=== PATIENT | male | born 1965 | race Caucasian/White ===

== ENCOUNTER 2020-07-20 | Outpatient (REF) | payer MEDICARE, MEDICAID, SELFPAY ==
[2020-07-20 09:36] LABS: MANUAL DIFF FLAG NO
[2020-07-20 09:45] LABS: Basophils Percent Auto 0.2 % (0-2); Eosinophils Absolute Auto 0.4 X10*3/uL (0.0-0.4); Eosinophils Percent Auto 5.9 % (0-4); Hematocrit 39.8 % (42-52); Hemoglobin 12.9 g/dl (14.0-18.0); Imm Gran Abs Auto 0.01 X10*3/uL (0.00-0.03); Imm Gran Pct Auto 0.2 % (0.0-0.4); Lymphocytes Absolute Auto 2.6 X10*3/uL (1.2-4.9); Lymphocytes Percent Auto 40.6 % (20-40); Mean Corpuscular HGB Conc 32.4 g/dl (31.0-36.0); Mean Corpuscular Hemoglobin 30.4 pg (27.0-33.0); Mean Corpuscular Volume 93.6 fL (80-98); Mean Platelet Volume 10.5 fL (9.4-12.4); Monocytes Absolute Auto 0.4 X10*3/uL (0.1-1.2); Monocytes Percent Auto 6.8 % (2-11); Neutrophils Percent Auto 46.3 % (45-73); Platelet Count 202 X10*3/uL (160-400); Red Blood Count 4.25 X10*6/uL (4.60-5.80); Red Cell Distribution Width 12.6 % (11.0-16.0); White Blood Count 6.5 X10*3/uL (4.8-10.8)
[2020-07-20 10:29] LABS: Alanine Aminotransferase 16 U/L (0-40); Anion Gap 14 (12-20); Aspartate Amino Transferase 19 U/L (5-37); Blood Urea Nitrogen 9 mg/dL (9-16); Calcium 8.5 mg/dL (8.4-10.2); Carbon Dioxide 28 mmol/L (22-29); Chloride 102 mmol/L (96-108); Cholesterol 157 mg/dL; Creatinine Clr Calc Pharmacy 89.4; Estimated Glomerular Filt Rate > 60; Glucose Fasting 90 mg/dL (60-99); HDL Cholesterol 48 mg/dL; LDL Cholesterol Calculated 92 mg/dl; Potassium 4.3 mmol/l (3.3-5.1); Sodium 140 mmol/L (135-145); Triglycerides 85 mg/dL
[2020-07-24 00:17] LABS: Vitamin D 25-OH, D2 <4 ng/mL; Vitamin D 25-OH, D3 53 ng/mL; Vitamin D 25-OH, Total 53 ng/mL (30-100)
== END 2020-07-20 00:01 | disposition home or self-care (01) ==
LOC: HO.LNP
PROVIDERS: Visit Provider Internal Medicine
DX: E78.5 Hyperlipidemia, unspecified (principal); E55.9 Vitamin D deficiency, unspecified; I10 Essential (primary) hypertension
CPT/HCPCS: 36415; 80048; 80061; 82306; 84450; 84460; 85025

== ENCOUNTER 2020-07-24 09:12 | Outpatient (REF) | payer MEDICARE, MEDICAID, SELFPAY | END 2020-07-24 09:13 | disposition home or self-care (01) | LOC: HO.HMGCLDS 09:12 | PROVIDERS: PCP Internal Medicine; Visit Provider Internal Medicine | DX: Z20.828 Contact with and (suspected) exposure to other viral communicable diseases (principal) | CPT/HCPCS: C9803; U0003 ==

== ENCOUNTER 2020-08-18 13:55 | Outpatient (REF) | payer MEDICARE, MEDICAID, SELFPAY | END 2020-08-18 13:56 | disposition home or self-care (01) | LOC: HO.LNP 13:55 | PROVIDERS: Visit Provider Nurse Practitioner Family | DX: Z20.822 Contact with and (suspected) exposure to COVID-19 (principal) | CPT/HCPCS: U0003 ==

== ENCOUNTER 2020-08-23 17:08 | Inpatient (IN) | payer MEDICARE, MEDICAID, SELFPAY ==
[2020-08-23 17:22] VITALS: BP 138/76; PULSE 67; RESP 16; TEMP 36.6; O2SAT 97; BMI 21.5
--- NOTE | 2020-08-23 17:53 | XR_ITS ---
EXAMINATION: LUMBOSACRAL SPINE, LEFT HIP CLINICAL INFORMATION: Fall on left hip with hip and back pain COMPARISON: Bilateral hip radiograph 04/27/2018 TECHNIQUE: Single view pelvis with 2 additional views left hip, 3 views lumbar sacral spine FINDINGS: There is a subcapital, slightly impacted fracture involving the left femoral neck with minimal angulation. No other fracture is seen. Minimal degenerative changes are present in the lumbar spine with marked degenerative changes present in the lower visualized thoracic spine. No fractures or bony destructive lesions seen. Clips are noted in the gallbladder fossa. XR/XR lumbar spine 2-3V IMPRESSION: Acute subcapital left femoral neck fracture.
--- NOTE | 2020-08-23 17:53 | XR_ITS ---
EXAMINATION: LUMBOSACRAL SPINE, LEFT HIP CLINICAL INFORMATION: Fall on left hip with hip and back pain COMPARISON: Bilateral hip radiograph 04/27/2018 TECHNIQUE: Single view pelvis with 2 additional views left hip, 3 views lumbar sacral spine FINDINGS: There is a subcapital, slightly impacted fracture involving the left femoral neck with minimal angulation. No other fracture is seen. Minimal degenerative changes are present in the lumbar spine with marked degenerative changes present in the lower visualized thoracic spine. No fractures or bony destructive lesions seen. Clips are noted in the gallbladder fossa. XR/XR hip LT w PEL1V IMPRESSION: Acute subcapital left femoral neck fracture.
--- NOTE | 2020-08-23 17:59 | ED_ITS ---
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 History obtained from family member at bedside, per family patient had mechanical fall without preceding symptoms landing on left hip, no head trauma or LOC reported. Was having difficulty/pain with ambulation s/p event with decreased ROM. Denies injury to other area Related Data Home Medications Medication Instructions Recorded Confirmed cholecalciferol (vitamin D3) 25 25 mcg PO DAILY 06/15/20 06/15/20 mcg (1,000 unit) capsule diazepam 2 mg tablet 2 mg PO DAILY PRN tab 06/15/20 docusate sodium 100 mg capsule 100 mg PO DAILY PRN 06/15/20 06/15/20 epinephrine 0.3 mg/0.3 mL IM 06/15/20 injection, auto-injector propranolol 20 mg tablet 20 mg PO BID 06/15/20 risperidone 0.5 mg tablet 0.5 mg PO BID 06/15/20 Previous Rx's Medication Instructions Recorded simvastatin 20 mg tablet 20 mg PO BEDTIME #90 tab 08/03/20 Allergies Allergy/AdvReac Type Severity Reaction Status Date / Time acetaminophen [From ENDOCET] Allergy Unknown HIVES Verified 06/15/20 08:44 amoxicillin [From AUGMENTIN] Allergy Unknown HIVES Verified 06/15/20 08:44 cefuroxime [CEFUROXIME] Allergy Unknown HIVES Verified 06/15/20 08:44 ciprofloxacin [From CIPRO] Allergy Unknown HIVES, Verified 06/15/20 08:44 Rash, rash clarithromycin [From BIAXIN] Allergy Unknown HIVES Verified 06/15/20 08:44 clavulanic acid Allergy Unknown HIVES Verified 06/15/20 08:44 [From AUGMENTIN] morphine [MORPHINE] Allergy Unknown HIVES, Verified 06/15/20 08:44 Rash, rash oxycodone [From ENDOCET] Allergy Unknown HIVES Verified 06/15/20 08:44 Review of Systems Review of Systems: Constitutional: No Weight loss, No Fever, No Chills Cardiovascular: No Chest Pain, No SOB Respiratory: No Cough Gastrointestinal: No Nausea, No Vomiting Genitourinary:No Urinary Incontinence Musculoskeletal: +joint pain, No Myalgias, No Joint Swelling Skin: No Skin Lesions, No rash Neuro: No Weakness Yes all other systems are reviewed and are negative [facility] Past Medical History Attestation statement: The following information was validated with the patient. Medical History Cerebral palsy Dyslipidemia Gallstones Left inguinal hernia 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 Psychotic disorder Sensorineural hearing loss Vitamin D deficiency Surgical History History of colonoscopy Hx laparoscopic cholecystectomy S/P inguinal herniorrhaphy Family History Family History Father Medical history non-contributory Mother Medical history non-contributory Social History Social History Alcohol intake: never Smoking Status: Never smoker Smoked in Last 30 Days: No Use of substances other than those prescribed or required for medical reasons: No Any prior treatment program specific to substance use: No Advance Directives: No Advance Directives Information Provided: Yes Physical Exam Vital Signs: Vital Signs: Last Vital Signs Temp 97.9 F 08/23/20 19:06 Pulse 74 08/23/20 19:06 Resp 18 08/23/20 19:06 BP 128/66 08/23/20 19:06 Pulse Ox 99 08/23/20 19:06 Body Mass Index 21.5 Const: General: cooperative and no acute distress Limitations: no limitations HENMT: Head: Yes normal to inspection Ears: hearing grossly normal bilaterally General nose exam: Normal external nose present Face and sinus: Yes normal facial exam Eyes: General: appearance normal, both eyes and all related structures EOM: EOMs intact bilaterally Neck: Other: No midline cervical spinous tenderness Neck: Yes normal visual inspection and Yes no meningeal signs Resp: Effort & Inspection: normal respiratory effort Cardio: Rate: regular rate Peripheral pulses: dorsalis pedis present GI: Inspection: Yes normal to inspection Palpation (GI): Soft to palpation, nontender, no guarding and not rigid Back/Spine/Pelvis: Other: + right-sided lower lumbar MSK back ttp. No midline thoracic/lumbar spinous tenderness. No step-offs or back deformity noted Skin: Rashes: no rashes Wounds: no wounds Neuro: General: tone normal, moves all extremities and no meningeal signs Extrem: Other: + left hip ttp, no appreciable deformity. Pain with passive ROM. Neurovascularly intact distally. Pelvis stable General: Yes normal to inspection Course Course Course Narrative: * Hip/pelvis x-ray showing acute subcapital left femoral neck fracture > orthopedics consulted. 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 On exam VSS, in ED/well-appearing, left hip and left lower lumbar back with +ttp. No appreciable deformity. Pain with passive ROM of left hip. Concern for fracture/dislocation versus bruising or MSK pain. Plan: X-rays > if WNL will obtain CT to rule out occult fracture due to patient unable to provide own history Lab Data Result diagrams: 08/23/20 19:49 08/23/20 19:49 Labs: Lab Results 08/23/20 08/23/20 08/23/20 Range/Units 19:49 19:49 19:49 WBC 11.6 H (4.8-10.8) X10*3/uL RBC 4.37 L (4.60-5.80) X10*6/uL Hgb 13.8 L (14.0-18.0) g/dl Hct 41.1 L (42-52) % MCV 94.1 (80-98) fL MCH 31.6 (27.0-33.0) pg MCHC 33.6 (31.0-36.0) g/dl RDW 12.6 (11.0-16.0) % Plt Count 244 (160-400) X10*3/uL MPV 9.1 L (9.4-12.4) fL Immature Gran % (Auto) 0.4 (0.0-0.4) % Neut % (Auto) 83.6 H (45-73) % Lymph % (Auto) 11.1 L (20-40) % [place] % (Auto) 4.6 (2-11) % Eos % (Auto) 0.2 (0-4) % Baso % (Auto) 0.1 (0-2) % Lymph # (Auto) 1.3 (1.2-4.9) X10*3/uL [place] # (Auto) 0.5 (0.1-1.2) X10*3/uL Eos # (Auto) 0.0 (0.0-0.4) X10*3/uL Baso # (Auto) 0.0 (0.0-0.2) X10*3/uL Abs Immat Gran (auto) 0.05 H (0.00-0.03) X10*3/uL Absolute Neuts (auto) 9.7 H (2.0-8.3) X10*3/uL Absolute Nucleated RBC 0.000 (0.0-0.012) X10*3/uL Nucleated RBC % (auto) 0.0 (0.0-0.2) /100WBC Hold Blue Top Sodium 139 (135-145) mmol/L Potassium 4.5 (3.3-5.1) mmol/l Chloride 101 (96-108) mmol/L Carbon Dioxide 25 (22-29) mmol/L Anion Gap 18 (12-20) BUN 10 (9-16) mg/dL Creatinine 0.72 (0.5-1.4) mg/dL Estim Creat Clear Calc 86.7 Estimated GFR > 60 Random Glucose 125 H (60-115) mg/dL Calcium 9.1 D (8.4-10.2) mg/dL COVID-19 (IGNACIA) Negative (Negative) COVID-19 Clin Com See Note 08/23/20 Range/Units 19:49 WBC (4.8-10.8) X10*3/uL RBC (4.60-5.80) X10*6/uL Hgb (14.0-18.0) g/dl Hct (42-52) % MCV (80-98) fL MCH (27.0-33.0) pg MCHC (31.0-36.0) g/dl RDW (11.0-16.0) % Plt Count (160-400) X10*3/uL MPV (9.4-12.4) fL Immature Gran % (Auto) (0.0-0.4) % Neut % (Auto) (45-73) % Lymph % (Auto) (20-40) % [place] % (Auto) (2-11) % Eos % (Auto) (0-4) % Baso % (Auto) (0-2) % Lymph # (Auto) (1.2-4.9) X10*3/uL [place] # (Auto) (0.1-1.2) X10*3/uL Eos # (Auto) (0.0-0.4) X10*3/uL Baso # (Auto) (0.0-0.2) X10*3/uL Abs Immat Gran (auto) (0.00-0.03) X10*3/uL Absolute Neuts (auto) (2.0-8.3) X10*3/uL Absolute Nucleated RBC (0.0-0.012) X10*3/uL Nucleated RBC % (auto) (0.0-0.2) /100WBC Hold Blue Top SEE NOTE Sodium (135-145) mmol/L Potassium (3.3-5.1) mmol/l Chloride (96-108) mmol/L Carbon Dioxide (22-29) mmol/L Anion Gap (12-20) BUN (9-16) mg/dL Creatinine (0.5-1.4) mg/dL Estim Creat Clear Calc Estimated GFR Random Glucose (60-115) mg/dL Calcium (8.4-10.2) mg/dL COVID-19 (IGNACIA) (Negative) COVID-19 Clin Com Discharge Plan Discharge Clinical Impression: Femoral neck fracture Qualifiers: Encounter type: initial encounter Fracture type: closed Laterality: left Qualified Code(s): S72.002A - Fracture of unspecified part of neck of left femur, initial encounter for closed fracture Patient Disposition: Admitted As Inpatient
--- NOTE | 2020-08-23 19:01 | ECG_ITS ---
Test Reason : FALL Blood Pressure : / mmHG Vent. Rate : 074 BPM Atrial Rate : 258 BPM P-R Int : 000 ms QRS Dur : 102 ms QT Int : 416 ms P-R-T Axes : 000 -75 051 degrees QTc Int : 461 ms Poor data quality Possible Normal sinus rhythm Pulmonary disease pattern Left anterior fascicular block Abnormal ECG When compared with ECG of 12-MAR-2004 07:21, T wave inversion no longer evident in Inferior leads T wave inversion no longer evident in Anterior leads QT has lengthened Referred By: Li Montero Electronically Signed By:CHARISSA GAITAN MD
--- NOTE | 2020-08-23 19:02 | XR_ITS ---
EXAMINATION: XR CHEST CLINICAL INFORMATION: Operative screening COMPARISON: None TECHNIQUE: Frontal view of the chest was obtained. FINDINGS: Lungs are hypoexpanded with some mild elevation of the left hemidiaphragm. Allowing for this, no significant abnormality is seen aside from the presence of mild scoliosis and degenerative changes in the spine and right shoulder. No infiltrates, effusions or lung masses are seen. XR/XR chest 1V IMPRESSION: No acute intrathoracic disease.
[2020-08-23 19:06] VITALS: BP 128/66; PULSE 74; RESP 18; TEMP 36.6; O2SAT 99
[2020-08-23] MEDS: Ibuprofen 600 MG TABLET PO (19:29)
--- NOTE | 2020-08-23 19:30 | P.EN_ITS ---
Event Note Date of Service: 08/23/20 Event Note: 54 yo male with left subcapital hip fracture pmh significant for c erebal palsy, psychosis, non verbal, developmental delay. -plan is to admit to orthopedic service for surgical planning --he will require clearance from medicine and anesthesia going forward ---npo, t&s
[2020-08-23 19:53] LABS: MANUAL DIFF FLAG NO
[2020-08-23 19:58] LABS: Basophils Percent Auto 0.1 % (0-2); Eosinophils Percent Auto 0.2 % (0-4); Hematocrit 41.1 % (42-52); Hemoglobin 13.8 g/dl (14.0-18.0); Imm Gran Abs Auto 0.05 X10*3/uL (0.00-0.03); Imm Gran Pct Auto 0.4 % (0.0-0.4); Lymphocytes Absolute Auto 1.3 X10*3/uL (1.2-4.9); Lymphocytes Percent Auto 11.1 % (20-40); Mean Corpuscular HGB Conc 33.6 g/dl (31.0-36.0); Mean Corpuscular Hemoglobin 31.6 pg (27.0-33.0); Mean Corpuscular Volume 94.1 fL (80-98); Mean Platelet Volume 9.1 fL (9.4-12.4); Monocytes Absolute Auto 0.5 X10*3/uL (0.1-1.2); Monocytes Percent Auto 4.6 % (2-11); Neutrophils Absolute Auto 9.7 X10*3/uL (2.0-8.3); Neutrophils Percent Auto 83.6 % (45-73); Platelet Count 244 X10*3/uL (160-400); Red Blood Count 4.37 X10*6/uL (4.60-5.80); Red Cell Distribution Width 12.6 % (11.0-16.0); White Blood Count 11.6 X10*3/uL (4.8-10.8)
[2020-08-23 20:11] LABS: COVID-19 Test Negative (Negative)
[2020-08-23 20:19] LABS: Anion Gap 18 (12-20); Blood Urea Nitrogen 10 mg/dL (9-16); Calcium 9.1 mg/dL (8.4-10.2); Carbon Dioxide 25 mmol/L (22-29); Chloride 101 mmol/L (96-108); Creatinine Clr Calc Pharmacy 86.7; Estimated Glomerular Filt Rate > 60; Glucose Random 125 mg/dL (60-115); Potassium 4.5 mmol/l (3.3-5.1); Sodium 139 mmol/L (135-145)
--- NOTE | 2020-08-23 21:00 | PM.IMCN ---
History of Present Illness Data of Consult Service Date: 08/23/20 Primary Care Provider: Harish AYON Reason for consult: medical management Male with past medical history of cerebral palsy, sensorineural hearing loss, nonverbal at baseline, dyslipidemia, osteoarthritis, psychotic disorder, who is brought into the hospital after experiencing a mechanical fall while dancing at [employer]. History is obtained from his father at bedside as patient is nonverbal and unable to give much history. According to his father, patient usually goes to [employer] daily, was dancing, and was reported to have a fall, patient was able to ambulate and was. His father in his family noted him to be limping, and grimacing on any movement. Therefore they brought him to the hospital. Imaging of the left hip showed acute subcapital left femoral neck fracture. Orthopedic is admitting the patient in medical team is consulted for medical management. I am unable to obtain any review of system from patient as he is nonverbal No significant abnormal vitals Labs are significant for WBC count of 11.6, hemoglobin of 13.8 labs otherwise unremarkable. Chest x-ray negative, lumbar spine x-ray negative. 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 Psychotic disorder Sensorineural hearing loss Vitamin D deficiency Family History Father Medical history non-contributory Mother Medical history non-contributory Surgical History History of colonoscopy Hx laparoscopic cholecystectomy S/P inguinal herniorrhaphy Social History Alcohol intake: never Smoking Status: Never smoker Smoked in Last 30 Days: No Use of substances other than those prescribed or required for medical reasons: No Any prior treatment program specific to substance use: No Advance Directives: No Advance Directives Information Provided: Yes Meds Allergies Allergy/AdvReac Type Severity Reaction Status Date / Time acetaminophen [From ENDOCET] Allergy Unknown HIVES Verified 06/15/20 08:44 amoxicillin [From AUGMENTIN] Allergy Unknown HIVES Verified 06/15/20 08:44 cefuroxime [CEFUROXIME] Allergy Unknown HIVES Verified 06/15/20 08:44 ciprofloxacin [From CIPRO] Allergy Unknown HIVES, Verified 06/15/20 08:44 Rash, rash clarithromycin [From BIAXIN] Allergy Unknown HIVES Verified 06/15/20 08:44 clavulanic acid Allergy Unknown HIVES Verified 06/15/20 08:44 [From AUGMENTIN] morphine [MORPHINE] Allergy Unknown HIVES, Verified 06/15/20 08:44 Rash, rash oxycodone [From ENDOCET] Allergy Unknown HIVES Verified 06/15/20 08:44 Home Medications Medication Instructions Recorded Confirmed Type cholecalciferol (vitamin D3) 25 25 mcg PO DAILY 06/15/20 06/15/20 History mcg (1,000 unit) capsule diazepam 2 mg tablet 2 mg PO DAILY PRN tab 06/15/20 History docusate sodium 100 mg capsule 100 mg PO DAILY PRN 06/15/20 06/15/20 History epinephrine 0.3 mg/0.3 mL IM 06/15/20 History injection, auto-injector propranolol 20 mg tablet 20 mg PO BID 06/15/20 History risperidone 0.5 mg tablet 0.5 mg PO BID 06/15/20 History Physical Exam Vital Signs and Narrative: Vital Signs: Last Vital Signs Temp 97.9 F 08/23/20 19:06 Pulse 74 08/23/20 19:06 Resp 18 08/23/20 19:06 BP 128/66 08/23/20 19:06 Pulse Ox 99 08/23/20 19:06 Body Mass Index 21.5 Const: Other: Nonverbal General: cooperative and no acute distress Eyes: General: appearance normal, both eyes and all related structures Resp: Effort & Inspection: normal respiratory effort and able to speak in complete sentences Cardio: Rate: regular rate Rhythm: regular rhythm GI: Palpation (GI): Soft to palpation Auscultation: normal bowel sounds Skin: General skin exam: no rashes or lesions noted Neuro: Cognition (Neuro): normal cognition Extrem: Other: Grimaces in pain on palpation of left hip General: Yes normal to inspection and Yes no pedal edema Results Labs CBC and Chem 7: 08/23/20 19:49 08/23/20 19:49 Labs: Laboratory Results - last 24 hr 08/23/20 08/23/20 08/23/20 19:49 19:49 19:49 MCV 94.1 MCH 31.6 MCHC 33.6 RDW 12.6 Plt Count 244 MPV 9.1 L Immature Gran % (Auto) 0.4 Neut % (Auto) 83.6 H Lymph % (Auto) 11.1 L [place] % (Auto) 4.6 Eos % (Auto) 0.2 Baso % (Auto) 0.1 Lymph # (Auto) 1.3 [place] # (Auto) 0.5 Eos # (Auto) 0.0 Baso # (Auto) 0.0 Abs Immat Gran (auto) 0.05 H Absolute Neuts (auto) 9.7 H Absolute Nucleated RBC 0.000 Nucleated RBC % (auto) 0.0 Hold Blue Top Anion Gap 18 Estim Creat Clear Calc 86.7 Estimated GFR > 60 Random Glucose 125 H Calcium 9.1 D COVID-19 (IGNACIA) Negative COVID-19 Clin Com See Note 08/23/20 19:49 MCV MCH MCHC RDW Plt Count MPV Immature Gran % (Auto) Neut % (Auto) Lymph % (Auto) [place] % (Auto) Eos % (Auto) Baso % (Auto) Lymph # (Auto) [place] # (Auto) Eos # (Auto) Baso # (Auto) Abs Immat Gran (auto) Absolute Neuts (auto) Absolute Nucleated RBC Nucleated RBC % (auto) Hold Blue Top SEE NOTE Anion Gap Estim Creat Clear Calc Estimated GFR Random Glucose Calcium COVID-19 (IGNACIA) COVID-19 Clin Com Imaging Radiologist's Impressions: Impressions Hip/Pelvis X-Ray 08/23/20 17:53 IMPRESSION: Acute subcapital left femoral neck fracture. Lumbar Spine X-Ray 08/23/20 17:53 IMPRESSION: Acute subcapital left femoral neck fracture. Chest X-Ray 08/23/20 19:02 IMPRESSION: No acute intrathoracic disease. Assessment and Plan (1) Femoral neck fracture: Qualifiers: Encounter type: initial encounter Fracture type: closed Laterality: left Qualified Code(s): S72.002A - Fracture of unspecified part of neck of left femur, initial encounter for closed fracture Status: Acute This is a 54-year-old male with past medical history of cerebral palsy as well as nonverbal at baseline who presents to the hospital after mechanical fall and sustaining a femoral neck fracture. Medical team is consulted for medical management # femoral neck fracture - patient scheduled for surgery in a.m. orthopedic surgeon - pain management per Orthopedics # psychotic disorder - patient on risperidone at baseline - father states that risperidone has been stopped due to tardive dyskinesia - will not resume med # hyperlipidemia - continue statin # anxiety - a diazepam p.r.n. # vitamin-D deficiency - continue vitamin-D supplement DVT prophylaxis: SCDs
[2020-08-23 21:03] LABS: Glucose Urine UA NEG (NEG); Leukocyte Esterase Urine NEG (NEG); Nitrite Urine NEG (NEG); Urine Blood NEG (NEG); Urine Ketones 40 MG/DL (NEG); Urine Protein NEG (NEG-TRACE)
[2020-08-23 21:04] LABS: Appearance Urine CLEAR; Color Urine YELLOW
[2020-08-23 23:08] VITALS: BP 129/69; PULSE 90; RESP 20; TEMP 37.4; O2SAT 94
[2020-08-24] VITALS (18 sets, daily range): BP systolic 103–148; BP diastolic 53–81; PULSE 83–102; RESP 16–18; TEMP 36.1–37.8; O2SAT 90–100
--- NOTE | 2020-08-24 01:06 | PC.NURSE ---
FATHER AT BEDSIDE WITH PT. PER FATHER PT NORMAL SLEEP WITH CPAP AT NIGHT BUT HE DID NOT BRING ONE AND HE IS UNABLE TO GET ONE FROM HOME. PER FATHER PT SHOULD BE FINE WITHOUT CPAP H\BECAUSE PT ONLY USES 4 HOUR A NIGHT TOLERATED.
--- NOTE | 2020-08-24 01:12 | PC.NURSE ---
PER RESP THERAPY AND FATHER IT IS BETTER TO HAVE PT BRING CPAP IN TOMORROW WITH OWN SETTING AND MASK.
--- NOTE | 2020-08-24 01:36 | PC.NURSE ---
REPORT GIVEN TO TITI VELASCO.
[2020-08-24] MEDS: Ibuprofen 600 MG TABLET PO (05:14)
--- NOTE | 2020-08-24 07:58 | P.HPOP_ITS ---
History of Present Illness History of Present Illness Date of Service: 08/24/20 Chief complaint: Left hip subcapital fracture Narrative: Sander Shook JR is a 54 year old male who presents to the ED with lt hip pain. Pt. is nonverbal who is with his father. His father states that he was at [place] [employer] for his day program and was dancing when he fell onto the lt hip. After his fall he began limping so they gave him tylenol for pain. When the pt was bused back home his father attempted to help him off of the bus and states that he was having a difficult time weightbearing so shortly after presented to the ED. X-Rays were obtained and he was found to have a lt hip subcapital fracture and orthopedics was consulted. Plan was to admit to orthopedic service for further evaluation and planning. 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 Psychotic disorder Sensorineural hearing loss Vitamin D deficiency Family History Family History Father Medical history non-contributory Mother Medical history non-contributory Surgical History Surgical History History of colonoscopy Hx laparoscopic cholecystectomy S/P inguinal herniorrhaphy Social History Social History Alcohol intake: never Smoking Status: Never smoker Smoked in Last 30 Days: No Use of substances other than those prescribed or required for medical reasons: No Any prior treatment program specific to substance use: No Advance Directives: No Advance Directives Information Provided: Yes Meds Allergies Allergy/AdvReac Type Severity Reaction Status Date / Time acetaminophen [From ENDOCET] Allergy Unknown HIVES Verified 06/15/20 08:44 amoxicillin [From AUGMENTIN] Allergy Unknown HIVES Verified 06/15/20 08:44 cefuroxime [CEFUROXIME] Allergy Unknown HIVES Verified 06/15/20 08:44 ciprofloxacin [From CIPRO] Allergy Unknown HIVES, Verified 06/15/20 08:44 Rash, rash clarithromycin [From BIAXIN] Allergy Unknown HIVES Verified 06/15/20 08:44 clavulanic acid Allergy Unknown HIVES Verified 06/15/20 08:44 [From AUGMENTIN] morphine [MORPHINE] Allergy Unknown HIVES, Verified 06/15/20 08:44 Rash, rash oxycodone [From ENDOCET] Allergy Unknown HIVES Verified 06/15/20 08:44 Home Medications Medication Instructions Recorded Confirmed Type cholecalciferol (vitamin D3) 25 25 mcg PO DAILY 06/15/20 08/23/20 History mcg (1,000 unit) capsule diazepam 2 mg tablet 2 mg PO DAILY PRN tab MDD 12mg 06/15/20 08/23/20 History docusate sodium 100 mg capsule 100 mg PO DAILY PRN 06/15/20 08/23/20 History epinephrine 0.3 mg/0.3 mL IM 06/15/20 History injection, auto-injector propranolol 20 mg tablet 20 mg PO BID 06/15/20 08/23/20 History Physical Exam Vital Signs: Vital Signs: Last Vital Signs Temp 98.3 F 08/24/20 06:00 Pulse 83 08/24/20 06:00 Resp 18 08/24/20 06:00 BP 120/69 08/24/20 06:00 Pulse Ox 93 08/24/20 06:00 Body Mass Index 21.5 Const: General: cooperative, healthy appearing, comfortable, no acute distress, well developed, alert and awake Orientation/consciousness: patient oriented x3 HENMT: Head: Yes normal to inspection, Yes normocephalic and Yes atraumatic Eyes: General: appearance normal, both eyes and all related structures Neck: Neck: Yes normal visual inspection and Yes no lymphadenopathy Resp: Effort & Inspection: normal respiratory effort and able to speak in complete sentences Cardio: Rate: regular rate Peripheral pulses: Peripheral pulses 2+ throughout GI: Inspection: Yes normal to inspection Palpation (GI): Soft to palpation Skin: General skin exam: no rashes or lesions noted Neuro: General: patient oriented x3 Extrem: Other: LT Hip skin intact, no ecchymosis or lesions. Pt. unable to verbalize pain. He has the ability to do a straight leg raise. X-rays of the left hip demonstrate a subcapital femoral neck fracture. Psych: Mental Status: mental status grossly normal Results Labs Result Diagrams: 08/23/20 19:49 08/23/20 19:49 Labs: Abnormal lab results 08/23/20 08/23/20 Range/Units 19:49 19:49 WBC 11.6 H (4.8-10.8) X10*3/uL RBC 4.37 L (4.60-5.80) X10*6/uL Hgb 13.8 L (14.0-18.0) g/dl Hct 41.1 L (42-52) % MPV 9.1 L (9.4-12.4) fL Neut % (Auto) 83.6 H (45-73) % Lymph % (Auto) 11.1 L (20-40) % Abs Immat Gran (auto) 0.05 H (0.00-0.03) X10*3/uL Absolute Neuts (auto) 9.7 H (2.0-8.3) X10*3/uL Random Glucose 125 H (60-115) mg/dL H & H 08/23/20 Range/Units 19:49 Hgb 13.8 L (14.0-18.0) g/dl Hct 41.1 L (42-52) % All other labs normal. Assessment and Plan (1) Femoral neck fracture: Qualifiers: Encounter type: initial encounter Fracture type: closed Laterality: left Qualified Code(s): S72.002A - Fracture of unspecified part of neck of left femur, initial encounter for closed fracture Status: Acute I discussed the case with Dr. Moore and explained the extent of the injury to the patient and his father and options available which include surgical intervention. I explained the procedure in detail along with the length of recovery and rehab course. I explained the risk, benefits and alternatives. Risk including, but not limited to infection, blood clots, bleeding, non union or malunion and nerve/tissue damage to surrounding areas. I answered all of their questions and with their understanding they have consented to move forward with Operative Fixation of the left hip. The patient will be T&S, med clearance obtained and remain NPO.
[2020-08-24] MEDS: Dextrose 5 % and 0.45 % NaCl 1,000 ML 100 ML IVCONT ×2 (10:21→20:49)
[2020-08-24] MEDS: 0.9 % Sodium Chloride Flush 3 ML SYRINGE IVFLUSH ×2 (10:22→16:54)
--- NOTE | 2020-08-24 10:35 | PM.IMCN ---
History of Present Illness Data of Consult Service Date: 08/24/20 Requesting physician: Blanco Moore Primary Care Provider: Unknown Physician HPI Reason for consult: Medical Mangement 54 year old mentally challenged man with history hyperlipidemia and cerebral palsy was admitted by orthopedic surgery and is status post Left hip arthroplasty secondary to a fall. His vital signs are stable, labs from yesterday within normal limits. Review of Systems Review of Systems: Denies any recent fever chills or decrease in appetite respiratory denies any shortness of breath coverage production cardiovascular is adjustment of any PND or edema gastrointestinal denies any dysphagia abdominal pain nausea vomiting or diarrhea genitourinary denies any dysuria frequency or hematuria musculoskeletal denies any joint pain or swelling neuropsych denies any weakness or seizures all other systems reviewed are negative [facility] Medical History Cerebral palsy Dyslipidemia Gallstones Left inguinal hernia 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 Psychotic disorder Sensorineural hearing loss Vitamin D deficiency Family History Father Medical history non-contributory Mother Medical history non-contributory Surgical History History of colonoscopy Hx laparoscopic cholecystectomy S/P inguinal herniorrhaphy Social History Household Members: Family Housing: House Do you presently have visiting nurse or other home services: No Alcohol intake: never Smoking Status: Never smoker Smoked in Last 30 Days: No Use of substances other than those prescribed or required for medical reasons: No Currently Displaying Signs/Symptoms of Drug Intoxication Withdrawal: No Any prior treatment program specific to substance use: No Have you been hit, kicked, punched, or otherwise hurt by someone within the past year? If so, by whom?: No Do you feel safe in your current relationship?: No Current Relationship Is there a partner from a previous relationship who is making you feel unsafe now?: No Are you made to feel afraid or neglected: No Advance Directives: No Advance Directives Information Provided: Yes Do you have thoughts of harming others: None Do you have a plan to hurt others: No Plan Recently lost weight without trying: Unsure Meds Allergies Allergy/AdvReac Type Severity Reaction Status Date / Time acetaminophen [From ENDOCET] Allergy Unknown HIVES Verified 06/15/20 08:44 amoxicillin [From AUGMENTIN] Allergy Unknown HIVES Verified 06/15/20 08:44 cefuroxime [CEFUROXIME] Allergy Unknown HIVES Verified 06/15/20 08:44 ciprofloxacin [From CIPRO] Allergy Unknown HIVES, Verified 06/15/20 08:44 Rash, rash clarithromycin [From BIAXIN] Allergy Unknown HIVES Verified 06/15/20 08:44 clavulanic acid Allergy Unknown HIVES Verified 06/15/20 08:44 [From AUGMENTIN] morphine [MORPHINE] Allergy Unknown HIVES, Verified 06/15/20 08:44 Rash, rash oxycodone [From ENDOCET] Allergy Unknown HIVES Verified 06/15/20 08:44 Home Medications Medication Instructions Recorded Confirmed Type cholecalciferol (vitamin D3) 25 25 mcg PO DAILY 06/15/20 08/23/20 History mcg (1,000 unit) capsule diazepam 2 mg tablet 2 mg PO DAILY PRN tab MDD 12mg 06/15/20 08/23/20 History docusate sodium 100 mg capsule 100 mg PO DAILY PRN 06/15/20 08/23/20 History epinephrine 0.3 mg/0.3 mL IM 06/15/20 History injection, auto-injector propranolol 20 mg tablet 20 mg PO BID 06/15/20 08/23/20 History Physical Exam Vital Signs and Narrative: Vital Signs: Last Vital Signs Temp 99.5 F 08/24/20 09:56 Pulse 84 08/24/20 09:56 Resp 17 08/24/20 09:56 BP 115/67 08/24/20 09:56 Pulse Ox 91 L 08/24/20 09:56 Body Mass Index 21.5 Appearing in no acute distress head is normocephalic atraumatic eyes pupils are PERRLA sclera is anicteric mouth throat mucous membranes are intact and moist neck is supple no lymphadenopathy, no JVD noted lung sounds are clear to auscultation heart regular rate rhythm, clear S1, S2 positive bowel sounds, abdomen is soft, nontender neuro patient is alert x3, no focal deficits Results Labs CBC and Chem 7: 08/23/20 19:49 08/23/20 19:49 Labs: Laboratory Results - last 24 hr 08/23/20 08/23/20 08/23/20 19:49 19:49 19:49 MCV 94.1 MCH 31.6 MCHC 33.6 RDW 12.6 Plt Count 244 MPV 9.1 L Immature Gran % (Auto) 0.4 Neut % (Auto) 83.6 H Lymph % (Auto) 11.1 L [place] % (Auto) 4.6 Eos % (Auto) 0.2 Baso % (Auto) 0.1 Lymph # (Auto) 1.3 [place] # (Auto) 0.5 Eos # (Auto) 0.0 Baso # (Auto) 0.0 Abs Immat Gran (auto) 0.05 H Absolute Neuts (auto) 9.7 H Absolute Nucleated RBC 0.000 Nucleated RBC % (auto) 0.0 Hold Blue Top Anion Gap 18 Estim Creat Clear Calc 86.7 Estimated GFR > 60 Random Glucose 125 H Calcium 9.1 D Urine Color Urine Appearance Urine pH Ur Specific [place] Urine Protein Urine Glucose (UA) Urine Ketones Urine Blood Urine Nitrite Ur Leukocyte Esterase COVID-19 (IGNACIA) Negative COVID-19 Clin Com See Note 08/23/20 08/23/20 19:49 20:52 MCV MCH MCHC RDW Plt Count MPV Immature Gran % (Auto) Neut % (Auto) Lymph % (Auto) [place] % (Auto) Eos % (Auto) Baso % (Auto) Lymph # (Auto) [place] # (Auto) Eos # (Auto) Baso # (Auto) Abs Immat Gran (auto) Absolute Neuts (auto) Absolute Nucleated RBC Nucleated RBC % (auto) Hold Blue Top SEE NOTE Anion Gap Estim Creat Clear Calc Estimated GFR Random Glucose Calcium Urine Color YELLOW Urine Appearance CLEAR Urine pH 6.0 Ur Specific [place] 1.020 Urine Protein NEG Urine Glucose (UA) NEG Urine Ketones 40 Urine Blood NEG Urine Nitrite NEG Ur Leukocyte Esterase NEG COVID-19 (IGNACIA) COVID-19 Clin Com Imaging Radiologist's Impressions: Impressions Hip/Pelvis X-Ray 08/23/20 17:53 IMPRESSION: Acute subcapital left femoral neck fracture. Lumbar Spine X-Ray 08/23/20 17:53 IMPRESSION: Acute subcapital left femoral neck fracture. Chest X-Ray 08/23/20 19:02 IMPRESSION: No acute intrathoracic disease. Assessment and Plan (1) Femoral neck fracture: Qualifiers: Encounter type: initial encounter Fracture type: closed Laterality: left Qualified Code(s): S72.002A - Fracture of unspecified part of neck of left femur, initial encounter for closed fracture Status: Acute (2) Dyslipidemia: Status: Acute 54 year old man admitted by orthopedic surgery and is status post Left hip arthroplasty. Management as per surgical team. Pain management. HTN. DVT prophylaxis with Discussed with Dr. Daniele thompson
[2020-08-24] MEDS: oxyCODONE HCl Immed Release 5 MG TABLET PO ×2 (11:20→20:46)
--- NOTE | 2020-08-24 12:09 | HO.ANESPROP2 ---
HPI - Anesthesia Eval Consult details Narrative: 54 M w/ CP p/f femoral subcapital fracture for operative fixation PMFSH Past Medical History Medical History Cerebral palsy Dyslipidemia Gallstones Left inguinal hernia 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 Psychotic disorder Sensorineural hearing loss Vitamin D deficiency Family History Family History Father Medical history non-contributory Mother Medical history non-contributory Surgical History Surgical History History of colonoscopy Hx laparoscopic cholecystectomy S/P inguinal herniorrhaphy Social History Social History Household Members: Family Housing: House Do you presently have visiting nurse or other home services: No Alcohol intake: never Smoking Status: Never smoker Smoked in Last 30 Days: No Use of substances other than those prescribed or required for medical reasons: No Currently Displaying Signs/Symptoms of Drug Intoxication Withdrawal: No Any prior treatment program specific to substance use: No Have you been hit, kicked, punched, or otherwise hurt by someone within the past year? If so, by whom?: No Do you feel safe in your current relationship?: No Current Relationship Is there a partner from a previous relationship who is making you feel unsafe now?: No Are you made to feel afraid or neglected: No Advance Directives: No Advance Directives Information Provided: Yes Do you have thoughts of harming others: None Do you have a plan to hurt others: No Plan Recently lost weight without trying: Yes service: No Current occupational status: disabled Meds Allergies Allergy/AdvReac Type Severity Reaction Status Date / Time acetaminophen [From ENDOCET] Allergy Unknown HIVES Verified 06/15/20 08:44 amoxicillin [From AUGMENTIN] Allergy Unknown HIVES Verified 06/15/20 08:44 cefuroxime [CEFUROXIME] Allergy Unknown HIVES Verified 06/15/20 08:44 ciprofloxacin [From CIPRO] Allergy Unknown HIVES, Verified 06/15/20 08:44 Rash, rash clarithromycin [From BIAXIN] Allergy Unknown HIVES Verified 06/15/20 08:44 clavulanic acid Allergy Unknown HIVES Verified 06/15/20 08:44 [From AUGMENTIN] morphine [MORPHINE] Allergy Unknown HIVES, Verified 06/15/20 08:44 Rash, rash oxycodone [From ENDOCET] Allergy Unknown HIVES Verified 06/15/20 08:44 Home Medications Medication Instructions Recorded Confirmed Type cholecalciferol (vitamin D3) 25 25 mcg PO DAILY 06/15/20 08/23/20 History mcg (1,000 unit) capsule diazepam 2 mg tablet 2 mg PO DAILY PRN tab MDD 12mg 06/15/20 08/23/20 History docusate sodium 100 mg capsule 100 mg PO DAILY PRN 06/15/20 08/23/20 History epinephrine 0.3 mg/0.3 mL IM 06/15/20 History injection, auto-injector propranolol 20 mg tablet 20 mg PO BID 06/15/20 08/23/20 History Exam Exam Date and Time: August 24, 2020 1209 Height,Weight and Vital Signs: Height 5 ft 2 in Weight 53.524 kg Last Vital Signs Temp 98.9 F 08/24/20 11:47 Pulse 89 08/24/20 11:47 Resp 18 08/24/20 11:47 BP 132/72 08/24/20 11:47 Pulse Ox 90 L 08/24/20 11:47 Pertinent Lab Results Pertinent Lab Results: Laboratory Tests 08/23/20 08/23/20 08/23/20 19:49 19:49 19:49 WBC 11.6 H RBC 4.37 L Hgb 13.8 L Hct 41.1 L MCV 94.1 MCH 31.6 MCHC 33.6 RDW 12.6 Plt Count 244 MPV 9.1 L Immature Gran % (Auto) 0.4 Neut % (Auto) 83.6 H Lymph % (Auto) 11.1 L [place] % (Auto) 4.6 Eos % (Auto) 0.2 Baso % (Auto) 0.1 Lymph # (Auto) 1.3 [place] # (Auto) 0.5 Eos # (Auto) 0.0 Baso # (Auto) 0.0 Abs Immat Gran (auto) 0.05 H Absolute Neuts (auto) 9.7 H Absolute Nucleated RBC 0.000 Nucleated RBC % (auto) 0.0 Hold Blue Top Sodium 139 Potassium 4.5 Chloride 101 Carbon Dioxide 25 Anion Gap 18 BUN 10 Creatinine 0.72 Estim Creat Clear Calc 86.7 Estimated GFR > 60 Random Glucose 125 H Calcium 9.1 D Urine Color Urine Appearance Urine pH Ur Specific [place] Urine Protein Urine Glucose (UA) Urine Ketones Urine Blood Urine Nitrite Ur Leukocyte Esterase COVID-19 (IGNACIA) Negative COVID-19 Clin Com See Note 08/23/20 08/23/20 19:49 20:52 WBC RBC Hgb Hct MCV MCH MCHC RDW Plt Count MPV Immature Gran % (Auto) Neut % (Auto) Lymph % (Auto) [place] % (Auto) Eos % (Auto) Baso % (Auto) Lymph # (Auto) [place] # (Auto) Eos # (Auto) Baso # (Auto) Abs Immat Gran (auto) Absolute Neuts (auto) Absolute Nucleated RBC Nucleated RBC % (auto) Hold Blue Top SEE NOTE Sodium Potassium Chloride Carbon Dioxide Anion Gap BUN Creatinine Estim Creat Clear Calc Estimated GFR Random Glucose Calcium Urine Color YELLOW Urine Appearance CLEAR Urine pH 6.0 Ur Specific [place] 1.020 Urine Protein NEG Urine Glucose (UA) NEG Urine Ketones 40 Urine Blood NEG Urine Nitrite NEG Ur Leukocyte Esterase NEG COVID-19 (IGNACIA) COVID-19 Clin Com Airway Mallampati Class: II TM Dist: >3cm Neck ROM: Full Heart: RRR Lungs: NL Assessment and Plan Assessment Anesthesia Assessment: Anesthesia Plan Discussed and Chart Reviewed Final Anesthetic Review NPO: Yes ASA Class: III Final Preanesthetic Review: No Changes in Pt Med Stat, Meds/Allgs Chart Reviewed, Consent Obtained/Reviewed and Anes Risks/Benef Reviewed Patient Risk: Low Procedure Risk: Low Anesthetic Plan Anesthetic Plan: GA Disposition: Standard PACU
--- NOTE | 2020-08-24 12:54 | MHC.CM.PN ---
PATIENT LIVES WITH HIS PARENTS. HE USES NO DME FOR AMBULATION. PATIENT DOES HAVE A CPAP WITH WATER TANK SUPPLIED BY [employer]. FAMILY LIVES IN A ONE LEVEL RANCH WITH STEPS TO GET UP INTO THE FIRST FLOOR. PATIENT SPENDS FRIDAY - FRIDAY AT [facility]. FAMILY TRANSPORTS TO LOCATION, AND [facility] BRINGS HIM HOME. FATHER HAS A COPY OF [facility] [facility] IN HIS WALLET. COPY MADE AND NOW IN PAPER CHART [facility] DOES NOT ALLOW FOR ADMITTANCE TO SNF IF NEEDED. FATHER IS NOT SURE HOW HE FEELS ABOUT SNF PLACEMENT, AND NOT READY TO MAKE CHOICES. HE IS AWARE THAT THIS IS A HIGH PROBABILITY, AND WILL DISCUSS ONCE PHYSICAL THERAPY EVALUATION IS COMPLETED. HE HAS BEEN MADE AWARE OF ACUTE REHAB OPTIONS, WELL. CASE MANAGEMENT FOLLOWING. IMM 08/24 IN CHART.
--- NOTE | 2020-08-24 13:00 | FL_ITS ---
EXAMINATION: Intraoperative fluoroscopy CLINICAL INFORMATION: Left hip fracture COMPARISON: Left hip x-rays 08/23/2020 TECHNIQUE: Intraoperative fluoroscopy was provided for use by Dr. Moore. A total of 2 images were saved to PACS. A radiologist was not present during imaging. Today's dictation is only for administrative purposes to document intraoperative fluoroscopic usage. TOTAL FLUOROSCOPIC TIME: 0.9 minutes FL/FL guidance in OR FINDINGS~\^^ Intraoperative fluoroscopy provided for use by Dr. Moore. Please see operative note for detailed findings.
[2020-08-24] MEDS: vancomycin HCL 1,000 MG in 0.9 % Sodium Chloride 250 ML 270 MG IV (13:23)
--- NOTE | 2020-08-24 13:30 | HO.PM.IMPN ---
Subjective Subjective Date of Service: 08/25/20 Interval History: hlp , femoral neck fx. Review of Systems Patient still has hip discomfort Physical Exam Vital Signs: Vital Signs: Last Vital Signs Temp 98.8 F 08/24/20 13:11 Pulse 88 08/24/20 13:11 Resp 16 08/24/20 13:11 BP 103/60 08/24/20 13:11 Pulse Ox 97 08/24/20 13:11 Body Mass Index 21.5 Physical exam: Constitutional: Not in acute distress Cvs: rrr, [id number] , no murmur res: clear to auscultation ,no rhonchii or wheezing abd: no rebound or guarding ,nt, bs present. ext pulses present , no cyanosis , left hip area pain . neuro: nonfocal. Objective Data Current Medications Generic Name Dose Route Start Last Admin Trade Name Freq PRN Reason Stop Dose Admin Hydromorphone HCl 0.25 mg 08/24/20 09:08 Hydromorphone Hcl 0.5 Mg/0.5 Ml Syringe IVPUSH Q4H PRN Pain, Severe (Pain Scale 7-10) Dextrose/Sodium Chloride 1,000 mls @ 100 mls/hr 08/24/20 09:08 08/24/20 10:21 D51/2ns IVCONT 100 mls/hr .Q10H JULIO Administration Oxycodone HCl 5 mg 08/24/20 09:08 08/24/20 11:20 Oxycodone Hcl Immed Release 5 Mg Tablet PO 5 mg Q4H PRN Administration Pain, Moderate (Pain Scale 4-6 Pharmacy Consult 1 each 08/24/20 08:13 Consult Rx Vancomycin Dosing MISCELLANE DAILY PRN Consult order Pharmacy Consult 1 each 08/24/20 09:08 Consult Rx Perform Med Rec MISCELLANE ONCE PRN Consult order Senna 17.2 mg 08/24/20 09:08 08/24/20 10:22 Sennosides 8.6 Mg Tablet PO Not Given BEDTIME JULIO Sodium Chloride 3 ml 08/24/20 09:08 08/24/20 10:22 0.9 % Sodium Chloride Flush 3 Ml Syringe IVFLUSH 3 ml QSHIFT JULIO Administration Labs CBC & Chem 7: 08/25/20 06:56 08/25/20 06:56 Assessment and Plan (1) Vitamin D deficiency: Status: Acute (2) Cerebral palsy: Status: Acute (3) Dyslipidemia: Status: Acute Assessment and Plan: 54-year-old male with past medical history of cerebral palsy as well as nonverbal at baseline who presents to the hospital after mechanical fall and sustaining a femoral neck fracture. Medical team is consulted for medical management 1. femoral neck fracture: patient scheduled for surgery - pain management per Orthopedics leucocytosis seems reactive -ua neg , cxr fine , no fevers bowel regimen 2. psychotic disorder patient on risperidone at baseline as per chart bola- father states that risperidone has been stopped due to tardive dyskinesia so not on risperidone. 3. hyperlipidemia- continue statin. 4.anxiety-continue diazepam p.r.n. 5. vitamin-D deficiency- on vitamin-D supplement
--- NOTE | 2020-08-24 15:30 | P.BOP_ITS ---
Brief Operative Note Date of Service: 08/24/20 Pre-op diagnosis: left femoral neck fracture Post-op diagnosis: same Procedure: CRPP left hip Implants: [place] 6.5 mm cannulated screws x3 Surgeon: Blanco Moore MD Anesthesia: GETA and local Estimated blood loss (mL): 5 Tourniquet time (min): 0 IV fluids (mL): 700 Urine output (mL): 0 Pathology: none sent Condition: stable Disposition: PACU
--- NOTE | 2020-08-24 15:32 | MHC.SHP ---
Pre-Procedural Eval Section A The patient is an INPATIENT: Yes Changes since office visit: No Cold of Flu in the past 2 weeks, No New Medical Problems, No Changes in Medication and No Patient answered all questions The History & Physical has been completed within 30 days and I have reviewed it.: Yes Section B Chief Complaint: Left hip subcapital fracture Allergies: Allergies Allergy/AdvReac Type Severity Reaction Status Date / Time acetaminophen [From ENDOCET] Allergy Unknown HIVES Verified 06/15/20 08:44 amoxicillin [From AUGMENTIN] Allergy Unknown HIVES Verified 06/15/20 08:44 cefuroxime [CEFUROXIME] Allergy Unknown HIVES Verified 06/15/20 08:44 ciprofloxacin [From CIPRO] Allergy Unknown HIVES, Verified 06/15/20 08:44 Rash, rash clarithromycin [From BIAXIN] Allergy Unknown HIVES Verified 06/15/20 08:44 clavulanic acid Allergy Unknown HIVES Verified 06/15/20 08:44 [From AUGMENTIN] morphine [MORPHINE] Allergy Unknown HIVES, Verified 06/15/20 08:44 Rash, rash oxycodone [From ENDOCET] Allergy Unknown HIVES Verified 06/15/20 08:44 Plan I have reviewed the history and physical and performed a pertinent physical examination on my patient. No changes have occurred unless specified.
[2020-08-24] MEDS: Propranolol HCL 20 MG TABLET PO (20:45)
[2020-08-24] MEDS: Sennosides 8.6 MG TABLET 17.2 MG PO (20:45)
[2020-08-24] MEDS: Docusate Sodium 100 MG CAPSULE PO (20:45)
--- NOTE | 2020-08-24 23:30 | OP_ITS ---
SURGEON: Blanco Moore MD INDICATIONS: This is a 54-year-old gentleman with cerebral palsy with a valgus impacted left femoral neck fracture, consented to undergo operative fixation. PREOPERATIVE DIAGNOSIS: Left femoral neck fracture. POSTOPERATIVE DIAGNOSIS: Left femoral neck fracture. PROCEDURE PERFORMED: Closed reduction percutaneous pinning of left hip. ESTIMATED BLOOD LOSS: 5 mL. COMPLICATIONS: None known. ANESTHESIA: General and local. ASSISTANTS: SPECIMENS: FLUIDS: 700. IMPLANTS: [place] 6.5 cannulated partially threaded screws x3. PROCEDURE IN DETAIL: The patient was brought to the operating room, placed supine on the operative table and prepped and draped in standard sterile fashion. Time-out was called to identify proper site, proper procedure, proper surgeon. IV antibiotics per weight were administered. I began by making a stab incision over the lateral thigh. Started site just proximal to the lesser trochanter and placed 3 guidewires through the anterior and posterior aspect of the calcar respectively and 1 through the femoral neck more proximal. Biplanar fluoroscopy was used to confirm the location of the screws that they were in parallel on both the AP and the lateral and that they were intraosseous at all times. I measured the screws then placed 3 screws with the threads crossing the fracture again to the calcar and 1 more proximal. I was happy with the alignment and the position of the screws. I then removed all necessary instrumentation, irrigated copiously, closed the incision with absorbable suture and antonio. I injected a total of 30 mL of 0.25% Marcaine with epinephrine in and around the incision site. The patient was then placed in sterile dressing, awakened from anesthesia and brought to recovery room in stable condition. There were no known complications. MD WANDA Amaral/VALERI / [phone]
[2020-08-25] VITALS (9 sets, daily range): BP systolic 108–141; BP diastolic 55–77; PULSE 60–75; RESP 12–18; TEMP 36.3–37.2; O2SAT 92–98
[2020-08-25] MEDS: vancomycin HCL 1,000 MG in 0.9 % Sodium Chloride 250 ML 270 MG IV (00:59)
[2020-08-25] MEDS: Dextrose 5 % and 0.45 % NaCl 1,000 ML 100 ML IVCONT ×2 (04:36→16:27)
[2020-08-25 07:06] LABS: MANUAL DIFF FLAG NO
[2020-08-25 07:25] LABS: Basophils Percent Auto 0.2 % (0-2); Eosinophils Percent Auto 0.1 % (0-4); Hematocrit 34.6 % (42-52); Hemoglobin 11.3 g/dl (14.0-18.0); Imm Gran Abs Auto 0.03 X10*3/uL (0.00-0.03); Imm Gran Pct Auto 0.3 % (0.0-0.4); Lymphocytes Absolute Auto 1.3 X10*3/uL (1.2-4.9); Lymphocytes Percent Auto 12.2 % (20-40); Mean Corpuscular HGB Conc 32.7 g/dl (31.0-36.0); Mean Corpuscular Hemoglobin 31.2 pg (27.0-33.0); Mean Corpuscular Volume 95.6 fL (80-98); Mean Platelet Volume 9.4 fL (9.4-12.4); Monocytes Absolute Auto 0.8 X10*3/uL (0.1-1.2); Monocytes Percent Auto 7.7 % (2-11); Neutrophils Absolute Auto 8.5 X10*3/uL (2.0-8.3); Neutrophils Percent Auto 79.5 % (45-73); Platelet Count 197 X10*3/uL (160-400); Red Blood Count 3.62 X10*6/uL (4.60-5.80); Red Cell Distribution Width 13.2 % (11.0-16.0); White Blood Count 10.7 X10*3/uL (4.8-10.8)
[2020-08-25 07:48] LABS: Anion Gap 12 (12-20); Blood Urea Nitrogen 9 mg/dL (9-16); Calcium 8.3 mg/dL (8.4-10.2); Carbon Dioxide 25 mmol/L (22-29); Chloride 107 mmol/L (96-108); Creatinine Clr Calc Pharmacy 87.9; Estimated Glomerular Filt Rate > 60; Glucose Random 131 mg/dL (60-115); Sodium 140 mmol/L (135-145)
--- NOTE | 2020-08-25 08:05 | PM.PNORT ---
Subjective Subjective Date of Service: 08/25/20 Interval history: POD1 s/p lt hip canulated screws. Pt. resting comfortably in bed. Pain well managed. No over night events. Physical Exam Vital Signs: Vital Signs: Last Vital Signs Temp 99.0 F 08/25/20 04:00 Pulse 67 08/25/20 04:00 Resp 18 08/25/20 04:00 BP 132/64 08/25/20 04:00 Pulse Ox 92 08/25/20 04:00 Body Mass Index 21.5 Const: General: cooperative, healthy appearing and no acute distress Resp: Effort & Inspection: normal respiratory effort and able to speak in complete sentences Cardio: Rate: regular rate Peripheral pulses: Peripheral pulses 2+ throughout GI: Palpation (GI): Soft to palpation Skin: Lesions: no lesions Rashes: no rashes Extrem: Other: Lt hip no ecchymosis, redness, or drainage. Dressing is clean, dry and intact. NVI. Progress Note: A&P Assessment and plan (1) Femoral neck fracture: Status: Acute Assessment and Plan: Continue pain mgmnt Begin Lovenox for dvt ppx begin PT and OT for Lt hip canulated screws Dispo planning-Pending PT eval, pain mgmnt Fall Risk Details Current Medications: Current Medications Generic Name Dose Route Start Last Admin Trade Name Freq PRN Reason Stop Dose Admin Docusate Sodium 100 mg 08/24/20 21:00 08/24/20 20:45 Docusate Sodium 100 Mg Capsule PO 100 mg BEDTIME JULIO Administration Docusate Sodium 100 mg 08/24/20 15:45 Docusate Sodium 100 Mg Capsule PO DAILY PRN constipation Enoxaparin Sodium 40 mg 08/25/20 10:00 Enoxaparin Sodium 40 Mg/0.4 Ml Syringe SUBCUT Q24H JULIO Hydromorphone HCl 0.25 mg 08/24/20 09:08 Hydromorphone Hcl 0.5 Mg/0.5 Ml Syringe IVPUSH Q4H PRN Pain, Severe (Pain Scale 7-10) Dextrose/Sodium Chloride 1,000 mls @ 100 mls/hr 08/24/20 09:08 08/25/20 04:36 D51/2ns IVCONT 100 mls/hr .Q10H JULIO Administration Oxycodone HCl 5 mg 08/24/20 09:08 08/24/20 20:46 Oxycodone Hcl Immed Release 5 Mg Tablet PO 5 mg Q4H PRN Administration Pain, Moderate (Pain Scale 4-6 Pharmacy Consult 1 each 08/24/20 09:08 Consult Rx Perform Med Rec MISCELLANE ONCE PRN Consult order Propranolol HCl 20 mg 08/24/20 21:00 08/24/20 20:45 Propranolol Hcl 20 Mg Tablet PO 20 mg BID JULIO Administration Protocol Senna 17.2 mg 08/24/20 09:08 08/24/20 20:45 Sennosides 8.6 Mg Tablet PO 17.2 mg BEDTIME JULIO Administration Sodium Chloride 3 ml 08/24/20 09:08 08/25/20 00:22 0.9 % Sodium Chloride Flush 3 Ml Syringe IVFLUSH Not Given QSHIFT JULIO Time Spent With Patient Time: Total time spent is greater than 50% in coordination of care (as documented) at patient's floor/unit and/or counseling patient: Time with patient: less than 15 minutes
[2020-08-25] MEDS: Propranolol HCL 20 MG TABLET PO ×2 (08:19→22:03)
--- NOTE | 2020-08-25 11:01 | MHC.CM.PN ---
CASE MANAGEMENT TO SPEAK WITH PARENTS ABOUT ACUTE REHAB FACILITY AND CHOICES. WILL FOLLOW UP WITH REFERRAL ONCE PT EVALUATION IS COMPLETED IN [facility].
--- NOTE | 2020-08-25 11:23 | MHC.CM.PN ---
PER CONVERSATION WITH PATIENT'S FATHER (IN ROOM), REFERRALS PLACED OT THE THREE ACUTES. FATHER WANTS TO KNOW IF HE WILL BE ABLE TO VIST IF PATIENT DOES DC TO ACUTE. CASE MANAGEMENT TO INQUIRE. ALTERNATIVE PLAN IS CURRENTLY HOME WITH 24 HR CARE, VNA, AND A SCRIPTS FOR A WALKER PER P.T.EVALUATION. CASE MANAGEMENT CONTINUING TO FOLLOW.
[2020-08-25] MEDS: oxyCODONE HCl Immed Release 5 MG TABLET PO ×2 (11:53→22:03)
--- NOTE | 2020-08-25 13:22 | HO.POSTANES ---
Post Anesthesia Evaluation Post Anesthesia Evaluation Vital Signs: Vital Signs Temp Pulse Resp BP Pulse Ox 08/25/20 12:00 97.9 F 74 16 141/77 H 92 08/25/20 11:01 108/64 08/25/20 08:19 108/64 08/25/20 08:00 97.4 F 64 16 108/64 95 08/25/20 04:00 99.0 F 67 18 132/64 92 Anesthesia: General Mental Status: Awake Pain Control: Satisfactory Nausea/Vomiting: None Hydration: Adequate Anesthesia-Related Issues: No Anes. Related Issues
[2020-08-25] MEDS: Enoxaparin Sodium 40 MG/0.4 ML SYRINGE SUBCUT (13:59)
--- NOTE | 2020-08-25 15:38 | P.PNIM_ITS ---
Subjective Subjective Date of Service: 08/25/20 Interval History: hlp,femoral neck fx. Review of Systems Patient got the hip fracture surgery-seems improving denies any chest pain or shortness of breath or abdominal pain or fever or chills Physical Exam Vital Signs: Vital Signs: Last Vital Signs Temp 97.9 F 08/25/20 12:00 Pulse 74 08/25/20 12:00 Resp 16 08/25/20 12:00 BP 141/77 H 08/25/20 12:00 Pulse Ox 92 08/25/20 12:00 Body Mass Index 21.5 Physical exam: Cvs: [id number], [id number] , no murmur res: clear to auscultation ,no rhonchii or wheezing abd: no rebound or guarding ,nt, bs present. ext pulses present , no cyanosis neuro: axo3 , nonfocal. Objective Data Current Medications Generic Name Dose Route Start Last Admin Trade Name Freq PRN Reason Stop Dose Admin Docusate Sodium 100 mg 08/24/20 21:00 08/24/20 20:45 Docusate Sodium 100 Mg Capsule PO 100 mg BEDTIME JULIO Administration Docusate Sodium 100 mg 08/24/20 15:45 Docusate Sodium 100 Mg Capsule PO DAILY PRN constipation Enoxaparin Sodium 40 mg 08/25/20 14:00 08/25/20 13:59 Enoxaparin Sodium 40 Mg/0.4 Ml Syringe SUBCUT 40 mg Q24H JULIO Administration Hydromorphone HCl 0.25 mg 08/24/20 09:08 Hydromorphone Hcl 0.5 Mg/0.5 Ml Syringe IVPUSH Q4H PRN Pain, Severe (Pain Scale 7-10) Dextrose/Sodium Chloride 1,000 mls @ 100 mls/hr 08/24/20 09:08 08/25/20 15:15 D51/2ns IVCONT Infused .Q10H JULIO Infusion Oxycodone HCl 5 mg 08/24/20 09:08 08/25/20 11:53 Oxycodone Hcl Immed Release 5 Mg Tablet PO 5 mg Q4H PRN Administration Pain, Moderate (Pain Scale 4-6 Pharmacy Consult 1 each 08/24/20 09:08 Consult Rx Perform Med Rec MISCELLANE ONCE PRN Consult order Propranolol HCl 20 mg 08/24/20 21:00 08/25/20 08:19 Propranolol Hcl 20 Mg Tablet PO 20 mg BID JULIO Administration Protocol Senna 17.2 mg 08/24/20 09:08 08/24/20 20:45 Sennosides 8.6 Mg Tablet PO 17.2 mg BEDTIME JULIO Administration Sodium Chloride 3 ml 08/24/20 09:08 08/25/20 08:24 0.9 % Sodium Chloride Flush 3 Ml Syringe IVFLUSH Not Given QSHIFT [facility] Labs CBC & Chem 7: 08/25/20 06:56 08/25/20 06:56 Assessment and Plan (1) Vitamin D deficiency: Status: Acute (2) Cerebral palsy: Status: Acute (3) Dyslipidemia: Status: Acute Assessment and Plan: 54-year-old male with past medical history of cerebral palsy as well as nonverbal at baseline who presents to the hospital after mechanical fall and sustaining a femoral neck fracture. Medical team is consulted for medical emery bernard 1. femoral neck fracture: patient scheduled for surgery s/p surgery day2 pain management per Orthopedics leucocytosis seems reactive and resolved -ua neg , cxr fine , no fevers bowel regimen 2. psychotic disorder patient on risperidone at baseline as per chart reivew- father states that risperidone has been stopped due to tardive dyskinesia so not on risperidone. 3. hyperlipidemia- continue statin. 4.anxiety-continue diazepam p.r.n. 5. vitamin-D deficiency- on vitamin-D supplement
[2020-08-25] MEDS: Docusate Sodium 100 MG CAPSULE PO (22:03)
[2020-08-25] MEDS: Sennosides 8.6 MG TABLET 17.2 MG PO (22:03)
[2020-08-26] VITALS (8 sets, daily range): BP systolic 121–141; BP diastolic 63–76; PULSE 55–68; RESP 16–19; TEMP 36.3–37.2; O2SAT 93–98
[2020-08-26] MEDS: 0.9 % Sodium Chloride Flush 3 ML SYRINGE IVFLUSH ×2 (03:01→20:47)
[2020-08-26] MEDS: Dextrose 5 % and 0.45 % NaCl 1,000 ML 100 ML IVCONT ×3 (03:01→20:44)
[2020-08-26 07:40] LABS: MANUAL DIFF FLAG NO
[2020-08-26 07:42] LABS: Basophils Percent Auto 0.2 % (0-2); Eosinophils Absolute Auto 0.5 X10*3/uL (0.0-0.4); Hematocrit 32.1 % (42-52); Hemoglobin 10.5 g/dl (14.0-18.0); Imm Gran Abs Auto 0.03 X10*3/uL (0.00-0.03); Imm Gran Pct Auto 0.3 % (0.0-0.4); Lymphocytes Absolute Auto 2.3 X10*3/uL (1.2-4.9); Lymphocytes Percent Auto 25.2 % (20-40); Mean Corpuscular HGB Conc 32.7 g/dl (31.0-36.0); Mean Corpuscular Hemoglobin 31.2 pg (27.0-33.0); Mean Corpuscular Volume 95.3 fL (80-98); Mean Platelet Volume 9.3 fL (9.4-12.4); Monocytes Absolute Auto 0.8 X10*3/uL (0.1-1.2); Monocytes Percent Auto 8.5 % (2-11); Neutrophils Absolute Auto 5.5 X10*3/uL (2.0-8.3); Neutrophils Percent Auto 60.8 % (45-73); Platelet Count 186 X10*3/uL (160-400); Red Blood Count 3.37 X10*6/uL (4.60-5.80); Red Cell Distribution Width 13.2 % (11.0-16.0)
[2020-08-26] MEDS: oxyCODONE HCl Immed Release 5 MG TABLET PO ×2 (08:01→11:53)
[2020-08-26 08:07] LABS: Anion Gap 11 (12-20); Blood Urea Nitrogen 7 mg/dL (9-16); Calcium 7.7 mg/dL (8.4-10.2); Carbon Dioxide 27 mmol/L (22-29); Chloride 107 mmol/L (96-108); Creatinine Clr Calc Pharmacy 97.5; Estimated Glomerular Filt Rate > 60; Glucose Random 103 mg/dL (60-115); Potassium 3.7 mmol/l (3.3-5.1); Sodium 141 mmol/L (135-145)
--- NOTE | 2020-08-26 09:55 | PM.DS ---
DS: Providers Provider Date of Service: 08/29/20 Date of admission: 08/24/20 05:13 Primary care physician: Unknown Physician Consults: 08/24/20 05:13 Consult to Hospitalist Stat Consulting Provider: Hospitalist Reason for consultation: Hip fracture, cerebal palsy, developmental delay, non verbal--pre op cleara DS: Diagnosis Discharge Diagnosis (1) Femoral neck fracture: Status: Acute Problem details: Mr Shook is a 54 yo male who sustained an injury to his left hip resulting in a femoral neck fracture. He was seen in the ED, admitted to the orthopedic service and booked for operative fixation. DS: Medications Discharge Medications Home Medications: Home Medications Medication Instructions Recorded Confirmed cholecalciferol (vitamin D3) 25 25 mcg PO DAILY 06/15/20 08/23/20 mcg (1,000 unit) capsule diazepam 2 mg tablet 2 mg PO DAILY PRN tab MDD 12mg 06/15/20 08/23/20 docusate sodium 100 mg capsule 100 mg PO DAILY PRN 06/15/20 08/23/20 epinephrine 0.3 mg/0.3 mL IM 06/15/20 injection, auto-injector propranolol 20 mg tablet 20 mg PO BID 06/15/20 08/23/20 Previous Rx's Medication Instructions Recorded simvastatin 20 mg tablet 20 mg PO BEDTIME #90 tab 08/03/20 oxycodone 5 mg PO Q4H PRN 7 Days #42 tab 08/26/20 DS: Summary Hospital Course Hospital Course: The patient underwent a successful Operative fixation of the left hip, was transferred to PACU and then to the floor to recover. During their stay, their vitals were stable, afebrile at 97.6. Labs were unremarkable, H/H 10.8/32.7. POD 1 he was started on Lovenox for DVT ppx, they also received PT/OT services twice a day. Prior to discharge, their dressing was change, incision clean dry and intact, new dry dressing applied and the plan was to be discharged home with VNA services,. Time Spent with Patient Time attestation: Total time spent providing and/or coordinating discharge services: Discharge coordination time: Less than 30 minutes Physical Exam Vital Signs: Vital Signs: Last Vital Signs Temp 98.4 F 08/26/20 08:00 Pulse 64 08/26/20 08:00 Resp 19 08/26/20 08:00 BP 121/76 08/26/20 08:00 Pulse Ox 97 08/26/20 08:00 Body Mass Index 21.5 Extrem: Other: Left hip c/d/i. No erythema or redness. Sensation and pulses intact. DS: Data Data Completed and Pending Labs on day of discharge: Laboratory Tests 08/23/20 08/23/20 08/23/20 19:49 19:49 19:49 WBC 11.6 H RBC 4.37 L Hgb 13.8 L Hct 41.1 L MCV 94.1 MCH 31.6 MCHC 33.6 RDW 12.6 Plt Count 244 MPV 9.1 L Immature Gran % (Auto) 0.4 Neut % (Auto) 83.6 H Lymph % (Auto) 11.1 L [place] % (Auto) 4.6 Eos % (Auto) 0.2 Baso % (Auto) 0.1 Lymph # (Auto) 1.3 [place] # (Auto) 0.5 Eos # (Auto) 0.0 Baso # (Auto) 0.0 Abs Immat Gran (auto) 0.05 H Absolute Neuts (auto) 9.7 H Absolute Nucleated RBC 0.000 Nucleated RBC % (auto) 0.0 Hold Blue Top Sodium 139 Potassium 4.5 Chloride 101 Carbon Dioxide 25 Anion Gap 18 BUN 10 Creatinine 0.72 Estim Creat Clear Calc 86.7 Estimated GFR > 60 Random Glucose 125 H Calcium 9.1 D Urine Color Urine Appearance Urine pH Ur Specific [place] Urine Protein Urine Glucose (UA) Urine Ketones Urine Blood Urine Nitrite Ur Leukocyte Esterase COVID-19 (IGNACIA) Negative COVID-19 Clin Com See Note Blood Type Antibody Screen 08/23/20 08/23/20 08/24/20 19:49 20:52 11:55 WBC RBC Hgb Hct MCV MCH MCHC RDW Plt Count MPV Immature Gran % (Auto) Neut % (Auto) Lymph % (Auto) [place] % (Auto) Eos % (Auto) Baso % (Auto) Lymph # (Auto) [place] # (Auto) Eos # (Auto) Baso # (Auto) Abs Immat Gran (auto) Absolute Neuts (auto) Absolute Nucleated RBC Nucleated RBC % (auto) Hold Blue Top SEE NOTE Sodium Potassium Chloride Carbon Dioxide Anion Gap BUN Creatinine Estim Creat Clear Calc Estimated GFR Random Glucose Calcium Urine Color YELLOW Urine Appearance CLEAR Urine pH 6.0 Ur Specific [place] 1.020 Urine Protein NEG Urine Glucose (UA) NEG Urine Ketones 40 Urine Blood NEG Urine Nitrite NEG Ur Leukocyte Esterase NEG COVID-19 (IGNACIA) COVID-19 Clin Com Blood Type A Positive Antibody Screen NEGATIVE 08/25/20 08/25/20 08/26/20 06:56 06:56 07:28 WBC 10.7 9.0 RBC 3.62 L 3.37 L Hgb 11.3 L 10.5 L Hct 34.6 L 32.1 L MCV 95.6 95.3 MCH 31.2 31.2 MCHC 32.7 32.7 RDW 13.2 13.2 Plt Count 197 186 MPV 9.4 9.3 L Immature Gran % (Auto) 0.3 0.3 Neut % (Auto) 79.5 H 60.8 Lymph % (Auto) 12.2 L 25.2 [place] % (Auto) 7.7 8.5 Eos % (Auto) 0.1 5.0 H Baso % (Auto) 0.2 0.2 Lymph # (Auto) 1.3 2.3 [place] # (Auto) 0.8 0.8 Eos # (Auto) 0.0 0.5 H Baso # (Auto) 0.0 0.0 Abs Immat Gran (auto) 0.03 0.03 Absolute Neuts (auto) 8.5 H 5.5 Absolute Nucleated RBC 0.000 0.000 Nucleated RBC % (auto) 0.0 0.0 Hold Blue Top Sodium 140 Potassium 4.0 Chloride 107 Carbon Dioxide 25 Anion Gap 12 BUN 9 Creatinine 0.71 Estim Creat Clear Calc 87.9 Estimated GFR > 60 Random Glucose 131 H Calcium 8.3 L D Urine Color Urine Appearance Urine pH Ur Specific [place] Urine Protein Urine Glucose (UA) Urine Ketones Urine Blood Urine Nitrite Ur Leukocyte Esterase COVID-19 (IGNACIA) COVID-19 Clin Com Blood Type Antibody Screen 08/26/20 07:28 WBC RBC Hgb Hct MCV MCH MCHC RDW Plt Count MPV Immature Gran % (Auto) Neut % (Auto) Lymph % (Auto) [place] % (Auto) Eos % (Auto) Baso % (Auto) Lymph # (Auto) [place] # (Auto) Eos # (Auto) Baso # (Auto) Abs Immat Gran (auto) Absolute Neuts (auto) Absolute Nucleated RBC Nucleated RBC % (auto) Hold Blue Top Sodium 141 Potassium 3.7 Chloride 107 Carbon Dioxide 27 Anion Gap 11 L BUN 7 L Creatinine 0.64 Estim Creat Clear Calc 97.5 Estimated GFR > 60 Random Glucose 103 Calcium 7.7 L D Urine Color Urine Appearance Urine pH Ur Specific [place] Urine Protein Urine Glucose (UA) Urine Ketones Urine Blood Urine Nitrite Ur Leukocyte Esterase COVID-19 (IGNACIA) COVID-19 Clin Com Blood Type Antibody Screen Discharge Plan Discharge Patient Disposition: er [facility] Referrals: Harish Duke PA-C [Physician Senior Officer] - (2 weeks post op with orthopedics) Discharge Medications: New oxycodone 5 mg Tablet 5 mg PO Q4H PRN (Reason: Pain, Moderate (Pain Scale 4-6) 7 Days Qty: 42 RF: 0 enoxaparin 40 mg/0.4 mL Syringe 40 mg subcut Q24H 30 Days Qty: 12 RF: 0 Continued simvastatin 20 mg tablet 20 mg PO BEDTIME Qty: 90 RF: 4 propranolol 20 mg tablet 20 mg PO BID RF: 0 epinephrine 0.3 mg/0.3 mL auto-injector IM RF: 0 diazepam 2 mg tablet 2 mg PO DAILY MDD 12mg PRN (Reason: Anxiety) RF: 0 cholecalciferol (vitamin D3) 25 mcg (1,000 unit) capsule 25 mcg PO DAILY RF: 0 docusate sodium 100 mg capsule 100 mg PO DAILY PRN (Reason: constipation) RF: 0 Discharge Orders: Discharge Order (Routine); Ordered 08/29/20 Ordered By: Susie Ritter Diet: regular diet Activity on Discharge: Use cane or walker Activity Restrictions/Additional Instructions: Gait training, strengthening, ADLs Continue lovenox for dvt ppx x4 weeks Keep dressing clean,dry and intact-no showering or tub baths Follow up with Orthopedics in 2 weeks Visit Report Forms: Patient Portal Discharge page Care Plan Goals: Restore function of left hip Health Concerns: None Plan of Treatment: Physical Therapy Pain management DVT prophylaxis
[2020-08-26] MEDS: Propranolol HCL 20 MG TABLET PO ×2 (10:25→20:44)
[2020-08-26] MEDS: Enoxaparin Sodium 40 MG/0.4 ML SYRINGE SUBCUT (13:28)
--- NOTE | 2020-08-26 14:23 | P.PNIM_ITS ---
Subjective Subjective Date of Service: 08/26/20 Interval History: hlp,femoral neck fx. Review of Systems Patient denies any chest pain shortness of breath or abdominal pain or fever or chills. still has leg pain Physical Exam Vital Signs: Vital Signs: Last Vital Signs Temp 98.3 F 08/26/20 12:00 Pulse 55 08/26/20 12:00 Resp 17 08/26/20 12:00 BP 133/63 08/26/20 12:00 Pulse Ox 97 08/26/20 12:00 Body Mass Index 21.5 Physical exam: Constitutional: not in acute distress. Cvs: [id number], [id number] , no murmur res: clear to auscultation ,no rhonchii or wheezing abd: no rebound or guarding ,nt, bs present. ext pulses present , no cyanosis neuro: axo3 , nonfocal. Objective Data Current Medications Generic Name Dose Route Start Last Admin Trade Name Freq PRN Reason Stop Dose Admin Docusate Sodium 100 mg 08/24/20 21:00 08/25/20 22:03 Docusate Sodium 100 Mg Capsule PO 100 mg BEDTIME JULIO Administration Docusate Sodium 100 mg 08/24/20 15:45 Docusate Sodium 100 Mg Capsule PO DAILY PRN constipation Enoxaparin Sodium 40 mg 08/25/20 14:00 08/26/20 13:28 Enoxaparin Sodium 40 Mg/0.4 Ml Syringe SUBCUT 40 mg Q24H JULIO Administration Hydromorphone HCl 0.25 mg 08/24/20 09:08 Hydromorphone Hcl 0.5 Mg/0.5 Ml Syringe IVPUSH Q4H PRN Pain, Severe (Pain Scale 7-10) Dextrose/Sodium Chloride 1,000 mls @ 100 mls/hr 08/24/20 09:08 08/26/20 13:28 D51/2ns IVCONT 100 mls/hr .Q10H JULIO Administration Oxycodone HCl 5 mg 08/24/20 09:08 08/26/20 11:53 Oxycodone Hcl Immed Release 5 Mg Tablet PO 5 mg Q4H PRN Administration Pain, Moderate (Pain Scale 4-6 Pharmacy Consult 1 each 08/24/20 09:08 Consult Rx Perform Med Rec MISCELLANE ONCE PRN Consult order Propranolol HCl 20 mg 08/24/20 21:00 08/26/20 10:25 Propranolol Hcl 20 Mg Tablet PO 20 mg BID JULIO Administration Protocol Senna 17.2 mg 08/24/20 09:08 08/25/20 22:03 Sennosides 8.6 Mg Tablet PO 17.2 mg BEDTIME JULIO Administration Sodium Chloride 3 ml 08/24/20 09:08 08/26/20 10:26 0.9 % Sodium Chloride Flush 3 Ml Syringe IVFLUSH Not Given QSHIFT [facility] Labs CBC & Chem 7: 08/26/20 07:28 08/26/20 07:28 Assessment and Plan (1) Dyslipidemia: Status: Acute Assessment and Plan: 54-year-old male with past medical history of cerebral palsy as well as nonverbal at baseline who presents to the hospital after mechanical fall and sustaining a femoral neck fracture. Medical team is consulted for medical management 1. femoral neck fracture: patient scheduled for surgery s/p surgery day3 pain management per Orthopedics leucocytosis seems reactive and resolved -ua neg , cxr fine , no fevers bowel regimen 2. psychotic disorder patient on risperidone at baseline as per chart reivew- father states that risperidone has been stopped due to tardive dyskinesia so not on risperidone. 3. hyperlipidemia- continue statin. 4.anxiety-continue diazepam p.r.n. 5. vitamin-D deficiency- on vitamin-D supplement. 6. ? sleep apnea : cpap at night. (2) Vitamin D deficiency: Status: Acute (3) Cerebral palsy: Status: Acute
[2020-08-26] MEDS: Docusate Sodium 100 MG CAPSULE PO (20:44)
[2020-08-26] MEDS: Sennosides 8.6 MG TABLET 17.2 MG PO (20:44)
[2020-08-27] VITALS (8 sets, daily range): BP systolic 132–153; BP diastolic 67–80; PULSE 58–79; RESP 15–19; TEMP 36.7–37.3; O2SAT 91–96
[2020-08-27 06:18] LABS: MANUAL DIFF FLAG NO
[2020-08-27 06:27] LABS: Basophils Percent Auto 0.1 % (0-2); Eosinophils Absolute Auto 0.4 X10*3/uL (0.0-0.4); Eosinophils Percent Auto 5.4 % (0-4); Hemoglobin 10.3 g/dl (14.0-18.0); Imm Gran Abs Auto 0.01 X10*3/uL (0.00-0.03); Imm Gran Pct Auto 0.1 % (0.0-0.4); Lymphocytes Absolute Auto 1.9 X10*3/uL (1.2-4.9); Mean Corpuscular HGB Conc 32.2 g/dl (31.0-36.0); Mean Corpuscular Hemoglobin 30.7 pg (27.0-33.0); Mean Corpuscular Volume 95.2 fL (80-98); Mean Platelet Volume 9.8 fL (9.4-12.4); Monocytes Absolute Auto 0.6 X10*3/uL (0.1-1.2); Neutrophils Absolute Auto 4.1 X10*3/uL (2.0-8.3); Neutrophils Percent Auto 59.4 % (45-73); Platelet Count 181 X10*3/uL (160-400); Red Blood Count 3.36 X10*6/uL (4.60-5.80); Red Cell Distribution Width 12.7 % (11.0-16.0); White Blood Count 6.8 X10*3/uL (4.8-10.8)
[2020-08-27 06:53] LABS: Anion Gap 8 (12-20); Blood Urea Nitrogen 5 mg/dL (9-16); Calcium 7.8 mg/dL (8.4-10.2); Carbon Dioxide 32 mmol/L (22-29); Chloride 105 mmol/L (96-108); Creatinine Clr Calc Pharmacy 102.3; Estimated Glomerular Filt Rate > 60; Glucose Random 117 mg/dL (60-115); Potassium 3.6 mmol/l (3.3-5.1); Sodium 141 mmol/L (135-145)
--- NOTE | 2020-08-27 08:08 | PM.PNORT ---
Subjective Subjective Date of Service: 08/26/20 Physical Exam Vital Signs: Vital Signs: Last Vital Signs Temp 99 F 08/27/20 03:19 Pulse 60 08/27/20 03:19 Resp 18 08/27/20 03:19 BP 132/69 08/27/20 03:19 Pulse Ox 96 08/27/20 03:19 Body Mass Index 21.5 Extrem: Other: left hip bandage intact, no staining. no erythema mild swelling. Sensation and pulses present. Progress Note: A&P Assessment and plan (1) Femoral neck fracture: Status: Acute Assessment and Plan: Continue pain mgmnt lovenox dvt ppx PT/OT for Lt hip curtis. screws Dispo planning-Pending STR approval Fall Risk Details Current Medications: Current Medications Generic Name Dose Route Start Last Admin Trade Name Freq PRN Reason Stop Dose Admin Docusate Sodium 100 mg 08/24/20 21:00 08/26/20 20:44 Docusate Sodium 100 Mg Capsule PO 100 mg BEDTIME JULIO Administration Docusate Sodium 100 mg 08/24/20 15:45 Docusate Sodium 100 Mg Capsule PO DAILY PRN constipation Enoxaparin Sodium 40 mg 08/25/20 14:00 08/26/20 13:28 Enoxaparin Sodium 40 Mg/0.4 Ml Syringe SUBCUT 40 mg Q24H JULIO Administration Hydromorphone HCl 0.25 mg 08/24/20 09:08 Hydromorphone Hcl 0.5 Mg/0.5 Ml Syringe IVPUSH Q4H PRN Pain, Severe (Pain Scale 7-10) Dextrose/Sodium Chloride 1,000 mls @ 100 mls/hr 08/24/20 09:08 08/26/20 20:44 D51/2ns IVCONT 100 mls/hr .Q10H JULIO Administration Oxycodone HCl 5 mg 08/24/20 09:08 08/26/20 11:53 Oxycodone Hcl Immed Release 5 Mg Tablet PO 5 mg Q4H PRN Administration Pain, Moderate (Pain Scale 4-6 Pharmacy Consult 1 each 08/24/20 09:08 Consult Rx Perform Med Rec MISCELLANE ONCE PRN Consult order Propranolol HCl 20 mg 08/24/20 21:00 08/26/20 20:44 Propranolol Hcl 20 Mg Tablet PO 20 mg BID JULIO Administration Protocol Senna 17.2 mg 08/24/20 09:08 08/26/20 20:44 Sennosides 8.6 Mg Tablet PO 17.2 mg BEDTIME JULIO Administration Sodium Chloride 3 ml 08/24/20 09:08 08/26/20 20:47 0.9 % Sodium Chloride Flush 3 Ml Syringe IVFLUSH 3 ml QSHIFT JULIO Administration Time Spent With Patient Time: Total time spent is greater than 50% in coordination of care (as documented) at patient's floor/unit and/or counseling patient: Time with patient: 15 - 24 minutes
[2020-08-27] MEDS: Propranolol HCL 20 MG TABLET PO ×2 (09:04→21:00)
[2020-08-27] MEDS: Dextrose 5 % and 0.45 % NaCl 1,000 ML 100 ML IVCONT (09:05)
[2020-08-27] MEDS: Docusate Sodium 100 MG CAPSULE PO ×2 (09:05→21:01)
[2020-08-27] MEDS: oxyCODONE HCl Immed Release 5 MG TABLET PO ×2 (09:05→13:10)
[2020-08-27] MEDS: Enoxaparin Sodium 40 MG/0.4 ML SYRINGE SUBCUT (13:10)
--- NOTE | 2020-08-27 13:45 | HO.PM.IMPN ---
Subjective Subjective Date of Service: 08/27/20 Interval History: hlp , hipfx Review of Systems No new event, sitting on the bed his further, comfortable Physical Exam Vital Signs: Vital Signs: Last Vital Signs Temp 98.5 F 08/27/20 12:00 Pulse 58 08/27/20 12:00 Resp 17 08/27/20 12:00 BP 138/67 08/27/20 12:00 Pulse Ox 93 08/27/20 12:00 Body Mass Index 21.5 physical exam: Cvs: rrr, [id number] , no murmur res: clear to auscultation ,no rhonchii or wheezing abd: no rebound or guarding ,nt, bs present. ext pulses present , no cyanosis neuro: nonfocal. Objective Data Current Medications Generic Name Dose Route Start Last Admin Trade Name Freq PRN Reason Stop Dose Admin Docusate Sodium 100 mg 08/24/20 21:00 08/26/20 20:44 Docusate Sodium 100 Mg Capsule PO 100 mg BEDTIME JULIO Administration Docusate Sodium 100 mg 08/24/20 15:45 08/27/20 09:05 Docusate Sodium 100 Mg Capsule PO 100 mg DAILY PRN Administration constipation Enoxaparin Sodium 40 mg 08/25/20 14:00 08/27/20 13:10 Enoxaparin Sodium 40 Mg/0.4 Ml Syringe SUBCUT 40 mg Q24H JULIO Administration Hydromorphone HCl 0.25 mg 08/24/20 09:08 Hydromorphone Hcl 0.5 Mg/0.5 Ml Syringe IVPUSH Q4H PRN Pain, Severe (Pain Scale 7-10) Oxycodone HCl 5 mg 08/24/20 09:08 08/27/20 13:10 Oxycodone Hcl Immed Release 5 Mg Tablet PO 5 mg Q4H PRN Administration Pain, Moderate (Pain Scale 4-6 Pharmacy Consult 1 each 08/24/20 09:08 Consult Rx Perform Med Rec MISCELLANE ONCE PRN Consult order Propranolol HCl 20 mg 08/24/20 21:00 08/27/20 09:04 Propranolol Hcl 20 Mg Tablet PO 20 mg BID JULIO Administration Protocol Senna 17.2 mg 08/24/20 09:08 08/26/20 20:44 Sennosides 8.6 Mg Tablet PO 17.2 mg BEDTIME JULIO Administration Sodium Chloride 3 ml 08/24/20 09:08 08/27/20 09:10 0.9 % Sodium Chloride Flush 3 Ml Syringe IVFLUSH Not Given QSHIFT JULIO Labs CBC & Chem 7: 08/27/20 05:51 08/27/20 05:51 Assessment and Plan (1) Cerebral palsy: Status: Acute (2) Vitamin D deficiency: Status: Acute (3) Dyslipidemia: Status: Acute Assessment and Plan: 54-year-old male with past medical history of cerebral palsy as well as nonverbal at baseline who presents to the hospital after mechanical fall and sustaining a femoral neck fracture. Medical team is consulted for medical management 1. femoral neck fracture: patient scheduled for surgery s/p surgery pain management per Orthopedics leucocytosis seems reactive and resolved -ua neg , cxr fine , no fevers bowel regimen 2. psychotic disorder patient on risperidone at baseline as per chart reivew- father states that risperidone has been stopped due to tardive dyskinesia so not on risperidone. 3. hyperlipidemia- continue statin. 4.anxiety-continue diazepam p.r.n. 5. vitamin-D deficiency- on vitamin-D supplement. 6. ? sleep apnea : cpap at night. Will sign off now -please call for back for any questions.
[2020-08-27] MEDS: 0.9 % Sodium Chloride Flush 3 ML SYRINGE IVFLUSH ×2 (15:44→21:01)
[2020-08-27] MEDS: Sennosides 8.6 MG TABLET 17.2 MG PO (21:00)
[2020-08-28] VITALS (7 sets, daily range): BP systolic 114–134; BP diastolic 62–68; PULSE 52–74; RESP 18–20; TEMP 36.5–37.2; O2SAT 91–96
[2020-08-28 06:26] LABS: MANUAL DIFF FLAG NO
[2020-08-28 06:42] LABS: Basophils Percent Auto 0.2 % (0-2); Eosinophils Absolute Auto 0.3 X10*3/uL (0.0-0.4); Eosinophils Percent Auto 4.6 % (0-4); Hematocrit 31.8 % (42-52); Hemoglobin 10.4 g/dl (14.0-18.0); Imm Gran Abs Auto 0.02 X10*3/uL (0.00-0.03); Imm Gran Pct Auto 0.3 % (0.0-0.4); Lymphocytes Percent Auto 33.9 % (20-40); Mean Corpuscular HGB Conc 32.7 g/dl (31.0-36.0); Mean Corpuscular Hemoglobin 30.8 pg (27.0-33.0); Mean Corpuscular Volume 94.1 fL (80-98); Mean Platelet Volume 9.5 fL (9.4-12.4); Monocytes Absolute Auto 0.5 X10*3/uL (0.1-1.2); Monocytes Percent Auto 7.7 % (2-11); Neutrophils Absolute Auto 3.1 X10*3/uL (2.0-8.3); Neutrophils Percent Auto 53.3 % (45-73); Platelet Count 201 X10*3/uL (160-400); Red Blood Count 3.38 X10*6/uL (4.60-5.80); Red Cell Distribution Width 12.3 % (11.0-16.0); White Blood Count 5.8 X10*3/uL (4.8-10.8)
[2020-08-28 06:58] LABS: Anion Gap 10 (12-20); Blood Urea Nitrogen 7 mg/dL (9-16); Calcium 8.1 mg/dL (8.4-10.2); Carbon Dioxide 32 mmol/L (22-29); Chloride 104 mmol/L (96-108); Creatinine Clr Calc Pharmacy 100.7; Estimated Glomerular Filt Rate > 60; Glucose Random 97 mg/dL (60-115); Potassium 3.8 mmol/l (3.3-5.1); Sodium 142 mmol/L (135-145)
--- NOTE | 2020-08-28 09:13 | PM.PNORT ---
Subjective Subjective Date of Service: 08/28/20 Interval history: POD4 s/p lt hip cannulated screws. Pt's father present this morning with the pt. who is sitting comfortably in the recliner. No overnight events. Physical Exam Vital Signs: Vital Signs: Last Vital Signs Temp 98.5 F 08/28/20 06:45 Pulse 59 08/28/20 06:45 Resp 18 08/28/20 06:45 BP 126/66 08/28/20 06:45 Pulse Ox 91 L 08/28/20 06:45 Body Mass Index 21.5 Const: General: cooperative, healthy appearing and no acute distress Resp: Effort & Inspection: normal respiratory effort and able to speak in complete sentences Cardio: Rate: regular rate Peripheral pulses: Peripheral pulses 2+ throughout GI: Palpation (GI): Soft to palpation Skin: Lesions: no lesions Rashes: no rashes Extrem: Other: No ecchymosis, redness, or drainage. Bandage is clean, dry and intact. NVI. Progress Note: A&P Assessment and plan (1) Femoral neck fracture: Status: Acute Assessment and Plan: Continue pain mgmnt Continue Lovenox for dvt ppx Continue PT for lt hip cannulated screws Dispo planning-Pending PT eval, pain mgmnt Fall Risk Details Current Medications: Current Medications Generic Name Dose Route Start Last Admin Trade Name Freq PRN Reason Stop Dose Admin Docusate Sodium 100 mg 08/24/20 21:00 08/27/20 21:01 Docusate Sodium 100 Mg Capsule PO 100 mg BEDTIME JULIO Administration Docusate Sodium 100 mg 08/24/20 15:45 08/27/20 09:05 Docusate Sodium 100 Mg Capsule PO 100 mg DAILY PRN Administration constipation Enoxaparin Sodium 40 mg 08/25/20 14:00 08/27/20 13:10 Enoxaparin Sodium 40 Mg/0.4 Ml Syringe SUBCUT 40 mg Q24H JULIO Administration Hydromorphone HCl 0.25 mg 08/24/20 09:08 Hydromorphone Hcl 0.5 Mg/0.5 Ml Syringe IVPUSH Q4H PRN Pain, Severe (Pain Scale 7-10) Oxycodone HCl 5 mg 08/24/20 09:08 08/27/20 13:10 Oxycodone Hcl Immed Release 5 Mg Tablet PO 5 mg Q4H PRN Administration Pain, Moderate (Pain Scale 4-6 Pharmacy Consult 1 each 08/24/20 09:08 Consult Rx Perform Med Rec MISCELLANE ONCE PRN Consult order Propranolol HCl 20 mg 08/24/20 21:00 08/27/20 21:00 Propranolol Hcl 20 Mg Tablet PO 20 mg BID JULIO Administration Protocol Senna 17.2 mg 08/24/20 09:08 08/27/20 21:00 Sennosides 8.6 Mg Tablet PO 17.2 mg BEDTIME JULIO Administration Sodium Chloride 3 ml 08/24/20 09:08 08/27/20 21:01 0.9 % Sodium Chloride Flush 3 Ml Syringe IVFLUSH 3 ml QSHIFT JULIO Administration Time Spent With Patient Time: Total time spent is greater than 50% in coordination of care (as documented) at patient's floor/unit and/or counseling patient: Time with patient: less than 15 minutes
[2020-08-28] MEDS: Propranolol HCL 20 MG TABLET PO ×2 (09:15→22:48)
[2020-08-28] MEDS: 0.9 % Sodium Chloride Flush 3 ML SYRINGE IVFLUSH ×2 (09:17→18:39)
[2020-08-28] MEDS: oxyCODONE HCl Immed Release 5 MG TABLET PO ×2 (09:21→22:47)
--- NOTE | 2020-08-28 13:25 | MHC.CM.PN ---
OF THIS NOTE, NO ACUTE BED OFFERS. [facility] MAY HAVE A BED ON 08/29/20. INTENT TO ADMIT PRINTED OUT AND READY FOR SIGNATURES. ONCE ANSWER FOR DATE OF BED OFFER RECEIVED, FORM CAN BE COMPLETED. FATHER/GUARDIAN TO BRING FORM TO COURT HOUSE AND OBTAIN A DOCKET NUMBER. THIS CAN THEN BE UPLOADED TO FACILITY.
[2020-08-28] MEDS: Enoxaparin Sodium 40 MG/0.4 ML SYRINGE SUBCUT (13:55)
--- NOTE | 2020-08-28 13:57 | MHC.CM.PN ---
REFERRALS UPDATED TO INCLUDE [facility] AND [facility]. FATHER/GUARDIAN IS HOPING FOR A LOCAL BED OFFER
--- NOTE | 2020-08-28 14:59 | MHC.CM.PN ---
ORTHO PHYSICIAN AND GUARDIAN HAVE COMPLETED THEIR PORTIONS OF INTENT TO ADMIT. COMPLETED PASSR DOCUMENT AND GUARDIANSHIP UPLOADED TO REFERRALS. ONCE A BED IS OFFERED, INTENT TO ADMIT CAN BE COMPLETED GUARDIAN IS EXPECTING TO FILE INTENT TO ADMIT TOMORROW AT COURT.
--- NOTE | 2020-08-28 16:34 | MHC.CM.PN ---
MESSAGE LEFT FOR BRE SLOAN @ [phone]. INTENT TO ADMIT NEEDS TO BE ADDRESSED TOMORROW. FISHERIES TECHNICIAN IS AWARE IF THIS. PLAN IS FOR PATIENT TO DC TO [facility] ONCE DOCKET NUMBER IS SECURED.
[2020-08-28] MEDS: Sennosides 8.6 MG TABLET 17.2 MG PO (22:46)
[2020-08-28] MEDS: Docusate Sodium 100 MG CAPSULE PO (22:47)
[2020-08-29] VITALS: BP 139/69; PULSE 82; RESP 19; TEMP 36.4; O2SAT 96
[2020-08-29] MEDS: 0.9 % Sodium Chloride Flush 3 ML SYRINGE IVFLUSH ×2 (01:04→09:03)
[2020-08-29 04:00] VITALS: BP 139/68; PULSE 78; RESP 19; TEMP 36.4; O2SAT 96
[2020-08-29 06:14] LABS: MANUAL DIFF FLAG NO
[2020-08-29 06:23] LABS: Basophils Percent Auto 0.3 % (0-2); Eosinophils Absolute Auto 0.3 X10*3/uL (0.0-0.4); Eosinophils Percent Auto 4.4 % (0-4); Hematocrit 32.7 % (42-52); Hemoglobin 10.8 g/dl (14.0-18.0); Imm Gran Abs Auto 0.02 X10*3/uL (0.00-0.03); Imm Gran Pct Auto 0.3 % (0.0-0.4); Lymphocytes Absolute Auto 2.5 X10*3/uL (1.2-4.9); Lymphocytes Percent Auto 40.6 % (20-40); Mean Corpuscular Hemoglobin 30.9 pg (27.0-33.0); Mean Corpuscular Volume 93.7 fL (80-98); Mean Platelet Volume 9.5 fL (9.4-12.4); Monocytes Absolute Auto 0.5 X10*3/uL (0.1-1.2); Monocytes Percent Auto 7.9 % (2-11); Neutrophils Absolute Auto 2.8 X10*3/uL (2.0-8.3); Neutrophils Percent Auto 46.5 % (45-73); Platelet Count 214 X10*3/uL (160-400); Red Blood Count 3.49 X10*6/uL (4.60-5.80); Red Cell Distribution Width 12.4 % (11.0-16.0); White Blood Count 6.1 X10*3/uL (4.8-10.8)
[2020-08-29 06:46] LABS: Anion Gap 12 (12-20); Blood Urea Nitrogen 11 mg/dL (9-16); Calcium 8.1 mg/dL (8.4-10.2); Carbon Dioxide 30 mmol/L (22-29); Chloride 105 mmol/L (96-108); Creatinine Clr Calc Pharmacy 93.2; Estimated Glomerular Filt Rate > 60; Glucose Random 93 mg/dL (60-115); Potassium 3.7 mmol/l (3.3-5.1); Sodium 143 mmol/L (135-145)
[2020-08-29 08:00] VITALS: BP 156/68; PULSE 59; RESP 19; TEMP 36.9; O2SAT 90
[2020-08-29 09:03] VITALS: BP 156/68; PULSE 64
[2020-08-29] MEDS: Propranolol HCL 20 MG TABLET PO (09:03)
[2020-08-29] MEDS: oxyCODONE HCl Immed Release 5 MG TABLET PO (09:03)
[2020-08-29 09:41] LABS: COVID-19 Test Negative (Negative); IDNOW Serial# 9DD0AD1C
[2020-08-29 11:57] VITALS: BP 132/69; PULSE 60; RESP 20; TEMP 37.1; O2SAT 90
[2020-08-29 13:16] VITALS: BP 132/69; PULSE 60; O2SAT 90
[2020-08-29] MEDS: Enoxaparin Sodium 40 MG/0.4 ML SYRINGE SUBCUT (13:37)
--- NOTE | 2020-08-29 13:50 | MHC.CM.PN ---
Patient has been medically cleared for dc to SNF today. Patient will be dc to [facility] today at 4 PM, via [facility]. Last IMM addressed yesterday CM met with Father/Guardian/Sr. Sander in Patient's room and he is aware of and in agreement with the dc plan.
== END 2020-08-29 17:30 | disposition skilled nursing facility (03) | DRG 482 ==
LOC: HO.ED 21:56 → HO.EDOVER 08-24 05:23 → HO.S3 08-24 08:04
PROVIDERS: Physician Assistant; Admitting Provider Orthopaedic Surgery; Emergency Provider Internal Medicine; PCP Internal Medicine; Visit Provider Orthopaedic Surgery
PROC: 0QS734Z Reposition Left Upper Femur with Internal Fixation Device, Percutaneous Approach (ICD-10-PCS; principal; 2020-08-24 15:00)
DX: S72.012A Unspecified intracapsular fracture of left femur, initial encounter for closed fracture (principal); X58.XXXA Exposure to other specified factors, initial encounter; Y93.9 Activity, unspecified; F29 Unspecified psychosis not due to a substance or known physiological condition; F41.9 Anxiety disorder, unspecified; Y92.9 Unspecified place or not applicable; Y99.9 Unspecified external cause status; G80.9 Cerebral palsy, unspecified; E55.9 Vitamin D deficiency, unspecified; E78.5 Hyperlipidemia, unspecified; Z20.822 Contact with and (suspected) exposure to COVID-19; Z88.0 Allergy status to penicillin; Z88.5 Allergy status to narcotic agent; Z79.899 Other long term (current) drug therapy
CPT/HCPCS: 36415; 71045; 72100; 73502; 80048; 81003; 85025; 86850; 86900; 86901; 87635; 93005; 97110; 97116; 97162; 97166; 97530; 97535; 99285; C1713; C1769; J1100; J1650; J2250; J2370; J2405; J3010; J3370

== ENCOUNTER → 2020-09-07 12:21 | Outpatient (BNVA) | payer MEDICARE, MEDICAID, SELFPAY | PROVIDERS: Visit Provider Physician Assistant | DX: Z13.89 Encounter for screening for other disorder (principal) | CPT/HCPCS: 99212 ==

== ENCOUNTER 2020-10-13 12:45 | Outpatient (REF) | payer MEDICARE, MEDICAID, SELFPAY ==
--- NOTE | ~2020-10-13 | XR_ITS ---
EXAMINATION: XR HIP, LEFT CLINICAL INFORMATION: Fracture COMPARISON: Previous x-rays August 2020 TECHNIQUE: Two views of the left hip. FINDINGS: There are 3 screws transfixing the left femoral neck fracture. Orthopedic hardware appears unchanged. Fracture line is still seen and appears unchanged. There is arthritis at the left hip joint. Soft tissues are unremarkable. XR/XR hip LT min 2V IMPRESSION: ORIF of left femoral neck fracture.
== END 2020-10-13 12:46 | disposition home or self-care (01) ==
LOC: HO.HOSX 12:45
PROVIDERS: Visit Provider Physician Assistant
DX: S72.01 Unspecified intracapsular fracture of femur (principal)
CPT/HCPCS: 73502; 99212

== ENCOUNTER 2020-11-22 17:34 | Outpatient (REF) | payer MEDICARE, MEDICAID, SELFPAY | END 2020-11-22 17:35 | disposition home or self-care (01) | LOC: HO.HOSX 17:34 | PROVIDERS: Visit Provider Physician Assistant | DX: Z13.89 Encounter for screening for other disorder (principal) ==

== ENCOUNTER → 2020-11-23 08:53 | Outpatient (BNVA) | payer MEDICARE, MEDICAID, SELFPAY | PROVIDERS: Visit Provider Physician Assistant | DX: S72.01 Unspecified intracapsular fracture of femur (principal) | CPT/HCPCS: 99212 ==

== ENCOUNTER 2021-01-19 06:49 | Outpatient (REF) | payer MEDICARE, MEDICAID, SELFPAY ==
[2021-01-19 09:32] LABS: MANUAL DIFF FLAG NO
[2021-01-19 10:06] LABS: Basophils Percent Auto 0.2 % (0-2); Eosinophils Absolute Auto 0.3 X10*3/uL (0.0-0.4); Eosinophils Percent Auto 4.2 % (0-4); Hematocrit 39.8 % (42-52); Hemoglobin 12.9 g/dl (14.0-18.0); Imm Gran Abs Auto 0.01 X10*3/uL (0.00-0.03); Imm Gran Pct Auto 0.2 % (0.0-0.4); Lymphocytes Absolute Auto 2.3 X10*3/uL (1.2-4.9); Lymphocytes Percent Auto 38.2 % (20-40); Mean Corpuscular HGB Conc 32.4 g/dl (31.0-36.0); Mean Corpuscular Hemoglobin 30.5 pg (27.0-33.0); Mean Corpuscular Volume 94.1 fL (80-98); Monocytes Absolute Auto 0.4 X10*3/uL (0.1-1.2); Monocytes Percent Auto 6.3 % (2-11); Neutrophils Percent Auto 50.9 % (45-73); Platelet Count 237 X10*3/uL (160-400); Red Blood Count 4.23 X10*6/uL (4.60-5.80); Red Cell Distribution Width 12.5 % (11.0-16.0); White Blood Count 5.9 X10*3/uL (4.8-10.8)
[2021-01-19 10:11] LABS: Anion Gap 10 (12-20); Blood Urea Nitrogen 11 mg/dL (9-16); Calcium 8.9 mg/dL (8.4-10.2); Carbon Dioxide 30 mmol/L (22-29); Chloride 105 mmol/L (96-108); Estimated Glomerular Filt Rate > 60; Glucose Random 79 mg/dL (60-115); Potassium 4.1 mmol/L (3.3-5.1); Sodium 141 mmol/L (135-145)
== END 2021-01-19 06:50 | disposition home or self-care (01) ==
LOC: HO.LHD 06:49
PROVIDERS: Visit Provider Internal Medicine
DX: R19.7 Diarrhea, unspecified (principal); D64.9 Anemia, unspecified; E78.5 Hyperlipidemia, unspecified; I10 Essential (primary) hypertension
CPT/HCPCS: 36415; 80048; 85025; 87045; 87046; 87329

== ENCOUNTER 2021-03-28 07:00 | Outpatient (REF) | payer MEDICARE, MEDICAID, SELFPAY ==
[2021-03-28 11:02] LABS: MANUAL DIFF FLAG NO
[2021-03-28 11:23] LABS: Basophils Percent Auto 0.3 % (0-2); Eosinophils Absolute Auto 0.3 X10*3/uL (0.0-0.4); Hematocrit 38.6 % (42-52); Hemoglobin 12.3 g/dl (14.0-18.0); Imm Gran Abs Auto 0.01 X10*3/uL (0.00-0.03); Imm Gran Pct Auto 0.2 % (0.0-0.4); Lymphocytes Absolute Auto 2.6 X10*3/uL (1.2-4.9); Lymphocytes Percent Auto 42.1 % (20-40); Mean Corpuscular HGB Conc 31.9 g/dl (31.0-36.0); Mean Corpuscular Hemoglobin 30.4 pg (27.0-33.0); Mean Corpuscular Volume 95.5 fL (80-98); Mean Platelet Volume 10.4 fL (9.4-12.4); Monocytes Absolute Auto 0.4 X10*3/uL (0.1-1.2); Monocytes Percent Auto 7.1 % (2-11); Neutrophils Absolute Auto 2.9 X10*3/uL (2.0-8.3); Neutrophils Percent Auto 46.3 % (45-73); Platelet Count 243 X10*3/uL (160-400); Red Blood Count 4.04 X10*6/uL (4.60-5.80); Red Cell Distribution Width 12.5 % (11.0-16.0); White Blood Count 6.2 X10*3/uL (4.8-10.8)
[2021-03-28 12:06] LABS: Alanine Aminotransferase 16 U/L (0-40); Anion Gap 11 (12-20); Aspartate Amino Transferase 18 U/L (5-37); Blood Urea Nitrogen 8 mg/dL (9-16); Calcium 8.9 mg/dL (8.4-10.2); Carbon Dioxide 29 mmol/L (22-29); Chloride 104 mmol/L (96-108); Cholesterol 145 mg/dL; Estimated Glomerular Filt Rate > 60; Glucose Fasting 106 mg/dL (60-99); HDL Cholesterol 50 mg/dL; Iron 76 mcg/dL (45-160); LDL Cholesterol Calculated 86 mg/dl; Percent Iron Saturation 29 % (15-50); Potassium 4.2 mmol/L (3.3-5.1); Sodium 140 mmol/L (135-145); Total Iron Binding Capacity 262 mcg/dL (228-428); Triglycerides 48 mg/dL; Unsaturated Iron Binding 186 ug/dL
[2021-03-28 12:28] LABS: TSH reflex Free T4 1.45 uIU/mL (0.32-4.0); Vitamin D 25-OH Total 45.9 ng/mL (>30)
== END 2021-03-28 07:01 | disposition home or self-care (01) ==
LOC: HO.HMGCLDS 07:00
PROVIDERS: PCP Internal Medicine; Visit Provider Internal Medicine
DX: D64.9 Anemia, unspecified (principal); E78.5 Hyperlipidemia, unspecified; R19.7 Diarrhea, unspecified; I10 Essential (primary) hypertension
CPT/HCPCS: 36415; 80048; 80061; 82306; 83540; 84443; 84450; 84460; 85025

== ENCOUNTER 2021-03-29 | Outpatient (REF) | payer MEDICARE, MEDICAID, SELFPAY ==
[2021-03-29 13:56] LABS: Leukocytes Stool Qualitative NEGATIVE (NEGATIVE)
== END 2021-03-29 00:01 | disposition home or self-care (01) ==
LOC: HO.HMGCLNP
PROVIDERS: Visit Provider Internal Medicine
DX: R19.7 Diarrhea, unspecified (principal)
CPT/HCPCS: 89055

== ENCOUNTER → 2021-05-10 11:12 | Outpatient (BNVA) | payer MEDICARE, MEDICAID, SELFPAY | PROVIDERS: PCP Internal Medicine; Referring Provider Internal Medicine; Visit Provider Nurse Practitioner | DX: R19.7 Diarrhea, unspecified (principal); R13.10 Dysphagia, unspecified; Z80.0 Family history of malignant neoplasm of digestive organs | CPT/HCPCS: Q3014 ==

== ENCOUNTER → 2021-06-11 10:02 | Outpatient (BNVA) | payer MEDICARE, MEDICAID, SELFPAY | PROVIDERS: PCP Internal Medicine; Visit Provider Nurse Practitioner | DX: R19.7 Diarrhea, unspecified (principal); Z80.0 Family history of malignant neoplasm of digestive organs | CPT/HCPCS: 99212 ==

== ENCOUNTER → 2021-07-17 14:17 | Outpatient (BNVA) | payer MEDICARE, MEDICAID, SELFPAY | PROVIDERS: PCP Internal Medicine; Referring Provider Internal Medicine; Visit Provider Nurse Practitioner | DX: R19.7 Diarrhea, unspecified (principal) | CPT/HCPCS: 99212 ==

== ENCOUNTER → 2021-07-30 13:15 | Outpatient (BNVA) | payer MEDICARE, MEDICAID, SELFPAY | PROVIDERS: PCP Internal Medicine; Visit Provider Internal Medicine | DX: G47.33 Obstructive sleep apnea (adult) (pediatric) (principal); Z99.89 Dependence on other enabling machines and devices | CPT/HCPCS: 99212 ==

== ENCOUNTER 2021-08-01 05:54 | Outpatient (REF) | payer MEDICARE, MEDICAID, SELFPAY ==
[2021-08-01 11:51] LABS: Hepatitis B Core Antibody Nonreactive (Nonreactive); ~HepC Num1 0.08 S/CO (0.00-0.79); ~Hepatitis B Surface Antibody NONREACTIVE (Nonreactive); ~Hepatitis C Antibody Nonreactive (Nonreactive)
[2021-08-01 11:54] LABS: HBsAGNum1 0.23 S/CO (0.00-0.99); Hepatitis B Surface Antigen Negative (Negative)
[2021-08-03 20:42] LABS: TS Negative Control Passed; TS Panel A 0; TS Panel B 0; TS Positive Control Passed; TSpotTB Negative (Negative)
== END 2021-08-01 05:55 | disposition home or self-care (01) ==
LOC: HO.LHD 05:54
PROVIDERS: Visit Provider Internal Medicine
DX: Z01.84 Encounter for antibody response examination (principal); Z11.1 Encounter for screening for respiratory tuberculosis; Z11.59 Encounter for screening for other viral diseases
CPT/HCPCS: 36415; 86481; 86704; 86706; 86803; 87340

== ENCOUNTER 2021-09-07 06:55 | Outpatient (REF) | payer MEDICARE, MEDICAID, SELFPAY ==
[2021-09-07 09:59] LABS: MANUAL DIFF FLAG NO
[2021-09-07 10:01] LABS: Basophils Percent Auto 0.3 % (0-2); Eosinophils Absolute Auto 0.4 X10*3/uL (0.0-0.4); Hematocrit 40.7 % (42.0-52.0); Hemoglobin 13.1 g/dl (14.0-18.0); Imm Gran Abs Auto 0.01 X10*3/uL (0.00-0.03); Imm Gran Pct Auto 0.2 % (0.0-0.4); Lymphocytes Absolute Auto 2.3 X10*3/uL (1.2-4.9); Lymphocytes Percent Auto 38.8 % (20-40); Mean Corpuscular HGB Conc 32.2 g/dl (31.0-36.0); Mean Corpuscular Hemoglobin 30.8 pg (27.0-33.0); Mean Corpuscular Volume 95.8 fL (80.0-98.0); Mean Platelet Volume 10.4 fL (9.4-12.4); Monocytes Absolute Auto 0.3 X10*3/uL (0.1-1.2); Monocytes Percent Auto 5.5 % (2-11); Neutrophils Percent Auto 49.2 % (45-73); Platelet Count 174 X10*3/uL (160-400); Red Blood Count 4.25 X10*6/uL (4.60-5.80); Red Cell Distribution Width 12.3 % (11.0-16.0)
[2021-09-07 10:51] LABS: Alanine Aminotransferase 19 U/L (0-40); Anion Gap 10 (12-20); Aspartate Amino Transferase 18 U/L (5-37); Blood Urea Nitrogen 9 mg/dL (9-16); Calcium 9.1 mg/dL (8.4-10.2); Carbon Dioxide 29 mmol/L (22-29); Chloride 104 mmol/L (96-108); Cholesterol 155 mg/dL; Estimated Glomerular Filt Rate > 60; Glucose Fasting 84 mg/dL (60-99); HDL Cholesterol 51 mg/dL; Iron 86 mcg/dL (45-160); LDL Cholesterol Calculated 92 mg/dl; Percent Iron Saturation 29 % (15-50); Potassium 4.2 mmol/L (3.3-5.1); Sodium 139 mmol/L (135-145); Total Iron Binding Capacity 300 mcg/dL (228-428); Triglycerides 64 mg/dL; Unsaturated Iron Binding 214 ug/dL
[2021-09-07 11:00] LABS: TSH reflex Free T4 2.02 uIU/mL (0.32-4.0)
== END 2021-09-07 06:56 | disposition home or self-care (01) ==
LOC: HO.LHD 06:55
PROVIDERS: Visit Provider Internal Medicine
DX: R13.10 Dysphagia, unspecified (principal); I10 Essential (primary) hypertension; E78.5 Hyperlipidemia, unspecified; D64.9 Anemia, unspecified
CPT/HCPCS: 36415; 80048; 80061; 83540; 84443; 84450; 84460; 85025

== ENCOUNTER → 2021-10-15 14:19 | Outpatient (BNVA) | payer MEDICARE, MEDICAID, SELFPAY | PROVIDERS: PCP Internal Medicine; Referring Provider Internal Medicine; Visit Provider Nurse Practitioner | DX: K91.5 Postcholecystectomy syndrome (principal); R19.7 Diarrhea, unspecified | CPT/HCPCS: 99212 ==

== ENCOUNTER → 2022-05-16 14:19 | Outpatient (BNVA) | payer MEDICARE, MEDICAID, SELFPAY | PROVIDERS: PCP Internal Medicine; Visit Provider Nurse Practitioner | DX: K91.5 Postcholecystectomy syndrome (principal) | CPT/HCPCS: 99212 ==

== ENCOUNTER 2022-08-20 05:35 | Outpatient (REF) | payer MEDICARE, MEDICAID, SELFPAY | END 2022-08-20 05:36 | disposition home or self-care (01) | LOC: HO.LHD 05:35 | PROVIDERS: Visit Provider Internal Medicine | DX: Z13.89 Encounter for screening for other disorder (principal) ==

== ENCOUNTER 2022-08-21 06:02 | Outpatient (REF) | payer MEDICARE, MEDICAID, SELFPAY ==
[2022-08-21 13:34] LABS: Alanine Aminotransferase 12 U/L (0-40); Anion Gap 12 (12-20); Aspartate Amino Transferase 17 U/L (5-37); Blood Urea Nitrogen 12 mg/dL (9-16); Calcium 9.3 mg/dL (8.4-10.2); Carbon Dioxide 27 mmol/L (22-29); Chloride 106 mmol/L (96-108); Cholesterol 149 mg/dL; Estimated Glomerular Filt Rate > 60; Glucose Fasting 93 mg/dL (60-99); HDL Cholesterol 48 mg/dL; LDL Cholesterol Calculated 87 mg/dl; Potassium 4.3 mmol/L (3.3-5.1); Sodium 141 mmol/L (135-145); Triglycerides 71 mg/dL
[2022-08-21 13:35] LABS: Vitamin D 25-OH Total 25.6 ng/mL (>30)
== END 2022-08-21 06:03 | disposition home or self-care (01) ==
LOC: HO.HMGCLDS 06:02
PROVIDERS: PCP Internal Medicine; Visit Provider Internal Medicine
DX: E78.5 Hyperlipidemia, unspecified (principal); F29 Unspecified psychosis not due to a substance or known physiological condition; M16.32 Unilateral osteoarthritis resulting from hip dysplasia, left hip; S72.002A Fracture of unspecified part of neck of left femur, initial encounter for closed fracture; S72.012A Unspecified intracapsular fracture of left femur, initial encounter for closed fracture
CPT/HCPCS: 36415; 80048; 80061; 82306; 84450; 84460

== ENCOUNTER → 2022-08-29 13:23 | Outpatient (BNVA) | payer MEDICARE, MEDICAID, SELFPAY | PROVIDERS: PCP Internal Medicine; Visit Provider Internal Medicine | DX: G47.33 Obstructive sleep apnea (adult) (pediatric) (principal); Z99.89 Dependence on other enabling machines and devices | CPT/HCPCS: 99212 ==

== ENCOUNTER → 2022-11-14 14:21 | Outpatient (BNVA) | payer MEDICARE, MEDICAID, SELFPAY | PROVIDERS: PCP Internal Medicine; Visit Provider Nurse Practitioner | DX: K91.5 Postcholecystectomy syndrome (principal) | CPT/HCPCS: 99212 ==

== ENCOUNTER 2023-01-11 06:32 | Outpatient (REF) | payer MEDICARE, MEDICAID, SELFPAY ==
[2023-01-11 11:13] LABS: MANUAL DIFF FLAG NO
[2023-01-11 11:50] LABS: Basophils Percent Auto 0.3 % (0-2); Eosinophils Absolute Auto 0.7 X10*3/uL (0.0-0.4); Eosinophils Percent Auto 9.6 % (0-4); Hematocrit 41.6 % (42.0-52.0); Hemoglobin 13.2 g/dl (14.0-18.0); Imm Gran Abs Auto 0.02 X10*3/uL (0.00-0.03); Imm Gran Pct Auto 0.3 % (0.0-0.4); Lymphocytes Absolute Auto 3.4 X10*3/uL (1.2-4.9); Lymphocytes Percent Auto 44.2 % (20-40); Mean Corpuscular HGB Conc 31.7 g/dl (31.0-36.0); Mean Corpuscular Hemoglobin 30.8 pg (27.0-33.0); Mean Corpuscular Volume 97.2 fL (80.0-98.0); Mean Platelet Volume 10.7 fL (9.4-12.4); Monocytes Absolute Auto 0.5 X10*3/uL (0.1-1.2); Monocytes Percent Auto 6.3 % (2-11); Neutrophils Percent Auto 39.3 % (45-73); Platelet Count 266 X10*3/uL (160-400); Red Blood Count 4.28 X10*6/uL (4.60-5.80); Red Cell Distribution Width 12.8 % (11.0-16.0); White Blood Count 7.7 X10*3/uL (4.8-10.8)
[2023-01-11 11:52] LABS: Alanine Aminotransferase 12 U/L (0-40); Anion Gap 16 (12-20); Aspartate Amino Transferase 15 U/L (5-37); Blood Urea Nitrogen 9 mg/dL (9-16); Calcium 9.4 mg/dL (8.4-10.2); Carbon Dioxide 26 mmol/L (22-29); Chloride 107 mmol/L (96-108); Cholesterol 162 mg/dL; Estimated Glomerular Filt Rate > 60; Glucose Fasting 104 mg/dL (60-99); HDL Cholesterol 46 mg/dL; LDL Cholesterol Calculated 102 mg/dl; Potassium 4.8 mmol/L (3.3-5.1); Sodium 144 mmol/L (135-145); Triglycerides 73 mg/dL
[2023-01-11 12:11] LABS: PSA,Total (Free>4and<10) 1.38 ng/mL (0.00-4.00); Vitamin D 25-OH Total 43.9 ng/mL (>30)
== END 2023-01-11 06:33 | disposition home or self-care (01) ==
LOC: HO.HMGCLDS 06:32
PROVIDERS: PCP Internal Medicine; Visit Provider Internal Medicine
DX: Z12.5 Encounter for screening for malignant neoplasm of prostate (principal); D64.9 Anemia, unspecified; E55.9 Vitamin D deficiency, unspecified; E78.5 Hyperlipidemia, unspecified; F29 Unspecified psychosis not due to a substance or known physiological condition
CPT/HCPCS: 36415; 80048; 80061; 82306; 84153; 84450; 84460; 85025

== ENCOUNTER 2023-02-26 05:05 | Outpatient (REF) | payer MEDICARE, MEDICAID, SELFPAY ==
[2023-02-26 11:27] LABS: Appearance Urine Clear; Color Urine Yellow; Glucose Urine UA Negative (Negative); Leukocyte Esterase Urine Negative (Negative); Nitrite Urine Negative (Negative); Urine Blood Negative (Negative); Urine Ketones Negative (Negative); Urine Protein Negative (Neg-Trace)
== END 2023-02-26 05:06 | disposition home or self-care (01) ==
LOC: HO.HMGCLNP 05:05
PROVIDERS: PCP Internal Medicine; Visit Provider Internal Medicine
DX: R32 Unspecified urinary incontinence (principal)
CPT/HCPCS: 81003

== ENCOUNTER 2023-03-20 10:55 | Outpatient (AMB) | payer MEDICARE, MEDICAID, SELFPAY ==
--- NOTE | 2023-03-20 11:04 | A.OFFPC_ITS ---
Vital Signs 03/20/23 11:09 Height 5 ft 1 in Weight 97 lb 4 oz BMI 18.4 BP 110/70 Blood Pressure Location Rt brachial Position Sitting Pulse 64 Pulse Source Pulse Oximeter Pulse Oximetry (%) 97 Oxygen Delivery Method Room Air Intake Visit Reasons: f/u chronic conditions Intake Note: Pt is here today father is concern on pt's wgt loss Allergies clotrimazole Allergy (Intermediate, Verified 03/20/23 11:17) Rash acetaminophen [From ENDOCET] Allergy (Unknown, Verified 03/20/23 11:17) HIVES amoxicillin [From AUGMENTIN] Allergy (Unknown, Verified 03/20/23 11:17) HIVES cefuroxime [CEFUROXIME] Allergy (Unknown, Verified 03/20/23 11:17) HIVES ciprofloxacin [From CIPRO] Allergy (Unknown, Verified 03/20/23 11:17) HIVES, Rash, rash clarithromycin [From BIAXIN] Allergy (Unknown, Verified 03/20/23 11:17) HIVES clavulanic acid [From AUGMENTIN] Allergy (Unknown, Verified 03/20/23 11:17) HIVES morphine [MORPHINE] Allergy (Unknown, Verified 03/20/23 11:17) HIVES, Rash, rash oxycodone [From ENDOCET] Allergy (Unknown, Verified 03/20/23 11:17) HIVES Medication List - Last Reconciled 03/20/23 by Jeri John MD cholecalciferol (vitamin D3) 25 mcg PO DAILY diazepam 2 mg PO ONCE PRN docusate sodium 100 mg PO DAILY PRN epinephrine 0.3 mg (0.3 mL) IM ONCE PRN olopatadine 0.2% (Pataday Once Daily Relief) 1 drp ophthalmic (eye) DAILY propranolol 10 mg PO BID risperidone 0.5 mg PO BID simvastatin 10 mg PO BEDTIME sucralfate (Carafate) 3 grams (3 x 1 gram) PO .qhs 30 days Tobacco use date assessed: 03/20/23 Dental Screening Dental Screen Date: 03/20/23 Did you have a dental visit in the last 12 months?: Yes Did you have a dental problem in the last 6 months where you did not have access to dental care?: No Was dental information given to patient?: Patient has dentist HPI f/u chronic conditions HPI Details 57-year-old male, here today accompanied by father, who states that his son has been steadily losing weight over the last several months. Appetite remains good however he has noticed that he would sometimes keep food in his mouth for long time before swallowing. He also has been having intermittent episodes of loose stools over the last several weeks, but denies any abdominal pain, no increased weakness, no nausea, no abdominal pain reported [facility] Medical History Anemia Cerebral palsy Closed subcapital fracture of left femur Dyslipidemia Dysphagia Gallstones Left inguinal hernia Mental and behavioral problems with learning Normocytic normochromic anemia TRENT on CPAP 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 Psychotic disorder Sensorineural hearing loss Vitamin D deficiency Weight loss, non-intentional Surgical History History of cataract surgery History of colonoscopy Hx laparoscopic cholecystectomy S/P inguinal herniorrhaphy Family History Father Medical history non-contributory Mother Medical history non-contributory Social History Household Members: Family Housing: House Do you presently have visiting nurse or other home services: No Alcohol intake: never Patient Tobacco Use Status: Never used Tobacco e-Cigarette/Vaping Use: Never Used Second Hand Smoke Exposure: No service: No Current occupational status: disabled Cognitive needs: Yes Hearing needs: Yes Vision needs: Yes Questionnaire Thrive Questionnaire Date Thrive assessed: 08/27/22 Review of Systems Const All systems reviewed & are unremarkable except as noted in HPI and below Physical exam (Primary Care) Vital Signs: Last Vital Signs Pulse 64 03/20/23 11:09 BP 110/70 03/20/23 11:09 Pulse Ox 97 03/20/23 11:09 Oxygen Delivery Method Room Air 03/20/23 11:09 BMI result Body Mass Index 18.4 Tobacco/Smoking Status: Tobacco use Status Tobacco use date assessed 03/20/23 03/20/23 11:08 Patient Tobacco Use Status Never used Tobacco 03/20/23 11:08 e-Cigarette/Vaping Use Never Used 03/20/23 11:08 Thrive Assessment: Date of Thrive Assessment Date Thrive assessed 08/27/22 03/20/23 11:08 Assessment and Plan Assessment & Plan (1) Weight loss, non-intentional: Code(s): R63.4 - Abnormal weight loss Plan: Will check vitamin B12 folic acid, comprehensive metabolic panel, fasting lipid , TSH reflex free T4, vitamin-D and CBC. Advised to give patient small frequent meals at least 6 a day and (2) Dyslipidemia: Code(s): E78.5 - Hyperlipidemia, unspecified Plan: Fasting lipid panel ordered today (3) Normocytic normochromic anemia: Code(s): D64.9 - Anemia, unspecified Plan: CBC with iron profile ordered today Orders: Orders Vitamin B12 and Folate 05/11/23 D64.9 - Anemia, unspecified, E78.5 - Hyperlipidemia, unspecified, R63.4 - Abnormal weight loss Comprehensive Bernice. Panel Fast 05/11/23 D64.9 - Anemia, unspecified, E78.5 - Hyperlipidemia, unspecified, R63.4 - Abnormal weight loss Lipid Panel 05/11/23 D64.9 - Anemia, unspecified, E78.5 - Hyperlipidemia, unspecified, R63.4 - Abnormal weight loss TSH reflex Free T4 05/11/23 D64.9 - Anemia, unspecified, E78.5 - Hyperlipidemia, unspecified, R63.4 - Abnormal weight loss Vitamin D 25-OH Total 05/11/23 D64.9 - Anemia, unspecified, E78.5 - Hyperlipidemia, unspecified, R63.4 - Abnormal weight loss Complete Blood Count Auto Diff 05/11/23 D64.9 - Anemia, unspecified, E78.5 - Hyperlipidemia, unspecified, R63.4 - Abnormal weight loss Coding Level of Care Code Est Pt Level 3 (73841) Diagnoses Weight loss, non-intentional R63.4 Dyslipidemia E78.5 Normocytic normochromic anemia D64.9
[2023-03-20 11:09] VITALS: BP 110/70; PULSE 64; O2SAT 97; BMI 18.4
== END 2023-03-20 13:38 | disposition home or self-care (01) ==
PROVIDERS: PCP Internal Medicine; Visit Provider Internal Medicine
DX: R63.4 Abnormal weight loss (principal); E78.5 Hyperlipidemia, unspecified; D64.9 Anemia, unspecified
CPT/HCPCS: 99213

== ENCOUNTER 2023-05-21 13:54 | Outpatient (AMB) | payer MEDICARE, MEDICAID, SELFPAY ==
--- NOTE | 2023-05-21 13:57 | MHC.OFFVIS ---
Intake Vital Signs 05/21/23 14:01 Height 5 ft 1 in Weight 97 lb 7.109 oz BMI 18.4 BP 127/66 Blood Pressure Location Rt brachial Position Sitting Pulse 55 Intake Visit Reasons: 6 month follow Intake Note: Patient presents to in office in 6 months follow up of post eliane syndrome. CC: Patient's father reports they cut back on the Sucralfate because he was getting constipated. Pt is now taking x2 pills, he is now having 1-2 BMs daily, first one in the morning is hard and second BM soft. Retail Attendant Required: No Accompanied by: Parent Allergies clotrimazole Allergy (Intermediate, Verified 05/21/23 14:03) Rash acetaminophen [From ENDOCET] Allergy (Unknown, Verified 05/21/23 14:03) HIVES amoxicillin [From AUGMENTIN] Allergy (Unknown, Verified 05/21/23 14:03) HIVES cefuroxime [CEFUROXIME] Allergy (Unknown, Verified 05/21/23 14:03) HIVES ciprofloxacin [From CIPRO] Allergy (Unknown, Verified 05/21/23 14:03) HIVES, Rash, rash clarithromycin [From BIAXIN] Allergy (Unknown, Verified 05/21/23 14:03) HIVES clavulanic acid [From AUGMENTIN] Allergy (Unknown, Verified 05/21/23 14:03) HIVES morphine [MORPHINE] Allergy (Unknown, Verified 05/21/23 14:03) HIVES, Rash, rash oxycodone [From ENDOCET] Allergy (Unknown, Verified 05/21/23 14:03) HIVES HPI 6 month follow HPI Details Assessment & Plan (1) Post-cholecystectomy syndrome: Code(s): K91.5 - Postcholecystectomy syndrome Plan: Sander is here today with his father as he is developmentally delayed and this is 1 of his primary caretakers along with his mother. He continues to do fairly well on his Carafate. He had an episode of CIC that was so hard his father had to digitally disimpact him. His first BM in the am is the hardest and then is followed by soft stools. His father will vary the dose of the Carafate depending on his stooling and that is absolutely fine. I give them 3 a day so that they have plenty to work with. He vomits about twice a month and it is heavy green phlem. His father thinks this may be r/t the fat content of his desserts - they did not realize that cookies etc had a high fat content. We also know he is a migraine sufferer and this may be a triggering factor. If the vomiting becomes worse, we could consider an antiemetic but it would be better to manage this non medically - and if itis the migraines it may be landry to speak to the PCP about migraine preventative medications. Overall they remain satisfied with his regimen. ROV 6 mos. Medications: Refilled sucralfate (Carafa te) 3 grams (3 x 1 gra m) PO .qhs 30 days 90 tabs 6RF R19.7 - Diarrhea, unspecified TODAY'S VISIT He is here with his mother and father They cut back the desserts and sweets and this has reduced the vomiting - they did not realize the fat content of baked goods. They also found 3 carafate too constipating, so cut back to 2. We discussed the role of glycerin supps as he seems to develop hard stool in the rectal vault followed by soft stool. ROV 6 mos. PFSH Medical History Anemia Cerebral palsy Closed subcapital fracture of left femur Dyslipidemia Dysphagia Gallstones Left inguinal hernia Mental and behavioral problems with learning Normocytic normochromic anemia TRENT on CPAP 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 Psychotic disorder Sensorineural hearing loss Vitamin D deficiency Weight loss, non-intentional Surgical History History of cataract surgery History of colonoscopy Hx laparoscopic cholecystectomy S/P inguinal herniorrhaphy Family History Father Medical history non-contributory Mother Medical history non-contributory Social History Household Members: Family Housing: House Do you presently have visiting nurse or other home services: No Alcohol intake: never Patient Tobacco Use Status: Never used Tobacco e-Cigarette/Vaping Use: Never Used Second Hand Smoke Exposure: No service: No Current occupational status: disabled Cognitive needs: Yes Hearing needs: Yes Vision needs: Yes Review of Systems Const Denies fatigue, Denies fever(s), Denies night sweats, Denies poor appetite and Denies weight loss Eyes Details: glasses Reports requires corrective lenses ENT Reports Normal hearing present, Denies dental pain, Denies dysphagia, Denies hearing loss, Denies mouth pain, Denies odynophagia, Denies throat swelling, Denies tongue swelling and Reports other (Dentition adequate) Card Reports no additional complaints Resp Reports no additional complaints GI Denies abdominal pain, Denies melena, Denies bloating, Denies hematochezia, Denies constipation, Denies GI cramping, Denies dysphagia, Denies excessive flatus, Denies early satiety, Denies heartburn, Denies diarrhea, Reports loose stools, Denies nausea, Denies odynophagia, Denies vomiting and Denies hematemesis Skin/Breast Denies pruritus, Denies lesions, Denies rash and Denies jaundice Neuro Reports Normal hearing present and Denies Abnormal speech present Endo Denies fatigue Aller/Immun Denies throat swelling and Denies tongue swelling Physical Exam Vital Signs: Last Vital Signs Pulse 55 05/21/23 14:01 BP 127/66 05/21/23 14:01 BMI result Body Mass Index 18.4 Const General: cooperative, no acute distress, well developed and well groomed Nutritional Appearance: average body habitus and well nourished Orientation/consciousness: oriented to person, oriented to place and oriented to time Limitations: No language barrier and other limitations HEENT Head: Yes normocephalic and Yes atraumatic Eyes General: appearance normal, both eyes and all related structures Pupils: Equal, round and reactive pupils present Neck Neck: Yes normal visual inspection and Yes no lymphadenopathy Thyroid: Thyroid normal Resp Effort & Inspection: normal respiratory effort and able to speak in complete sentences Auscultation: clear to auscultation bilaterally Cardio Rate: regular rate Rhythm: regular rhythm Heart sounds: Normal, physiologic split S2 sound present Peripheral pulses: radial pulses present and posterior tibial pulses present GI Inspection: No distended and No Abdominal panniculus present Palpation (GI): Soft to palpation, nontender, no guarding, not rigid and No hepatosplenomegaly present Percussion: Yes normal to percussion Auscultation: normal bowel sounds Rectal Exam - Male: Yes deferred Skin General skin exam: no rashes or lesions noted, turgor normal, skin not dry, no jaundice, No spider nevi and no striae Rashes: no rashes Nails: normal Neuro General: oriented to person, oriented to place and oriented to time Cranial nerves: Yes Equal, round and reactive pupils present and Yes Normal hearing present Speech: No Abnormal speech present Extrem General: Yes normal to inspection, No clubbing, No cyanosis and No edema Psych Appearance: grossly normal and well kempt Mental Status: other Speech and movement: Mute speech present Affect: normal affect Attitude: cooperative Thought process: not confabulating and Impoverished thought process present Thought content: Normal thought content present Insight: Poor insight present (Psych) Judgement: Poor judgement present (Psych) Assessment & Plan Assessment & Plan (1) Post-cholecystectomy syndrome: Code(s): K91.5 - Postcholecystectomy syndrome Plan: He is here with his mother and father They cut back the desserts and sweets and this has reduced the vomiting - they did not realize the fat content of baked goods. They also found 3 carafate too constipating, so cut back to 2. We discussed the role of glycerin supps as he seems to develop hard stool in the rectal vault followed by soft stool. ROV 6 mos. Next appt ask about colonoscopy (2) Family history of colon cancer: Comment: Paternal grandfather of cancer, father had colon polyps patient had a prior polyps 6 years ago Code(s): Z80.0 - Family history of malignant neoplasm of digestive organs Medications: New glycerin (adult) 1 supp [place] DAILY PRN 12 ea 0RF constipation docusate sodium 100 mg PO DAILY PRN 30 caps 6RF constipation Changed From sucralfate (Carafate) 3 grams (3 x 1 gram) PO .qhs 30 days 90 tabs 6RF R19.7 - Diarrhea, unspecified To sucralfate (Carafate) 2 grams (2 x 1 gram) PO .qhs 30 days 60 tabs 6RF R19.7 - Diarrhea, unspecified Coding Level of Care Code Est Pt Level 3 (43489) Diagnoses Post-cholecystectomy syndrome K91.5 Family history of colon cancer Z80.0
[2023-05-21 14:01] VITALS: BP 127/66; PULSE 55; BMI 18.4
== END 2023-05-21 14:20 | disposition home or self-care (01) ==
PROVIDERS: PCP Internal Medicine; Visit Provider Nurse Practitioner
DX: K91.5 Postcholecystectomy syndrome (principal); Z80.0 Family history of malignant neoplasm of digestive organs
CPT/HCPCS: 99213

== ENCOUNTER → 2023-05-21 13:54 | Outpatient (BNVA) | payer MEDICARE, MEDICAID, SELFPAY | PROVIDERS: PCP Internal Medicine; Visit Provider Nurse Practitioner | DX: K91.5 Postcholecystectomy syndrome (principal); Z80.0 Family history of malignant neoplasm of digestive organs | CPT/HCPCS: 99212 ==

== ENCOUNTER 2023-05-28 08:21 | Outpatient (AMB) | payer MEDICARE, MEDICAID, SELFPAY ==
[2023-05-28 08:30] VITALS: BP 98/60; PULSE 63; O2SAT 96; BMI 18.4
--- NOTE | 2023-05-28 08:30 | A.OFFVIS_ITS ---
Intake Vital Signs 05/28/23 08:30 Height 5 ft 1 in Weight 97 lb 6 oz BMI 18.4 Intake Visit Reasons: AWV Allergies clotrimazole Allergy (Intermediate, Verified 05/21/23 14:03) Rash acetaminophen [From ENDOCET] Allergy (Unknown, Verified 05/21/23 14:03) HIVES amoxicillin [From AUGMENTIN] Allergy (Unknown, Verified 05/21/23 14:03) HIVES cefuroxime [CEFUROXIME] Allergy (Unknown, Verified 05/21/23 14:03) HIVES ciprofloxacin [From CIPRO] Allergy (Unknown, Verified 05/21/23 14:03) HIVES, Rash, rash clarithromycin [From BIAXIN] Allergy (Unknown, Verified 05/21/23 14:03) HIVES clavulanic acid [From AUGMENTIN] Allergy (Unknown, Verified 05/21/23 14:03) HIVES morphine [MORPHINE] Allergy (Unknown, Verified 05/21/23 14:03) HIVES, Rash, rash oxycodone [From ENDOCET] Allergy (Unknown, Verified 05/21/23 14:03) HIVES [facility] Medical History Anemia Cerebral palsy Closed subcapital fracture of left femur Dyslipidemia Dysphagia Gallstones Left inguinal hernia Mental and behavioral problems with learning Normocytic normochromic anemia TRENT on CPAP 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 Psychotic disorder Sensorineural hearing loss Vitamin D deficiency Weight loss, non-intentional Surgical History History of cataract surgery History of colonoscopy Hx laparoscopic cholecystectomy S/P inguinal herniorrhaphy Family History Father Medical history non-contributory Mother Medical history non-contributory Social History Household Members: Family Housing: House Do you presently have visiting nurse or other home services: No Alcohol intake: never Patient Tobacco Use Status: Never used Tobacco e-Cigarette/Vaping Use: Never Used Second Hand Smoke Exposure: No service: No Current occupational status: disabled Cognitive needs: Yes Hearing needs: Yes Vision needs: Yes Coding
--- NOTE | 2023-05-28 08:37 | MHC.PC.OV ---
Vital Signs 05/28/23 08:30 Height 5 ft 1 in Weight 97 lb 6 oz BMI 18.4 BP 98/60 Blood Pressure Location Rt brachial Position Sitting Pulse 63 Pulse Source Pulse Oximeter Pulse Oximetry (%) 96 Oxygen Delivery Method Room Air Intake Visit Reasons: Annual PE Intake Note: pt is here for a PE and has paper work from [facility] that he needs filled out Dad would like pt to have flu vaccine Allergies clotrimazole Allergy (Intermediate, Verified 05/28/23 08:54) Rash acetaminophen [From ENDOCET] Allergy (Unknown, Verified 05/28/23 08:54) HIVES amoxicillin [From AUGMENTIN] Allergy (Unknown, Verified 05/28/23 08:54) HIVES cefuroxime [CEFUROXIME] Allergy (Unknown, Verified 05/28/23 08:54) HIVES ciprofloxacin [From CIPRO] Allergy (Unknown, Verified 05/28/23 08:54) HIVES, Rash, rash clarithromycin [From BIAXIN] Allergy (Unknown, Verified 05/28/23 08:54) HIVES clavulanic acid [From AUGMENTIN] Allergy (Unknown, Verified 05/28/23 08:54) HIVES morphine [MORPHINE] Allergy (Unknown, Verified 05/28/23 08:54) HIVES, Rash, rash oxycodone [From ENDOCET] Allergy (Unknown, Verified 05/28/23 08:54) HIVES Medication List - Last Reconciled 05/28/23 by Jeri John MD cholecalciferol (vitamin D3) 25 mcg PO DAILY diazepam 2 mg PO ONCE PRN docusate sodium 100 mg PO DAILY PRN epinephrine 0.3 mg (0.3 mL) IM ONCE PRN glycerin (adult) 1 supp MA DAILY PRN olopatadine 0.2% (Pataday Once Daily Relief) 1 drp ophthalmic (eye) DAILY propranolol 10 mg PO BID risperidone 0.5 mg PO BID simvastatin 10 mg PO BEDTIME sucralfate (Carafate) 2 grams (2 x 1 gram) PO .qhs 30 days Tobacco use date assessed: 05/28/23 Dental Screening Dental Screen Date: 05/28/23 Did you have a dental visit in the last 12 months?: Yes Did you have a dental problem in the last 6 months where you did not have access to dental care?: No Was dental information given to patient?: Patient has dentist HPI Annual PE HPI Details 57-year-old male with history significant for cerebral palsy, dyslipidemia, TRENT on CPAP, normocytic normochromic, anemia, osteoarthritis with left hip dysplasia status post surgery, and sensory neural healing loss, here today for his physical exam. He is accompanied today by his father who states that son has been feeling well, with no new complaints at present time. He is requesting that his son received his flu vaccine today [facility] Medical History (Updated 05/28/23 @ 09:26 by Jeri John MD) Weight loss, non-intentional TRENT on CPAP Dyslipidemia Dysphagia Mental and behavioral problems with learning Closed subcapital fracture of left femur Anemia Normocytic normochromic anemia Psychotic disorder Gallstones 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 Left inguinal hernia Sensorineural hearing loss Cerebral palsy Vitamin D deficiency Surgical History History of cataract surgery S/P inguinal herniorrhaphy History of colonoscopy Hx laparoscopic cholecystectomy Family History Father Medical history non-contributory Mother Medical history non-contributory Social History Household Members: Family Housing: House Do you presently have visiting nurse or other home services: No Alcohol intake: never Patient Tobacco Use Status: Never used Tobacco e-Cigarette/Vaping Use: Never Used Second Hand Smoke Exposure: No service: No Current occupational status: disabled Cognitive needs: Yes Hearing needs: Yes Vision needs: Yes Questionnaire Thrive Questionnaire Date Thrive assessed: 08/27/22 Review of Systems Const Denies excessive sweating, Denies fever(s), Denies poor appetite and Denies weight loss Eyes Details: glasses Reports requires corrective lenses ENT Reports Normal hearing present, Denies dental pain, Denies dysphagia, Denies mouth pain and Denies odynophagia Card Reports no additional complaints Resp Reports no additional complaints GI Denies abdominal pain, Denies melena, Denies bloating, Denies constipation, Denies GI cramping, Denies dysphagia, Denies early satiety, Denies heartburn, Denies diarrhea, Denies nausea, Denies odynophagia and Denies vomiting Denies hematuria, Denies oliguria, Denies difficulty urinating, Denies genital lesions, Denies dysuria, Denies urinary frequency and Denies urinary incontinence Musc Reports no additional complaints Skin/Breast Denies pruritus, Denies lesions, Denies rash and Denies jaundice Neuro Reports Normal hearing present Endo Reports no additional complaints, Denies excessive sweating, Denies polydipsia and Denies polyuria Physical exam (Primary Care) Vital Signs: Last Vital Signs Pulse 63 05/28/23 08:30 BP 98/60 05/28/23 08:30 Pulse Ox 96 05/28/23 08:30 Oxygen Delivery Method Room Air 05/28/23 08:30 BMI result Body Mass Index 18.4 Tobacco/Smoking Status: Tobacco use Status Tobacco use date assessed 05/28/23 05/28/23 08:43 Patient Tobacco Use Status Never used Tobacco 05/28/23 08:43 e-Cigarette/Vaping Use Never Used 05/28/23 08:43 Thrive Assessment: Date of Thrive Assessment Date Thrive assessed 08/27/22 05/28/23 08:43 Const General: comfortable, alert and awake Nutritional Appearance: average body habitus Limitations: language barrier (non verbal) HENTN Head: Yes normocephalic and Yes atraumatic Ears: external ears normal General nose exam: Normal external nose present and No nasal discharge present Face and sinus: Yes face symmetric Mouth: Normal oral and palatal mucosa present and moist mucous membranes Eyes General: appearance normal, both eyes and all related structures Neck Neck: Yes no lymphadenopathy and Yes supple Chest Chest palpation & inspection: normal inspection of the chest Resp Effort & Inspection: normal respiratory effort Auscultation: clear to auscultation bilaterally Cardio Other: S1-S2 present, regular rate and rhythm GI Palpation (GI): Soft to palpation, nontender and no guarding Auscultation: normal bowel sounds General: Yes no CVA tenderness Back/Spine/Pelvis Back: no CVA tenderness and No back tenderness Skin General skin exam: no rashes or lesions noted and turgor normal Neuro General: moves all extremities and no focal motor deficits Cranial nerves: Yes Normal hearing present Gait exam (Neuro): Staggering gait present Extrem General: Yes full ROM, Yes no joint enlargement and Yes no clubbing, cyanosis or edema Office Procedures Flu Questionnaire Does the patient have a severe egg allergy?: No Does the patient have severe life threatening allergies?: No Does the patient have a fever or illness today?: No Has the patient ever had Guillain-Robson Syndrome?: No Has the patient ever had any past reaction to a flu shot?: No Immunizations flu vacc [id number] 6mos up(PF) 60 mcg(15 mcgx4)/0.5 mL IM syringe Performing Provider: Jeri John MD [facility] Administered by: Lucia Brownlee CMA on 05/28/23 09:01 Dose Route Admin Location Dispensed Lot Number Expiration Date NDC [employer] Engagement [employer] 0.5 mL IM Right Deltoid 0.5 mL [id number] 02/08/24 35763-522-61 [employer] VIS Given Date VIS Provided VIS Publication Date 05/28/23 Single Vaccine 21 Eligibility Eligibility Date Funding Source Not VFC Eligible 05/28/23 Private Assessment and Plan Assessment & Plan (1) Annual visit for general adult medical examination with abnormal findings: Code(s): Z00.01 - Encounter for general adult medical examination with abnormal findings Plan: Will check appropriate labs. Recommended dental visit every 6 months and regular eye exams, at least every 2 years. Take adequate calcium in diet and vitamin-D 3 at 2000 IU per cap once a day , stay active, goes to the day program . Flu vaccine given today, up-to-date with his pneumococcal vaccination and Tdap. reminded to get his COVID booster, and shingles vaccine (2) Dyslipidemia: Code(s): E78.5 - Hyperlipidemia, unspecified (3) Normocytic normochromic anemia: Code(s): D64.9 - Anemia, unspecified (4) Psychotic disorder: Comment: followed by does Dr. Suazo Code(s): F29 - Unspecified psychosis not due to a substance or known physiological condition Qualifiers: Psychosis type: unspecified psychosis type Qualified Code(s): F29 - Unspecified psychosis not due to a substance or known physiological condition Plan: Currently followed by psychiatry, mood stable controlled present treatment (5) Sensorineural hearing loss: Code(s): H90.5 - Unspecified sensorineural hearing loss Qualifiers: Laterality: bilateral Qualified Code(s): H90.3 - Sensorineural hearing loss, bilateral (6) TRENT on CPAP: Code(s): G47.33 - Obstructive sleep apnea (adult) (pediatric); Z99.89 - Dependence on other enabling machines and devices Plan: Currently followed by Pulmonary (7) Post-cholecystectomy syndrome: Code(s): K91.5 - Postcholecystectomy syndrome Plan: Advised to avoid eating any fried, greasy foods or any high cholesterol diet Orders: Orders Influenza [id number] Immunization 05/28/23 Z23 - Encounter for immunization Coding Level of Care Code Est Pt Prev Care 40-64y(71738) Diagnoses Annual visit for general adult medical examination with abnormal findings Z00.01 Dyslipidemia E78.5 Normocytic normochromic anemia D64.9 Psychosis, unspecified psychosis type F29 Psychosis type: unspecified psychosis type Sensorineural hearing loss (SNHL) of both ears H90.3 Laterality: bilateral TRENT on CPAP G47.33; Z99.89 Post-cholecystectomy syndrome K91.5
== END 2023-05-28 09:26 | disposition home or self-care (01) ==
PROVIDERS: Visit Provider Internal Medicine
DX: Z23 Encounter for immunization (principal)
CPT/HCPCS: 90471; 90686; 99396

== ENCOUNTER 2023-07-17 06:13 | Outpatient (REF) | payer MEDICARE, MEDICAID, SELFPAY ==
[2023-07-17 11:14] LABS: MANUAL DIFF FLAG NO
[2023-07-17 11:45] LABS: Basophils Percent Auto 0.5 % (0-2); Eosinophils Absolute Auto 0.5 X10*3/uL (0.0-0.4); Eosinophils Percent Auto 7.2 % (0-4); Hematocrit 38.4 % (42.0-52.0); Hemoglobin 12.3 g/dl (14.0-18.0); Imm Gran Abs Auto 0.02 X10*3/uL (0.00-0.03); Imm Gran Pct Auto 0.3 % (0.0-0.4); Lymphocytes Absolute Auto 2.4 X10*3/uL (1.2-4.9); Lymphocytes Percent Auto 36.2 % (20-40); Mean Corpuscular Hemoglobin 30.9 pg (27.0-33.0); Mean Corpuscular Volume 96.5 fL (80.0-98.0); Monocytes Absolute Auto 0.4 X10*3/uL (0.1-1.2); Monocytes Percent Auto 5.7 % (2-11); Neutrophils Absolute Auto 3.3 x10*3/uL (2.0-8.3); Neutrophils Percent Auto 50.1 % (45-73); Platelet Count 231 X10*3/uL (160-400); Red Blood Count 3.98 X10*6/uL (4.60-5.80); Red Cell Distribution Width 12.5 % (11.0-16.0); White Blood Count 6.5 X10*3/uL (4.8-10.8)
[2023-07-17 12:07] LABS: Alanine Aminotransferase 10 U/L (0-40); Albumin Level 3.6 g/dL (3.5-5.0); Alkaline Phosphatase 71 U/L (39-117); Anion Gap 10 (12-20); Aspartate Amino Transferase 16 U/L (5-37); Bilirubin Total 0.5 mg/dL (0.0-1.0); Blood Urea Nitrogen 11 mg/dL (9-16); Carbon Dioxide 28 mmol/L (22-29); Chloride 105 mmol/L (96-108); Cholesterol 146 mg/dL (<200); Estimated Glomerular Filt Rate > 60; Glucose Fasting 101 mg/dL (60-99); HDL Cholesterol 46 mg/dL (>40); LDL Cholesterol Calculated 89 mg/dL (<100); Potassium 4.3 mmol/L (3.3-5.1); Sodium 139 mmol/L (135-145); Total Protein 6.3 g/dL (6.5-8.0); Triglycerides 58 mg/dL (<150)
[2023-07-17 12:13] LABS: TSH reflex Free T4 0.02 uIU/mL (0.32-4.0); Vitamin D 25-OH Total 64.5 ng/mL (>30)
[2023-07-17 12:41] LABS: Folate 13.1 ng/mL (> or = 4.0); Vitamin B12 440 pg/mL (200-900)
[2023-07-17 12:50] LABS: Free T4 (Free Thyroxine) 1.04 ng/dL (0.71-1.85)
== END 2023-07-17 06:14 | disposition home or self-care (01) ==
LOC: HO.HMGCLDS 06:13
PROVIDERS: PCP Internal Medicine; Visit Provider Internal Medicine
DX: R63.4 Abnormal weight loss (principal); E78.5 Hyperlipidemia, unspecified; D64.9 Anemia, unspecified
CPT/HCPCS: 36415; 80053; 80061; 82306; 82607; 82746; 84439; 84443; 85025

== ENCOUNTER 2023-07-18 05:00 | Outpatient (REF) | payer MEDICARE, MEDICAID, SELFPAY ==
[2023-07-18 12:13] LABS: Appearance Urine Clear; Color Urine Yellow; Glucose Urine UA Negative (Negative); Leukocyte Esterase Urine Negative (Negative); Nitrite Urine Negative (Negative); PH 7.5 (5.0-9.0); Urine Blood Negative (Negative); Urine Ketones Negative (Negative); Urine Protein Negative (Neg-Trace)
== END 2023-07-18 05:01 | disposition home or self-care (01) ==
LOC: HO.HMGCLNP 05:00
PROVIDERS: PCP Internal Medicine; Visit Provider Nurse Practitioner
DX: R63.4 Abnormal weight loss (principal)
CPT/HCPCS: 81003

== ENCOUNTER 2023-07-24 07:48 | Outpatient (AMB) | payer MEDICARE, MEDICAID, SELFPAY ==
--- NOTE | 2023-07-24 08:04 | MHC.OFFVIS ---
Intake Vital Signs 07/24/23 08:11 Height 5 ft 1 in Weight 93 lb BMI 17.6 BP 121/64 Blood Pressure Location Lt brachial Position Sitting Pulse 61 Intake Visit Reasons: Follow up labs Intake Note: Patient follow up for lab results. Patient cc: constipation and weight loss but patient is eating well. Denies any other GI issues. 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: No Accompanied by: Family/Other Allergies clotrimazole Allergy (Intermediate, Verified 07/24/23 08:07) Rash acetaminophen [From ENDOCET] Allergy (Unknown, Verified 07/24/23 08:07) HIVES amoxicillin [From AUGMENTIN] Allergy (Unknown, Verified 07/24/23 08:07) HIVES cefuroxime [CEFUROXIME] Allergy (Unknown, Verified 07/24/23 08:07) HIVES ciprofloxacin [From CIPRO] Allergy (Unknown, Verified 07/24/23 08:07) HIVES, Rash, rash clarithromycin [From BIAXIN] Allergy (Unknown, Verified 07/24/23 08:07) HIVES clavulanic acid [From AUGMENTIN] Allergy (Unknown, Verified 07/24/23 08:07) HIVES morphine [MORPHINE] Allergy (Unknown, Verified 07/24/23 08:07) HIVES, Rash, rash oxycodone [From ENDOCET] Allergy (Unknown, Verified 07/24/23 08:07) HIVES HPI Follow up labs HPI Details Assessment & Plan (1) Post-cholecystectomy syndrome: Code(s): K91.5 - Postcholecystectomy syndrome Plan: He is here with his mother and father They cut back the desserts and sweets and this has reduced the vomiting - they did not realize the fat content of baked goods. They also found 3 carafate too constipating, so cut back to 2. We discussed the role of glycerin supps as he seems to develop hard stool in the rectal vault followed by soft stool. ROV 6 mos. Next appt ask about colonoscopy (2) Family history of colon cancer: Comment: Paternal grandfather of cancer, father had colon polyps patient had a prior polyps 6 years ago Code(s): Z80.0 - Family history of malignant neoplasm of digestive organs Medications: New glycerin (adult) 1 supp ND DAILY P RN 12 ea 0RF const ipation docusate sodium 100 mg PO DAILY P RN 30 caps 6RF con stipation Changed From sucralfate (Carafa te) 3 grams (3 x 1 gra m) PO .qhs 30 days 90 tabs 6RF R19.7 - Diarrhea, unspecified To sucralfate (Carafa te) 2 grams (2 x 1 gra m) PO .qhs 30 days 60 tabs 6RF R19.7 - Diarrhea, unspecified TODAY'S VISIT He is here today with his parents because they were concerned he continues to lose weight. Recently, they cut out fats with desserts and this may be a contributing factor. There has been no change in his activity levels.. There is some possible polydipsia/polyuria.. Saw PCP all labs look good except a mildly elevated fasting glucose urine strep at home may have been mildly positive for sugar. There is family history of diabetes on the father's side the only cancer is colon cancer in father side and breast cancer in his mother. Overdue for colonoscopy will get this scheduled, order hemoglobin A1c for better long-term evaluation of his sugar levels. There are no prior problems with anesthesia or sedation. He has TRENT and no cardiac problems. There are no infectious disease problems known. There is a strong family history of colon cancer in his paternal grandfather and his father had colon polyps. The his last known colonoscopy was in 2016 and was not at this facility the results of this study are not known. I will see him after the colonoscopy. [facility] Medical History (Updated 07/24/23 @ 13:54 by MADHU Barger) Weight loss, non-intentional TRENT on CPAP Dyslipidemia Dysphagia Mental and behavioral problems with learning Closed subcapital fracture of left femur Anemia Normocytic normochromic anemia Psychotic disorder Gallstones 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 Left inguinal hernia Sensorineural hearing loss Cerebral palsy Vitamin D deficiency Surgical History History of cataract surgery S/P inguinal herniorrhaphy History of colonoscopy Hx laparoscopic cholecystectomy Family History Father Medical history non-contributory Mother Medical history non-contributory Social History Household Members: Family Housing: House Do you presently have visiting nurse or other home services: No Alcohol intake: never Comment: pt os calmer not moving around a lot Patient Tobacco Use Status: Never used Tobacco e-Cigarette/Vaping Use: Never Used Second Hand Smoke Exposure: No service: No Current occupational status: disabled Cognitive needs: Yes Hearing needs: Yes Vision needs: Yes Review of Systems Const Denies fatigue, Denies fever(s), Denies night sweats, Denies poor appetite and Reports weight loss Eyes Details: glasses Reports requires corrective lenses ENT Reports Normal hearing present, Denies dental pain, Denies dysphagia, Denies hearing loss, Denies mouth pain, Denies odynophagia, Denies throat swelling, Denies tongue swelling and Reports other (Dentition adequate) Card Reports no additional complaints Resp Reports no additional complaints GI Denies abdominal pain, Denies melena, Denies bloating, Denies hematochezia, Denies constipation, Denies GI cramping, Denies dysphagia, Denies excessive flatus, Denies early satiety, Denies heartburn, Reports diarrhea, Denies nausea, Denies odynophagia, Denies vomiting and Denies hematemesis Skin/Breast Denies pruritus, Denies lesions, Denies rash and Denies jaundice Neuro Reports Normal hearing present and Denies Abnormal speech present Endo Denies fatigue Aller/Immun Denies throat swelling and Denies tongue swelling Physical Exam Vital Signs: Last Vital Signs Pulse 61 07/24/23 08:11 BP 121/64 07/24/23 08:11 BMI result Body Mass Index 17.6 Const General: cooperative, no acute distress, well developed and well groomed Nutritional Appearance: well nourished and thin Orientation/consciousness: oriented to person, oriented to place and oriented to time Limitations: behavioral limitations and No language barrier HEENT Head: Yes normocephalic and Yes atraumatic Eyes General: appearance normal, both eyes and all related structures Pupils: Equal, round and reactive pupils present Neck Neck: Yes normal visual inspection and Yes no lymphadenopathy Thyroid: Thyroid normal Resp Effort & Inspection: normal respiratory effort and able to speak in complete sentences Auscultation: clear to auscultation bilaterally Cardio Rate: regular rate Rhythm: regular rhythm Heart sounds: Normal, physiologic split S2 sound present Peripheral pulses: radial pulses present and posterior tibial pulses present GI Inspection: No distended and No Abdominal panniculus present Palpation (GI): Soft to palpation, nontender, no guarding, not rigid and No hepatosplenomegaly present Percussion: Yes normal to percussion Auscultation: normal bowel sounds Rectal Exam - Male: Yes deferred Skin General skin exam: no rashes or lesions noted, turgor normal, skin not dry, no jaundice, No spider nevi and no striae Rashes: no rashes Nails: normal Neuro General: oriented to person, oriented to place and oriented to time Cranial nerves: Yes Equal, round and reactive pupils present and Yes Normal hearing present Speech: No Abnormal speech present Extrem General: Yes normal to inspection, No clubbing, No cyanosis and No edema Psych Appearance: grossly normal and well kempt Mental Status: mental status grossly normal Speech and movement: Normal speech and movement present Affect: normal affect Attitude: cooperative Thought process: Normal thought process present and not confabulating Thought content: Normal thought content present Insight: Poor insight present (Psych) Judgement: Poor judgement present (Psych) Assessment & Plan Assessment & Plan (1) Weight loss, abnormal: Code(s): R63.4 - Abnormal weight loss (2) Family history of colon cancer: Comment: Paternal grandfather of cancer, father had colon polyps patient had a prior polyps 6 years ago Code(s): Z80.0 - Family history of malignant neoplasm of digestive organs (3) Post-cholecystectomy syndrome: Code(s): K91.5 - Postcholecystectomy syndrome (4) Elevated fasting glucose: Code(s): R73.01 - Impaired fasting glucose (5) Polydipsia: Code(s): R63.1 - Polydipsia (6) Pre-op examination: Code(s): Z01.818 - Encounter for other preprocedural examination Plan He is here today with his parents because they were concerned he continues to lose weight. Recently, they cut out fats with desserts and this may be a contributing factor. There has been no change in his activity levels.. There is some possible polydipsia/polyuria.. Saw PCP all labs look good except a mildly elevated fasting glucose urine strep at home may have been mildly positive for sugar. There is family history of diabetes on the father's side the only cancer is colon cancer in father side and breast cancer in his mother. Overdue for colonoscopy will get this scheduled, order hemoglobin A1c for better long-term evaluation of his sugar levels. There are no prior problems with anesthesia or sedation. He has TRENT and no cardiac problems. There are no infectious disease problems known. There is a strong family history of colon cancer in his paternal grandfather and his father had colon polyps. The his last known colonoscopy was in 2016 and was not at this facility the results of this study are not known. I will see him after the colonoscopy. Orders: Orders H Pylori Breath Test Today R63.1 - Polydipsia, R63.4 - Abnormal weight loss, R73.01 - Impaired fasting glucose Colonoscopy - GI Use Only Today R63.1 - Polydipsia, R63.4 - Abnormal weight loss, R73.01 - Impaired fasting glucose Hemoglobin A1c Today R63.1 - Polydipsia, R63.4 - Abnormal weight loss, R73.01 - Impaired fasting glucose Medications: New sod picosulf-mag ox-citric ac 10 mg-3.5 gram- 12 gram/160 mL (Clenpiq) take first dose at 5-9PM evening before colonoscopy; 2nd dose the next day approximately 5 hrs before colonoscopy 160 mL PO DAILY 320 mL 0RF Coding Level of Care Code Est Pt Level 4 (28002) Diagnoses Weight loss, abnormal R63.4 Family history of colon cancer Z80.0 Post-cholecystectomy syndrome K91.5 Elevated fasting glucose R73.01 Polydipsia R63.1 Pre-op examination Z01.818
[2023-07-24 08:11] VITALS: BP 121/64; PULSE 61; BMI 17.6
== END 2023-07-24 09:36 | disposition home or self-care (01) ==
PROVIDERS: PCP Internal Medicine; Visit Provider Nurse Practitioner
DX: R63.4 Abnormal weight loss (principal); Z80.0 Family history of malignant neoplasm of digestive organs; K91.5 Postcholecystectomy syndrome; R73.01 Impaired fasting glucose; R63.1 Polydipsia; Z01.818 Encounter for other preprocedural examination
CPT/HCPCS: 99214

== ENCOUNTER → 2023-07-24 07:48 | Outpatient (BNVA) | payer MEDICARE, MEDICAID, SELFPAY | PROVIDERS: PCP Internal Medicine; Visit Provider Nurse Practitioner | DX: Z01.818 Encounter for other preprocedural examination (principal); K91.5 Postcholecystectomy syndrome; R63.4 Abnormal weight loss; R73.01 Impaired fasting glucose; R63.1 Polydipsia; Z80.0 Family history of malignant neoplasm of digestive organs | CPT/HCPCS: 83013; 99212 ==

== ENCOUNTER 2023-07-24 19:31 | Outpatient (REF) | payer MEDICARE, MEDICAID, SELFPAY ==
[2023-07-27 15:06] LABS: H Pylori Breath Test Negative (Negative)
== END 2023-07-24 19:32 | disposition home or self-care (01) ==
LOC: HO.LNP 19:31
PROVIDERS: Visit Provider Nurse Practitioner
DX: Z13.89 Encounter for screening for other disorder (principal)
CPT/HCPCS: 83013

== ENCOUNTER 2023-07-28 06:03 | Outpatient (REF) | payer MEDICARE, MEDICAID, SELFPAY ==
[2023-07-28 11:54] LABS: Estimated Average Glucose 108 mg/dL; Hemoglobin A1c % 5.4 % (<6.0)
[2023-07-28 12:24] LABS: Alanine Aminotransferase 18 U/L (0-40); Albumin Level 3.6 g/dL (3.5-5.0); Alkaline Phosphatase 69 U/L (39-117); Anion Gap 13 (12-20); Aspartate Amino Transferase 24 U/L (5-37); Bilirubin Total 0.3 mg/dL (0.0-1.0); Blood Urea Nitrogen 13 mg/dL (9-16); Calcium 9.2 mg/dL (8.4-10.2); Carbon Dioxide 28 mmol/L (22-29); Chloride 103 mmol/L (96-108); Estimated Glomerular Filt Rate > 60; Glucose Random 100 mg/dL (60-115); Potassium 3.7 mmol/L (3.3-5.1); Sodium 140 mmol/L (135-145); Total Protein 6.5 g/dL (6.5-8.0)
== END 2023-07-28 06:04 | disposition home or self-care (01) ==
LOC: HO.HMGCLDS 06:03
PROVIDERS: PCP Internal Medicine; Visit Provider Nurse Practitioner
DX: R63.4 Abnormal weight loss (principal); R73.01 Impaired fasting glucose; R63.1 Polydipsia
CPT/HCPCS: 36415; 80053; 83036

== ENCOUNTER 2023-08-28 13:22 | Outpatient (AMB) | payer MEDICARE, MEDICAID, SELFPAY ==
[2023-08-28 13:25] VITALS: BP 90/62; PULSE 66; O2SAT 95; BMI 18.1
--- NOTE | 2023-08-28 13:25 | MHC.OFFVIS ---
Intake Vital Signs 08/28/23 13:25 Height 5 ft 1 in Weight 95 lb 14.417 oz BMI 18.1 BP 90/62 Blood Pressure Location Lt brachial Position Sitting Pulse 66 Pulse Source Pulse Oximeter Pulse Oximetry (%) 95 Oxygen Delivery Method Room Air Intake Visit Reasons: trent Intake Note: pt is here for follow up and states all is going okay but having weight loss, dad is trying to figuere out the diet issue. Lay Up Operator Required: No Allergies clotrimazole Allergy (Intermediate, Verified 08/28/23 13:41) Rash acetaminophen [From ENDOCET] Allergy (Unknown, Verified 08/28/23 13:41) HIVES amoxicillin [From AUGMENTIN] Allergy (Unknown, Verified 08/28/23 13:41) HIVES cefuroxime [CEFUROXIME] Allergy (Unknown, Verified 08/28/23 13:41) HIVES ciprofloxacin [From CIPRO] Allergy (Unknown, Verified 08/28/23 13:41) HIVES, Rash, rash clarithromycin [From BIAXIN] Allergy (Unknown, Verified 08/28/23 13:41) HIVES clavulanic acid [From AUGMENTIN] Allergy (Unknown, Verified 08/28/23 13:41) HIVES morphine [MORPHINE] Allergy (Unknown, Verified 08/28/23 13:41) HIVES, Rash, rash oxycodone [From ENDOCET] Allergy (Unknown, Verified 08/28/23 13:41) HIVES Medication List - Last Reconciled 08/28/23 by Bassem Márquez MD cholecalciferol (vitamin D3) 25 mcg PO DAILY diazepam 2 mg PO ONCE PRN docusate sodium 100 mg PO DAILY PRN epinephrine 0.3 mg (0.3 mL) IM ONCE PRN glycerin (adult) 1 supp NE DAILY PRN olopatadine 0.2% (Pataday Once Daily Relief) 1 drp ophthalmic (eye) DAILY propranolol 10 mg PO BID risperidone 0.5 mg PO BID simvastatin 10 mg PO BEDTIME sod picosulf-mag ox-citric ac 10 mg-3.5 gram- 12 gram/160 mL (Clenpiq) 160 mL PO DAILY 2 doses sucralfate (Carafate) 2 grams (2 x 1 gram) PO .qhs 30 days Do you need a note to return to daycare/school/sports/work: No HPI trent HPI Details AMILCAR IS 57 YEARS OLD GENTLEMAN WITH CHRONIC PSYCHOTIC DISORDER, HE IS CARED BY HIS FATHER 24 HOURS A DAY. 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 LUCKILY HE IS VERY COMPLIANT IN USING THE CPAP AT NIGHT AND SLEEPS GOOD AT LEAST FOR 6-7 HOURS PER NIGHT. HIS DAD REPORTS NO ISSUE WITH THE MASK ( FF ) OR WITH THE CPAP MACHINE. THE CPAP MACHINE DOES NOT REGISTER THE COMPLIANCE. HE IS HAVING SOME ISSUES WITH HIS DIGESTIVE SYSTEM, CAN NOT DIGEST TO SATURATED FATS, AND HAS BEEN LOSING WEIGHT. HE HAS BEEN THOROUGHLY CHECKED BY GASTROENTEROLOGY SERVICE. 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 Left inguinal hernia Sensorineural hearing loss Cerebral palsy Vitamin D deficiency Surgical History History of cataract surgery S/P inguinal herniorrhaphy History of colonoscopy Hx laparoscopic cholecystectomy Family History Father Medical history non-contributory Mother Medical history non-contributory Social History Household Members: Family Housing: House Do you presently have visiting nurse or other home services: No Alcohol intake: never Comment: pt os calmer not moving around a lot Patient Tobacco Use Status: Never used Tobacco e-Cigarette/Vaping Use: Never Used Second Hand Smoke Exposure: No service: No Current occupational status: disabled Cognitive needs: Yes Hearing needs: Yes Vision needs: Yes Review of Systems Const Unobtainable due to mental status and Other (However according to his father who takes care of him, he does not have any) Physical Exam Vital Signs: Last Vital Signs Pulse 66 08/28/23 13:25 BP 90/62 08/28/23 13:25 Pulse Ox 95 08/28/23 13:25 Oxygen Delivery Method Room Air 08/28/23 13:25 BMI result Body Mass Index 18.1 Const General: combative Orientation/consciousness: patient oriented x3 HEENT Head: Yes normal to inspection General nose exam: No nasal polyps present and No nasal discharge present Face and sinus: Yes sinuses nontender Mouth: oropharynx normal Throat: Yes posterior oropharynx normal Eyes General: appearance normal, both eyes and all related structures Neck Neck: Yes no lymphadenopathy, Yes supple and Yes no JVD Thyroid: Thyroid normal Chest Chest palpation & inspection: normal inspection of the chest, normal palpation of entire chest wall and no tenderness Resp Other: Good breath sounds on both sides and clear to auscultation Cardio Jugular venous distension: JVD Palpation: normal PMI Rate: regular rate Rhythm: regular rhythm Heart sounds: no gallops and no murmurs Peripheral pulses: Peripheral pulses 2+ throughout GI Palpation (GI): Soft to palpation, nontender and no masses Auscultation: normal bowel sounds Back/Spine/Pelvis Thoracic/Lumbar Spine: thoracic and lumbar spine normal to inspection Skin General skin exam: no rashes or lesions noted Neuro General: patient oriented x3 and No gait normal (Abnormal, spastic, he needs 1 persons assistance to walk) Cranial nerves: Yes CN's II-XII intact bilaterally Extrem General: Yes no clubbing, cyanosis or edema Psych Speech and movement: Normal speech and movement present Affect: Hostile affect present (He is somewhat combative today because he had to wait a little longer . ) Results Reviewed Results Reviewed: COMPLIANCE DATA IS NOT AVAILABLE BUT ACCORDING TO THE FATHER HE IS A REGULAR USER OF CPAP, AND SLEEPS WELL . Assessment & Plan Assessment & Plan (1) TRENT on CPAP: Comment: AMILCAR HAS OBSTRUCTIVE SLEEP APNEA SECONDARY TO HIS HARVEY DENTAL MALFORMATION. HE IS DEPENDENT ON CPAP, AND REMAINS VERY COMPLIANT Code(s): G47.33 - Obstructive sleep apnea (adult) (pediatric); Z99.89 - Dependence on other enabling machines and devices Plan: TALKED TO THE FATHER IN DETAIL AND ADVISED TO CONTINUE CPAP THERAPY. (2) Psychotic disorder: Comment: followed by Dr. Suazo AND REMAINS STABLE Code(s): F29 - Unspecified psychosis not due to a substance or known physiological condition Qualifiers: Psychosis type: unspecified psychosis type Qualified Code(s): F29 - Unspecified psychosis not due to a substance or known physiological condition Plan: ABOVE Coding Level of Care Code Est Pt Level 3 (79171) Diagnoses TRENT on CPAP G47.33; Z99.89 Psychosis, unspecified psychosis type F29 Psychosis type: unspecified psychosis type
== END 2023-08-28 13:43 | disposition home or self-care (01) ==
PROVIDERS: PCP Internal Medicine; Visit Provider Internal Medicine
DX: G47.33 Obstructive sleep apnea (adult) (pediatric) (principal); Z99.89 Dependence on other enabling machines and devices; F29 Unspecified psychosis not due to a substance or known physiological condition
CPT/HCPCS: 99213

== ENCOUNTER → 2023-08-28 13:22 | Outpatient (BNVA) | payer MEDICARE, MEDICAID, SELFPAY | PROVIDERS: PCP Internal Medicine; Visit Provider Internal Medicine | DX: G47.33 Obstructive sleep apnea (adult) (pediatric) (principal); F29 Unspecified psychosis not due to a substance or known physiological condition; Z99.89 Dependence on other enabling machines and devices | CPT/HCPCS: 99212 ==

== ENCOUNTER 2023-11-26 06:02 | Outpatient (REF) | payer MEDICARE, MEDICAID, SELFPAY ==
[2023-11-26 10:22] LABS: MANUAL DIFF FLAG NO
[2023-11-26 10:37] LABS: Basophils Percent Auto 0.4 % (0-2); Eosinophils Absolute Auto 0.2 X10*3/uL (0.0-0.4); Eosinophils Percent Auto 3.2 % (0-4); Hematocrit 39.9 % (42.0-52.0); Hemoglobin 12.8 g/dl (14.0-18.0); Imm Gran Abs Auto 0.01 X10*3/uL (0.00-0.03); Imm Gran Pct Auto 0.1 % (0.0-0.4); Lymphocytes Absolute Auto 2.7 X10*3/uL (1.2-4.9); Lymphocytes Percent Auto 38.4 % (20-40); Mean Corpuscular HGB Conc 32.1 g/dl (31.0-36.0); Mean Corpuscular Hemoglobin 31.2 pg (27.0-33.0); Mean Corpuscular Volume 97.3 fL (80.0-98.0); Mean Platelet Volume 10.9 fL (9.4-12.4); Monocytes Absolute Auto 0.4 X10*3/uL (0.1-1.2); Monocytes Percent Auto 5.5 % (2-11); Neutrophils Absolute Auto 3.7 x10*3/uL (2.0-8.3); Neutrophils Percent Auto 52.4 % (45-73); Platelet Count 247 X10*3/uL (160-400); Red Cell Distribution Width 13.3 % (11.0-16.0); White Blood Count 7.1 X10*3/uL (4.8-10.8)
[2023-11-26 10:58] LABS: Alanine Aminotransferase 15 U/L (0-40); Anion Gap 11 (12-20); Aspartate Amino Transferase 18 U/L (5-37); Blood Urea Nitrogen 10 mg/dL (9-16); Calcium 9.3 mg/dL (8.4-10.2); Carbon Dioxide 29 mmol/L (22-29); Chloride 104 mmol/L (96-108); Cholesterol 173 mg/dL (<200); Estimated Glomerular Filt Rate > 60; Glucose Fasting 100 mg/dL (60-99); HDL Cholesterol 52 mg/dL (>40); Iron 76 mcg/dL (45-160); LDL Cholesterol Calculated 109 mg/dL (<100); Percent Iron Saturation 31 % (15-50); Potassium 4.2 mmol/L (3.3-5.1); Sodium 140 mmol/L (135-145); Total Iron Binding Capacity 249 mcg/dL (228-428); Triglycerides 63 mg/dL (<150); Unsaturated Iron Binding 173 ug/dL
[2023-11-26 11:27] LABS: TSH reflex Free T4 1.29 uIU/mL (0.32-4.0); Vitamin D 25-OH Total 75.3 ng/mL (>30)
== END 2023-11-26 06:03 | disposition home or self-care (01) ==
LOC: HO.HMGCLDS 06:02
PROVIDERS: PCP Internal Medicine; Visit Provider Internal Medicine
DX: R73.01 Impaired fasting glucose (principal); E78.5 Hyperlipidemia, unspecified; D64.9 Anemia, unspecified; Z86.39 Personal history of other endocrine, nutritional and metabolic disease
CPT/HCPCS: 36415; 80048; 80061; 82306; 83540; 84443; 84450; 84460; 85025

== ENCOUNTER 2023-12-01 08:53 | Outpatient (AMB) | payer MEDICARE, MEDICAID, SELFPAY ==
[2023-12-01 09:07] VITALS: BP 108/70; PULSE 51; O2SAT 95; BMI 17.0
--- NOTE | 2023-12-01 09:07 | MHC.PC.OV ---
Vital Signs 12/01/23 09:07 Height 5 ft 1 in Weight 90 lb 2 oz BMI 17.0 BP 108/70 Blood Pressure Location Rt brachial Position Sitting Pulse 51 Pulse Source Pulse Oximeter Pulse Oximetry (%) 95 Oxygen Delivery Method Room Air Intake Visit Reasons: 6 month fu Intake Note: Pt is here today for his 6 months f/u Allergies clotrimazole Allergy (Intermediate, Verified 12/01/23 09:40) Rash acetaminophen [From ENDOCET] Allergy (Unknown, Verified 12/01/23 09:40) HIVES amoxicillin [From AUGMENTIN] Allergy (Unknown, Verified 12/01/23 09:40) HIVES cefuroxime [CEFUROXIME] Allergy (Unknown, Verified 12/01/23 09:40) HIVES ciprofloxacin [From CIPRO] Allergy (Unknown, Verified 12/01/23 09:40) HIVES, Rash, rash clarithromycin [From BIAXIN] Allergy (Unknown, Verified 12/01/23 09:40) HIVES clavulanic acid [From AUGMENTIN] Allergy (Unknown, Verified 12/01/23 09:40) HIVES morphine [MORPHINE] Allergy (Unknown, Verified 12/01/23 09:40) HIVES, Rash, rash oxycodone [From ENDOCET] Allergy (Unknown, Verified 12/01/23 09:40) HIVES Medication List - Last Reconciled 12/01/23 by Jeri John MD cholecalciferol (vitamin D3) 25 mcg PO DAILY diazepam 2 mg PO ONCE PRN docusate sodium 100 mg PO DAILY PRN epinephrine 0.3 mg (0.3 mL) IM ONCE PRN olopatadine 0.2% (Pataday Once Daily Relief) 1 drp ophthalmic (eye) DAILY propranolol 10 mg PO BID risperidone 0.5 mg PO BID simvastatin 10 mg PO BEDTIME sod picosulf-mag ox-citric ac 10 mg-3.5 gram- 12 gram/160 mL (Clenpiq) 160 mL PO DAILY 2 doses sucralfate (Carafate) 2 grams (2 x 1 gram) PO .qhs 30 days Tobacco use date assessed: 12/01/23 Dental Screening Dental Screen Date: 12/01/23 Did you have a dental visit in the last 12 months?: Yes Did you have a dental problem in the last 6 months where you did not have access to dental care?: No Was dental information given to patient?: Patient has dentist HPI 6 month fu HPI Details 58-year-old male with history of cerebral palsy, dyslipidemia, TRENT on CPAP, normocytic normochromic, anemia, osteoarthritis with left hip dysplasia status post surgery, and sensory neural healing loss, history of gallstones status post laparoscopic cholecystectomy, here today for a follow-up. He has been steadily losing weight, despite a robust appetite as per his father. He however is careful in what kind of food he gives him as he has not been having a recurrent episodes of nausea and diarrhea alternating with constipation with certain foods. His father has started supplementing him with a protein shake in the morning, and has been adding fiber and fish and chicken to his diet. Latest fasting labs showed mild anemia which is improving, electrolytes are within normal limits , has borderline elevated fasting glucose, but iron levels, liver enzymes, TSH, fasting lipid panel are all within normal limits. 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 Left inguinal hernia Sensorineural hearing loss Cerebral palsy Vitamin D deficiency Surgical History History of cataract surgery S/P inguinal herniorrhaphy History of colonoscopy Hx laparoscopic cholecystectomy Family History Father Medical history non-contributory Mother Medical history non-contributory Social History Household Members: Family Housing: House Do you presently have visiting nurse or other home services: No Alcohol intake: never Comment: pt os calmer not moving around a lot Patient Tobacco Use Status: Never used Tobacco e-Cigarette/Vaping Use: Never Used Second Hand Smoke Exposure: No service: No Current occupational status: disabled Cognitive needs: Yes Hearing needs: Yes Vision needs: Yes Questionnaire PHQ-9 Over the last 2 weeks, how often have you been bothered by any of the following problems? 1. Little interest or pleasure in doing things: not at all 2. Feeling down, depressed, or hopeless: not at all 3. Trouble falling or staying asleep, or sleeping too much: not at all 4. Feeling tired or having little energy: not at all 5. Poor appetite or overeating: not at all 6. Feeling bad about yourself - or that you are a failure or have let yourself or your family down: not at all 7. Trouble concentrating on things, such as reading the newspaper or watching television: not at all 8. Moving or speaking so slowly that other people could have noticed. Or the opposite - being so fidgety or restless that you have been moving around a lot more than usual: not at all 9. Thoughts that you would be better off or of hurting yourself in some way: not at all Total score: 0 Depression Screening Interpretation: Negative Depression Screening Done: Yes 33337 - PHQ-9 Billing: Yes Source: Developed by Drs. Simeon Garcia, Mehnaz Morgan, Pb Muro and colleagues, with an educational reid from [employer]. Thrive Questionnaire Date Thrive assessed: 12/01/23 I am a: Patient What is your living situation today?: I have a steady place to live Within the past 12 months, did the food you bought not last and you didn't have the money to get more?: Never true Within the past 12 months, did you worry whether your food would run out before you got money to buy more?: Never true Do you have trouble paying for medicines?: No Do you have trouble getting transportation to medical appointments?: No Do you have trouble paying your heating and electricity bill?: No Do you have trouble taking care of your child, family member or friend?: No Do you have trouble with day-to-day activities such as bathing, preparing meals, shopping, managing finances, etc.?: No Are you currently unemployed and looking for a job?: No Are you interested in more education?: No THRIVE Score: 0 AUDIT C Alcohol Use Questionnaire (AUDIT-C) 1. How often do you have a drink containing alcohol?: Never Total Score: 0 RADHA-7 AMB Questionnaire RADHA-7 Date RADHA - 7 assessed: 12/01/23 Feeling nervous, anxious, or on edge: 0 = Not at all Not being able to stop or control worryin = Not at all Worrying too much about different things: 0 = Not at all Trouble relaxin = Not at all Being so restless that it is hard to sit still: 0 = Not at all Becoming easily annoyed or irritable: 0 = Not at all Feeling afraid as if something awful might happen: 0 = Not at all Total RADHA-7 score (0-4 normal; 5-9 mild; 10-14 moderate; 15-21 severe): 0 Source: Developed by Drs. Simeon Garcia, Mehnaz Morgan, Pb Muro and colleagues, with an educational reid from [employer]. RADHA-7 Assessment Billing RADHA-7 Assessment Tool: RADHA-7 Assessment 76165 Review of Systems Const Denies fever(s) and Denies poor appetite Eyes Details: glasses Reports requires corrective lenses ENT Reports Normal hearing present, Denies mouth pain and Denies odynophagia Card Reports no additional complaints Resp Reports no additional complaints GI Denies abdominal pain, Denies melena, Denies bloating, Denies GI cramping, Denies early satiety, Denies heartburn and Denies odynophagia Denies hematuria, Denies difficulty urinating, Denies genital lesions, Denies dysuria, Denies urinary frequency and Denies urinary incontinence Musc Reports no additional complaints Skin/Breast Denies pruritus, Denies lesions and Denies rash Neuro Reports Normal hearing present Endo Reports no additional complaints, Denies polydipsia and Denies polyuria Physical exam (Primary Care) Vital Signs: Last Vital Signs Pulse 51 12/01/23 09:07 BP 108/70 12/01/23 09:07 Pulse Ox 95 12/01/23 09:07 Oxygen Delivery Method Room Air 12/01/23 09:07 BMI result Body Mass Index 17.0 Tobacco/Smoking Status: Tobacco use Status Tobacco use date assessed 12/01/23 12/01/23 09:10 Patient Tobacco Use Status Never used Tobacco 12/01/23 09:10 e-Cigarette/Vaping Use Never Used 12/01/23 09:10 PHQ-9: PHQ-9 Score PHQ-9: Total score 0 12/02/23 01:17 Depression Screening Interpretation: Negative Thrive Assessment: Date of Thrive Assessment Date Thrive assessed 12/01/23 12/01/23 09:19 Const General: comfortable, alert and awake Nutritional Appearance: average body habitus Limitations: language barrier (non verbal) HENMT Other: Presence of harvey- dental deformity Head: Yes normocephalic and Yes atraumatic Ears: external ears normal General nose exam: Normal external nose present and No nasal discharge present Mouth: moist mucous membranes Eyes General: appearance normal, both eyes and all related structures Neck Neck: Yes no lymphadenopathy and Yes supple Resp Effort & Inspection: normal respiratory effort Auscultation: clear to auscultation bilaterally Cardio Other: S1-S2 present, regular rate and rhythm GI Palpation (GI): Soft to palpation, nontender and no guarding Auscultation: normal bowel sounds General: Yes no CVA tenderness Back/Spine/Pelvis Back: no CVA tenderness and No back tenderness Skin General skin exam: no rashes or lesions noted and turgor normal Neuro General: moves all extremities and no focal motor deficits Cranial nerves: Yes Normal hearing present Gait exam (Neuro): Staggering gait present Extrem General: Yes full ROM, Yes no joint enlargement and Yes no clubbing, cyanosis or edema Psych Other: Calm and cooperative on this visit Results Reviewed Results Reviewed: Name: Sander Shook Jr Age/Sex: 58/M : 1965 Unit#: [id number] Attend Dr: Jeri John MD Re11/26/23 Status: DEP REF Location: [facility] Disch: SPEC : [id number] NAYA: 11/26/23 STATUS: COMP REQ : [id number] RECD: 11/26/23-[address]: Jeri John MD COMP: 11/26/23 ENTERED: 11/26/[address]: ORDERED: CBC Auto Diff Test Result Flag Reference WBC 7.1 4.8-10.8 X10*3/uL RBC 4.10 L 4.60-5.80 X10*6/uL HGB 12.8 L 14.0-18.0 g/dl HCT 39.9 L 42.0-52.0 % MCV 97.3 80.0-98.0 fL MCH 31.2 27.0-33.0 pg MCHC 32.1 31.0-36.0 g/dl RDW 13.3 11.0-16.0 % PLT 247 160-400 X10*3/uL MPV 10.9 9.4-12.4 fL Neut Pct Auto 52.4 45-73 % ImGran Pct Auto 0.1 0.0-0.4 % Lymp Pct Auto 38.4 20-40 % [place] Pct Auto 5.5 2-11 % Eos Pct Auto 3.2 0-4 % Baso Pct Auto 0.4 0-2 % NRBC Pct Auto 0.0 0.0-0.2 /100WBC ANC Neut Abs # 3.7 2.0-8.3 x10*3/uL ImGran Abs Auto 0.01 0.00-0.03 X10*3/uL Lymph Abs Auto 2.7 1.2-4.9 X10*3/uL [place]atch Abs Auto 0.4 0.1-1.2 X10*3/uL Eos Abs Auto 0.2 0.0-0.4 X10*3/uL Baso Abs Auto 0.0 0.0-0.2 X10*3/uL NRBC Abs Auto 0.000 0.0-0.012 X10*3/uL Name: Sander Shook Jr Age/Sex: 58/M : 1965 Unit#: [id number] Attend Dr: Jeri John MD Re11/26/23 Status: DEP REF Location: [facility] Disch: SPEC : [id number] NAYA: 11/26/23 STATUS: COMP REQ : [id number] RECD: 11/26/23-[address]: Jeri John MD COMP: 11/26/23 ENTERED: 11/26/[address]: ORDERED: Met Prof Fast, IRON PROF, AST, ALT, Lipid Panel, Vitamin D 25-OH, TSH Rf Test Result Flag Reference Sodium 140 135-145 mmol/L Potassium 4.2 3.3-5.1 mmol/L CL 104 96-108 mmol/L CO2 29 22-29 mmol/L Gap 11 L 12-20 BUN 10 9-16 mg/dL Creat 0.67 0.5-1.4 mg/dL EGFR > 60 NOTE: For -Portuguese individuals, multiply the result by 1.210. Chronic Kidney Disease: Estimated GFR < 60 mL/min/1.73m2 Severe Kidney Disease: Estimated GFR < 15 mL/min/1.73m2 FBS 100 H 60-99 mg/dL A fasting glucose from 100-125 mg/dl is considered impaired (pre-diabetes). CA 9.3 8.4-10.2 mg/dL Iron 76 45-160 mcg/dL TIBC 249 228-428 mcg/dL Saturation 31 15-50 % UIBC 173 ug/dL AST (GOT) 18 5-37 U/L ALT (GPT) 15 0-40 U/L Triglyceride 63 <150 mg/dL Desirable Triglyceride: less than 150 mg/dL Borderline High Triglyceride 150-199 mg/dL High Triglyceride: 200-499 mg/dL Very High Triglyceride: greater than or equal to 5OO mg/dL Cholesterol 173 <200 mg/dL Desirable Cholesterol: less than 200 mg/dL Borderline High Cholesterol: 200-239 mg/dL High Cholesterol: greater than 239 mg/dL LDL Calculated 109 H <100 mg/dL Desirable LDL: less than 100 mg/dL Near Optimal/Above Optimal LDL: 110-129 mg/dL Borderline High LDL: 130-159 mg/dL High LDL: 160-189 mg/dL Very High LDL: greater than or equal to 190 mg/dL HDL 52 >40 mg/dL Desirable HDL: greater than 40 mg/dL Note: This HDL assay may give artificially low results in patients with liver disease. Vit D 25-OH Tot 75.3 >30 ng/mL Health Based Reference Values* < 20 ng/mL Deficient 20-30 ng/mL Insufficient > 30 ng/mL Sufficient *Reji GASCA. N Engl J Med. 2007;357:266-280 Care must be taken in interpreting Vitamin D results from different laboratories and methodologies. Published data demonstrated that results from patients undergoing hemodialysis may show a negative bias when tested with various automated 25-OH vitamin D assays when compared to LC-MS/MS. When testing samples from patients whose predominant form of Vitamin D is Vitamin D2, such as patients receiving Vitamin D2 supplementation, results that are subtherapeutic should be confirmed with another method such as LC-MS/MS. TSH 1.29 0.32-4.0 uIU/mL Assessment and Plan Assessment & Plan (1) Weight loss, abnormal: Code(s): R63.4 - Abnormal weight loss Plan: Has a good appetite, but continues to lose weight. Referred to an nurse navigator for dietary guidance. (2) Normocytic normochromic anemia: Code(s): D64.9 - Anemia, unspecified Plan: Patient scheduled for screening colonoscopy next month (3) Psychotic disorder: Comment: followed by Dr. Suazo AND REMAINS STABLE Code(s): F29 - Unspecified psychosis not due to a substance or known physiological condition Qualifiers: Psychosis type: unspecified psychosis type Qualified Code(s): F29 - Unspecified psychosis not due to a substance or known physiological condition Plan: Currently followed by psychiatry (4) TRENT on CPAP: Comment: SANDER HAS OBSTRUCTIVE SLEEP APNEA SECONDARY TO HIS HARVEY DENTAL MALFORMATION. HE IS DEPENDENT ON CPAP, AND REMAINS VERY COMPLIANT Code(s): G47.33 - Obstructive sleep apnea (adult) (pediatric); Z99.89 - Dependence on other enabling machines and devices Plan: As per father patient has been compliant with his CPAP, followed by Dr. Márquez (5) Underweight: Code(s): R63.6 - Underweight Plan: Referred for dietary guidance is scheduled for a screening colonoscopy in April 2024 Coding Level of Care Code Est Pt Level 4 (53415) Diagnoses Weight loss, abnormal R63.4 Normocytic normochromic anemia D64.9 Psychosis, unspecified psychosis type F29 Psychosis type: unspecified psychosis type TRENT on CPAP G47.33; Z99.89 Underweight R63.6 Additional Codes RADHA-7 Assessment Billing - RADHA-7 Assessment Tool: RADHA-7 Assessment [id number] ([id number])
== END 2023-12-01 10:08 | disposition home or self-care (01) ==
PROVIDERS: PCP Internal Medicine; Visit Provider Internal Medicine
DX: R63.4 Abnormal weight loss (principal); D64.9 Anemia, unspecified; F29 Unspecified psychosis not due to a substance or known physiological condition; G47.33 Obstructive sleep apnea (adult) (pediatric); Z99.89 Dependence on other enabling machines and devices; R63.6 Underweight
CPT/HCPCS: 99214

== ENCOUNTER 2024-02-26 13:15 | Outpatient (AMB) | payer MEDICARE, MEDICAID, SELFPAY ==
--- NOTE | 2024-02-26 13:21 | MHC.OFFVIS ---
Vital Signs 02/26/24 13:23 Height 5 ft 1 in Weight 90 lb 6.232 oz BMI 17.1 BP 102/60 Blood Pressure Location Lt brachial Position Sitting Pulse 55 Pulse Source Pulse Oximeter Pulse Oximetry (%) 98 Oxygen Delivery Method Room Air Intake Visit Reasons: trent Intake Note: pt is here for yearly follow up and states he is doing well, using cpap at night and getting supplies every 3 months. 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 Allergies clotrimazole Allergy (Intermediate, Verified 02/26/24 13:38) Rash acetaminophen [From ENDOCET] Allergy (Unknown, Verified 02/26/24 13:38) HIVES amoxicillin [From AUGMENTIN] Allergy (Unknown, Verified 02/26/24 13:38) HIVES cefuroxime [CEFUROXIME] Allergy (Unknown, Verified 02/26/24 13:38) HIVES ciprofloxacin [From CIPRO] Allergy (Unknown, Verified 02/26/24 13:38) HIVES, Rash, rash clarithromycin [From BIAXIN] Allergy (Unknown, Verified 02/26/24 13:38) HIVES clavulanic acid [From AUGMENTIN] Allergy (Unknown, Verified 02/26/24 13:38) HIVES morphine [MORPHINE] Allergy (Unknown, Verified 02/26/24 13:38) HIVES, Rash, rash oxycodone [From ENDOCET] Allergy (Unknown, Verified 02/26/24 13:38) HIVES Medication List - Last Reconciled 02/26/24 by Bassem Máruqez MD cholecalciferol (vitamin D3) 25 mcg PO DAILY diazepam 2 mg PO ONCE PRN docusate sodium 100 mg PO DAILY PRN epinephrine 0.3 mg (0.3 mL) IM ONCE PRN olopatadine 0.2% (Pataday Once Daily Relief) 1 drp ophthalmic (eye) DAILY propranolol 10 mg PO BID risperidone 0.5 mg PO BID simvastatin 10 mg PO BEDTIME sod picosulf-mag ox-citric ac 10 mg-3.5 gram- 12 gram/160 mL (Clenpiq) 160 mL PO DAILY 2 doses sucralfate (Carafate) 2 grams (2 x 1 gram) PO .qhs 30 days Do you need a note to return to daycare/school/sports/work: No HPI HPI trent: Details: AMILCAR IS NOW 58 YEARS OLD GENTLEMAN WITH CEREBRAL PALSY/ COGNITIVE IMPAIRMENT, HARVEY DENTAL DEFECT, CAUSING OBSTRUCTIVE SLEEP APNEA. HE HAS BEEN USING CPAP SINCE 2008, WITH A NASAL MASK. HE HAS BEEN VERY COMPLIANT ALL ALONG. HIS FATHER TAKES GOOD CARE OF HIM. HE SLEEPS AT LEAST FOR 6-7 HOURS EVERY NIGHT. HE CPAP DEVICE IS OLD BUT IS STILL FUNCTIONING VERY WELL. HE GETS SUPPLIES EVERY 3-4 MONTHS REGULARLY. [facility] Medical History Underweight Weight loss, non-intentional TRENT on CPAP Dyslipidemia Dysphagia Mental and behavioral problems with learning Closed subcapital fracture of left femur Anemia Normocytic normochromic anemia Psychotic disorder Gallstones 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 Left inguinal hernia Sensorineural hearing loss Cerebral palsy Vitamin D deficiency Surgical History History of cataract surgery S/P inguinal herniorrhaphy History of colonoscopy Hx laparoscopic cholecystectomy Family History Father Medical history non-contributory Mother Medical history non-contributory Social History Household Members: Family Housing: House Do you presently have visiting nurse or other home services: No Alcohol intake: never Comment: pt os calmer not moving around a lot Patient Tobacco Use Status: Never used Tobacco e-Cigarette/Vaping Use: Never Used Second Hand Smoke Exposure: No service: No Current occupational status: disabled Cognitive needs: Yes Hearing needs: Yes Vision needs: Yes Review of Systems Const Unobtainable due to mental status and Other (However according to his father who takes care of him, he does not have any) Physical Exam Const General: combative Orientation/consciousness: patient oriented x3 HEENT Head: Yes normal to inspection General nose exam: No nasal polyps present and No nasal discharge present Face and sinus: Yes sinuses nontender Mouth: oropharynx normal Throat: Yes posterior oropharynx normal Eyes General: appearance normal, both eyes and all related structures Neck Neck: Yes no lymphadenopathy, Yes supple and Yes no JVD Thyroid: Thyroid normal Chest Chest palpation & inspection: normal inspection of the chest, normal palpation of entire chest wall and no tenderness Resp Other: Good breath sounds on both sides and clear to auscultation Cardio Jugular venous distension: JVD Palpation: normal PMI Rate: regular rate Rhythm: regular rhythm Heart sounds: no gallops and no murmurs Peripheral pulses: Peripheral pulses 2+ throughout GI Palpation (GI): Soft to palpation, nontender and no masses Auscultation: normal bowel sounds Back/Spine/Pelvis Thoracic/Lumbar Spine: thoracic and lumbar spine normal to inspection Skin General skin exam: no rashes or lesions noted Neuro General: patient oriented x3 and No gait normal (Abnormal, spastic, he needs 1 persons assistance to walk) Cranial nerves: Yes CN's II-XII intact bilaterally Extrem General: Yes no clubbing, cyanosis or edema Psych Speech and movement: Normal speech and movement present Affect: Hostile affect present (He is somewhat combative today because he had to wait a little longer . ) Assessment & Plan Assessment & Plan (1) TRENT on CPAP: Comment: AMILCAR HAS OBSTRUCTIVE SLEEP APNEA SECONDARY TO HIS HARVEY DENTAL MALFORMATION. HE IS DEPENDENT ON CPAP, AND REMAINS VERY COMPLIANT Code(s): G47.33 - Obstructive sleep apnea (adult) (pediatric); Z99.89 - Dependence on other enabling machines and devices Category: Medical Plan: DISCUSSED ABOUT HIS USE OF CPAP. AND ENCOURAGED TO KEEP ON USING IT EVERY NIGHT. WE ALSO DISCUSSED ABOUT DIET, NEED TO MAINTAIN IS STABLE WEIGHT. Coding Level of Care Code Est Pt Level 3 (65643) Diagnoses TRENT on CPAP G47.33; Z99.89
[2024-02-26 13:23] VITALS: BP 102/60; PULSE 55; O2SAT 98; BMI 17.1
== END 2024-02-26 13:39 | disposition home or self-care (01) ==
PROVIDERS: PCP Internal Medicine; Visit Provider Internal Medicine
DX: G47.33 Obstructive sleep apnea (adult) (pediatric) (principal); Z99.89 Dependence on other enabling machines and devices
CPT/HCPCS: 99213

== ENCOUNTER → 2024-02-26 13:15 | Outpatient (BNVA) | payer MEDICARE, MEDICAID, SELFPAY | PROVIDERS: PCP Internal Medicine; Visit Provider Internal Medicine | DX: G47.33 Obstructive sleep apnea (adult) (pediatric) (principal); Z99.89 Dependence on other enabling machines and devices | CPT/HCPCS: 99212 ==

== ENCOUNTER 2024-04-23 10:09 | Day surgery (SDC) | payer MEDICARE, MEDICAID, SELFPAY ==
--- NOTE | 2024-04-21 15:25 | HO.ANESPROP2 ---
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 (Acute) Sensorineural hearing loss (Acute) Past Medical History Medical History Underweight Weight loss, non-intentional TRENT on CPAP Dyslipidemia Dysphagia Mental and behavioral problems with learning Closed subcapital fracture of left femur Anemia Normocytic normochromic anemia Psychotic disorder Gallstones 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 Left inguinal hernia Sensorineural hearing loss Cerebral palsy Vitamin D deficiency Family History Family History Father Medical history non-contributory Mother Medical history non-contributory Surgical History Surgical History History of cataract surgery S/P inguinal herniorrhaphy History of colonoscopy Hx laparoscopic cholecystectomy Social History Social History Household Members: Family Housing: House Do you presently have visiting nurse or other home services: No Alcohol intake: never Comment: pt os calmer not moving around a lot Patient Tobacco Use Status: Never used Tobacco e-Cigarette/Vaping Use: Never Used Second Hand Smoke Exposure: No service: No Current occupational status: disabled Cognitive needs: Yes Hearing needs: Yes Vision needs: Yes Meds Allergies Allergy/AdvReac Type Severity Reaction Status Date / Time clotrimazole Allergy Intermediate Rash Verified 02/26/24 13:38 acetaminophen [From ENDOCET] Allergy Unknown HIVES Verified 02/26/24 13:38 amoxicillin [From AUGMENTIN] Allergy Unknown HIVES Verified 02/26/24 13:38 cefuroxime [CEFUROXIME] Allergy Unknown HIVES Verified 02/26/24 13:38 ciprofloxacin [From CIPRO] Allergy Unknown HIVES, Verified 02/26/24 13:38 Rash, rash clarithromycin [From BIAXIN] Allergy Unknown HIVES Verified 02/26/24 13:38 clavulanic acid Allergy Unknown HIVES Verified 02/26/24 13:38 [From AUGMENTIN] morphine [MORPHINE] Allergy Unknown HIVES, Verified 02/26/24 13:38 Rash, rash oxycodone [From ENDOCET] Allergy Unknown HIVES Verified 02/26/24 13:38 Home Medications ?Medication ?Instructions ?Recorded ?Confirmed ?Last Taken ?Type risperidone 0.5 mg tablet 0.5 mg PO BID 12/14/20 02/26/24 Unknown History cholecalciferol (vitamin D3) 25 25 mcg PO DAILY 05/11/21 02/26/24 Unknown History mcg (1,000 unit) capsule propranolol 10 mg tablet 10 mg PO BID 05/16/22 02/26/24 Unknown History olopatadine 0.2 % eye drops 1 drp ophthalmic (eye) DAILY 11/14/22 02/26/24 Unknown History (Pataday Once Daily Relief) diazepam 2 mg tablet 2 mg PO ONCE PRN 01/28/23 02/26/24 Unknown History Exam Pertinent Lab Results Pertinent Lab Results: Laboratory Tests 11/26/23 06:07 WBC 7.1 Hgb 12.8 L Hct 39.9 L Plt Count 247 Sodium 140 Potassium 4.2 Chloride 104 Carbon Dioxide 29 BUN 10 Creatinine 0.67 Assessment and Plan Assessment Anesthesia Assessment: Chart Reviewed
[2024-04-23 11:01] VITALS: BMI 16.6
[2024-04-23 11:20] VITALS: BP 132/77; PULSE 75; RESP 18; TEMP 36.6; O2SAT 99
[2024-04-23] MEDS: Lactated Ringers 1,000 ML 100 ML IVCONT (11:29)
[2024-04-23] MEDS: Midazolam HCl/PF 2 MG/2 ML VIAL IVPUSH (11:36)
--- NOTE | 2024-04-23 11:50 | MHC.SHP ---
Pre-Procedural Eval Section A - 24 Hr Update-Section A only Date of Service: 04/23/24 The patient is an INPATIENT: No The patient has been examined within 24 hours of the surgical procedure. The History & Physical has been completed within 30 days and I have reviewed it.: No Section B - Complete if H&P > 30 days Chief Complaint: screening, FH of colon polyps and cancer Relevant Family History (Specify if Yes): Yes Relevant Social History: None Present Medications: see Short Stay Collaborative assessment Medical History: Significant History (Weight loss, non-intentional TRENT on CPAP Dyslipidemia Dysphagia Mental and behavioral problems with learning Closed subcapital fracture of left femur Anemia Normocytic normochromic anemia Psychotic disorder Gallstones 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 Left inguinal hernia Sensorineura) History of Previous Operations: Relevant previous surgery/procedure and date(s) (History of cataract surgery S/P inguinal herniorrhaphy History of colonoscopy Hx laparoscopic cholecystectomy) Allergies: Allergies Allergy/AdvReac Type Severity Reaction Status Date / Time clotrimazole Allergy Intermediate Rash Verified 04/23/24 10:58 acetaminophen [From ENDOCET] Allergy Unknown HIVES Verified 04/23/24 10:58 amoxicillin [From AUGMENTIN] Allergy Unknown HIVES Verified 04/23/24 10:58 cefuroxime [CEFUROXIME] Allergy Unknown HIVES Verified 04/23/24 10:58 ciprofloxacin [From CIPRO] Allergy Unknown HIVES, Verified 04/23/24 10:58 Rash, rash clarithromycin [From BIAXIN] Allergy Unknown HIVES Verified 04/23/24 10:58 clavulanic acid Allergy Unknown HIVES Verified 04/23/24 10:58 [From AUGMENTIN] morphine [MORPHINE] Allergy Unknown HIVES, Verified 04/23/24 10:58 Rash, rash oxycodone [From ENDOCET] Allergy Unknown HIVES Verified 04/23/24 10:58 Review of Systems Sugical H&P ROS: Negative: Cardiovascular, Respiratory and Gastrointestinal and Yes, Specify: Constitution (developmental delay) Exam Surgical H&P Exam: Normal: Heart, Normal: Lungs, Normal: Extremities and Normal: Abdomen Plan Diagnosis/Plan: Unchanged I have reviewed the history and physical and performed a pertinent physical examination on my patient. No changes have occurred unless specified. Time Spent With Patient Time: Total time managing care of this patient today ____ minutes.
--- NOTE | 2024-04-23 13:19 | HO.ANESPROP2 ---
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 (Acute) Sensorineural hearing loss (Acute) Past Medical History Medical History Mentally challenged Underweight Weight loss, non-intentional TRENT on CPAP Dyslipidemia Dysphagia Mental and behavioral problems with learning Closed subcapital fracture of left femur Anemia Normocytic normochromic anemia Psychotic disorder Gallstones 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 Left inguinal hernia Sensorineural hearing loss Cerebral palsy Vitamin D deficiency Family History Family History Father Medical history non-contributory Mother Medical history non-contributory Family history of problems with anesthesia: No Surgical History Surgical History History of hip surgery History of cataract surgery S/P inguinal herniorrhaphy History of colonoscopy Hx laparoscopic cholecystectomy History of Problems with Anesthesia: No Social History Social History Household Members: Family Housing: House Do you presently have visiting nurse or other home services: No Alcohol intake: never Comment: pt os calmer not moving around a lot Patient Tobacco Use Status: Never used Tobacco e-Cigarette/Vaping Use: Never Used Second Hand Smoke Exposure: No Use of substances other than those prescribed or required for medical reasons: No Are you DNR?: No Advance Directives: No Advance Directives Information Provided: Yes service: No Current occupational status: disabled Cognitive needs: Yes Hearing needs: Yes Vision needs: Yes Meds Allergies Allergy/AdvReac Type Severity Reaction Status Date / Time clotrimazole Allergy Intermediate Rash Verified 04/23/24 10:58 acetaminophen [From ENDOCET] Allergy Unknown HIVES Verified 04/23/24 10:58 amoxicillin [From AUGMENTIN] Allergy Unknown HIVES Verified 04/23/24 10:58 cefuroxime [CEFUROXIME] Allergy Unknown HIVES Verified 04/23/24 10:58 ciprofloxacin [From CIPRO] Allergy Unknown HIVES, Verified 04/23/24 10:58 Rash, rash clarithromycin [From BIAXIN] Allergy Unknown HIVES Verified 04/23/24 10:58 clavulanic acid Allergy Unknown HIVES Verified 04/23/24 10:58 [From AUGMENTIN] morphine [MORPHINE] Allergy Unknown HIVES, Verified 04/23/24 10:58 Rash, rash oxycodone [From ENDOCET] Allergy Unknown HIVES Verified 04/23/24 10:58 Active Medications: Current Medications Lactated Ringer's (Lr) 1,000 mls @ 100 mls/hr IVCONT .Q10H JULIO Last Admin: 04/23/24 11:29 Dose: 100 mls/hr Naloxone HCl (Naloxone Hcl 0.4 Mg/Ml Vial) 0.04 mg IVPUSH Q5M PRN PRN Reason: Excessive sedation or RR < 8 Home Medications ?Medication ?Instructions ?Recorded ?Confirmed ?Last Taken ?Type risperidone 0.5 mg tablet 0.5 mg PO BID 12/14/20 04/23/24 Unknown History cholecalciferol (vitamin D3) 25 25 mcg PO DAILY 05/11/21 04/23/24 Unknown History mcg (1,000 unit) capsule propranolol 10 mg tablet 10 mg PO BID 05/16/22 04/23/24 Unknown History olopatadine 0.2 % eye drops 1 drp ophthalmic (eye) DAILY 11/14/22 04/23/24 Unknown History (Pataday Once Daily Relief) diazepam 2 mg tablet 2 mg PO ONCE PRN Anxiety 01/28/23 04/23/24 Unknown History Exam Height,Weight and Vital Signs: Height 5 ft Weight 38.555 kg Last Vital Signs Temp 97.9 F 04/23/24 11:20 Pulse 75 04/23/24 11:20 Resp 18 04/23/24 11:20 BP 132/77 04/23/24 11:20 Pulse Ox 99 04/23/24 11:20 O2 Del Method Room Air 04/23/24 11:20 Airway Mallampati Class: III TM Dist: >3cm Neck ROM: Full Heart: RRR Lungs: CTA Assessment and Plan Assessment Anesthesia Assessment: Anesthesia Plan Discussed and Chart Reviewed Final Anesthetic Review Family History of Problems with Anesthesia: No History of Problems with Anesthesia: No NPO: Yes ASA Class: III Final Preanesthetic Review: Meds/Allgs Chart Reviewed, Consent Obtained/Reviewed and Anes Risks/Benef Reviewed Patient Risk: Intermediate Procedure Risk: Low Anesthetic Plan Anesthetic Plan: MAC: Disposition: Standard PACU
--- NOTE | 2024-04-23 13:36 | P.OPN-COLO_ITS ---
Colonoscopy Operative Note Operative Note Date of Service: 04/23/24 Narrative: COLONOSCOPY TILL CECUM WITH BIOPSIES Pre-op diagnosis: Colon cancer screening, (2nd colonoscopy). Post-op diagnosis:? Colon polyp, Diverticulosis, hemorrhoids Endoscopist:? Dominik Andino MD Anesthesia:?MAC Consent: Indications for the procedure and potential complications of bleeding, perforation, reaction to medications and missed diagnosis were discussed with the patient and informed consent was obtained. Instrument: Olympus PCF H 190 L variable stiffness pediatric colonoscope Monitoring: Vital signs and clinical assessment, intermittent blood pressure monitoring, continuous EKG monitoring, Pulse oximetry and Carbon Dioxide monitoring were done throughout the procedure. Please see anesthesia flowsheet. Colon withdrawl time was 16 minutes. Procedure: The patient was placed in the left lateral decubitis position and pre-procedure medications were administered. After a digital rectal examination of the ano-rectum, the video colonoscope was inserted into the rectum and advanced through the colon to the cecum. The colonoscope was slowly withdrawn in a retrograde panoramic fashion and the colon mucosa was carefully examined including a retroflexed view of the rectum. Findings and interventions are described below. Procedure Difficulty: without difficulty Findings: Terminal Ileum: Not evaluated Cecum: Normal Ascending Colon: A 2-3 mm diminutive appearing polyp in mid AC - removed with a cold biopsy. Moderate diverticulosis throughout the entire colon Transverse Colon: Moderate diverticulosis throughout the entire colon Descending Colon: Moderate diverticulosis throughout the entire colon Sigmoid Colon: Severe diverticulosis with luminal narrowing Rectum: Normal Ano-rectum: Small internal hemorrhoids Colon preparation: Good after copious irrigation. [place] Bowel Preparation Scale Right colon; 2 Transverse colon: 2 Left colon; 2 (0 = Unprepared colon segment with mucosa not seen due to solid stool that cannot be cleared. 1 = Portion of mucosa of the colon segment seen, but other areas of the colon segment not well seen due to staining, residual stool and/or opaque liquid. 2 = Minor amount of residual staining, small fragments of stool and/or opaque liquid, but mucosa of colon segment seen well. 3 = Entire mucosa of colon segment seen well with no residual staining, small fragments of stool or opaque liquid) Impression and Post Procedure Diagnosis: Colonoscopy Findings: One small polyp was removed Moderate diverticulosis seen in the entire colon Small hemorrhoids on retroflexed exam. Plan: Pt has a FU appointment on 05/07/24 with Susanne Botello, COMMUNITY SERVICE COORDINATOR Repeat Colonoscopy in 5 years if polyp is adenomatous and 10 year if polyp is hyperplastic. Above findings were reviewed with the patient and relevant handouts were given and the discharge area.
[2024-04-23 13:40] VITALS: BP 106/60; PULSE 80; RESP 16; TEMP 36.7; O2SAT 98
[2024-04-23 13:55] VITALS: BP 118/62; PULSE 73; RESP 20; TEMP 36.8; O2SAT 98
== END 2024-04-23 14:15 | disposition home or self-care (01) ==
PROVIDERS: PCP Internal Medicine; Visit Provider Internal Medicine Gastroenterology
PROC: 0DJD8ZZ Inspection of Lower Intestinal Tract, Via Natural or Artificial Opening Endoscopic (ICD-10-PCS; CPT 45378; principal; 2024-04-23 12:10)
DX: Z12.11 Encounter for screening for malignant neoplasm of colon (principal); K63.5 Polyp of colon; K57.30 Diverticulosis of large intestine without perforation or abscess without bleeding; K64.8 Other hemorrhoids; Z80.0 Family history of malignant neoplasm of digestive organs; R63.4 Abnormal weight loss; D64.9 Anemia, unspecified; K91.5 Postcholecystectomy syndrome; G47.33 Obstructive sleep apnea (adult) (pediatric); Z99.89 Dependence on other enabling machines and devices
CPT/HCPCS: 45380; 88305; J2250; J2704

== ENCOUNTER → 2024-04-23 10:09 | Outpatient (BNV) | payer MEDICARE, MEDICAID, SELFPAY | PROVIDERS: PCP Internal Medicine; Visit Provider Internal Medicine Gastroenterology | DX: Z12.11 Encounter for screening for malignant neoplasm of colon (principal); D12.2 Benign neoplasm of ascending colon; K57.90 Diverticulosis of intestine, part unspecified, without perforation or abscess without bleeding; K64.8 Other hemorrhoids | CPT/HCPCS: 45380 ==

== ENCOUNTER 2024-05-07 09:50 | Outpatient (AMB) | payer MEDICARE, MEDICAID, SELFPAY ==
--- NOTE | 2024-05-07 09:52 | MHC.OFFVIS ---
Vital Signs 05/07/24 09:57 Height 5 ft Weight 87 lb 11.904 oz BMI 17.1 BP 113/74 Blood Pressure Location Rt brachial Position Sitting Pulse 60 Intake Visit Reasons: S/P [place]; Dr. Andino Intake Note: Sander presents to in office follow up s/p colonoscopy. 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 Required: No Allergies clotrimazole Allergy (Intermediate, Verified 04/23/24 10:58) Rash acetaminophen [From ENDOCET] Allergy (Unknown, Verified 04/23/24 10:58) HIVES amoxicillin [From AUGMENTIN] Allergy (Unknown, Verified 04/23/24 10:58) HIVES cefuroxime [CEFUROXIME] Allergy (Unknown, Verified 04/23/24 10:58) HIVES ciprofloxacin [From CIPRO] Allergy (Unknown, Verified 04/23/24 10:58) HIVES, Rash, rash clarithromycin [From BIAXIN] Allergy (Unknown, Verified 04/23/24 10:58) HIVES clavulanic acid [From AUGMENTIN] Allergy (Unknown, Verified 04/23/24 10:58) HIVES morphine [MORPHINE] Allergy (Unknown, Verified 04/23/24 10:58) HIVES, Rash, rash oxycodone [From ENDOCET] Allergy (Unknown, Verified 04/23/24 10:58) HIVES HPI HPI S/P [place]; Dr. Andino: Details: Assessment & Plan (1) Weight loss, abnormal: Code(s): R63.4 - Abnormal weight loss (2) Family history of colon cancer: Comment: Paternal grandfather of cancer, father had colon polyps patient had a prior polyps 6 years ago Code(s): Z80.0 - Family history of malignant neoplasm of digestive organs (3) Post-cholecystectomy syndrome: Code(s): K91.5 - Postcholecystectomy syndrome (4) Elevated fasting glucose: Code(s): R73.01 - Impaired fasting glucose (5) Polydipsia: Code(s): R63.1 - Polydipsia (6) Pre-op examination: Code(s): Z01.818 - Encounter for other preprocedural examination Plan He is here today with his parents because they were concerned he continues to lose weight. Recently, they cut out fats with desserts and this may be a contributing factor. There has been no change in his activity levels.. There is some possible polydipsia/polyuria.. Saw PCP all labs look good except a mildly elevated fasting glucose urine strep at home may have been mildly positive for sugar. There is family history of diabetes on the father's side the only cancer is colon cancer in father side and breast cancer in his mother. Overdue for colonoscopy will get this scheduled, order hemoglobin A1c for better long-term evaluation of his sugar levels. There are no prior problems with anesthesia or sedation. He has TRENT and no cardiac problems. There are no infectious disease problems known. There is a strong family history of colon cancer in his paternal grandfather and his father had colon polyps. The his last known colonoscopy was in 2016 and was not at this facility the results of this study are not known. I will see him after the colonoscopy. Orders: Orders H Pylori Breath Test Today R63.1 - Polydipsia, R63.4 - Abnormal weight loss, R73.01 - Impaired fasting glucose Colonoscopy - GI Use Only Today R63.1 - Polydipsia, R63.4 - Abnormal weight loss, R73.01 - Impaired fasting glucose Hemoglobin A1c Today R63.1 - Polydipsia, R63.4 - Abnormal weight loss, R73.01 - Impaired fasting glucose Medications: New sod picosulf-mag ox-citric ac 10 mg-3.5 gram- 12 gram/160 mL (Clenpiq) take first dose at 5-9PM evening before colonoscopy; 2nd dose the next day approximately 5 hrs before colonoscopy 160 mL PO DAILY 320 mL 0RF Labs: Laboratory Tests 07/24/23 07/28/23 09:08 06:18 Hemoglobin A1c % 5.4 H. pylori Breath Test Negative Colonoscopy 04/26/24 Findings: Terminal Ileum: Not evaluated Cecum: Normal Ascending Colon: A 2-3 mm diminutive appearing polyp in mid AC - removed with a cold biopsy. Moderate diverticulosis throughout the entire colon Transverse Colon: Moderate diverticulosis throughout the entire colon Descending Colon: Moderate diverticulosis throughout the entire colon Sigmoid Colon: Severe diverticulosis with luminal narrowing Rectum: Normal Ano-rectum: Small internal hemorrhoids Impression and Post Procedure Diagnosis: Colonoscopy Findings: One small polyp was removed Moderate diverticulosis seen in the entire colon Small hemorrhoids on retroflexed exam. Plan: Pt has a FU appointment on 05/07/24 with Susanne Botello NP Repeat Colonoscopy in 5 years if polyp is adenomatous and 10 year if polyp is hyperplastic. Biopsy Received: 04/26/24 Diagnosis Colon, ascending, polyp: Polypoid colonic mucosa with no specific change; no adenomatous dysplasia seen TODAY'S VISIT He is here to day with his mother and father who are his game author. He is doing well they are only using 1 carafate a day - as his stools are a bit hard initially, but then more formed. We discuss fiber - specifically fiber gummies and/or cookies. They are agreeable to 10 year follow up. The procedure was well tolerated. The results were explained and the patient is agreeable to the follow-up interval as stated. The bowel pattern has returned to normal. Education was provided to tell any 1st degree relatives about their findings to be sure that they are screened by age 45. Educated that they will be put on a recall list when it is time for their repeat scope but should they move out of state or away from the hospital they will need to remember along with their primary to repeat the procedure in a timely fashion to avoid any adverse complications. ROV 6 mos. PFSH Medical History Mentally challenged Underweight Weight loss, non-intentional TRENT on CPAP Dyslipidemia Dysphagia Mental and behavioral problems with learning Closed subcapital fracture of left femur Anemia Normocytic normochromic anemia Psychotic disorder Gallstones 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 Left inguinal hernia Sensorineural hearing loss Cerebral palsy Vitamin D deficiency Surgical History History of hip surgery History of cataract surgery S/P inguinal herniorrhaphy History of colonoscopy Hx laparoscopic cholecystectomy Family History Father Medical history non-contributory Mother Medical history non-contributory Social History Household Members: Family Housing: House Do you presently have visiting nurse or other home services: No Alcohol intake: never Comment: pt os calmer not moving around a lot Patient Tobacco Use Status: Never used Tobacco e-Cigarette/Vaping Use: Never Used Second Hand Smoke Exposure: No service: No Current occupational status: disabled Cognitive needs: Yes Hearing needs: Yes Vision needs: Yes Review of Systems Const Denies fatigue, Denies fever(s), Denies night sweats, Denies poor appetite and Denies weight loss Eyes Details: glasses Reports requires corrective lenses ENT Reports Normal hearing present, Denies dental pain, Denies dysphagia, Denies hearing loss, Denies mouth pain, Denies odynophagia, Denies throat swelling, Denies tongue swelling and Reports other (Dentition adequate) Card Reports no additional complaints Resp Reports no additional complaints GI Details: Denies abdominal pain, Denies melena, Denies bloating, Denies hematochezia, Denies constipation, Denies GI cramping, Denies dysphagia, Denies excessive flatus, Denies early satiety, Denies heartburn, Reports diarrhea, Denies nausea, Denies odynophagia, Denies vomiting and Denies hematemesis Skin/Breast Denies pruritus, Denies lesions, Denies rash and Denies jaundice Neuro Reports Normal hearing present and Denies Abnormal speech present Endo Denies fatigue Aller/Immun Denies throat swelling and Denies tongue swelling Physical Exam Vital Signs: Last Vital Signs Pulse 60 05/07/24 09:57 BP 113/74 05/07/24 09:57 BMI result Body Mass Index 17.1 Const General: cooperative, no acute distress, well developed and well groomed Nutritional Appearance: well nourished and thin Orientation/consciousness: oriented to person, oriented to place and oriented to time Limitations: No language barrier and other limitations HEENT Head: Yes normocephalic and Yes atraumatic Eyes General: appearance normal, both eyes and all related structures Pupils: Equal, round and reactive pupils present Neck Neck: Yes normal visual inspection and Yes no lymphadenopathy Thyroid: Thyroid normal Resp Effort & Inspection: normal respiratory effort and able to speak in complete sentences Auscultation: clear to auscultation bilaterally Cardio Rate: regular rate Rhythm: regular rhythm Heart sounds: Normal, physiologic split S2 sound present Peripheral pulses: radial pulses present and posterior tibial pulses present GI Inspection: No distended and No Abdominal panniculus present Palpation (GI): Soft to palpation, nontender, no guarding, not rigid and No hepatosplenomegaly present Percussion: Yes normal to percussion Auscultation: normal bowel sounds Rectal Exam - Male: Yes deferred Skin General skin exam: no rashes or lesions noted, turgor normal, skin not dry, no jaundice, No spider nevi and no striae Rashes: no rashes Nails: normal Neuro General: oriented to person, oriented to place and oriented to time Cranial nerves: Yes Equal, round and reactive pupils present and Yes Normal hearing present Speech: No Abnormal speech present Extrem General: Yes normal to inspection, No clubbing, No cyanosis and No edema Psych Appearance: grossly normal and well kempt Mental Status: mental status grossly normal Speech and movement: Normal speech and movement present Affect: normal affect Attitude: cooperative Thought process: Normal thought process present and not confabulating Thought content: Normal thought content present Insight: Poor insight present (Psych) Judgement: Poor judgement present (Psych) Assessment & Plan Assessment & Plan (1) Post-cholecystectomy syndrome: Code(s): K91.5 - Postcholecystectomy syndrome Category: Medical (2) Family history of colon cancer: Comment: Paternal grandfather of cancer, father had colon polyps patient had a prior polyps 6 years ago Code(s): Z80.0 - Family history of malignant neoplasm of digestive organs Category: Medical Plan He is here to day with his mother and father who are his game author. He is doing well they are only using 1 carafate a day - as his stools are a bit hard initially, but then more formed. We discuss fiber - specifically fiber gummies and/or cookies. They are agreeable to 5 year follow up. The procedure was well tolerated. The results were explained and the patient is agreeable to the follow-up interval as stated. The bowel pattern has returned to normal. Education was provided to tell any 1st degree relatives about their findings to be sure that they are screened by age 45. Educated that they will be put on a recall list when it is time for their repeat scope but should they move out of state or away from the hospital they will need to remember along with their primary to repeat the procedure in a timely fashion to avoid any adverse complications. ROV 6 mos. Medications: Changed From sucralfate 2 grams (2 x 1 gram) PO BEDTIME 180 tabs 2RF R19.7 - Diarrhea, unspecified To sucralfate 1 g PO BEDTIME 90 tabs 2RF R19.7 - Diarrhea, unspecified Coding Level of Care Code Est Pt Level 3 (36304) Diagnoses Post-cholecystectomy syndrome K91.5 Family history of colon cancer Z80.0
[2024-05-07 09:57] VITALS: BP 113/74; PULSE 60; BMI 17.1
== END 2024-05-07 12:11 | disposition home or self-care (01) ==
PROVIDERS: PCP Internal Medicine; Visit Provider Nurse Practitioner
DX: K91.5 Postcholecystectomy syndrome (principal); Z80.0 Family history of malignant neoplasm of digestive organs
CPT/HCPCS: 99213

== ENCOUNTER → 2024-05-07 09:50 | Outpatient (BNVA) | payer MEDICARE, MEDICAID, SELFPAY | PROVIDERS: PCP Internal Medicine; Visit Provider Nurse Practitioner | DX: K91.5 Postcholecystectomy syndrome (principal); R63.4 Abnormal weight loss; R73.01 Impaired fasting glucose; R63.1 Polydipsia; R19.7 Diarrhea, unspecified; Z80.0 Family history of malignant neoplasm of digestive organs | CPT/HCPCS: 99212 ==

== ENCOUNTER 2024-06-09 14:28 | Emergency (ER) | payer MEDICARE, MEDICAID, SELFPAY ==
--- NOTE | ~2024-06-09 | XR_ITS ---
EXAMINATION: XR BILATERAL HIPS WITH AP PELVIS CLINICAL INFORMATION: Fall, known history of hip screw. Query fracture COMPARISON: Left hip radiograph 10/13/2020 and left hip with pelvis 08/23/2020 TECHNIQUE: AP view of the pelvis and AP and lateral views of each hip were obtained. FINDINGS: The bones of the pelvis are unremarkable. Three cannulated and partially threaded screws are present across the left femoral neck terminating in the femoral head without change in orientation in comparison to prior. The alignment is stable. No acute hip fracture is seen on the left side. The views of the right hip show no acute fracture or dislocation. XR/XR hip BI w PEL1V IMPRESSION: 1. Normal alignment. No acute fracture or dislocation is seen. 2. Stable postoperative changes left hip. Electronically signed by: Carter Goldstein MD 06/09/2024 07:37 PM EDT
--- NOTE | ~2024-06-09 | XR_ITS ---
EXAMINATION: XR LUMBOSACRAL SPINE CLINICAL INFORMATION: Fall COMPARISON: Lumbar spine radiographs August 23, 2020 TECHNIQUE: Three views of the lumbosacral spine. FINDINGS: Mild left convex curvature of the lumbar spine. The bones are osteopenic. The vertebral body and disc height is stable in comparison to prior with mild irregularity of the inferior endplate of L2 and mild disc space narrowing at this level. Persistent endplate osteophytes are seen in the lower thoracic and lumbar spine. No fracture or subluxation is seen. Three hip screws are partially visualized on the left side. XR/XR lumbar spine 2-3V IMPRESSION: Osteopenia. No acute fracture or subluxation is seen. Electronically signed by: Carter Goldstein MD 06/09/2024 07:40 PM EDT
[2024-06-09 16:17] VITALS: BP 135/62; PULSE 60; RESP 16; TEMP 36.6; O2SAT 98; BMI 16.5
--- NOTE | 2024-06-09 17:13 | ED.GENADULT ---
HPI - General Adult General Chief complaint: Fall Stated complaint: fall Time Seen by Provider: 06/09/24 18:54 Source: family (Father) Mode of arrival: wheelchair Limitations: other (See narrative below) History of Present Illness HPI narrative: Patient is a 58-year-old male with past medical history of cerebral palsy, nonverbal due to developmental delay, hyperlipidemia, inguinal hernia, vitamin-D deficiency, psychotic disorder, TRENT on CPAP presenting to emergency department with father for evaluation. Father reports that patient was at a day program at [facility] when he reportedly fell out of a recliner type of chair that was witnessed by staff, he landed onto the bilateral knees and subsequently placed a hold of his arms out in front of him. There was no head strike. Initially there was some concern about potentially pain to his back, father states that at this time he appears to be acting his normal self and he does not appear to be in any pain. He has been ambulating in the waiting room as well as in the treatment room without difficulty. Father expresses concern about his prior surgery to the left hip in 2020 after fracture, and wanted to be certain that the hardware was all in place Related Data Home Medications ?Medication ?Instructions ?Recorded ?Confirmed risperidone 0.5 mg tablet 0.5 mg PO BID 12/14/20 04/23/24 cholecalciferol (vitamin D3) 25 25 mcg PO DAILY 05/11/21 04/23/24 mcg (1,000 unit) capsule propranolol 10 mg tablet 10 mg PO BID 05/16/22 04/23/24 olopatadine 0.2 % eye drops 1 drp ophthalmic (eye) DAILY 11/14/22 04/23/24 (Pataday Once Daily Relief) diazepam 2 mg tablet 2 mg PO ONCE PRN Anxiety 01/28/23 04/23/24 Previous Rx's ?Medication ?Instructions ?Recorded docusate sodium 100 mg capsule 100 mg PO DAILY PRN constipation 05/21/23 #30 caps epinephrine 0.3 mg/0.3 mL 0.3 mg (0.3 mL) IM ONCE PRN 07/11/23 injection, auto-injector anaphylaxis #2 ea simvastatin 10 mg tablet 10 mg PO BEDTIME #90 tabs 03/01/24 sucralfate 1 gram tablet 1 g PO BEDTIME #90 tabs 05/07/24 Allergies Allergy/AdvReac Type Severity Reaction Status Date / Time clotrimazole Allergy Intermediate Rash Verified 06/09/24 16:21 acetaminophen [From ENDOCET] Allergy Unknown HIVES Verified 06/09/24 16:21 amoxicillin [From AUGMENTIN] Allergy Unknown HIVES Verified 06/09/24 16:21 cefuroxime [CEFUROXIME] Allergy Unknown HIVES Verified 06/09/24 16:21 ciprofloxacin [From CIPRO] Allergy Unknown HIVES, Verified 06/09/24 16:21 Rash, rash clarithromycin [From BIAXIN] Allergy Unknown HIVES Verified 06/09/24 16:21 clavulanic acid Allergy Unknown HIVES Verified 06/09/24 16:21 [From AUGMENTIN] morphine [MORPHINE] Allergy Unknown HIVES, Verified 06/09/24 16:21 Rash, rash oxycodone [From ENDOCET] Allergy Unknown HIVES Verified 06/09/24 16:21 Review of Systems Review of Systems: Yes Unobtainable due to mental status PMFSH Past Medical History Attestation statement: The following information was validated with the patient. 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 Left inguinal hernia Sensorineural hearing loss Cerebral palsy Vitamin D deficiency Surgical History History of hip surgery History of cataract surgery S/P inguinal herniorrhaphy History of colonoscopy Hx laparoscopic cholecystectomy Family History Family History Father Medical history non-contributory Mother Medical history non-contributory Social History Social History Household Members: Family Housing: House Do you presently have visiting nurse or other home services: No Alcohol intake: never Comment: pt os calmer not moving around a lot Patient Tobacco Use Status: Never used Tobacco e-Cigarette/Vaping Use: Never Used Second Hand Smoke Exposure: No Advance Directives: No Advance Directives Information Provided: No service: No Current occupational status: disabled Cognitive needs: Yes Hearing needs: Yes Vision needs: Yes Physical Exam ED Vital Signs: Vital Signs - 24 hr 06/09/24 16:17 06/09/24 19:58 Temperature 97.8 F 97.8 F Pulse Rate 60 60 Respiratory Rate 16 16 Blood Pressure 135/62 135/62 Pulse Oximetry 98 98 Oxygen Delivery Method Room Air Room Air BMI result Body Mass Index 16.5 Appearance: Alert.? No acute distress.?Normal affect. Eyes: Pupils equal, round and reactive to light.? CVS: Heart sounds normal. Normal heart rate and rhythm.? Pulses normal.?? Respiratory: No respiratory distress.? Lung sounds clear to auscultation bilaterally?? Abdomen: Soft and non-tender. Normoactive bowel sounds. Skin: Skin warm and dry.? Normal skin color.? Extremities: No lower extremity edema. Full range of motion to bilateral wrists, elbows, hips, and knees. No obvious deformities. No ecchymosis or erythema. 2+ radial/DP/PT pulse bilaterally. Neuro: Moves all extremities spontaneously. Ambulates with normal steady gait. Course Course Course Narrative: RME: 58 yold male with past medical history of cerebral palsy presents to ED for sleeping other wheelchair falling onto his knees. There was no head strike. Fall witnessed. Father states patient complaining of back pain and concern for hip due to patient having hip surgery. X-rays ordered Medical Decision Making Medical Decision Making MDM Narrative: Patient is a 58-year-old male with past medical history of cerebral palsy, nonverbal due to developmental delay, hyperlipidemia, inguinal hernia, vitamin-D deficiency, psychotic disorder, TRENT on CPAP presenting to emergency department for evaluation after witnessed fall out of the wheelchair onto the knees without subsequent head strike and no loss of consciousness. He has full range of motion to the bilateral upper and lower extremities. XR obtained prior to my assumption of care including XR of the left hip and lumbar spine. He appears well at this time, ambulating throughout the room without difficulty. All extremities are neurovascularly intact distally. All the point of impact and fall was the bilateral knees and subsequently the outstretched hands, I have a low suspicion for any acute fracture dislocation to either he has full range of motion and no apparent pain upon manipulation in his ambulatory with a steady gait. Discussed with father, do not see indication for x-ray imaging of the knees or wrist at this time and he is in agreement with this plan of care. He will monitor him closely and seek re-evaluation should anything change. Differential Diagnosis Differential Diagnoses: The differential diagnosis associated with the presentation includes (See narrative above) Independent Interpretation I performed an independent interpretation of an: Plain X-Ray (No acute fracture of the left hip) Radiology Impression Discussion of test interpretation with radiology: I have reviewed the radiologist's reading. Radiologist Impression: XR/XR hip BI w PEL1V IMPRESSION: 1. Normal alignment. No acute fracture or dislocation is seen. 2. Stable postoperative changes left hip. XR/XR lumbar spine 2-3V IMPRESSION: Osteopenia. No acute fracture or subluxation is seen. Independent Historian Clinical information obtained from an independent historian. History obtained from or confirmed by: Parent External Record Review External record reviewed: Outpatient record Prescription Management I considered prescription management with: Pain Medication (Acetaminophen/ibuprofen) Chronic Conditions Patient?s care impacted by: Other (Cerebral palsy) Discharge Plan Discharge Clinical Impression: Fall Patient Disposition: Home, Self-Care Instructions: Fall Prevention (ED) Additional Instructions: His examination today is very reassuring. X-ray today does not show any evidence of disruption to the hardware from his prior hip surgery. Additionally there is no evidence of any fracture dislocation. Follow-up with primary care doctor accordingly. You may return with any new or worsening symptoms or concerns. Prescriptions: No Action epinephrine 0.3 mg/0.3 mL auto-injector 0.3 mg IM ONCE PRN (Reason: anaphylaxis) Qty: 2 2RF simvastatin 10 mg tablet 10 mg PO BEDTIME Qty: 90 1RF cholecalciferol (vitamin D3) 25 mcg (1,000 unit) capsule 25 mcg PO DAILY risperidone 0.5 mg tablet 0.5 mg PO BID diazepam 2 mg tablet 2 mg PO ONCE PRN (Reason: Anxiety) propranolol 10 mg tablet 10 mg PO BID olopatadine [Pataday Once Daily Relief] 0.2 % drops 1 drp ophthalmic (eye) DAILY docusate sodium 100 mg capsule 100 mg PO DAILY PRN (Reason: constipation) Qty: 30 6RF sucralfate 1 gram tablet 1 g PO BEDTIME Qty: 90 2RF Referrals: Espinas,Jeri C, MD [Primary Care Provider] - Stand Alone Forms: Work/School Release Interventions: ED Discharge Assessment Last Done: 06/09/24 19:58 Discharge Date/Time: 06/09/24 19:59 Print Language: Greek
--- NOTE | 2024-06-09 19:56 | MHC.EDTECH ---
Unable to obtain discharge vitals on Pt. Per father, Pt gets violent after a period of time and upon walking into room, Pt grabbed at t/w's pen and pad of paper stating no repeatedly. Tiffanie MARCUS made aware vitals were not done.
[2024-06-09 19:58] VITALS: BP 135/62; PULSE 60; RESP 16; TEMP 36.6; O2SAT 98
== END 2024-06-09 19:59 | disposition home or self-care (01) ==
PROVIDERS: Emergency Provider Emergency Medicine Emergency Medical Services; PCP Internal Medicine
DX: S89.92XA Unspecified injury of left lower leg, initial encounter (principal); S89.91XA Unspecified injury of right lower leg, initial encounter; W05.0XXA Fall from non-moving wheelchair, initial encounter; Y93.9 Activity, unspecified; Y92.9 Unspecified place or not applicable; Y99.9 Unspecified external cause status; M54.9 Dorsalgia, unspecified; G80.9 Cerebral palsy, unspecified; E78.5 Hyperlipidemia, unspecified; Z98.890 Other specified postprocedural states
CPT/HCPCS: 72100; 73521; 99282; 99283

== ENCOUNTER 2024-06-19 06:31 | Outpatient (REF) | payer MEDICARE, MEDICAID, SELFPAY ==
[2024-06-19 11:15] LABS: MANUAL DIFF FLAG NO
[2024-06-19 11:26] LABS: Basophils Percent Auto 0.4 % (0-2); Eosinophils Absolute Auto 0.4 X10*3/uL (0.0-0.4); Eosinophils Percent Auto 5.1 % (0-4); Hematocrit 40.3 % (42.0-52.0); Imm Gran Abs Auto 0.02 X10*3/uL (0.00-0.03); Imm Gran Pct Auto 0.3 % (0.0-0.4); Lymphocytes Absolute Auto 2.6 X10*3/uL (1.2-4.9); Mean Corpuscular HGB Conc 32.3 g/dl (31.0-36.0); Mean Corpuscular Hemoglobin 31.3 pg (27.0-33.0); Mean Corpuscular Volume 97.1 fL (80.0-98.0); Mean Platelet Volume 10.7 fL (9.4-12.4); Monocytes Absolute Auto 0.6 X10*3/uL (0.1-1.2); Monocytes Percent Auto 7.2 % (2-11); Neutrophils Absolute Auto 4.1 x10*3/uL (2.0-8.3); Platelet Count 231 X10*3/uL (160-400); Red Blood Count 4.15 X10*6/uL (4.60-5.80); Red Cell Distribution Width 12.4 % (11.0-16.0); White Blood Count 7.7 X10*3/uL (4.8-10.8)
[2024-06-19 11:37] LABS: Estimated Average Glucose 111 mg/dL; Hemoglobin A1C 125.5041 umol/L; Hemoglobin A1c % 5.5 % (<6.0); Total Hemoglobin (HGBA1C) 3459.6177 umol/L
[2024-06-19 11:39] LABS: Alanine Aminotransferase 19 U/L (0-40); Anion Gap 15 (12-20); Aspartate Amino Transferase 24 U/L (5-37); Blood Urea Nitrogen 13 mg/dL (9-16); Calcium 9.2 mg/dL (8.4-10.2); Carbon Dioxide 28 mmol/L (22-29); Chloride 103 mmol/L (96-108); Cholesterol 160 mg/dL (<200); Estimated Glomerular Filt Rate > 60; Glucose Fasting 108 mg/dL (60-99); HDL Cholesterol 55 mg/dL (>40); LDL Cholesterol Calculated 94 mg/dL (<100); Potassium 4.8 mmol/L (3.3-5.1); Sodium 141 mmol/L (135-145); Triglycerides 56 mg/dL (<150)
[2024-06-19 11:59] LABS: TSH reflex Free T4 1.79 uIU/mL (0.32-4.0); Vitamin D 25-OH Total 74.2 ng/mL (>30)
[2024-06-19 12:02] LABS: Folate 14.5 ng/mL (> or = 4.0); Vitamin B12 538 pg/mL (200-900)
== END 2024-06-19 06:32 | disposition home or self-care (01) ==
LOC: HO.HMGCLDS 06:31
PROVIDERS: PCP Internal Medicine; Visit Provider Internal Medicine
DX: R73.01 Impaired fasting glucose (principal); R63.6 Underweight; G47.33 Obstructive sleep apnea (adult) (pediatric); Z99.89 Dependence on other enabling machines and devices; E78.5 Hyperlipidemia, unspecified; D64.9 Anemia, unspecified; F29 Unspecified psychosis not due to a substance or known physiological condition; Z86.39 Personal history of other endocrine, nutritional and metabolic disease
CPT/HCPCS: 36415; 80048; 80061; 82306; 82607; 82746; 83036; 84443; 84450; 84460; 85025

== ENCOUNTER 2024-06-24 13:36 | Outpatient (AMB) | payer MEDICARE, MEDICAID, SELFPAY ==
[2024-06-24 13:43] VITALS: BP 100/70; PULSE 52; O2SAT 96; BMI 16.6
--- NOTE | 2024-06-24 13:43 | MHC.PC.OV ---
Vital Signs 06/24/24 13:43 Height 5 ft 2 in Weight 91 lb BMI 16.6 BP 100/70 Blood Pressure Location Lt brachial Position Sitting Pulse 52 Pulse Source Pulse Oximeter Pulse Oximetry (%) 96 Oxygen Delivery Method Room Air Intake Visit Reasons: AnnualPE Intake Note: Pt is here today for his PE Allergies clotrimazole Allergy (Intermediate, Verified 06/24/24 23:42) Rash acetaminophen [From ENDOCET] Allergy (Unknown, Verified 06/24/24 23:42) HIVES amoxicillin [From AUGMENTIN] Allergy (Unknown, Verified 06/24/24 23:42) HIVES cefuroxime [CEFUROXIME] Allergy (Unknown, Verified 06/24/24 23:42) HIVES ciprofloxacin [From CIPRO] Allergy (Unknown, Verified 06/24/24 23:42) HIVES, Rash, rash clarithromycin [From BIAXIN] Allergy (Unknown, Verified 06/24/24 23:42) HIVES clavulanic acid [From AUGMENTIN] Allergy (Unknown, Verified 06/24/24 23:42) HIVES morphine [MORPHINE] Allergy (Unknown, Verified 06/24/24 23:42) HIVES, Rash, rash oxycodone [From ENDOCET] Allergy (Unknown, Verified 06/24/24 23:42) HIVES Medication List - Last Reconciled 06/24/24 by Jeri John MD cholecalciferol (vitamin D3) 25 mcg PO DAILY diazepam 2 mg PO ONCE PRN docusate sodium 100 mg PO DAILY PRN epinephrine 0.3 mg (0.3 mL) IM ONCE PRN olopatadine 0.2% (Pataday Once Daily Relief) 1 drp ophthalmic (eye) DAILY propranolol 10 mg PO BID risperidone 0.5 mg PO BID simvastatin 10 mg PO BEDTIME sucralfate 1 g PO BEDTIME Tobacco use date assessed: 12/01/23 Dental Screening Dental Screen Date: 12/01/23 HPI AnnualPE HPI Details 58 year-old male with history of cerebral palsy, dyslipidemia, TRENT on CPAP, normocytic normochromic, anemia, osteopenia of lumbar spine, osteoarthritis with left hip dysplasia status post surgery, and sensory neural healing loss, history of gallstones status post laparoscopic cholecystectomy, here today for his physical exam. He is accompanied today by his father who states that they gave patient at least 10 mg Ativan prior to come to the clinic to keep him calm. As per father who is also patient's caregiver , he has no new complaints, appetite good. [facility] Medical History History of fracture of left hip Osteopenia of lumbar spine Mentally challenged Underweight Weight loss, non-intentional TRENT on CPAP Dyslipidemia Dysphagia Mental and behavioral problems with learning Closed subcapital fracture of left femur Anemia Normocytic normochromic anemia Psychotic disorder Gallstones 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 Left inguinal hernia Sensorineural hearing loss Cerebral palsy Vitamin D deficiency Surgical History History of hip surgery History of cataract surgery S/P inguinal herniorrhaphy History of colonoscopy Hx laparoscopic cholecystectomy Family History Father Medical history non-contributory Mother Medical history non-contributory Social History Household Members: Family Housing: House Do you presently have visiting nurse or other home services: No Alcohol intake: never Comment: pt os calmer not moving around a lot Patient Tobacco Use Status: Never used Tobacco e-Cigarette/Vaping Use: Never Used Second Hand Smoke Exposure: No service: No Current occupational status: disabled Cognitive needs: Yes Hearing needs: Yes Vision needs: Yes Questionnaire Thrive Questionnaire Date Thrive assessed: 06/24/24 I am a: Patient What is your living situation today?: I have a steady place to live Within the past 12 months, did the food you bought not last and you didn't have the money to get more?: I choose not to answer this question Within the past 12 months, did you worry whether your food would run out before you got money to buy more?: I choose not to answer this question Do you have trouble paying for medicines?: No Do you have trouble getting transportation to medical appointments?: I choose not to answer this question Do you have trouble paying your heating and electricity bill?: I choose not to answer this question Do you have trouble taking care of your child, family member or friend?: I choose not to answer this question Do you have trouble with day-to-day activities such as bathing, preparing meals, shopping, managing finances, etc.?: I choose not to answer this question Are you currently unemployed and looking for a job?: I choose not to answer this question Are you interested in more education?: I choose not to answer this question Please select the resources that you would like help with: None Currently or been in a relationship where the following occur: I choose not to answer THRIVE Score: 0 AUDIT C Alcohol Use Questionnaire (AUDIT-C) 1. How often do you have a drink containing alcohol?: Never Total Score: 0 Review of Systems Const Denies fever(s), Denies poor appetite and Denies weight loss Eyes Reports requires corrective lenses ENT Reports Normal hearing present, Denies dysphagia, Denies hearing loss, Denies mouth pain, Denies throat swelling and Denies tongue swelling Card Reports no additional complaints Resp Reports no additional complaints GI Details: Denies abdominal pain, Denies melena, Denies bloating, Denies hematochezia, Denies constipation, Denies GI cramping, Denies dysphagia, Denies excessive flatus, Denies early satiety, Denies heartburn, Reports diarrhea, Denies nausea, Denies vomiting and Denies hematemesis Reports no additional complaints Musc Reports stiffness Skin/Breast Denies pruritus, Denies lesions, Denies rash and Denies jaundice Neuro Reports no additional complaints and Reports Normal hearing present Psych Reports no additional complaints Endo Reports no additional complaints Xavier/Lymph Reports no additional complaints Aller/Immun Denies throat swelling and Denies tongue swelling Physical exam (Primary Care) Vital Signs: Last Vital Signs Pulse 52 06/24/24 13:43 BP 100/70 06/24/24 13:43 Pulse Ox 96 06/24/24 13:43 Oxygen Delivery Method Room Air 06/24/24 13:43 BMI result Body Mass Index 16.6 Tobacco/Smoking Status: Tobacco use Status Tobacco use date assessed 12/01/23 06/24/24 13:50 Patient Tobacco Use Status Never used Tobacco 06/24/24 13:50 e-Cigarette/Vaping Use Never Used 06/24/24 13:50 Thrive Assessment: Date of Thrive Assessment Date Thrive assessed 06/24/24 06/24/24 13:50 Currently or been in a relationship where the following occur: I choose not to answer Const General: comfortable, alert and awake Nutritional Appearance: average body habitus Limitations: language barrier (non verbal) HENMT Other: Presence of sylvia- dental deformity Head: Yes normocephalic Ears: external ears normal General nose exam: Normal external nose present and No nasal discharge present Mouth: moist mucous membranes Eyes General: appearance normal, both eyes and all related structures Neck Neck: Yes no lymphadenopathy and Yes supple Resp Effort & Inspection: normal respiratory effort Auscultation: clear to auscultation bilaterally Cardio Other: S1-S2 present, regular rate and rhythm GI Palpation (GI): Soft to palpation, nontender and no guarding Auscultation: normal bowel sounds General: Yes no CVA tenderness Back/Spine/Pelvis Back: no CVA tenderness and No back tenderness Skin General skin exam: no rashes or lesions noted and turgor normal Neuro General: moves all extremities and no focal motor deficits Cranial nerves: Yes Normal hearing present Gait exam (Neuro): Staggering gait present Extrem General: Yes full ROM, Yes no joint enlargement and Yes no clubbing, cyanosis or edema Psych Other: Calm and cooperative on this visit Office Procedures Flu Questionnaire Does the patient have a severe egg allergy?: No Does the patient have severe life threatening allergies?: No Does the patient have a fever or illness today?: No Has the patient ever had Guillain-Zalma Syndrome?: No Has the patient ever had any past reaction to a flu shot?: No Immunizations Fluarix Triv [id number] (PF) 45 mcg (15 mcg x 3)/0.5 mL IM syringe Performing Provider: Jeri John MD [place]forming Location[place] [facility] Administered by: Alondra Chandler CMA on 06/24/24 14:27 Dose Route Admin Location Dispensed Lot Number Expiration Date [facility] Technology Officer 0.5 mL IM Left Deltoid 0.5 mL [id number] 02/07/25 [id number] [employer] VIS Given Date VIS Provided VIS Publication Date 06/24/24 Single Vaccine 21 Eligibility Eligibility Date Funding Source Not [facility] Eligible 06/24/24 Private Results Reviewed Results Reviewed: miguelangel: Sander Shook Jr Age/Sex: 58/M : 1965 Unit#: [id number] Attend Dr: Jeri John MD Re06/19/24 Status: DEP [facility] Dis[facility]: SPEC : [id number] NAYA: 06/19/24 STATUS: COMP REQ : [id number] RECD: 06/19/24-[address]: Jeri John MD COMP: 06/19/24 ENTERED: 06/19/[address]: ORDERED: CBC Auto Diff Test Result Flag Reference WBC 7.7 4.8-10.8 X10*3/uL RBC 4.15 L 4.60-5.80 X10*6/uL HGB 13.0 L 14.0-18.0 g/dl HCT 40.3 L 42.0-52.0 % MCV 97.1 80.0-98.0 fL MCH 31.3 27.0-33.0 pg MCHC 32.3 31.0-36.0 g/dl RDW 12.4 11.0-16.0 % PLT 231 160-400 X10*3/uL MPV 10.7 9.4-12.4 fL Neut Pct Auto 53.0 45-73 % ImGran Pct Auto 0.3 0.0-0.4 % Lymp Pct Auto 34.0 20-40 % Whitman Pct Auto 7.2 2-11 % Eos Pct Auto 5.1 H 0-4 % Baso Pct Auto 0.4 0-2 % NRBC Pct Auto 0.0 0.0-0.2 /100WBC ANC Neut Abs # 4.1 2.0-8.3 x10*3/uL ImGran Abs Auto 0.02 0.00-0.03 X10*3/uL Lymph Abs Auto 2.6 1.2-4.9 X10*3/uL Whitman Abs Auto 0.6 0.1-1.2 X10*3/uL Eos Abs Auto 0.4 0.0-0.4 X10*3/uL Baso Abs Auto 0.0 0.0-0.2 X10*3/uL NRBC Abs Auto 0.000 0.0-0.012 X10*3/uL Name: Sander Shoko Jr Age/Sex: 58/M : 1965 Unit#: [id number] Attend Dr: Jeri John MD Re06/19/24 Status: DEP REF Location: [facility] Disch: SPEC : [id number] NAYA: 06/19/24 STATUS: COMP REQ : [id number] RECD: 06/19/24-[address]: Jeri John MD COMP: 06/19/24 ENTERED: 06/19/24 [facility] DR: ORDERED: Met Prof Fast, AST, ALT, Lipid Panel, Vitamin D 25-OH, TSH Rflx Test Result Flag Reference Sodium 141 135-145 mmol/L Potassium 4.8 3.3-5.1 mmol/L CL 103 96-108 mmol/L CO2 28 22-29 mmol/L Gap 15 12-20 BUN 13 9-16 mg/dL Creat 0.72 0.5-1.4 mg/dL EGFR > 60 NOTE: For -[place] individuals, multiply the result by 1.210. Chronic Kidney Disease: Estimated GFR < 60 mL/min/1.73m2 Severe Kidney Disease: Estimated GFR < 15 mL/min/1.73m2 FBS 108 H 60-99 mg/dL A fasting glucose from 100-125 mg/dl is considered impaired (pre-diabetes). CA 9.2 8.4-10.2 mg/dL AST (GOT) 24 5-37 U/L ALT (GPT) 19 0-40 U/L Triglyceride 56 <150 mg/dL Desirable Triglyceride: less than 150 mg/dL Borderline High Triglyceride 150-199 mg/dL High Triglyceride: 200-499 mg/dL Very High Triglyceride: greater than or equal to 5OO mg/dL Cholesterol 160 <200 mg/dL Desirable Cholesterol: less than 200 mg/dL Borderline High Cholesterol: 200-239 mg/dL High Cholesterol: greater than 239 mg/dL LDL Calculated 94 <100 mg/dL Desirable LDL: less than 100 mg/dL Near Optimal/Above Optimal LDL: 110-129 mg/dL Borderline High LDL: 130-159 mg/dL High LDL: 160-189 mg/dL Very High LDL: greater than or equal to 190 mg/dL HDL 55 >40 mg/dL Desirable HDL: greater than 40 mg/dL Note: This HDL assay may give artificially low results in patients with liver disease. Vit D 25-OH Tot 74.2 >30 ng/mL Health Based Reference Values* < 20 ng/mL Deficient 20-30 ng/mL Insufficient > 30 ng/mL Sufficient *Reji GASCA. N Engl J Med. 2007;357:266-280 Care must be taken in interpreting Vitamin D results from different laboratories and methodologies. Published data demonstrated that results from patients undergoing hemodialysis may show a negative bias when tested with various automated 25-OH vitamin D assays when compared to LC-MS/MS. When testing samples from patients whose predominant form of Vitamin D is Vitamin D2, such as patients receiving Vitamin D2 supplementation, results that are subtherapeutic should be confirmed with another method such as LC-MS/MS. 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 Take adequate calcium in diet and vitamin-D 3 at 2000 IU per cap once a day, in addition to weight-bearing exercises to help maintain good muscle tone and weight control. Flu vaccine given today. Up-to-date with his screening colonoscopy done diandra this year with benign polyp removed, due again in 10 years. 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 HE IS DEPENDENT ON CPAP, AND REMAINS VERY COMPLIANT Code(s): G47.33 - Obstructive sleep apnea (adult) (pediatric); Z99.89 - Dependence on other enabling machines and devices Category: Medical Plan: Compliant with use of CPAP (5) Underweight: Code(s): R63.6 - Underweight Category: Medical Plan: Encouraged to take 3 meals a day and snacks in between. (6) Dyslipidemia: Code(s): E78.5 - Hyperlipidemia, unspecified Category: Medical Plan: Reviewed recent fasting lipid profile with patient with levels within normal limits . Continue simvastatin 10 mg at bedtime , in addition to adherence to low-cholesterol diet and regular exercise, at least 30 minutes 3 to 4 times a week. Advised patient to make healthy food choices, eat more fruits, vegetables, whole grains, wild caught fish and low-fat dairy. Limit amount of meat and fried or fatty food products, as well as processed foods and fast foods. (7) Normocytic normochromic anemia: Code(s): D64.9 - Anemia, unspecified Category: Medical Plan: Advised to eat a healthy diet with lots of vegetables, and lean meat. (8) Psychotic disorder: Comment: followed by Dr. Suazo AND REMAINS STABLE Code(s): F29 - Unspecified psychosis not due to a substance or known physiological condition Category: Medical Qualifiers: Psychosis type: unspecified psychosis type Qualified Code(s): F29 - Unspecified psychosis not due to a substance or known physiological condition Plan: Followed by Dr. Suazo, doing well on current medications (9) 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: Code(s): M16.32 - Unilateral osteoarthritis resulting from hip dysplasia, left hip Category: Medical Plan: Patient's father advised that he can give patient Tylenol whenever he starts complaining of pain at least every 8 hours apart Orders: Orders XR DEXA axial skeleton 06/24/24 M85.88 - Other specified disorders of bone density and structure, other site, Z87.81 - Personal history of (healed) traumatic fracture Influenza [id number] Immunization 06/24/24 Z23 - Encounter for immunization
== END 2024-06-24 15:18 | disposition home or self-care (01) ==
PROVIDERS: PCP Internal Medicine; Visit Provider Internal Medicine
DX: Z00.00 Encounter for general adult medical examination without abnormal findings (principal); F29 Unspecified psychosis not due to a substance or known physiological condition; M85.88 Other specified disorders of bone density and structure, other site; Z87.81 Personal history of (healed) traumatic fracture; G47.33 Obstructive sleep apnea (adult) (pediatric); Z99.89 Dependence on other enabling machines and devices; R63.6 Underweight; E78.5 Hyperlipidemia, unspecified; D64.9 Anemia, unspecified; M16.32 Unilateral osteoarthritis resulting from hip dysplasia, left hip

== ENCOUNTER → 2024-06-24 13:36 | Outpatient (BNVA) | payer MEDICARE, MEDICAID, SELFPAY | PROVIDERS: PCP Internal Medicine; Visit Provider Internal Medicine | DX: Z00.01 Encounter for general adult medical examination with abnormal findings (principal); Z23 Encounter for immunization; M85.88 Other specified disorders of bone density and structure, other site; R63.6 Underweight; E78.5 Hyperlipidemia, unspecified; D64.9 Anemia, unspecified; F29 Unspecified psychosis not due to a substance or known physiological condition; M16.32 Unilateral osteoarthritis resulting from hip dysplasia, left hip; G47.33 Obstructive sleep apnea (adult) (pediatric); Z99.89 Dependence on other enabling machines and devices; Z87.81 Personal history of (healed) traumatic fracture | CPT/HCPCS: 90471; 90656; 99396 ==

== ENCOUNTER 2024-09-02 13:18 | Outpatient (AMB) | payer MEDICARE, MEDICAID, SELFPAY ==
--- NOTE | 2024-09-02 13:26 | A.OFFVIS_ITS ---
Intake Visit Reasons: Obstructive sleep apnea Intake Note: pt is here for follow up , Allergies clotrimazole Allergy (Intermediate, Verified 09/02/24 13:35) Rash acetaminophen [From ENDOCET] Allergy (Unknown, Verified 09/02/24 13:35) HIVES amoxicillin [From AUGMENTIN] Allergy (Unknown, Verified 09/02/24 13:35) HIVES cefuroxime [CEFUROXIME] Allergy (Unknown, Verified 09/02/24 13:35) HIVES ciprofloxacin [From CIPRO] Allergy (Unknown, Verified 09/02/24 13:35) HIVES, Rash, rash clarithromycin [From BIAXIN] Allergy (Unknown, Verified 09/02/24 13:35) HIVES clavulanic acid [From AUGMENTIN] Allergy (Unknown, Verified 09/02/24 13:35) HIVES morphine [MORPHINE] Allergy (Unknown, Verified 09/02/24 13:35) HIVES, Rash, rash oxycodone [From ENDOCET] Allergy (Unknown, Verified 09/02/24 13:35) HIVES Medication List - Last Reconciled 09/02/24 by Bassem Márquez MD cholecalciferol (vitamin D3) 25 mcg PO DAILY diazepam 2 mg PO ONCE PRN docusate sodium 100 mg PO DAILY PRN epinephrine 0.3 mg (0.3 mL) IM ONCE PRN olopatadine 0.2% (Pataday Once Daily Relief) 1 drp ophthalmic (eye) DAILY propranolol 10 mg PO BID risperidone 0.5 mg PO BID simvastatin 10 mg PO BEDTIME sucralfate 1 g PO BEDTIME Do you need a note to return to daycare/school/sports/work: No HPI HPI Obstructive sleep apnea: Details: AMILCAR IS BROUGHT IN BY HIS FATHER TODAY FOR HIS 6 MONTHS FOLLOW-UP. HE IS A CASE OF OBSTRUCTIVE SLEEP APNEA DUE TO HARVEY DENTAL DEFORMITY. HE USES CPAP EVERY NIGHT REGULARLY. AND SLEEPS WELL. .HE GETS SUPPLIES ON TIME HIS FATHER TAKES CARE OF PUTTING ON THE MASK AND PROVIDES TOTAL HEALTHCARE. [facility] Medical History History of fracture of left hip Osteopenia of lumbar spine Mentally challenged Underweight Weight loss, non-intentional TRENT on CPAP Dyslipidemia Dysphagia Mental and behavioral problems with learning Closed subcapital fracture of left femur Anemia Normocytic normochromic anemia Psychotic disorder Gallstones 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 Left inguinal hernia Sensorineural hearing loss Cerebral palsy Vitamin D deficiency Surgical History History of hip surgery History of cataract surgery S/P inguinal herniorrhaphy History of colonoscopy Hx laparoscopic cholecystectomy Family History Father Medical history non-contributory Mother Medical history non-contributory Social History Household Members: Family Housing: House Do you presently have visiting nurse or other home services: No Alcohol intake: never Comment: pt os calmer not moving around a lot Patient Tobacco Use Status: Never used Tobacco e-Cigarette/Vaping Use: Never Used Second Hand Smoke Exposure: No service: No Current occupational status: disabled Cognitive needs: Yes Hearing needs: Yes Vision needs: Yes Review of Systems Const Unobtainable due to mental status and Other (However according to his father who takes care of him, he does not have any) Physical Exam AMILCAR IS IN A BAD MOOD TODAY HE IS VERY AGGRESSIVE AND WOULD NOT LET ME, NEAR HIM. SO I COULD NOT CONDUCT ANY PHYSICAL EXAMINATION. LOOKING AT HIM HE LOOKS JUST SAME USUAL. Const General: combative Orientation/consciousness: patient oriented x3 HEENT Head: Yes normal to inspection General nose exam: No nasal polyps present and No nasal discharge present Face and sinus: Yes sinuses nontender Mouth: oropharynx normal Throat: Yes posterior oropharynx normal Eyes General: appearance normal, both eyes and all related structures Neck Neck: Yes no lymphadenopathy, Yes supple and Yes no JVD Thyroid: Thyroid normal Chest Chest palpation & inspection: normal inspection of the chest, normal palpation of entire chest wall and no tenderness Resp Other: Good breath sounds on both sides and clear to auscultation Cardio Jugular venous distension: JVD Palpation: normal PMI Rate: regular rate Rhythm: regular rhythm Heart sounds: no gallops and no murmurs Peripheral pulses: Peripheral pulses 2+ throughout GI Palpation (GI): Soft to palpation, nontender and no masses Auscultation: normal bowel sounds Back/Spine/Pelvis Thoracic/Lumbar Spine: thoracic and lumbar spine normal to inspection Skin General skin exam: no rashes or lesions noted Neuro General: patient oriented x3 and No gait normal (Abnormal, spastic, he needs 1 persons assistance to walk) Cranial nerves: Yes CN's II-XII intact bilaterally Extrem General: Yes no clubbing, cyanosis or edema Psych Speech and movement: Normal speech and movement present Affect: Hostile affect present (He is somewhat combative today because he had to wait a little longer . ) Results Reviewed Results Reviewed: WE DO NOT. 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 HE IS DEPENDENT ON CPAP, AND REMAINS VERY COMPLIANT Code(s): G47.33 - Obstructive sleep apnea (adult) (pediatric); Z99.89 - Dependence on other enabling machines and devices Category: Medical Plan: TALKED TO THE FATHER AND ADVISE THAT HE SHOULD CONTINUE TO USE THE CPAP EVERY NIGHT (2) Psychotic disorder: Comment: followed by Dr. Suazo AND REMAINS STABLE. TODAY AMILCAR IS IN AN AGGRESSIVE MODE. DID NOT ALLOW ANY EXAMINATION Code(s): F29 - Unspecified psychosis not due to a substance or known physiological condition Category: Medical Qualifiers: Psychosis type: unspecified psychosis type Qualified Code(s): F29 - Unspecified psychosis not due to a substance or known physiological condition Plan: FATHER JUST GAVE HIM 2 MG OF DIAZEPAM, AND WILL KEEP HIM ON RISPERDAL 0.5 MG B.I.D.. HE IS BEING FOLLOWED BY DR. SUAZO Coding Level of Care Code Est Pt Level 3 (06051) Diagnoses TRENT on CPAP G47.33; Z99.89 Psychosis, unspecified psychosis type F29 Psychosis type: unspecified psychosis type
--- OUTSIDE RECORDS SUMMARY | 2024-09-02 15:38 | XMS_ITS | Data Portability ---
Author Organization [place] - [facility], Allergy Address [address] [place] [address] Care Team Providers Care Salesperson Driver Name Role Phone RAULBalbir JUAN Primary Care Provider [phone] Assessment Encounter Date Assessment Date Assessment LastModified by Organization Details LastModified Time 04/09/2024 04/09/2024 Cerumen successfully removed bilaterally, which patient tolerated well. Recommend continued Q-tip avoidance and intermittent use of Debrox. Follow-up in 2 months, sooner with issues. Not available 04/09/2024 09:14:19 06/11/2024 06/11/2024 Cerumen successfully removed today bilaterally, which patient tolerated well. Family declined audiometric testing. Follow-up in 2 months or as needed. Not available 06/11/2024 09:24:31 07/23/2024 07/23/2024 Cerumen removed bilaterally, which patient tolerated well. Follow up as scheduled in 6-8 weeks. Call sooner with issues. Not available 07/23/2024 09:28:11 Plan of Treatment Reminders Order Date Submit Date Provider Last Modified By Organization Details Last Modified Time Details Appointments Establish ed 15 2024 09:00A Rubi BURNS PA-C Not available Not available Not available Lab None recorded. Referral None recorded. Procedures None recorded. Surgeries None recorded. Imaging None recorded. Medication Orders None recorded. Patient TargetsNo targets recorded. Patient InstructionsNo instructions recorded. Reason for Referral None Reported. Problems Name Problem SNOMED Code Status Onset Date Resolution Date Notes Provider Name and Address Organization Details Recorded Time Candidal otitis externa 17016572 Completed 202003/12/2024 Candidal otitis externa; Note: Date Diagnose d: 1 9:22 AM (B37.84) Not Available [facility] 4 03:02:24 Chronic infectiv e otitis externa 085794370 Active 2014 Chronic otitis externa; Note: Date Diagnose d: 5 10:23 AM (380.16) Not Available [facility] 4 03:02:21 Otorrhea of left ear 49760143347 93191 Completed 202003/12/2024 Otorrhea , left ear; Note: Date Diagnose d: 1 9:22 AM (H92.12) Not Available [facility] 4 03:02:21 Otorrhea 75660634 Active 2013 Otorrhea ; Location : left CMS Risk: low risk CMS Treatmen t: new problem (to examiner ): addition al workup planned Conditio n: unstable Note: Date Diagnose d: 05/23/20 14 12:21 PM (388.60) Not Available [facility] 4 03:02:22 Infectiv e otitis externa of right ear 37899393199 35895 Active 2023 Other infectiv e otitis externa, right ear; Note: Date Diagnose d: 4 9:18 AM (H60.391 ) Not Available [facility] 4 03:02:23 Autism spectrum disorder 25338554 Active 2017 Pervasiv e developm ental disorder , unspecif ied; Note: Date Diagnose d: 07/06/20 18 9:15 AM (F84.9) Not Available [facility] 4 03:02:22 Otorrhea of right ear 58492814820 83046 Active 2023 Otorrhea , right ear; Note: Date Diagnose d: 4 9:17 AM (H92.11) Otorrh ea, right ear; Note: Date Diagnose d: 05/28/20 19 9:25 AM (H92.11) ; Start Date : 05/28/20 Not Available [facility] 4 03:02:22 Impacted cerumen of bilatera l ears 33918382883 66515 Active 2015 Impacted cerumen, bilatera l; Note: Date Diagnose d: 11/17/2015 10:16 AM (H61.23) Impact ed cerumen, bilatera l; Note: Date Diagnose d: 5 10:13 AM (H61.23) [mapped from ICD9 code: 380.4] ; Start Date : 02/21/20 15 Not Available [facility] 4 03:02:20 Impacted cerumen in left ear 46469405300 40141 Active 2020 Impacted cerumen, left ear; Note: Date Diagnose d: 05/25/20 21 11:14 AM (H61.22) Not Available [facility] 4 03:02:24 Impacted cerumen in right ear 32216378477 03738 Active 2021 Impacted cerumen, right ear; Note: Date Diagnose d: 2 9:25 AM (H61.21) Not Available [facility] 4 03:02:24 Impacted cerumen 93222409 Active 2014 Impacted cerumen; CMS Risk: low risk CMS Treatmen t: new problem (to examiner ): no addition al workup planned Impacte d cerumen; Location : right CM S Risk: low risk CMS Treatmen t: new problem (to examiner ): no addition al workup planned Note: Date Diagnose d: 05/23/20 14 12:22 PM (380.4) Not Available [facility] 4 03:02:21 Abnormal granulat ion tissue 03450420 Active 2013 Other abnormal granulat ion tissue; Location : left CMS Risk: low risk CMS Treatmen t: new problem (to examiner ): addition al workup planned Conditio n: unstable Note: Date Diagnose d: 05/23/20 14 12:21 PM (701.5) Not Available [facility] 4 03:02:23 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 Other specifie d disorder s of Eustachi an tube, bilatera l; Note: Date Diagnose d: 8 9:15 AM (H69.83) Not Available [facility] 4 03:02:21 Pervasiv e developm ental disorder of [facility] 04250919006 105 Active 2023 JACK BURNS PA-C [facility],[address], [address] , [facility] - [facility] 4 09:51:19 Abnormal auditory percepti on 58677754 Active 2023 Other abnormal auditory percepti ons, unspecif ied ear; Note: Date Diagnose d: 09/17/2023 11:07 AM (H93.299 ) Not Available [facility] 4 03:02:23 Problem Notes None recorded. Procedures Surgical History Date Name Laterality Status Provider Name and Address Organization Details Recorded Time 4 Cerumen removal without microscope bilat completed JACK BURNS PA-C [address] [place] [address],[address], [address], [facility] - [facility] 07/23/2024 09:27:30 4 Cerumen removal without microscope bilat completed JACK BURNS PA-C [address] [place] [address],[address], [address], [facility] - [facility] 06/11/2024 09:23:59 4 Cerumen removal without microscope bilat completed JACK BURNS PA-C [address] [place] [address], [address], [facility] - [facility] 04/09/2024 09:13:59 4 Cerumen removal without microscope bilat completed JACK BURNS PA-C [address] [place] [address],[address], [address], [facility] - [facility] 01/26/2024 09:50:56 Imaging Results None recorded. Procedure Notes None recorded. Medical Equipment None Reported. Allergies Allergen ID Allergen Name Allergen Category Reaction Reaction Severity Criticality Documentation Date Start Date Code Code System Note Provider Name and Address Organization Details Recorded Time [id number] amoxicill in / clavulana te medicatio n other Not available Not available 12/23/2023 92054 RxNorm React ion: unkno wn, unspe cifie d;; Not Available [facility] 4 01:14:08 477437 ciproflox acin hydrochlo ride medicatio n hives Not available Not available 12/23/2023 51116 RxNorm React ion: skin rashe s, hives ;; Not Available [facility] 4 01:14:08 313671 clarithro mycin medicatio n hives Not available Not available 12/23/2023 10552 RxNorm React ion: skin rashe s, hives ;; Not Available [facility] 4 01:14:09 845941 morphine medicatio n other Not available Not available 12/23/2023 7052 RxNorm React ion: unkno wn, unspe cifie d;; Not Available [facility] 4 01:14:11 963559 Cipro medicatio n Not available Not available Not available 04/09/2024 24313 3 RxNorm Nadia Potvin null, [place] - [facility] 4 09:07:59 286416 Biaxin medicatio n Not available Not available Not available 04/09/2024 43843 9 RxNorm Nadia Potvin null, [place] - [facility] 4 09:08:10 772568 Augmentin medicatio n Not available Not available Not available 04/09/2024 01584 2 RxNorm Nadia Potvin null, [place] - [facility] 4 09:08:25 093897 acetamino phen / oxycodone medicatio n Not available Not available Not available 04/09/2024 19433 3 RxNorm Nadia Potvin null, [place] - [facility] 4 09:08:34 365751 cefuroxim e Not available Not available Not available Not available 04/09/2024 2194 RxNorm Nadia Potvin null, [place] - [facility] 4 09:08:52 688098 ciproflox acin medicatio n Not available Not available Not available 04/09/2024 2551 RxNorm Nadia Wise [place] [facility] - [facility] 4 09:09:04 338860 clotrimaz ole medicatio n Not available Not available Not available 04/09/2024 2623 RxNorm Nadia Wise [place] [facility] 4 09:09:15 Medications Name Sig Start Date Stop Date Status Note LastModified by Organization Details LastModified Time Lotrisone 1 %-0.05 % topical cream 03/01 completed Medicati on ID: [id number] Pr escribed By Name: DAPHNE Canela nd Name: Lotrison e Send Method: E-Prescr ibed Sub s Allowed: subs OK Speci al Instruct ion: apply every 12 hours x 14 days. Me dication GenericN miguelangel: Lotrison e Not Available Not Available Not Available clotrimaz ole-betam ethasone 1 %-0.05 % lotion 03/01 completed Medicati on ID: [id number] Re ason: () Brand Name: Lotrison e Send Method: E-Prescr ibed Sub s Allowed: subs OK Speci al Instruct ion: apply every 12 hours x 14 days. Me dication GenericN miguelangel: Lotrison e Not Available Not Available Not Available sucralfat e 1 gram tablet TAKE 1 TABLET BY MOUTH EVERYDAY AT BEDTIME active Not Available Not Available No t Available simvastat in 10 mg tablet TAKE 1 TABLET BY MOUTH EVERYDAY AT BEDTIME active Not Available Not Available No t Available propranol ol 10 mg tablet TAKE 1 TABLET BY MOUTH TWICE A DAY active Not Available Not Available No t Available ofloxacin 0.3 % ear drops Instill 5 drop into right ear twice a day 04/09 completed Medicati on ID: [id number] D uration Value: 7 Brand Name: ofloxaci n Send Method: E-Prescr ibed Sub s Allowed: subs OK Medic ationGen ericName : ofloxaci n Not Available Not Available Not Available diazepam 2 mg tablet TAKE 1 TABLET BY MOUTH ONCE A DAY NEEDED. TOTAL DAILY DOSE=12 MG. PRIOR TO APPOINTM ENT[facility] active Not Available Not Available No t Available simvastat in 20 mg tablet 04/09 completed Medicati on ID: [id number] B rand Name: artis kern Send Method: E-Prescr ibed Sub s Allowed: subs OK Medic ationGen ericName : stefanta tin Not Available Not Available Not Available clotrimaz ole 1 % topical solution 04/09 completed Medicati on ID: [id number] D uration Value: 21 Prescri bed By Name: DAPHNE So nd Name: clotrima zole Sen d Method: E-Prescr ibed Sub s Allowed: subs OK Speci al Instruct ion: 4 drops to affected ear three times a day X 21 days Med icationG enericNa me: clotrima zole Not Available Not Available Not Available docusate sodium 100 mg capsule TAKE 1 CAPSULE BY MOUTH DAILY NEEDED FOR CONSTIPA TION 04/09 completed Not Available Not Available Not Available lorazepam 1 mg tablet 03/01 completed Medicati on ID: [id number] D uration Value: 15 Reason: () Brand Name: lorazepa m Send Method: E-Prescr ibed Sub s Allowed: subs OK Speci al Instruct ion: TK 1 TO 2 TS PO ONCE A DAY PRN Medi cationGe nericNam e: lorazepa m Not Available Not Available Not Available diazepam 10 mg tablet 07/30 completed Medicati on ID: [id number] Dur ation Value: 1 Brand Name: diazepam Send Method: E-Prescr ibed Sub s Allowed: subs OK Speci al Instruct ion: TK 1 T PO ONE HOUR PRIOR TO DENTAL APPOINTM ENT Medi cationGe nericNam e: diazepam Not Available Not Available Not Available epinephri ne 0.3 mg/0.3 mL injection , auto-inje ctor INJECT 1 DOSE (0.3 MG) INTRAMUS CULARLY ONCE NEEDED FOR ANAPHYLA XIS active Not Available Not Available No t Available propranol ol 20 mg tablet 07/30 completed Medicati on ID: [id number] D uration Value: 90 Brand Name: proprano lol Send Method: E-Prescr ibed Sub s Allowed: subs OK Speci al Instruct ion: TAKE 1 TABLET BY MOUTH TWICE A DAY Medi cationGe nersharonNam e: proprano lol Not Available Not Available Not Available risperido ne 0.5 mg tablet TAKE 1 TABLET BY MOUTH TWICE A DAY active Not Available Not Available No t Available TobraDex 0.3 %-0.1 % eye drops,ag pension 04/09 completed Medicati on ID: [id number] P rescribe d By Name: DAPHNE So nd Name: TobraDex Send Method: E-Prescr ibed Sub s Allowed: subs OK Speci al Instruct ion: Instill 3 drops in the affect ear BID for 14 days Med icationG enericNa me: TobraDex Not Available Not Available Not Available Ciprodex 0.3 %-0.1 % ear drops,ag pension 4 drop into left ear 04/09 completed Medicati on ID: [id number] D uration Value: 14 Prescri bed By Name: DAPHNE So nd Name: Ciprodex Send Method: E-Prescr ibed Sub s Allowed: subs OK Speci al Instruct ion: x 14 days Med icationG enericNa me: Ciprodex Not Available Not Available Not Available Clenpiq 10 mg-3.5 gram-12 gram/175 mL oral solution PLEASE SEE ATTACHED FOR DETAILED DIRECTIO NS active Not Available Not Available No t Available Vitals Date Recorded Body height Body mass index (BMI) Body weight Provider Name and Address Organization Details Last Updated DateTime 04/09/2024 160.02 cm 17.4 kg/m2 17333.05 g Nadia iWse [place] - [facility] 04/09/2024 09:07:46 Date Recorded Body height Body mass index (BMI) Body weight Provider Name and Address Organization Details Last Updated DateTime 06/11/2024 160.02 cm 17.4 kg/m2 62014.05 g Lucia Packer [place] - [facility] 06/11/2024 09:14:05 Date Recorded Body height Body mass index (BMI) Body weight Provider Name and Address Organization Details Last Updated DateTime 07/23/2024 160.02 cm 17.4 kg/m2 66234.[address] [facility] 07/23/2024 09:13:59 Date Recorded Body height Body mass index (BMI) Body weight Provider Name and Address Organization Details Last Updated DateTime 01/26/2024 160.02 cm 15.9 kg/m2 50154.[address] [facility] 01/26/2024 09:45:18 Social History None recorded. Functional Status None recorded. Mental Status None recorded. Family History Nothing Reported. Medical History No medical history recorded. Past Encounters Encounter ID Performer Location Encounter Start Date Encounter Closed Date Diagnosis/Indication Diagnosis SNOMED-CT Code Diagnosis ICD10 Code Diagnosis Note [id number] MONTSERRAT HATCH MD [facility] [address] [address] 01/26/2024 09:32:37 01/26/2024 09:50:16 Impacted cerumen of bilateral ears 4525867086 269798 H61.23 Pervasive developmental disorder of residual state 9927610976 9105 F84.9 [id number] MONTSERRAT HATCH MD [facility] [address] [address] 04/09/2024 08:55:18 04/09/2024 09:14:39 Impacted cerumen of bilateral ears 3610741799 804855 H61.23 [id number] GERRY RUSH MD [facility] [address] [address] 06/11/2024 08:54:13 06/11/2024 09:23:17 Impacted cerumen of bilateral ears 2415414960 805584 H61.23 [id number] GERRY RUSH MD [facility] [address] [address] 07/23/2024 09:08:55 07/23/2024 09:26:10 Impacted cerumen of bilateral ears 6828027022 135032 H61.23 Pervasive developmental disorder of residual state 7762790757 9105 F84.9 Health Concerns Section Related Observation LastModified by Organization Detai ls LastModified Time None Recorded Concern Status LastModified by Organization Details LastModified Time None Recorded Advance Directives Directive None Recorded Payers Encounter Date Sequence Insurance Name Policy Number Policy Pemberton Covered Member ID Pemberton Member ID Guarantor Name 01/26/2024 1 [place] [employer] Sander Shook [id number] Sander Shook Jr 01/26/2024 2 [place] Sander Shook [id number] Sander Shook Jr 04/09/2024 1 [place] [employer] Sander Shook [id number] Sander Shook Jr 04/09/2024 2 [place] [facility] Sander Shook [id number] Sander Shook Jr 06/11/2024 1 [place] [employer] Sander Shook [id number] Sander Shook Jr 06/11/2024 2 [place] [facility] Sander Shook [id number] Sander Shook Jr 07/23/2024 1 [place] [employer] Sander Shook [id number] Sander Shook Jr 07/23/2024 2 [place] [facility] Sander Shook [id number] Sander Shook Jr Notes Date Note Type Note Provider Name and Address Organization Details Recorded Time 01/26/2024 text/html 58 year old male with persistent developmental delay presents with father for check of ears. Dad feels patient likely has cerumen impaction. There have been no complaints of otalgia and father has noted no otorrhea. MONTSERRAT FARNSWORTH MD [address] [place] [address],[address], [address], [facility] - [facility] 01/26/2024 12:43:30 04/09/2024 text/html 58 year old male with persistent developmental delay presents with father for check of ears. Dad feels patient likely has cerumen impaction; he has been scratching the ears with his finger. There have been no complaints of otalgia and father has noted no otorrhea. MONTSERRAT FARNSWORTH MD [address] [place] [address],[address], [address], [place] - [facility] [place] 04/09/2024 12:29:36 06/11/2024 text/html 58-year-old male with pervasive developmental delay presents with father for cerumen removal. Dad reports he has been sticking his fingers in his ears at times recently. There has been no noted otorrhea. GERRY RUSH MD [facility],[address], [address], [place] - [facility] 06/13/2024 07:07:07 07/23/2024 text/html 58-year-old male with pervasive developmental delay presents with father for cerumen removal. There has been no noted otorrhea. Does not seem to be experiencing otalgia. Dad has been instilling wax softening drops for the past several days. GERRY RUSH MD [address] [facility],[place] [address], [place], [address], [place] - [facility] 07/23/2024 12:49:12
== END 2024-09-02 13:36 | disposition home or self-care (01) ==
PROVIDERS: PCP Internal Medicine; Visit Provider Internal Medicine
DX: G47.33 Obstructive sleep apnea (adult) (pediatric) (principal); Z99.89 Dependence on other enabling machines and devices; F29 Unspecified psychosis not due to a substance or known physiological condition
CPT/HCPCS: 99213

== ENCOUNTER → 2024-09-02 13:18 | Outpatient (BNVA) | payer MEDICARE, MEDICAID, SELFPAY | PROVIDERS: PCP Internal Medicine; Visit Provider Internal Medicine | DX: G47.33 Obstructive sleep apnea (adult) (pediatric) (principal); F29 Unspecified psychosis not due to a substance or known physiological condition; Z99.89 Dependence on other enabling machines and devices | CPT/HCPCS: 99212 ==

== ENCOUNTER 2024-09-17 07:58 | Outpatient (REF) | payer MEDICARE, MEDICAID, SELFPAY ==
--- OUTSIDE RECORDS SUMMARY | 2024-09-17 08:01 | XMS_ITS | Data Portability ---
Author Organization [place] - [facility], Allergy Address [address] [place] [address] Care Team Providers Care Roll Table Operator Name Role Phone RAULBalbir JUAN Primary Care Provider [phone] Assessment Encounter Date Assessment Date Assessment LastModified [...] Organization Details Recorded Time Candidal otitis externa 81608589 Completed 202003/12/2024 Candidal otitis externa; Note: Date Diagnose d: 1 9:22 AM (B37.84) Not Available [facility] 4 03:02:24 Chronic infectiv e otitis externa 999433960 Active 2014 Chronic otitis externa; Note: Date Diagnose d: 5 10:23 AM (380.16) Not Available [facility] 4 03:02:21 Otorrhea of left ear [id number] 70520 Completed 202003/12/2024 Otorrhea , left ear; Note: Date Diagnose d: 1 9:22 AM (H92.12) Not Available [facility] 4 03:02:21 Otorrhea 67525610 Active 2013 Otorrhea ; Location : left CMS Risk: low risk CMS Treatmen t: new problem (to examiner ): addition al workup planned Conditio n: unstable Note: Date Diagnose d: 05/23/20 14 12:21 PM (388.60) Not Available [facility] 4 03:02:22 Infectiv e otitis externa of right ear 05453376137 11876 Active 2023 Other infectiv e otitis externa, right ear; Note: Date Diagnose d: 4 9:18 AM (H60.391 ) Not Available [facility] 4 03:02:23 Autism spectrum disorder 45810369 Active 2017 Pervasiv e developm ental disorder , unspecif ied; Note: Date Diagnose d: 07/06/20 18 9:15 AM (F84.9) Not Available [facility] 4 03:02:22 Otorrhea of right ear 28084608069 58513 Active 2023 Otorrhea , right ear; Note: Date Diagnose d: 4 9:17 AM (H92.11) Otorrh ea, right ear; Note: Date Diagnose d: 05/28/20 19 9:25 AM (H92.11) ; Start Date : 05/28/20 Not Available [facility] 4 03:02:22 Impacted cerumen of bilatera l ears 26425563283 84872 Active 2015 Impacted cerumen, bilatera l; Note: Date Diagnose d: 11/17/2015 10:16 AM (H61.23) Impact ed cerumen, bilatera l; Note: Date Diagnose d: 5 10:13 AM (H61.23) [mapped from ICD9 code: 380.4] ; Start Date : 02/21/20 15 Not Available [facility] 4 03:02:20 Impacted cerumen in left ear 79346491135 18724 Active 2020 Impacted cerumen, left ear; Note: Date Diagnose d: 05/25/20 21 11:14 AM (H61.22) Not Available [facility] 4 03:02:24 Impacted cerumen in right ear 62633220202 12102 Active 2021 Impacted cerumen, right ear; Note: Date Diagnose d: 2 9:25 AM (H61.21) Not Available [facility] 4 03:02:24 Impacted cerumen 20350829 Active 2014 Impacted cerumen; CMS Risk: low risk CMS Treatmen t: new problem (to examiner ): no addition al workup planned Impacte d cerumen; Location : right CM S Risk: low risk CMS Treatmen t: new problem (to examiner ): no addition al workup planned Note: Date Diagnose d: 05/23/20 14 12:22 PM (380.4) Not Available [facility] 4 03:02:21 Abnormal granulat ion tissue 48628310 Active 2013 Other abnormal granulat ion tissue; Location : left CMS Risk: low risk CMS Treatmen t: new problem (to examiner ): addition al workup planned Conditio n: unstable Note: Date Diagnose d: 05/23/20 14 12:21 PM (701.5) Not Available [facility] 4 03:02:23 Bilatera l disorder of Eustachi an tubes 02834958925 78274 Active 2017 Other specifie d disorder s of Eustachi an tube, bilatera l; Note: Date Diagnose d: 8 9:15 AM (H69.83) Not Available [facility] 4 03:02:21 Pervasiv e developm ental disorder of [facility] state 72793256185 105 Active 2023 JACK BURNS PA-C [address] [facility],[address], [address] , [facility] - [facility] 4 09:51:19 Abnormal auditory percepti on 52579108 Active 2023 Other abnormal auditory percepti ons, unspecif ied ear; Note: Date Diagnose d: 09/17/2023 11:07 AM (H93.299 ) Not Available [facility] 4 03:02:23 Problem Notes None recorded. Procedures Surgical History Date Name Laterality Status Provider Name and Address Organization Details Recorded Time 4 Cerumen removal without microscope bilat completed JACK BURNS PA-C [address] [place] [address],[address], [address], [facility] - [facility] 07/23/2024 09:27:30 4 Cerumen removal without microscope bilat completed JACK BURNS PA-C [address] [place] [address],[address], [address], [facility] - [facility] 06/11/2024 09:23:59 4 Cerumen removal without microscope bilat completed JACK BURNS PA-C [address] [place] [address], [address], [facility] - [facility] 04/09/2024 09:13:59 4 Cerumen removal without microscope bilat completed JACK BURNS PA-C [address] [place] [address],[address], [address], [facility] - [facility] 01/26/2024 09:50:56 Imaging Results None recorded. Procedure Notes None recorded. Medical Equipment None Reported. Allergies Allergen ID Allergen Name Allergen Category Reaction Reaction Severity Criticality Documentation Date Start Date Code Code System Note Provider Name and Address Organization Details Recorded Time 669544 amoxicill in / clavulana te medicatio n other Not available Not available 12/23/2023 77976 RxNorm React ion: unkno wn, unspe cifie d;; Not Available [facility] 4 01:14:08 260634 ciproflox acin hydrochlo ride medicatio n hives Not available Not available 12/23/2023 30784 RxNorm React ion: skin rashe s, hives ;; Not Available [facility] 4 01:14:08 327306 clarithro mycin medicatio n hives Not available Not available 12/23/2023 00908 RxNorm React ion: skin rashe s, hives ;; Not Available [facility] 4 01:14:09 572453 morphine medicatio n other Not available Not available 12/23/2023 7052 RxNorm React ion: unkno wn, unspe cifie d;; Not Available [facility] 4 01:14:11 861624 Cipro medicatio n Not available Not available Not available 04/09/2024 30734 3 RxNorm Nadia Potvin null, [place] - [facility] 4 09:07:59 592716 Biaxin medicatio n Not available Not available Not available 04/09/2024 17333 9 RxNorm Nadia Potvin null, [place] - [facility] 4 09:08:10 994934 Augmentin medicatio n Not available Not available Not available 04/09/2024 45048 2 RxNorm Nadia Potvin null, [place] - [facility] 4 09:08:25 609380 acetamino phen / oxycodone medicatio n Not available Not available Not available 04/09/2024 43468 3 RxNorm Nadia Potvin null, [place] - [facility] [place] 4 09:08:34 076737 cefuroxim e Not available Not available Not available Not available 04/09/2024 2194 RxNorm Nadia Potvin null, [place] - [facility] 4 09:08:52 368335 ciproflox acin medicatio n Not available Not available Not available 04/09/2024 2551 RxNorm Nadia Wise [place] [facility] - [facility] 4 09:09:04 455080 clotrimaz ole medicatio n Not available Not available Not available 04/09/2024 2623 RxNorm Nadia Wise [place] [facility] 4 09:09:15 Medications Name Sig Start Date Stop Date Status Note LastModified by Organization Details LastModified Time Lotrisone 1 %-0.05 % topical cream 03/01 completed Medicati on ID: [id number] Pr escribed By Name: DAPHNE Canela nd Name: Lotrison e Send Method: E-Prescr ibed Sub s Allowed: subs OK Speci al Instruct ion: apply every 12 hours x 14 days. Me dication GenericN miguelangel: Lotrison e Not Available Not Available Not Available clotrimaz ole-betam ethasone 1 %-0.05 % lotion 03/01 completed Medicati on ID: [id number] Re ason: () Brand Name: Lotrison e [...] a day 04/09 completed Medicati on ID: [id number] D uration Value: 7 Brand Name: ofloxaci [...] mg tablet 04/09 completed Medicati on ID: [id number] B rand Name: artis kern Send Method: E-Prescr ibed Sub s Allowed: subs OK Medic ationGen ericName : stefanta tin Not Available Not Available Not Available clotrimaz ole 1 % topical solution 04/09 completed Medicati on ID: [id number] D uration Value: 21 Prescri bed By [...] mg tablet 03/01 completed Medicati on ID: [id number] D uration Value: 15 Reason: () Brand [...] mg tablet 07/30 completed Medicati on ID: [id number] D uration Value: 90 Brand Name: proprano [...] drops,ag pension 04/09 completed Medicati on ID: [id number] P rescribe d By Name: DAPHNE oS nd Name: TobraDex Send Method: E-Prescr ibed Sub s Allowed: subs OK Speci al Instruct ion: Instill 3 drops in the affect ear BID for 14 days Med icationG enericNa me: TobraDex Not Available Not Available Not Available Ciprodex 0.3 %-0.1 % ear drops,ag pension 4 drop into left ear 04/09 completed Medicati on ID: [id number] D uration Value: 14 Prescri bed By [...] Updated DateTime 04/09/2024 160.02 cm 17.4 kg/m2 43209.05 g Nadia Wise [place] - [facility] 04/09/2024 09:07:46 Date Recorded Body height Body mass index (BMI) Body weight Provider Name and Address Organization Details Last Updated DateTime 06/11/2024 160.02 cm 17.4 kg/m2 43472.05 g Lucia Packer [place] - [facility] 06/11/2024 09:14:05 Date Recorded Body height Body mass index (BMI) Body weight Provider Name and Address Organization Details Last Updated DateTime 07/23/2024 160.02 cm 17.4 kg/m2 20314.05 g Fátima Chace [facility] 07/23/2024 09:13:59 Date Recorded Body height Body mass index (BMI) Body weight Provider Name and Address Organization Details Last Updated DateTime 01/26/2024 160.02 cm 15.9 kg/m2 57325.31 g Lucia Ochoa [facility] 01/26/2024 09:45:18 Social History None recorded. Functional Status None recorded. Mental Status None recorded. Family History Nothing Reported. Medical History No medical history recorded. Past Encounters Encounter ID Performer Location Encounter Start Date Encounter Closed Date Diagnosis/Indication Diagnosis SNOMED-CT Code Diagnosis ICD10 Code Diagnosis Note [id number] MONTSERRAT HATCH MD [facility] [address] [address] 01/26/2024 09:32:37 01/26/2024 09:50:16 Impacted cerumen of bilateral ears 0662299433 273121 H61.23 Pervasive developmental disorder of residual state 7639037482 9105 F84.9 [id number] MONTSERRAT HATCH MD [facility] [address] [address] 04/09/2024 08:55:18 04/09/2024 09:14:39 Impacted cerumen of bilateral ears 4461655454 564043 H61.23 [id number] GERRY RUSH MD [facility] [address] [address] 06/11/2024 08:54:13 06/11/2024 09:23:17 Impacted cerumen of bilateral ears 0273339078 702894 H61.23 [id number] GERRY RUSH MD [facility] [address] [address] 07/23/2024 09:08:55 07/23/2024 09:26:10 Impacted cerumen of bilateral ears 3579871771 076611 H61.23 Pervasive developmental disorder of residual state 8393961160 9105 F84.9 Health Concerns Section Related Observation LastModified by Organization Detai ls LastModified Time None Recorded Concern Status LastModified by Organization Details LastModified Time None Recorded Advance Directives Directive None Recorded Payers Encounter Date Sequence Insurance Name Policy Number Policy Pemberton Covered Member ID Pemberton Member ID Guarantor Name 01/26/2024 1 [place] [employer] Sander Shook [id number] Sander Shook Jr 01/26/2024 2 [place] Sander Shook [id number] Sander Shook Jr 04/09/2024 1 [place] [employer] Sander Shook [id number] Sander Shook Jr 04/09/2024 2 [place] [facility] Sander Shook [id number] Sander Shook Jr 06/11/2024 1 [place] [employer] Sander Shook [id number] Sander Shook Jr 06/11/2024 2 [place] [facility] Sander Shook [id number] Sander Shook Jr 07/23/2024 1 [place] B[place] [employer] Sander Shook [id number] Sander Shoko Jr 07/23/2024 2 [place] [facility] Sander Shook [id number] Sander Shook Jr Notes Date Note Type Note Provider Name and Address Organization Details Recorded Time 01/26/2024 text/html 58 year old male with persistent developmental delay presents with father for check of ears. Dad feels patient likely has cerumen impaction. There have been no complaints of otalgia and father has noted no otorrhea. MONTSERRAT FARNSWORTH MD [address] [place] [address],[address], [address], [facility] - [facility] 01/26/2024 12:43:30 04/09/2024 text/html 58 year old male with persistent developmental delay presents with father for check of ears. Dad feels patient likely has cerumen impaction; he has been scratching the ears with his finger. There have been no complaints of otalgia and father has noted no otorrhea. MONTSERRAT FARNSWORTH MD [address] [place] [address],[address], [address], [place] - [facility] [place] 04/09/2024 12:29:36 06/11/2024 text/html 58-year-old male with pervasive developmental delay presents with father for cerumen removal. Dad reports he has been sticking his fingers in his ears at times recently. There has been no noted otorrhea. GERRY RUSH MD [address] [facility],[address], [address], [place] - [facility] 06/13/2024 07:07:07 07/23/2024 text/html 58-year-old male with pervasive developmental delay presents with father for cerumen removal. There has been no noted otorrhea. Does not seem to be experiencing otalgia. Dad has been instilling wax softening drops for the past several days. GERRY RUSH MD [facility],[place] [address], [place], [address], [place] - [facility] 07/23/2024 12:49:12
== END 2024-09-17 07:59 | disposition home or self-care (01) ==
LOC: HO.MAMMO 07:58
PROVIDERS: PCP Internal Medicine; Visit Provider Internal Medicine
DX: Z13.820 Encounter for screening for osteoporosis (principal); M85.88 Other specified disorders of bone density and structure, other site; Z87.81 Personal history of (healed) traumatic fracture

== ENCOUNTER → 2024-09-17 08:15 | Outpatient (BNV) | payer MEDICARE, MEDICAID, SELFPAY | PROVIDERS: PCP Internal Medicine; Visit Provider Radiology Diagnostic Radiology | DX: E28.39 Other primary ovarian failure (principal) | CPT/HCPCS: 77080 ==

== ENCOUNTER 2024-09-29 07:53 | Outpatient (AMB) | payer MEDICARE, MEDICAID, SELFPAY ==
--- NOTE | 2024-09-29 07:55 | A.OFFVIS_ITS ---
Vital Signs 09/29/24 08:00 Height 5 ft 2.48 in Weight 89 lb 1.068 oz BMI 16.0 BP 92/60 Blood Pressure Location Rt brachial Position Sitting Pulse 49 L Pulse Source Pulse Oximeter Pulse Oximetry (%) 96 Oxygen Delivery Method Room Air Intake Visit Reasons: Age-related osteoporosis w/o current path fracture Intake Note: New patient internally referred by Dr. John PCP, for age related Osteoporosis. Certified Tumor Registrar Required: No Accompanied by: Father Allergies clotrimazole Allergy (Intermediate, Verified 09/02/24 13:35) Rash acetaminophen [From ENDOCET] Allergy (Unknown, Verified 09/02/24 13:35) HIVES amoxicillin [From AUGMENTIN] Allergy (Unknown, Verified 09/02/24 13:35) HIVES cefuroxime [CEFUROXIME] Allergy (Unknown, Verified 09/02/24 13:35) HIVES ciprofloxacin [From CIPRO] Allergy (Unknown, Verified 09/02/24 13:35) HIVES, Rash, rash clarithromycin [From BIAXIN] Allergy (Unknown, Verified 09/02/24 13:35) HIVES clavulanic acid [From AUGMENTIN] Allergy (Unknown, Verified 09/02/24 13:35) HIVES morphine [MORPHINE] Allergy (Unknown, Verified 09/02/24 13:35) HIVES, Rash, rash oxycodone [From ENDOCET] Allergy (Unknown, Verified 09/02/24 13:35) HIVES Medication List - Last Reconciled 09/29/24 by Simeon Mercado MD cholecalciferol (vitamin D3) 25 mcg PO DAILY diazepam 2 mg PO ONCE PRN docusate sodium 100 mg PO DAILY PRN epinephrine 0.3 mg (0.3 mL) IM ONCE PRN olopatadine 0.2% (Pataday Once Daily Relief) 1 drp ophthalmic (eye) DAILY propranolol 10 mg PO BID risperidone 0.5 mg PO BID simvastatin 10 mg PO BEDTIME sucralfate 1 g PO BEDTIME HPI Comments Details: 59 YO male with PMHx CP is seen in consultation at the request of PCP for Osteoporosis.Hx from father , Pt not able to give hx ?First diagnosed Not Received treatment in the past History of pathologic fracture of hip from falling after dancing in senior care in 08/24/2020 or ON. Has several servings of dietary calcium per day in the form of cheese, milk . Takes Calcium supplement ? mg daily in divided doses. Takes 1000 IU of Vitamin D daily. Denies ever using PPI, anticoagulant, antiepileptic or glucocorticoid medication. Not Does weight bearing exercise Fracture history: as above Height loss: No Denies history of Kidney stones: Has family history of Osteoporosis in both parents and mother had hip fracture. UTD on dental cleanings and sees dentist every 6 months. No planned upcoming dental work or extractions. DXA dated :TECHNIQUE: [employer] Dual energy absorptiometry (DEXA) of the lumbar spine, total right hip, and femoral neck was performed. The left hip was not evaluated due to history of prior screw fixation. COMPARISON: There are no prior studies for comparison. FINDINGS:09/17/24 The bone mineral density of the lumbar spine is 0.874 with a T-score of -3.0, and a Z-score of -1.4. The bone mineral density of the right total hip is 0.716 with a T-score of -2.7, and a Z-score of -1.4. The bone mineral density of the right femoral neck is 0.656 with a T-score of -3.2, and a Z-score of -1.4. MM/XR DEXA axial skeleton IMPRESSION: Based on bone mineral density, and according to World Health Organization (WHO) criteria, the diagnosis is consistent with osteoporosis. 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 Left inguinal hernia Sensorineural hearing loss Cerebral palsy Vitamin D deficiency Surgical History History of hip surgery History of cataract surgery S/P inguinal herniorrhaphy History of colonoscopy Hx laparoscopic cholecystectomy Family History Father Medical history non-contributory Mother Medical history non-contributory Social History Household Members: Family Housing: House Do you presently have visiting nurse or other home services: No Alcohol intake: never Comment: pt os calmer not moving around a lot Patient Tobacco Use Status: Never used Tobacco e-Cigarette/Vaping Use: Never Used Second Hand Smoke Exposure: No service: No Current occupational status: disabled Cognitive needs: Yes Hearing needs: Yes Vision needs: Yes Physical Exam Vital Signs: Last Vital Signs Pulse 49 L 09/29/24 08:00 BP 92/60 09/29/24 08:00 Pulse Ox 96 09/29/24 08:00 Oxygen Delivery Method Room Air 09/29/24 08:00 BMI result Body Mass Index 16.0 Patient appears thin and frail. There are no Cushingoid features. Absence of blue sclera. Absence of kyphosis. Thyroid gland is of nl size and weighs 15 gms. There are no thyroid nodules palpated. Lungs CTA. Heart S1 S2 Reg R/R Abdominal exam benign. Muscle strength 5/5 . Examination of spine reveals absence of tenderness on palpation Assessment & Plan Assessment & Plan (1) Osteoporosis: Code(s): M81.0 - Age-related osteoporosis without current pathological fracture Category: Medical Plan: This is a 59-year-old white male with a history of cerebral palsy wheelchair- bound with a history of moderate to severe osteoporosis and previous hip fracture. Partial secondary workup has been done Plan is to complete the secondary workup by checking a 24 hour urine for calcium and creatinine if patient is able to perform, SPEP, urine immunofixation, phosphorus level, Will not check testosterone level as replacement is not feasible and family would not be willing to administer testosterone as well as patient having behavioral problems baseline. will ensure 1200 mg of calcium and continue current vitamin-D supplementation. Assuming secondary workup is negative would strongly consider an anabolic agent such as Forteo or Tymlos proceeded by anti resorptive considering very low bone density and history of fracture. Orders: Orders Calcium, 24 Hr Ur 10 Weeks M81.0 - Age-related osteoporosis without current pathological fracture Protein Electrophoresis, Serum Today M81.0 - Age-related osteoporosis without current pathological fracture Immunofixation, Random Urine Today M81.0 - Age-related osteoporosis without current pathological fracture Creatinine, 24 Hr Group 10 Weeks M81.0 - Age-related osteoporosis without current pathological fracture Phosphorus Today M81.0 - Age-related osteoporosis without current pathological fracture Coding Level of Care Code New Pt Level 4 (01109) Diagnoses Osteoporosis M81.0
[2024-09-29 08:00] VITALS: BP 92/60; PULSE 49; O2SAT 96; BMI 16.0
--- OUTSIDE RECORDS SUMMARY | 2024-09-29 08:02 | XMS_ITS | Data Portability ---
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 Name Role Phone RAULBalbir JUAN Primary Care Provider Assessment Encounter Date Assessment Date Assessment LastModified [...] Organization Details Recorded Time Candidal otitis externa [id number] Completed 202003/12/2024 Candidal otitis externa; Note: Date Diagnose d: 1 9:22 AM (B37.84) Not Available [facility] 4 03:02:24 Chronic infectiv e otitis externa 517200952 Active 2014 Chronic otitis externa; Note: Date Diagnose d: 5 10:23 AM (380.16) Not Available [facility] 4 03:02:21 Otorrhea of left ear [id number] 86951 Completed 202003/12/2024 Otorrhea , left ear; Note: Date Diagnose d: 1 9:22 AM (H92.12) Not Available [facility] 4 03:02:21 Otorrhea 37405635 Active 2013 Otorrhea ; Location : left CMS Risk: low risk CMS Treatmen t: new problem (to examiner ): addition al workup planned Conditio n: unstable Note: Date Diagnose d: 05/23/20 14 12:21 PM (388.60) Not Available [facility] 4 03:02:22 Infectiv e otitis externa of right ear 32001567156 26036 Active 2023 Other infectiv e otitis externa, right ear; Note: Date Diagnose d: 4 9:18 AM (H60.391 ) Not Available [facility] 4 03:02:23 Autism spectrum disorder 04086210 Active 2017 Pervasiv e developm ental disorder , unspecif ied; Note: Date Diagnose d: 07/06/20 18 9:15 AM (F84.9) Not Available [facility] 4 03:02:22 Otorrhea of right ear 08337189754 73600 Active 2023 Otorrhea , right ear; Note: Date Diagnose d: 4 9:17 AM (H92.11) Otorrh ea, right ear; Note: Date Diagnose d: 05/28/20 19 9:25 AM (H92.11) ; Start Date : 05/28/20 Not Available [facility] 4 03:02:22 Impacted cerumen of bilatera l ears 71722645702 27846 Active 2015 Impacted cerumen, bilatera l; Note: Date Diagnose d: 11/17/2015 10:16 AM (H61.23) Impact ed cerumen, bilatera l; Note: Date Diagnose d: 5 10:13 AM (H61.23) [mapped from ICD9 code: 380.4] ; Start Date : 02/21/20 15 Not Available [facility] 4 03:02:20 Impacted cerumen in left ear 16907830631 15039 Active 2020 Impacted cerumen, left ear; Note: Date Diagnose d: 05/25/20 21 11:14 AM (H61.22) Not Available [facility] 4 03:02:24 Impacted cerumen in right ear 89901668831 40509 Active 2021 Impacted cerumen, right ear; Note: Date Diagnose d: 2 9:25 AM (H61.21) Not Available [facility] 4 03:02:24 Impacted cerumen 21926991 Active 2014 Impacted cerumen; CMS Risk: low risk CMS Treatmen t: new problem (to examiner ): no addition al workup planned Impacte d cerumen; Location : right CM S Risk: low risk CMS Treatmen t: new problem (to examiner ): no addition al workup planned Note: Date Diagnose d: 05/23/20 14 12:22 PM (380.4) Not Available [facility] 4 03:02:21 Abnormal granulat ion tissue 53948761 Active 2013 Other abnormal granulat ion tissue; Location : left CMS Risk: low risk CMS Treatmen t: new problem (to examiner ): addition al workup planned Conditio n: unstable Note: Date Diagnose d: 05/23/20 14 12:21 PM (701.5) Not Available [facility] 4 03:02:23 Bilatera l disorder of Eustachi an tubes 88504748321 65946 Active 2017 Other specifie d disorder s of Eustachi an tube, bilatera l; Note: Date Diagnose d: 8 9:15 AM (H69.83) Not Available [facility] 4 03:02:21 Pervasiv e developm ental disorder of [facility] 37275052369 105 Active 2023 JACK BURNS PA-C [address] [facility],[address], [address] , [facility] - [facility] 4 09:51:19 Abnormal auditory percepti on 46780870 Active 2023 Other abnormal auditory percepti ons, unspecif ied ear; Note: Date Diagnose d: 09/17/2023 11:07 AM (H93.299 ) Not Available [facility] 4 03:02:23 Problem Notes None recorded. Procedures Surgical History Date Name Laterality Status Provider Name and Address Organization Details Recorded Time 4 Cerumen removal without microscope bilat completed JACK BURNS PA-C [address] [place] [address],[address], [address], [facility] - [facility] 07/23/2024 09:27:30 4 Cerumen removal without microscope bilat completed JACK BURNS PA-C [address] [place] [address],[address], [address], [facility] - [facility] 06/11/2024 09:23:59 4 Cerumen removal without microscope bilat completed JACK BURNS PA-C [address] [place] [address], [phone], [facility] - [facility] 04/09/2024 09:13:59 4 Cerumen removal without microscope bilat completed JACK BURNS PA-C [address] [place] [address],[address], [address], [facility] - [facility] 01/26/2024 09:50:56 Imaging Results None recorded. Procedure Notes None recorded. Medical Equipment None Reported. Allergies Allergen ID Allergen Name Allergen Category Reaction Reaction Severity Criticality Documentation Date Start Date Code Code System Note Provider Name and Address Organization Details Recorded Time 595491 amoxicill in / clavulana te medicatio n other Not available Not available 12/23/2023 94825 RxNorm React ion: unkno wn, unspe cifie d;; Not Available [facility] 4 01:14:08 331754 ciproflox acin hydrochlo ride medicatio n hives Not available Not available 12/23/2023 91556 RxNorm React ion: skin rashe s, hives ;; Not Available [facility] 4 01:14:08 948260 clarithro mycin medicatio n hives Not available Not available 12/23/2023 00002 RxNorm React ion: skin rashe s, hives ;; Not Available [facility] 4 01:14:09 993887 morphine medicatio n other Not available Not available 12/23/2023 7052 RxNorm React ion: unkno wn, unspe cifie d;; Not Available [facility] 4 01:14:11 313759 Cipro medicatio n Not available Not available Not available 04/09/2024 73012 3 RxNorm Nadia Potvin null, [place] - [facility] 4 09:07:59 461511 Biaxin medicatio n Not available Not available Not available 04/09/2024 49866 9 RxNorm Nadia Potvin null, [place] - [facility] 4 09:08:10 828288 Augmentin medicatio n Not available Not available Not available 04/09/2024 43414 2 RxNorm Nadia Potvin null, [place] - [facility] 4 09:08:25 929773 acetamino phen / oxycodone medicatio n Not available Not available Not available 04/09/2024 48806 3 RxNorm Nadia Potvin null, [place] - [facility] 4 09:08:34 068130 cefuroxim e Not available Not available Not available Not available 04/09/2024 2194 RxNorm Nadia Potvin null, [place] - [facility] 4 09:08:52 252454 ciproflox acin medicatio n Not available Not available Not available 04/09/2024 2551 RxNorm Nadia Wise [place] [facility] - [facility] 4 09:09:04 486344 clotrimaz ole medicatio n Not available Not available Not available 04/09/2024 2623 RxNorm Nadia Wise [place] [facility] 4 09:09:15 Medications Name Sig Start Date Stop Date Status Note LastModified by Organization Details LastModified Time Lotrisone 1 %-0.05 % topical cream 03/01 completed Medicati on ID: [id number] Pr escribed By Name: DAPHNE Canela nd Name: Lotrison e Send Method: E-Prescr ibed Sub s Allowed: subs OK Speci al Instruct ion: apply every 12 hours x 14 days. Me dication GenericN miguelangel: Lotrison e Not Available Not Available Not Available clotrimaz ole-betam ethasone 1 %-0.05 % lotion 03/01 completed Medicati on ID: [id number] Re ason: () Brand Name: Lotrison e [...] a day 04/09 completed Medicati on ID: [id number] D uration Value: 7 Brand Name: ofloxaci [...] mg tablet 04/09 completed Medicati on ID: [id number] B rand Name: artis kern Send Method: E-Prescr ibed Sub s Allowed: subs OK Medic ationGen ericName : stefanta tin Not Available Not Available Not Available clotrimaz ole 1 % topical solution 04/09 completed Medicati on ID: [id number] D uration Value: 21 Prescri bed By [...] mg tablet 03/01 completed Medicati on ID: [id number] D uration Value: 15 Reason: () Brand [...] mg tablet 07/30 completed Medicati on ID: [id number] D uration Value: 90 Brand Name: proprano [...] drops,ag pension 04/09 completed Medicati on ID: [id number] P rescribe d By Name: DAPHNE So nd Name: TobraDex Send Method: E-Prescr ibed Sub s Allowed: subs OK Speci al Instruct ion: Instill 3 drops in the affect ear BID for 14 days Med icationG enericNa me: TobraDex Not Available Not Available Not Available Ciprodex 0.3 %-0.1 % ear drops,ag pension 4 drop into left ear 04/09 completed Medicati on ID: [id number] D uration Value: 14 Prescri bed By [...] Updated DateTime 04/09/2024 160.02 cm 17.4 kg/m2 57191.05 g Nadia Wise [place] - [facility] 04/09/2024 09:07:46 Date Recorded Body height Body mass index (BMI) Body weight Provider Name and Address Organization Details Last Updated DateTime 06/11/2024 160.02 cm 17.4 kg/m2 67408.05 g Lucia Packer [place] - [facility] 06/11/2024 09:14:05 Date Recorded Body height Body mass index (BMI) Body weight Provider Name and Address Organization Details Last Updated DateTime 07/23/2024 160.02 cm 17.4 kg/m2 63903.05 g Fátima Chace [facility] 07/23/2024 09:13:59 Date Recorded Body height Body mass index (BMI) Body weight Provider Name and Address Organization Details Last Updated DateTime 01/26/2024 160.02 cm 15.9 kg/m2 52817.31 g Lucia Ochoa [facility] 01/26/2024 09:45:18 Social History None recorded. Functional Status None recorded. Mental Status None recorded. Family History Nothing Reported. Medical History No medical history recorded. Past Encounters Encounter ID Performer Location Encounter Start Date Encounter Closed Date Diagnosis/Indication Diagnosis SNOMED-CT Code Diagnosis ICD10 Code Diagnosis Note [id number] MONTSERRAT HATCH MD [facility] [address] [address] 01/26/2024 09:32:37 01/26/2024 09:50:16 Impacted cerumen of bilateral ears 0912307628 727090 H61.23 Pervasive developmental disorder of residual state 7405509711 9105 F84.9 [id number] MONTSERRAT HATCH MD [facility] [address] [address] 04/09/2024 08:55:18 04/09/2024 09:14:39 Impacted cerumen of bilateral ears 3882078429 275635 H61.23 [id number] GERRY RUSH MD [facility] [address] [address] 06/11/2024 08:54:13 06/11/2024 09:23:17 Impacted cerumen of bilateral ears 2458563475 654258 H61.23 [id number] GERRY RUSH MD [facility] [address] [address] 07/23/2024 09:08:55 07/23/2024 09:26:10 Impacted cerumen of bilateral ears 4327384664 951127 H61.23 Pervasive developmental disorder of residual state 4237742387 9105 F84.9 Health Concerns Section Related Observation LastModified by Organization Detai ls LastModified Time None Recorded Concern Status LastModified by Organization Details LastModified Time None Recorded Advance Directives Directive None Recorded Payers Encounter Date Sequence Insurance Name Policy Number Policy Pemberton Covered Member ID Pemberton Member ID Guarantor Name 01/26/2024 1 [place] [employer] Sander Shook [id number] Sander Shook Jr 01/26/2024 2 [place] Sander Shook [id number] Sander Shook Jr 04/09/2024 1 [place] [employer] Sander Shook [id number] Sander Shook Jr 04/09/2024 2 [facility]ICAID[facility] Sander Shook [id number] Sander Shook Jr 06/11/2024 1 [place] [employer] Sander Shook [id number] Sander Shook Jr 06/11/2024 2 [place]ICAID[facility] Sander Shook [id number] Sander Shook Jr 07/23/2024 1 [place] [employer] Sander Shook [id number] Sander Shook Jr 07/23/2024 2 [place]ICAID-[place]: [facility] Sander Shook [id number] Sander Shook Jr Notes Date Note Type Note Provider Name and Address Organization Details Recorded Time 01/26/2024 text/html 58 year old male with persistent developmental delay presents with father for check of ears. Dad feels patient likely has cerumen impaction. There have been no complaints of otalgia and father has noted no otorrhea. MONTSERRAT FARNSWORTH MD [address] [place] [address],[address], [address], [facility] - [facility] 01/26/2024 12:43:30 04/09/2024 text/html 58 year old male with persistent developmental delay presents with father for check of ears. Dad feels patient likely has cerumen impaction; he has been scratching the ears with his finger. There have been no complaints of otalgia and father has noted no otorrhea. MONTSERRAT FARNSWORTH MD [address] [place] [address],[address], [address], [place] - [facility] 04/09/2024 12:29:36 06/11/2024 text/html 58-year-old male with pervasive developmental delay presents with father for cerumen removal. Dad reports he has been sticking his fingers in his ears at times recently. There has been no noted otorrhea. GERRY RUSH MD [address] [facility],[address], [address], [place] - [facility] 06/13/2024 07:07:07 07/23/2024 text/html 58-year-old male with pervasive developmental delay presents with father for cerumen removal. There has been no noted otorrhea. Does not seem to be experiencing otalgia. Dad has been instilling wax softening drops for the past several days. GERRY RUSH MD [address] [facility],[place] [address], [place], [address], [place] - [facility] 07/23/2024 12:49:12
== END 2024-09-29 08:43 | disposition home or self-care (01) ==
PROVIDERS: PCP Internal Medicine; Visit Provider Internal Medicine Endocrinology, Diabetes & Metabolism
DX: M81.0 Age-related osteoporosis without current pathological fracture (principal)
CPT/HCPCS: 99204

== ENCOUNTER 2024-09-29 08:45 | Outpatient (REF) | payer MEDICARE, MEDICAID, SELFPAY ==
[2024-09-29 10:32] LABS: Phosphorus 2.9 mg/dL (2.7-4.5)
== END 2024-09-29 08:46 | disposition home or self-care (01) ==
LOC: HO.10HDL 08:45
PROVIDERS: Visit Provider Internal Medicine Endocrinology, Diabetes & Metabolism
DX: M81.0 Age-related osteoporosis without current pathological fracture (principal)
CPT/HCPCS: 84100; 84165; 86335; 99202

== ENCOUNTER 2024-11-05 08:49 | Outpatient (AMB) | payer MEDICARE, MEDICAID, SELFPAY ==
--- NOTE | 2024-11-05 08:52 | MHC.OFFVIS ---
Vital Signs 11/05/24 08:52 11/05/24 08:53 Height 5 ft 2 in 5 ft 2 in Weight 89 lb 1.068 oz BMI 16.3 Intake Visit Reasons: 6 mo Family history of colon cancer Intake Note: Shavonne presents in 6 months follow up of Post-cholecystectomy syndrome. CC: Per patient's father he had to stop the sucralfate and is now giving it to him only when he has diarrhea. He states that the first BM is very hard and big and sometimes he has to help him with vaseline and digitally. Later in the day the stools become more softer. He reports that the only new thing he can think of is protein drinks they have been giving him. Shower Maid Required: No Accompanied by: Parent Allergies clotrimazole Allergy (Intermediate, Verified 11/05/24 09:05) Rash acetaminophen [From ENDOCET] Allergy (Unknown, Verified 11/05/24 09:05) HIVES amoxicillin [From AUGMENTIN] Allergy (Unknown, Verified 11/05/24 09:05) HIVES cefuroxime [CEFUROXIME] Allergy (Unknown, Verified 11/05/24 09:05) HIVES ciprofloxacin [From CIPRO] Allergy (Unknown, Verified 11/05/24 09:05) HIVES, Rash, rash clarithromycin [From BIAXIN] Allergy (Unknown, Verified 11/05/24 09:05) HIVES clavulanic acid [From AUGMENTIN] Allergy (Unknown, Verified 11/05/24 09:05) HIVES morphine [MORPHINE] Allergy (Unknown, Verified 11/05/24 09:05) HIVES, Rash, rash oxycodone [From ENDOCET] Allergy (Unknown, Verified 11/05/24 09:05) HIVES HPI HPI 6 mo Family history of colon cancer: Details: Assessment & Plan (1) Post-cholecystectomy syndrome: Code(s): K91.5 - Postcholecystectomy syndrome Category: Medical (2) Family history of colon cancer: Comment: Paternal grandfather of cancer, father had colon polyps patient had a prior polyps 6 years ago Code(s): Z80.0 - Family history of malignant neoplasm of digestive organs Category: Medical Plan He is here to day with his mother and father who are his air quality consultant. He is doing well they are only using 1 carafate a day - as his stools are a bit hard initially, but then more formed. We discuss fiber - specifically fiber gummies and/or cookies. They are agreeable to 5 year follow up. The procedure was well tolerated. The results were explained and the patient is agreeable to the follow-up interval as stated. The bowel pattern has returned to normal. Education was provided to tell any 1st degree relatives about their findings to be sure that they are screened by age 45. Educated that they will be put on a recall list when it is time for their repeat scope but should they move out of state or away from the hospital they will need to remember along with their primary to repeat the procedure in a timely fashion to avoid any adverse complications. ROV 6 mos. Medications: Changed From sucralfate 2 grams (2 x 1 gram) PO BEDTIME 180 tabs 2RF R19.7 - Diarrhea, unspecified To sucralfate 1 g PO BEDTIME 90 tabs 2RF R19.7 - Diarrhea, unspecified TODAY'S VISIT Shavonne is having severe behavioral/anger issues today and is hitting kicking and spitting. So the interview is slightly difficult however we discern that he was started on higher doses of calcium because of osteoporosis (his mother fell recently and broke her hip) and this likely is causing constipation. The 1st bowel movement will have to very hard movements followed by some diarrhea. His father has wisely withheld the sucralfate for the diarrheal phase. However I think we need to offset the constipation so he can continues calcium therapy. I have advised that we start with nxmu-mir-jrhxaga docusate as they do use bisacodyl on occasion but this may be too strong and induced too much diarrhea for him. At times he has had to use Vaseline and digitally disimpact shavonne. We will call him to make the next available office appointment to evaluate his response and titrate to treatment. 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 Left inguinal hernia Sensorineural hearing loss Cerebral palsy Vitamin D deficiency Surgical History History of hip surgery History of cataract surgery S/P inguinal herniorrhaphy History of colonoscopy Hx laparoscopic cholecystectomy Family History Father Medical history non-contributory Mother Medical history non-contributory Social History Household Members: Family Housing: House Do you presently have visiting nurse or other home services: No Alcohol intake: never Comment: pt os calmer not moving around a lot Patient Tobacco Use Status: Never used Tobacco e-Cigarette/Vaping Use: Never Used Second Hand Smoke Exposure: No service: No Current occupational status: disabled Cognitive needs: Yes Hearing needs: Yes Vision needs: Yes Review of Systems Const Denies fatigue, Denies fever(s), Denies night sweats, Denies poor appetite and Denies weight loss Eyes Details: His glasses Reports requires corrective lenses ENT Denies dental pain, Denies dysphagia, Reports hearing loss, Denies mouth pain, Denies odynophagia, Denies throat swelling, Denies tongue swelling and Reports other (Dentition adequate) Card Reports no additional complaints Resp Reports no additional complaints GI Details: Denies abdominal pain, Denies melena, Denies bloating, Denies hematochezia, Reports constipation, Denies GI cramping, Denies dysphagia, Denies excessive flatus, Denies early satiety, Denies heartburn, Denies diarrhea, Reports loose stools, Denies nausea, Denies odynophagia, Denies vomiting and Denies hematemesis Skin/Breast Denies pruritus, Denies lesions, Denies rash and Denies jaundice Neuro Denies Abnormal speech present and Reports confusion Psych Reports confusion, Reports irritability and Reports mood swings Endo Denies fatigue Aller/Immun Denies throat swelling and Denies tongue swelling Physical Exam Vital Signs: BMI result Body Mass Index 16.3 Const General: cooperative, no acute distress, well developed, confusion and well groomed Nutritional Appearance: well nourished and thin Orientation/consciousness: oriented to person and confusion Limitations: behavioral limitations, No language barrier and other limitations Eyes General: dysmorphic Pupils: Equal, round and reactive pupils present Neck Neck: Yes normal visual inspection Resp Effort & Inspection: normal respiratory effort Neuro General: oriented to person and confusion Cranial nerves: Yes Equal, round and reactive pupils present Speech: No Abnormal speech present Psych Appearance: grossly normal and well kempt Mental Status: other Affect: Hostile affect present and Irritable affect present Attitude: Belligerent attititude/behavior present Thought process: Other thought process findings present Insight: Poor insight present (Psych) Judgement: Poor judgement present (Psych) Assessment & Plan Assessment & Plan (1) Post-cholecystectomy syndrome: Code(s): K91.5 - Postcholecystectomy syndrome Category: Medical Plan Shavonne is having severe behavioral/anger issues today and is hitting kicking and spitting. So the interview is slightly difficult however we discern that he was started on higher doses of calcium because of osteoporosis (his mother fell recently and broke her hip) and this likely is causing constipation. The 1st bowel movement will have to very hard movements followed by some diarrhea. His father has wisely withheld the sucralfate for the diarrheal phase. However I think we need to offset the constipation so he can continues calcium therapy. I have advised that we start with hlxs-rhn-pdkjdza docusate as they do use bisacodyl on occasion but this may be too strong and induced too much diarrhea for him. At times he has had to use Vaseline and digitally disimpact shavonne. We will call him to make the next available office appointment to evaluate his response and titrate to treatment. Medications: Refilled docusate sodium 100 mg PO DAILY PRN 30 caps 6RF constipation Coding Level of Care Code Est Pt Level 3 (26838) Diagnoses Post-cholecystectomy syndrome K91.5
[2024-11-05 08:53] VITALS: BMI 16.3
== END 2024-11-05 09:16 | disposition home or self-care (01) ==
LOC: HO.HGI 08:50
PROVIDERS: PCP Internal Medicine; Visit Provider Nurse Practitioner
DX: K91.5 Postcholecystectomy syndrome (principal)
CPT/HCPCS: 99213

== ENCOUNTER → 2024-11-05 08:49 | Outpatient (BNVA) | payer MEDICARE, MEDICAID, SELFPAY | PROVIDERS: PCP Internal Medicine; Visit Provider Nurse Practitioner | DX: K91.5 Postcholecystectomy syndrome (principal) | CPT/HCPCS: 99212 ==

== ENCOUNTER 2024-12-03 14:38 | Outpatient (AMB) | payer MEDICARE, MEDICAID, SELFPAY ==
--- NOTE | 2024-12-03 14:56 | AM.OFFWIN_ITS ---
Intake Vital Signs 12/03/24 15:08 Weight 87 lb 6 oz BP 90/66 Blood Pressure Location Lt brachial Position Sitting Intake Visit Reasons: EP Rash Intake Note: Patient here for rash on hands and back that started after beginning Calcium supplement. Patient Tobacco Use Status: Never used Tobacco Allergies clotrimazole Allergy (Intermediate, Verified 12/03/24 15:09) Rash acetaminophen [From ENDOCET] Allergy (Unknown, Verified 12/03/24 15:09) HIVES amoxicillin [From AUGMENTIN] Allergy (Unknown, Verified 12/03/24 15:09) HIVES cefuroxime [CEFUROXIME] Allergy (Unknown, Verified 12/03/24 15:09) HIVES ciprofloxacin [From CIPRO] Allergy (Unknown, Verified 12/03/24 15:09) HIVES, Rash, rash clarithromycin [From BIAXIN] Allergy (Unknown, Verified 12/03/24 15:09) HIVES clavulanic acid [From AUGMENTIN] Allergy (Unknown, Verified 12/03/24 15:09) HIVES morphine [MORPHINE] Allergy (Unknown, Verified 12/03/24 15:09) HIVES, Rash, rash oxycodone [From ENDOCET] Allergy (Unknown, Verified 12/03/24 15:09) HIVES Do you need a note to return to daycare/school/sports/work: No HPI HPI Comments History of Present Illness Details History of Present Illness - The patient is a 59-year-old male with a past med hx of cerebral palsy, dyslipidemia, TRENT on CPAP, normocytic normochromic, anemia, 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 - The rash initially appeared approximat albertina two months ago and was suspected to be related to a change in toothpaste. - Excess calcium intake from supplements and drinks was then considered a potential cause. - The rash started on the hands and late r spread to the back and side, presenting as blotchy, bumpy, and itchy. - Relief was partially achieved with ove [id number] treatments including hydrocortisone cream, A and D ointment, and Goldbalm powder. - spends time outside but hasn't been in contact with any poison christy or similar as far as his dad knows. Physical Exam General: Cooperative, healthy appearing, comfortable, no acute distress and well developed Limitations: No limitations Head: Normal to inspection Ears: Hearing grossly normal bilaterally Nose: Normal External nose present Face and sinus: Normal facial exam Eyes: Appearance normal, both eyes and all related structures Neck: Normal visual inspection and Yes full ROM Respiratory: Normal respiratory effort and able to speak in complete sentences. Skin: Rash present on trunk and back, multiple areas of raised, erythematous maculopapular rash, some scabbing present. Extremities: Normal to inspection REPLACED BY [facility] Medical History Osteoporosis History of fracture of left hip Mentally challenged Underweight Weight loss, non-intentional TRENT on CPAP Dyslipidemia Dysphagia Mental and behavioral problems with learning Closed subcapital fracture of left femur Anemia Normocytic normochromic anemia Psychotic disorder Gallstones 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 Left inguinal hernia Sensorineural hearing loss Cerebral palsy Vitamin D deficiency Surgical History History of hip surgery History of cataract surgery S/P inguinal herniorrhaphy History of colonoscopy Hx laparoscopic cholecystectomy Family History Father Medical history non-contributory Mother Medical history non-contributory Social History Household Members: Family Housing: House Do you presently have visiting nurse or other home services: No Alcohol intake: never Comment: pt os calmer not moving around a lot Patient Tobacco Use Status: Never used Tobacco e-Cigarette/Vaping Use: Never Used Second Hand Smoke Exposure: No service: No Current occupational status: disabled Cognitive needs: Yes Hearing needs: Yes Vision needs: Yes Review of Systems Const All systems reviewed & are unremarkable except as noted in HPI and below Physical Exam Vital Signs: Last Vital Signs BP 90/66 12/03/24 15:08 Assessment & Plan Assessment & Plan (1) Contact dermatitis: Code(s): L25.9 - Unspecified contact dermatitis, unspecified cause Qualifiers: Contact dermatitis type: allergic Contact dermatitis trigger: unspecified trigger Qualified Code(s): L23.9 - Allergic contact dermatitis, unspecified cause Plan: I have diagnosed the patient with contact dermatitis. The treatment regimen consists of hydroxyzine for itch relief and triamcinolone cream to reduce inflammation. The patient will use these medications and monitor symptom changes, with instructions to contact me or Dr. John if the rash does not improve. A dermatology referral may be considered if necessary. Patient was informed and verbally consented to the use of an ambient scribe for clinic note documentation during this visit. Medications: New hydroxyzine HCl 20 mg (2 x 10 mg) PO Q6-8H PRN 20 tabs 0RF itching triamcinolone acetonide 0.1% 1 appl topical BID 80 grams 0RF Coding Level of Care Code Est Pt Level 3 (53253) Diagnoses Allergic contact dermatitis, unspecified trigger L23.9 Contact dermatitis type: allergic Contact dermatitis trigger: unspecified trigger
[2024-12-03 15:08] VITALS: BP 90/66
--- OUTSIDE RECORDS SUMMARY | 2024-12-03 15:18 | XMS_ITS | Data Portability ---
Author Organization [place] - [facility], Allergy Address [address] [address] Care Team Providers Care Director Sales Training Name Role Phone JUAN ELY Primary Care Provider Assessment Encounter Date Assessment [...] sooner with issues. Not available 07/23/2024 09:28:11 10/01/2024 10/01/2024 Cerumen successfully removed bilaterally, which patient tolerated well. Follow up in ~8 weeks, sooner with concerns. Not available 10/01/2024 09:10:00 11/12/2024 11/12/2024 Otitis externa left ear. No otorrhagia nor evidence of trauma. Recommend ofloxacin for 10 days. Return next month as scheduled. Call sooner with any worsening or lack of improvement. Not available 11/12/2024 09:13:51 Plan of Treatment Reminders Order Date Submit Date Provider Last Modified By Organization Details Last Modified Time Details Appointments Establish ed 15 2024 09:00A M RICHARD OROZCO PA-C Not available Not available Not available Lab None recorded. Referral None recorded. Procedures None recorded. Surgeries None recorded. Imaging None recorded. Medication Orders ofloxacin 0.3 % ear drops 2024 025 [facility]/Pharmacy #[id number], [address] [facility], [place], [address], 11/12/2024 09:09:56 Patient TargetsNo targets recorded. Patient InstructionsNo instructions recorded. Reason for Referral None Reported. Problems Name Problem SNOMED Code Status Onset Date Resolution Date Notes Provider Name and Address Organization Details Recorded Time Candidal otitis externa 42603529 Completed 202003/12/2024 Candidal otitis externa; Note: Date Diagnose d: 1 9:22 AM (B37.84) Not Available [facility] 4 03:02:24 Chronic infectiv e otitis externa 806793051 Active 2014 Chronic otitis externa; Note: Date Diagnose d: 5 10:23 AM (380.16) Not Available [facility] 4 03:02:21 Otorrhea of left ear 60234150426 87611 Completed 202003/12/2024 Otorrhea , left ear; Note: Date Diagnose d: 1 9:22 AM (H92.12) Not Available [facility] 4 03:02:21 Otorrhea 06133953 Active 2013 Otorrhea ; Location : left [facility] Risk: low risk [facility] Treatmen t: new problem (to examiner ): addition al workup planned Conditio n: unstable Note: Date Diagnose d: 05/23/20 14 12:21 PM (388.60) Not Available [facility] 4 03:02:22 Infectiv e otitis externa of right ear 09236940682 74042 Active 2023 Other infectiv e otitis externa, right ear; Note: Date Diagnose d: 4 9:18 AM (H60.391 ) Not Available [facility] 4 03:02:23 Autism spectrum disorder 06913350 Active 2017 Pervasiv e developm ental disorder , unspecif ied; Note: Date Diagnose d: 07/06/20 18 9:15 AM (F84.9) Not Available [facility] 4 03:02:22 Otorrhea of right ear 38409159213 99550 Active 2023 Otorrhea , right ear; Note: Date Diagnose d: 4 9:17 AM (H92.11) Otorrh ea, right ear; Note: Date Diagnose d: 05/28/20 19 9:25 AM (H92.11) ; Start Date : 05/28/20 19 Not Available [facility] 4 03:02:22 Impacted cerumen of bilatera l ears 44524004514 74151 Active 2015 Impacted cerumen, bilatera l; Note: Date Diagnose d: 11/17/2015 10:16 AM (H61.23) Impact ed cerumen, bilatera l; Note: Date Diagnose d: 5 10:13 AM (H61.23) [mapped from ICD9 code: 380.4] ; Start Date : 02/21/20 Not Available [facility] 4 03:02:20 Impacted cerumen in left ear 29930615161 65992 Active 2020 Impacted cerumen, left ear; Note: Date Diagnose d: 05/25/20 21 11:14 AM (H61.22) Not Available [facility] 4 03:02:24 Impacted cerumen in right ear 75202254796 46420 Active 2021 Impacted cerumen, right ear; Note: Date Diagnose d: 2 9:25 AM (H61.21) Not Available [facility] 4 03:02:24 Impacted cerumen 95361218 Active 2014 Impacted cerumen; CMS Risk: low risk CMS Treatmen t: new problem (to examiner ): no addition al workup planned Impacte d cerumen; Location : right CM S Risk: low risk CMS Treatmen t: new problem (to examiner ): no addition al workup planned Note: Date Diagnose d: 05/23/20 14 12:22 PM (380.4) Not Available [facility] 4 03:02:21 Abnormal granulat ion tissue 88286798 Active 2013 Other abnormal granulat ion tissue; Location : left CMS Risk: low risk CMS Treatmen t: new problem (to examiner ): addition al workup planned Conditio n: unstable Note: Date Diagnose d: 05/23/20 14 12:21 PM (701.5) Not Available [facility] 4 03:02:23 Bilatera l disorder of Eustachi an tubes 80999262407 97561 Active 2017 Other specifie d disorder s of Eustachi an tube, bilatera l; Note: Date Diagnose d: 8 9:15 AM (H69.83) Not Available [facility] 4 03:02:21 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 83222911164 105 Active 2023 JACK BURNS PA-C [address] [facility],[place] [address], [place], [address] , [facility] - [facility] 4 09:51:19 Abnormal auditory percepti on 91515849 Active 2023 Other abnormal auditory percepti ons, unspecif ied ear; Note: Date Diagnose d: 09/17/2023 11:07 AM (H93.299 ) Not Available [facility] 4 03:02:23 Otitis externa 7805711 Active 2024 JACK BURNS PA-C [address] [facility],[place] [address], [place], [address] , [facility] - [facility] 5 09:09:19 Problem Notes None recorded. Procedures Surgical History Date Name Laterality Status Provider Name and Address Organization Details Recorded Time 5 Cerumen removal without microscope bilat completed JACK BURNS PA-C [address] [facility] [place], [place], [address], [facility] - [facility] 10/01/2024 09:09:18 4 Cerumen removal without microscope bilat completed JACKGATITO BURNS PA-C [address] [place],[address], [place], [address], [facility] - [facility] 07/23/2024 09:27:30 4 Cerumen removal without microscope bilat completed JACK BURNS PA-C [address] [facility] [place],[address], [address], [facility] - [facility] 06/11/2024 09:23:59 4 Cerumen removal without microscope bilat completed JACKGATITO BURNS PA-C [address] [facility] [place],[facility] [address], [place], [address], [facility] - [facility] 04/09/2024 09:13:59 4 Cerumen removal without microscope bilat completed JACKRICHAR JACKSON-C [address] [facility],[address], [address], [facility] - [facility] 01/26/2024 09:50:56 Imaging Results None recorded. Procedure Notes None recorded. Medical Equipment None Reported. Allergies Allergen ID Allergen Name Allergen Category Reaction Reaction Severity Criticality Documentation Date Start Date Code Code System Note Provider Name and Address Organization Details Recorded Time 875442 amoxicill in / clavulana te medicatio n other Not available Not available 12/23/2023 77973 RxNorm React ion: unkno wn, unspe cifie d;; Not Available [facility] 4 01:14:08 468605 ciproflox acin hydrochlo ride medicatio n hives Not available Not available 12/23/2023 86236 RxNorm React ion: skin rashe s, hives ;; Not Available [facility] 4 01:14:08 485494 clarithro mycin medicatio n hives Not available Not available 12/23/2023 18064 RxNorm React ion: skin rashe s, hives ;; Not Available [facility] 4 01:14:09 924164 morphine medicatio n other Not available Not available 12/23/2023 7052 RxNorm React ion: unkno wn, unspe cifie d;; Not Available [facility] 4 01:14:11 023354 Cipro medicatio n Not available Not available Not available 04/09/2024 26501 3 RxNorm Nadia Potvin null, [place] - [facility] 4 09:07:59 757808 Biaxin medicatio n Not available Not available Not available 04/09/202428170 9 RxNorm Nadia Potvin null, [place] - [facility] [place] 4 09:08:10 205932 Augmentin medicatio n Not available Not available Not available 04/09/2024 08787 2 RxNorm Nadia Potvin null, [place] [facility] 4 09:08:25 065661 acetamino phen / oxycodone medicatio n Not available Not available Not available 04/09/2024 35968 3 RxNorm Nadia Potvin null, [place] [facility] 4 09:08:34 390519 cefuroxim e Not available Not available Not available Not available 04/09/2024 2194 RxNorm Nadia Potvin null, [place] [facility] 4 09:08:52 769539 ciproflox acin medicatio n Not available Not available Not available 04/09/2024 2551 RxNorm Nadia Potvin null, [place] [facility] 4 09:09:04 580103 clotrimaz ole medicatio n Not available Not available Not available 04/09/2024 2623 RxNorm Nadia Potvin null, [place] - [facility] 4 09:09:15 Medications Name Sig Start Date Stop Date Status Note LastModified by Organization Details LastModified Time Lotrisone 1 %-0.05 % topical cream 03/01 completed Medicati on ID: [id number] Pr escribed By Name: DAPHNE Canela nd Name: Lotrison e Send Method: E-Prescr ibed Sub s Allowed: subs OK Speci al Instruct ion: apply every 12 hours x 14 days. Me dication GenericN miguelangel: Lotrison e Not Available Not Available Not Available clotrimaz ole-betam ethasone 1 %-0.05 % lotion 03/01 completed Medicati on ID: [id number] Re ason: () Brand Name: Usha pacheco Send Method: E-Prescr ibed Sub s Allowed: subs OK Speci al Instruct ion: apply every 12 hours x 14 days. Me dication GenericN miguelangel: Lotrison e Not Available Not Available Not Available sucralfat e 1 gram tablet TAKE 1 TABLET BY MOUTH EVERYDAY AT BEDTIME active Not Available Not Available No t Available simvastat in 10 mg tablet TAKE 1 TABLET BY MOUTH AT BEDTIME active Not Available Not Available No t Available propranol ol 10 mg tablet TAKE 1 TABLET BY MOUTH TWICE A DAY active Not Available Not Available No t Available ofloxacin 0.3 % ear drops INSTILL 5 DROPS TWICE A DAY BY OTIC ROUTE FOR 10 DAYS, FOR LEFT EAR. active Not Available Not Available No t Available diazepam 2 mg tablet TAKE 1 TABLET BY MOUTH ONCE A DAY NEEDED. TOTAL DAILY DOSE=12 MG. PRIOR TO APPOINTM ENT[facility] active Not Available Not Available No t Available simvastat in 20 mg tablet 04/09 completed Medicati on ID: [id number] B rand Name: simvasta tin Send Method: E-Prescr ibed Sub s Allowed: subs OK Medic ationGen ericName : simvasta tin Not Available Not Available Not Available clotrimaz ole 1 % topical solution 04/09 completed Medicati on ID: [id number] D uration Value: 21 Prescri bed By Name: DAPHNE So nd Name: clotribrianna Bansal d Method: E-Prescr ibed Sub s Allowed: subs OK Speci al Instruct ion: 4 drops to affected ear three times a day X 21 days Med icationG enericNa me: clotrima zole Not Available Not Available Not Available docusate sodium 100 mg capsule TAKE 1 CAPSULE BY MOUTH EVERY DAY NEEDED FOR CONSTIPA TION active Not Available Not Available No t Available lorazepam 1 mg tablet 03/01 completed Medicati on ID: [id number] D uration Value: 15 Reason: () Brand Name: lorazepa m Send Method: E-Prescr ibed Sub s Allowed: subs OK Speci al Instruct ion: TK 1 TO 2 TS PO ONCE A DAY PRN Medi cationGe nericNam e: lorazepa m Not Available Not Available Not Available diazepam 10 mg tablet TAKE 1 TABLET BY MOUTH ONCE A DAY NEEDED TOTAL DAILY DOSE= 12 MG PRIOR TO APPOINTM ENTS NEEDED. active Not Available Not Available No t Available epinephri ne 0.3 mg/0.3 mL injection , auto-inje ctor INJECT 1 PEN INTRAMUS CULARLY ONCE NEEDED FOR ANAPHYLA XIS active Not Available Not Available No t Available propranol ol 20 mg tablet 07/30 completed Medicati on ID: [id number] D uration Value: 90 Brand Name: proprano lol Send Method: E-Prescr ibed Sub s Allowed: subs OK Speci al Instruct ion: TAKE 1 TABLET BY MOUTH TWICE A DAY Medi cationGe nericNam e: proprano lol Not Available Not Available Not Available risperido ne 0.5 mg tablet TAKE 1 TABLET BY MOUTH TWICE A DAY active Not Available Not Available No t Available TobraDex 0.3 %-0.1 % eye drops,ag pension 04/09 completed Medicati on ID: [id number] P rescribe d By Name: DAPHNE So nd Name: TobraDex Send Method: E-Prescr ibed Sub s Allowed: subs OK Speci al Instruct ion: Instill 3 drops in the affect ear BID for 14 days Med icationG enericNa me: TobraDex Not Available Not Available Not Available Ciprodex 0.3 %-0.1 % ear drops,ag pension 4 drop into left ear 04/09 completed Medicati on ID: [id number] D uration Value: 14 Prescri bed By [...] and Address Organization Details Last Updated DateTime 11/12/2024 160.02 cm 17.4 kg/m2 75654.05 g Lucia Packer [place] [facility] 11/12/2024 09:00:19 Date Recorded Body height Body mass index (BMI) Body weight Provider Name and Address Organization Details Last Updated DateTime 04/09/2024 160.02 cm 17.4 kg/m2 45322.05 g Nadia Gonzalezgudelia [facility] 04/09/2024 09:07:46 Date Recorded Body height Body mass index (BMI) Body weight Provider Name and Address Organization Details Last Updated DateTime 06/11/2024 160.02 cm 17.4 kg/m2 50301.05 g Lucia Packer [facility] 06/11/2024 09:14:05 Date Recorded Body height Body mass index (BMI) Body weight Provider Name and Address Organization Details Last Updated DateTime 07/23/2024 160.02 cm 17.4 kg/m2 59813.05 g Fátima Mas [facility] 07/23/2024 09:13:59 Date Recorded Body height Body mass index (BMI) Body weight Provider Name and Address Organization Details Last Updated DateTime 10/01/2024 160.02 cm 17.4 kg/m2 51729.05 g Cleo Shaw [facility] 10/01/2024 09:03:04 Social History None recorded. Functional Status None recorded. Mental Status None recorded. Family History Nothing Reported. Medical History No medical history recorded. Past Encounters Encounter ID Performer Location Encounter Start Date Encounter Closed Date Diagnosis/Indication Diagnosis SNOMED-CT Code Diagnosis ICD10 Code Diagnosis Note [id number] MONTSERRAT HATCH MD [facility] [address] [address] 01/26/2024 09:32:37 01/26/2024 09:50:16 Impacted cerumen of bilateral ears 5931885113 184544 H61.23 Pervasive developmental disorder of residual state 8650717818 9105 F84.9 [id number] MONTSERRAT HATCH MD [facility] [address] [address] 04/09/2024 08:55:18 04/09/2024 09:14:39 Impacted cerumen of bilateral ears 2288417310 318734 H61.23 [id number] GERRY RUSH MD [facility] [address] [address] 06/11/2024 08:54:13 06/11/2024 09:23:17 Impacted cerumen of bilateral ears 8242505007 123352 H61.23 [id number] GERRY RUSH MD [facility] [address] [address] 07/23/2024 09:08:55 07/23/2024 09:26:10 Impacted cerumen of bilateral ears 7480435253 471891 H61.23 Pervasive developmental disorder of residual state 0254451374 9105 F84.9 [id number] MONTSERRAT HATCH MD [facility] [address] [address] 10/01/2024 08:54:22 10/01/2024 09:10:22 Impacted cerumen of bilateral ears 4492940173 874541 H61.23 [id number] GERRY RUSH MD [facility] [address] [address] 11/12/2024 08:57:50 11/12/2024 09:11:16 Otitis externa 8822575 H60.92 Health Concerns Section Related Observation LastModified by Organization Detai ls LastModified Time None Recorded Concern Status LastModified by Organization Details LastModified Time None Recorded Advance Directives Directive None Recorded Payers Encounter Date Sequence Insurance Name Policy Number Policy Pemberton Covered Member ID Pemberton Member ID Guarantor Name 04/09/2024 1 [place] [employer] Sander Shook [id number] Sander Shook Jr 04/09/2024 2 [place] Sander Shook [id number] Sander Shook Jr 06/11/2024 1 [place] [employer] Sander Shook [id number] Sander Shook Jr 06/11/2024 2 [place] [facility] Sander Shook [id number] Sander Shook Jr 07/23/2024 1 [place] [employer] Sander Shook [id number] Sander Shook Jr 07/23/2024 2 [place] [facility] Sander Shook [id number] Sander Shook Jr 10/01/2024 1 [place] [employer] Sander Shook [id number] aSnder Shook Jr 10/01/2024 2 [place] [facility] Sander Shook [id number] Sander Shook Jr 11/12/2024 1 [place] [employer] aSnder Shook [id number] Sander Shook Jr 11/12/2024 2 [place] [facility] Sander Shook [id number] Sander Shook Jr Notes Date Note Type Note Provider Name and Address Organization Details Recorded Time 04/09/2024 text/html 58 year old male with persistent developmental delay presents with father for check of ears. Dad feels patient likely has cerumen impaction; he has been scratching the ears with his finger. There have been no complaints of otalgia and father has noted no otorrhea. MONTSERRAT FARNSWORTH MD [address] [place] [address], [phone], [facility] 04/09/2024 12:29:36 06/11/2024 text/html 58-year-old male with pervasive developmental delay presents with father for cerumen removal. Dad reports he has been sticking his fingers in his ears at times recently. There has been no noted otorrhea. GERRY RUSH MD [address] [place] [address],[address], [address], [facility] - [facility] 06/13/2024 07:07:07 07/23/2024 text/html 58-year-old male with pervasive developmental delay presents with father for cerumen removal. There has been no noted otorrhea. Does not seem to be experiencing otalgia. Dad has been instilling wax softening drops for the past several days. GERRY RUSH MD [address] [facility],[address], [address], [facility] 07/23/2024 12:49:12 10/01/2024 text/html 59-year-old male with pervasive developmental delay presents with father for cerumen removal. There has been no noted otorrhea. Does not seem to be experiencing otalgia, though he has been scratching the external ears a bit. Dad put in some wax softening drops yesterday. MONTSERRAT FARNSWORTH MD [address] [place] [address],[address], [address], [facility] 10/01/2024 12:36:20 11/12/2024 text/html 59 year old male with persistent pervasive developmental delay presents with father for evaluation of the ears. Has been sticking his fingers in the left ear. Dad saw some blood on his Q-tip, unsure whether he scratched himself or the ear has been bleeding without digital trauma. GERRY RUSH MD [address] [place] [address],[address], [address], [facility] 11/13/2024 09:13:46
== END 2024-12-03 15:23 | disposition home or self-care (01) ==
PROVIDERS: PCP Internal Medicine; Visit Provider Physician Assistant
DX: L23.9 Allergic contact dermatitis, unspecified cause (principal)

== ENCOUNTER → 2024-12-03 14:38 | Outpatient (BNVA) | payer MEDICARE, MEDICAID, SELFPAY | PROVIDERS: PCP Internal Medicine; Visit Provider Physician Assistant | DX: L23.9 Allergic contact dermatitis, unspecified cause (principal) | CPT/HCPCS: 99212 ==

== ENCOUNTER 2024-12-22 07:59 | Outpatient (REF) | payer MEDICARE, MEDICAID, SELFPAY ==
--- OUTSIDE RECORDS SUMMARY | 2024-12-22 08:02 | XMS_ITS | Data Portability ---
Author Organization [place] - [facility], Allergy Address [address] [address] Care Team Providers Care Literacy Specialist Name Role Phone JUAN ELY Primary Care [...] ofloxacin 0.3 % ear drops 2024 025 [facility] #[id number], [address] [facility], [place], [address], 11/12/2024 09:09:56 Patient TargetsNo targets recorded. Patient InstructionsNo instructions recorded. Reason for Referral None Reported. Problems Name Problem SNOMED Code Status Onset Date Resolution Date Notes Provider Name and Address Organization Details Recorded Time Candidal otitis externa 86350015 Completed 202003/12/2024 Candidal otitis externa; Note: Date Diagnose d: 1 9:22 AM (B37.84) Not Available [facility] 4 03:02:24 Chronic infectiv e otitis externa 787974078 Active 2014 Chronic otitis externa; Note: Date Diagnose d: 5 10:23 AM (380.16) Not Available [facility] 4 03:02:21 Otorrhea of left ear 25601897113 64654 Completed 202003/12/2024 Otorrhea , left ear; Note: Date Diagnose d: 1 9:22 AM (H92.12) Not Available [facility] 4 03:02:21 Otorrhea 99382629 Active 2013 Otorrhea ; Location : left [facility] Risk: low risk [facility] Treatmen t: new problem (to examiner ): addition al workup planned Conditio n: unstable Note: Date Diagnose d: 05/23/20 14 12:21 PM (388.60) Not Available [facility] 4 03:02:22 Infectiv e otitis externa of right ear 60907631364 84050 Active 2023 Other infectiv e otitis externa, right ear; Note: Date Diagnose d: 4 9:18 AM (H60.391 ) Not Available [facility] 4 03:02:23 Autism spectrum disorder 53894559 Active 2017 Pervasiv e developm ental disorder , unspecif ied; Note: Date Diagnose d: 07/06/20 18 9:15 AM (F84.9) Not Available [facility] 4 03:02:22 Otorrhea of right ear 90909926325 88916 Active 2023 Otorrhea , right ear; Note: Date Diagnose d: 4 9:17 AM (H92.11) Otorrh ea, right ear; Note: Date Diagnose d: 05/28/20 19 9:25 AM (H92.11) ; Start Date : 05/28/20 19 Not Available [facility] 4 03:02:22 Impacted cerumen of bilatera l ears 57335969817 46656 Active 2015 Impacted cerumen, bilatera l; Note: Date Diagnose d: 11/17/2015 10:16 AM (H61.23) Impact ed cerumen, bilatera l; Note: Date Diagnose d: 5 10:13 AM (H61.23) [mapped from ICD9 code: 380.4] ; Start Date : 02/21/20 Not Available [facility] 4 03:02:20 Impacted cerumen in left ear 64984102741 58170 Active 2020 Impacted cerumen, left ear; Note: Date Diagnose d: 05/25/20 21 11:14 AM (H61.22) Not Available [facility] 4 03:02:24 Impacted cerumen in right ear 03192200843 68516 Active 2021 Impacted cerumen, right ear; Note: Date Diagnose d: 2 9:25 AM (H61.21) Not Available [facility] 4 03:02:24 Impacted cerumen 16613001 Active 2014 Impacted cerumen; CMS Risk: low [...] Hospital 4 03:02:21 Abnormal granulat ion tissue 79868199 Active 2013 Other abnormal granulat ion tissue; Location : left CMS Risk: low risk [facility] Treatmen t: new problem (to examiner ): addition al workup planned Conditio n: unstable Note: Date Diagnose d: 05/23/20 14 12:21 PM (701.5) Not Available [facility] 4 03:02:23 Bilatera l disorder of Eustachi an tubes 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 - [facility] 4 09:51:19 Abnormal auditory percepti on 07005936 Active 2023 Other abnormal auditory percepti ons, unspecif ied ear; Note: Date Diagnose d: 09/17/2023 11:07 AM (H93.299 ) Not Available [facility] 4 03:02:23 Otitis externa 3922938 Active 2024 JACK BURNS PA-C [address] [facility],[place] [address], [place], [address] , [facility] - [facility] 5 09:09:19 Problem Notes None recorded. Procedures Surgical History Date Name Laterality Status Provider Name and Address Organization Details Recorded Time 5 Cerumen removal without microscope bilat completed JACK BURNS [facility]-C [address] [facility], [place], [address], [facility] - [facility] 10/01/2024 09:09:18 4 Cerumen removal without microscope bilat completed JACKGATITO BURNS PA-C [address] [place],[address], [place], [address], [facility] - [facility] 07/23/2024 09:27:30 4 Cerumen removal without microscope bilat completed JACK BURNS PA-C [address] [facility], [address], [facility] - [facility] 06/11/2024 09:23:59 4 Cerumen removal without microscope bilat completed JACKGATITO BURNS PA-C [address] [facility] [address], [place], [address], [facility] - [facility] 04/09/2024 09:13:59 4 Cerumen removal without microscope bilat completed JACKRICHAR JACKSON-C [address] [facility],[address], [address], [facility] - [facility] 01/26/2024 09:50:56 Imaging Results None recorded. Procedure Notes None recorded. Medical Equipment None Reported. Allergies Allergen ID Allergen Name Allergen Category Reaction Reaction Severity Criticality Documentation Date Start Date Code Code System Note Provider Name and Address Organization Details Recorded Time 444054 amoxicill in / clavulana te medicatio n other Not available Not available 12/23/2023 07989 RxNorm React ion: unkno wn, unspe cifie d;; Not Available [facility] 4 01:14:08 639361 ciproflox acin hydrochlo ride medicatio n hives Not available Not available 12/23/2023 02928 RxNorm React ion: skin rashe s, hives ;; Not Available [facility] 4 01:14:08 205748 clarithro mycin medicatio n hives Not available Not available 12/23/2023 38931 RxNorm React ion: skin rashe s, hives ;; Not Available [facility] 4 01:14:09 704080 morphine medicatio n other Not available Not available 12/23/2023 7052 RxNorm React ion: unkno wn, unspe cifie d;; Not Available [facility] 4 01:14:11 911955 Cipro medicatio n Not available Not available Not available 04/09/2024 93575 3 RxNorm Nadia Potvin null, [place] - [facility] 4 09:07:59 630383 Biaxin medicatio n Not available Not available Not available 04/09/202416363 9 RxNorm Nadia Potvin null, [place] - [facility] 4 09:08:10 021415 Augmentin medicatio n Not available Not available Not available 04/09/2024 72433 2 RxNorm Nadia Potvin null, [place] - [facility] 4 09:08:25 928828 acetamino phen / oxycodone medicatio n Not available Not available Not available 04/09/2024 73512 3 RxNorm Nadia Potvin null, [place] - [facility] 4 09:08:34 525599 cefuroxim e Not available Not available Not available Not available 04/09/2024 2194 RxNorm Nadia Potvin null, [place] - [facility] 4 09:08:52 385083 ciproflox acin medicatio n Not available Not available Not available 04/09/2024 2551 RxNorm Nadia Potvin null, [place] - [facility] 4 09:09:04 508405 clotrimaz ole medicatio n Not available Not available Not available 04/09/2024 2623 RxNorm Nadia Potvin null, [place] - [facility] 4 09:09:15 Medications Name Sig Start Date Stop Date Status Note LastModified by Organization Details LastModified Time Lotrisone 1 %-0.05 % topical cream 03/01 [place] Medicati on ID: [id number] Pr escribed By Name: DAPHNE Canela nd Name: Lotrison e Send Method: E-Prescr ibed Sub s Allowed: subs OK Speci al Instruct ion: apply every 12 hours x 14 days. Me dication GenericN miguelangel: Lotrison e Not Available Not Available Not Available clotrimaz ole-betam ethasone 1 %-0.05 % lotion 03/01 completed Medicati on ID: [id number] Re ason: () Brand Name: Usha pacheco [...] mg tablet 04/09 completed Medicati on ID: [id number] B rand Name: simvasta tin Send Method: E-Prescr ibed Sub s Allowed: subs OK Medic ationGen ericName : simvasta tin Not Available Not Available Not Available clotrimaz ole 1 % topical solution 04/09 completed Medicati on ID: [id number] D uration Value: 21 Prescri bed By [...] mg tablet 03/01 completed Medicati on ID: [id number] D uration Value: 15 Reason: () Brand [...] mg tablet 07/30 completed Medicati on ID: [id number] D uration Value: 90 Brand Name: proprano [...] drops,ag pension 04/09 completed Medicati on ID: [id number] P rescribe d By Name: DAPHNE So nd Name: TobraDex Send Method: E-Prescr ibed Sub s Allowed: subs OK Speci al Instruct ion: Instill 3 drops in the affect ear BID for 14 days Med icationG enericNa me: TobraDex Not Available Not Available Not Available Ciprodex 0.3 %-0.1 % ear drops,ag pension 4 drop into left ear 04/09 completed Medicati on ID: [id number] D uration Value: 14 Prescri bed By [...] Updated DateTime 11/12/2024 160.02 cm 17.4 kg/m2 57467.05 g Lucia Packer [place] - [facility] 11/12/2024 09:00:19 Date Recorded Body height Body mass index (BMI) Body weight Provider Name and Address Organization Details Last Updated DateTime 04/09/2024 160.02 cm 17.4 kg/m2 02912.05 g Nadia Gonzalezgudelia [place] - [facility] 04/09/2024 09:07:46 Date Recorded Body height Body mass index (BMI) Body weight Provider Name and Address Organization Details Last Updated DateTime 06/11/2024 160.02 cm 17.4 kg/m2 57066.05 g Lucia Packer [facility] 06/11/2024 09:14:05 Date Recorded Body height Body mass index (BMI) Body weight Provider Name and Address Organization Details Last Updated DateTime 07/23/2024 160.02 cm 17.4 kg/m2 99498.05 g Fátima Mas [facility] 07/23/2024 09:13:59 Date Recorded Body height Body mass index (BMI) Body weight Provider Name and Address Organization Details Last Updated DateTime 10/01/2024 160.02 cm 17.4 kg/m2 93006.05 g Cleo Shaw [facility] 10/01/2024 09:03:04 Social History None recorded. Functional Status None recorded. Mental Status None recorded. Family History Nothing Reported. Medical History No medical history recorded. Past Encounters Encounter ID Performer Location Encounter Start Date Encounter Closed Date Diagnosis/Indication Diagnosis SNOMED-CT Code Diagnosis ICD10 Code Diagnosis Note [id number] JACK BURNS PA-C [facility] [address] [address] 01/26/2024 09:32:37 01/26/2024 09:50:16 Impacted cerumen of bilateral ears 9130963864 735360 H61.23 Pervasive developmental disorder of residual state 9430064570 9105 F84.9 [id number] JACK BURNS PA-C [facility] [place] [address] [facility] [place] [address] 04/09/2024 08:55:18 04/09/2024 09:14:39 Impacted cerumen of bilateral ears 0773432751 492981 H61.23 [id number] JACK BURNS PA-C [facility] Marco Antonio [place] [address] [facility] [place] [address] 06/11/2024 08:54:13 06/11/2024 09:23:17 Impacted cerumen of bilateral ears 9838158482 432167 H61.23 [id number] JACK BURNS PA-C [facility] Marco Antonio Mae [address] [facility] [place] [address] 07/23/2024 09:08:55 07/23/2024 09:26:10 Impacted cerumen of bilateral ears 0836945848 816431 H61.23 Pervasive developmental disorder of residual state 8002337726 9105 F84.9 [id number] JACK BURNS PA-C [facility] [place] [address] [facility] [place] [address] 10/01/2024 08:54:22 10/01/2024 09:10:22 Impacted cerumen of bilateral ears 7707611344 693277 H61.23 [id number] JACK BURNS PA-C [facility] [place] [address] [place] [address] 11/12/2024 08:57:50 11/12/2024 09:11:16 Otitis externa 2896906 H60.92 Health Concerns Section Related Observation LastModified by Organization Detai ls LastModified Time None Recorded Concern Status LastModified by Organization Details LastModified Time None Recorded Advance Directives Directive None Recorded Payers Insurance Date Sequence Insurance Name Policy Number Policy Pemberton Covered Member ID Pemberton Member ID Guarantor Name 11/09/2024 1 MEDICARE B-[place]: [facility] Sander Shook [id number] Sander Shook Jr 11/09/2024 2 MEDICAID-[place]: [facility] Sander Shook [id number] Sander Shook Notes Date Note Type Note Provider Name and Address Organization Details Recorded Time 04/09/2024 text/html 58 year old male with persistent developmental delay presents with father for check of ears. Dad feels patient likely has cerumen impaction; he has been scratching the ears with his finger. There have been no complaints of otalgia and father has noted no otorrhea. MONTSERRAT FARNSWORTH MD [address] [facility],[address], [address], [facility] - [facility] 04/09/2024 12:29:36 06/11/2024 text/html 58-year-old male with pervasive developmental delay presents with father for cerumen removal. Dad reports he has been sticking his fingers in his ears at times recently. There has been no noted otorrhea. GERRY RUSH MD 100 [facility],[address], [address], [facility] - [facility] 06/13/2024 07:07:07 07/23/2024 text/html 58-year-old male with pervasive developmental delay presents with father for cerumen removal. There has been no noted otorrhea. Does not seem to be experiencing otalgia. Dad has been instilling wax softening drops for the past several days. GERRY RUSH MD [address] [facility],[address], [address], [facility] - [facility] 07/23/2024 12:49:12 10/01/2024 text/html 59-year-old male with pervasive developmental delay presents with father for cerumen removal. There has been no noted otorrhea. Does not seem to be experiencing otalgia, though he has been scratching the external ears a bit. Dad put in some wax softening drops yesterday. MONTSERRAT FARNSWORTH MD [address] [facility],[address], [address], [facility] - [facility] 10/01/2024 12:36:20 11/12/2024 text/html 59 year old male with persistent pervasive developmental delay presents with father for evaluation of the ears. Has been sticking his fingers in the left ear. Dad saw some blood on his Q-tip, unsure whether he scratched himself or the ear has been bleeding without digital trauma. GERRY RUSH MD [address] [place] [address], [place], [address], [facility] - [facility] 11/13/2024 09:13:46
[2024-12-22 08:46] LABS: Creatinine, mg/dL 32.89
[2024-12-22 12:27] LABS: Creatinine, 24Hr Urine 0.5 G/Day (1.0-2.0); Total Volume 24 Hour Urine 1600 mL
[2024-12-24 18:53] LABS: Calcium, 24 Hr Urine 150 mg/24 h; Calcium/Creatinine Ratio 285 mg/g creat (30-210); Creatinine 24Hr Urine 0.53 g/24 h (0.50-2.15)
== END 2024-12-22 08:00 | disposition home or self-care (01) ==
LOC: HO.LNP 07:59
PROVIDERS: Visit Provider Internal Medicine Endocrinology, Diabetes & Metabolism
DX: M81.0 Age-related osteoporosis without current pathological fracture (principal)
CPT/HCPCS: 82340; 82570

== ENCOUNTER 2024-12-30 07:48 | Outpatient (AMB) | payer MEDICARE, MEDICAID, SELFPAY ==
--- NOTE | 2024-12-30 07:51 | A.OFFVIS_ITS ---
Vital Signs 12/30/24 07:54 Height 5 ft 2.09 in Weight 89 lb 11.65 oz BMI 16.4 BP 102/62 Blood Pressure Location Rt brachial Position Sitting Pulse 63 Pulse Source Pulse Oximeter Pulse Oximetry (%) 96 Oxygen Delivery Method Room Air Intake Visit Reasons: Osteoporosis Intake Note: Patient present today for Osteoporosis follow up. Patient's father c/o of a rash breakout on the arms, flanks, and hips that has flared up 2-3 months ago. He stated patient is currenlty taking 1650 of calcium and is unsure if it related due to starting a new toothpaste at the same time of starting the calcium. Father states the rash is itchy and was prescribed Hydroxyzine and TAC 0.1% cream for the itching by PCP office. Hearing Aide Technician Required: No Accompanied by: Father Allergies clotrimazole Allergy (Intermediate, Verified 12/30/24 07:55) Rash acetaminophen [From ENDOCET] Allergy (Unknown, Verified 12/30/24 07:55) HIVES amoxicillin [From AUGMENTIN] Allergy (Unknown, Verified 12/30/24 07:55) HIVES cefuroxime [CEFUROXIME] Allergy (Unknown, Verified 12/30/24 07:55) HIVES ciprofloxacin [From CIPRO] Allergy (Unknown, Verified 12/30/24 07:55) HIVES, Rash, rash clarithromycin [From BIAXIN] Allergy (Unknown, Verified 12/30/24 07:55) HIVES clavulanic acid [From AUGMENTIN] Allergy (Unknown, Verified 12/30/24 07:55) HIVES morphine [MORPHINE] Allergy (Unknown, Verified 12/30/24 07:55) HIVES, Rash, rash oxycodone [From ENDOCET] Allergy (Unknown, Verified 12/30/24 07:55) HIVES HPI Comments Details: 59 YO male with PMHx CP is seen in consultation at the request of PCP for Osteoporosis.Hx from father , Pt not able to give hx ?First diagnosed Not Received treatment in the past History of pathologic fracture of hip from falling after dancing in [place] in 08/24/2020 or ON. Has several servings of dietary calcium per day in the form of cheese, milk . Takes Calcium supplement ? mg daily in divided doses. Takes 1000 IU of Vitamin D daily. Denies ever using PPI, anticoagulant, antiepileptic or glucocorticoid m edication. Not Does weight bearing exercise Fracture history: as above Height loss: No Denies history of Kidney stones: Has family history of Osteoporosis in both parents and mother had hip fracture. UTD on dental cleanings and sees dentist every 6 months. No planned upcoming dental work or extractions. DXA dated :TECHNIQUE: Dep-Xplora Dual energy absorptiometry (DEXA) of the lumbar spine, total right hip, and femoral neck was performed. The left hip was not evaluated due to history of prior screw fixation. COMPARISON: There are no prior studies for comparison. FINDINGS:09/17/24 The bone mineral density of the lumbar spine is 0.874 with a T-score of -3.0, and a Z-score of -1.4. The bone mineral density of the right total hip is 0.716 with a T-score of -2.7, and a Z-score of -1.4. The bone mineral density of the right femoral neck is 0.656 with a T-score of -3.2, and a Z-score of -1.4. MM/XR DEXA axial skeleton IMPRESSION: Based on bone mineral density, and according to World Health Organization (WHO) criteria, the diagnosis is consistent with osteoporosis. Labs: Secondary workup negative The patient is a 59-year-old male presenting with very low bone density, contributing to a high risk of fractures. The condition necessitates a discussion regarding bone-building treatment options, specifically daily injections over a defined period. Forteo and Tymlos are considered, with therapy durations of two years and 18 months respectively. The patient also reports a rash on his back, which has coincided with increased calcium intake and the use of a new toothpaste. The rash is being treated with topical creams, and it appears to be improving. Despite high calcium intake, urinary calcium levels are low, indicating insufficient calcium absorption. Alternative calcium supplements may be considered should the rash persist. - Calcium (1600 mg daily) in conjunction with vitamin D for bone health, rash suspected but not confirmed as a side effect. - Topical cream for rash management, responding with improvement but still present. The patient currently consumes 1600 mg of calcium daily through supplements, milk, and other sources. Despite this regimen, laboratory results indicate low urinary calcium. There is a consideration to switch to a different brand or formulation, such as Viactive chocolate chews, to identify if there is an intolerance to the current supplement. 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 Left inguinal hernia Sensorineural hearing loss Cerebral palsy Vitamin D deficiency Surgical History History of hip surgery History of cataract surgery S/P inguinal herniorrhaphy History of colonoscopy Hx laparoscopic cholecystectomy Family History Father Medical history non-contributory Mother Medical history non-contributory Social History Household Members: Family Housing: House Do you presently have visiting nurse or other home services: No Alcohol intake: never Comment: pt os calmer not moving around a lot Patient Tobacco Use Status: Never used Tobacco e-Cigarette/Vaping Use: Never Used Second Hand Smoke Exposure: No service: No Current occupational status: disabled Cognitive needs: Yes Hearing needs: Yes Vision needs: Yes Physical Exam Vital Signs: Last Vital Signs Pulse 63 12/30/24 07:54 BP 102/62 12/30/24 07:54 Pulse Ox 96 12/30/24 07:54 Oxygen Delivery Method Room Air 12/30/24 07:54 BMI result Body Mass Index 16.4 Assessment & Plan Assessment & Plan (1) Osteoporosis: Code(s): M81.0 - Age-related osteoporosis without current pathological fracture Category: Medical Plan: This is a 59-year-old white male with a history of cerebral palsy wheelchair- bound with a history of moderate to severe osteoporosis and previous hip fracture. Complete secondary workup was negative Plan is to strongly consider an anabolic agent such as Forteo or Tymlos proceeded by anti resorptive considering very low bone density and history of fracture. 1. Low bone density and high fracture risk The patient requires bone-building therapy due to very low bone density and high fracture risk. Options include daily injections of either Tymlos for 18 months or Forteo for 24 months, contingent on insurance approval, with preference based on cost and effectiveness. Treatment will be part of a comprehensive plan involving continued calcium and vitamin D supplement intake and stabilization therapy post-bone building to maintain gains. I discussed with the patient the critical nature of addressing his very low bone density to prevent fractures. We talked about starting a therapy plan, which includes either Forteo or Tymlos supported by calcium and vitamin D supplementation. The choice will depend on insurance coverage considerations, with Forteo being more likely to be approved. We discussed the administration of injections and the risk of dizziness, advising night-time administration. I also addressed the rash developed on his back, probably linked to recent changes in calcium intake and toothpaste use. The patient is considering a switch to a different calcium supplement if required, and a dermatology referral might be necessary if the rash does not resolve. - Begin prescribed bone-building therapy as directed. - Continue using topical cream for the rash and monitor its progress. - Consider switching to a different calcium supplement if the rash persists or worsens. - Take injections at night to reduce dizziness risks. - Follow upcoming instructions from the specialty pharmacy regarding treatment initiation. - The patient had an opportunity to ask questions regarding treatment plan. The patient expressed understanding and agreement with the above treatment plan. Patient was informed and verbally consented to the use of an ambient scribe for clinic note documentation during this visit. Medications: New abaloparatide (Tymlos) inject into abdomen; do not inject within 2 inches of belly button/navel; rotate sites 80 mcg (0.04 mL) subcut DAILY 1.56 mL 11RF pen needle, diabetic (Comfort EZ Pen [place]) As directed once a day 100 ea 3RF Coding Level of Care Code Est Pt Level 3 (71857) Diagnoses Osteoporosis M81.0
--- OUTSIDE RECORDS SUMMARY | 2024-12-30 07:51 | XMS_ITS | Data Portability ---
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 Patient InstructionsNo instructions recorded. Reason for Referral None Reported. Problems Name Problem SNOMED Code Status Onset Date Resolution Date Notes Provider Name and Address Organization Details Recorded Time Candidal otitis externa 93682985 Completed 202003/12/2024 Candidal otitis externa; Note: Date Diagnose d: 1 9:22 AM (B37.84) Not Available [facility] 4 03:02:24 Chronic infectiv e otitis externa 761925301 Active 2014 Chronic otitis externa; Note: Date Diagnose d: 5 10:23 AM (380.16) Not Available [facility] 4 03:02:21 Otorrhea of left ear [id number] 33314 Completed 202003/12/2024 Otorrhea , left ear; Note: Date Diagnose d: 1 9:22 AM (H92.12) Not Available [facility] 4 03:02:21 Otorrhea 55152332 Active 2013 Otorrhea ; Location : left [facility] Risk: low risk [facility] Treatmen t: new problem (to examiner ): addition al workup planned Conditio n: unstable Note: Date Diagnose d: 05/23/20 14 12:21 PM (388.60) Not Available [facility] 4 03:02:22 Infectiv e otitis externa of right ear 87932671174 22145 Active 2023 Other infectiv e otitis externa, right ear; Note: Date Diagnose d: 4 9:18 AM (H60.391 ) Not Available [facility] 4 03:02:23 Autism spectrum disorder 86703350 Active 2017 Pervasiv e developm ental disorder , unspecif ied; Note: Date Diagnose d: 07/06/20 18 9:15 AM (F84.9) Not Available [facility] 4 03:02:22 Otorrhea of right ear 83234776123 73744 Active 2023 Otorrhea , right ear; Note: Date Diagnose d: 4 9:17 AM (H92.11) Otorrh ea, right ear; Note: Date Diagnose d: 05/28/20 19 9:25 AM (H92.11) ; Start Date : 05/28/20 19 Not Available [facility] 4 03:02:22 Impacted cerumen of bilatera l ears 94965823000 07910 Active 2015 Impacted cerumen, bilatera l; Note: Date Diagnose d: 11/17/2015 10:16 AM (H61.23) Impact ed cerumen, bilatera l; Note: Date Diagnose d: 5 10:13 AM (H61.23) [mapped from ICD9 code: 380.4] ; Start Date : 02/21/20 Not Available [facility] 4 03:02:20 Impacted cerumen in left ear 63265170041 94654 Active 2020 Impacted cerumen, left ear; Note: Date Diagnose d: 05/25/20 21 11:14 AM (H61.22) Not Available [facility] 4 03:02:24 Impacted cerumen in right ear 26763345741 75453 Active 2021 Impacted cerumen, right ear; Note: Date Diagnose d: 2 9:25 AM (H61.21) Not Available [facility] 4 03:02:24 Impacted cerumen 41848715 Active 2014 Impacted cerumen; CMS Risk: low risk CMS Treatmen t: new problem (to examiner ): no addition al workup planned Impacte d cerumen; Location : right CM S Risk: low risk CMS Treatmen t: new problem (to examiner ): no addition al workup planned Note: Date Diagnose d: 05/23/20 14 12:22 PM (380.4) Not Available [facility] 4 03:02:21 Abnormal granulat ion tissue 83028688 Active 2013 Other abnormal granulat ion tissue; Location : left CMS Risk: low risk CMS Treatmen t: new problem (to examiner ): addition al workup planned Conditio n: unstable Note: Date Diagnose d: 05/23/20 14 12:21 PM (701.5) Not Available [facility] 4 03:02:23 Bilatera l disorder of Eustachi an tubes 12444308252 17533 Active 2017 Other specifie d disorder s of Eustachi an tube, bilatera l; Note: Date Diagnose d: 8 9:15 AM (H69.83) Not Available [facility] 4 03:02:21 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 - [facility] 4 09:51:19 Abnormal auditory percepti on 78015042 Active 2023 Other abnormal auditory percepti ons, unspecif ied ear; Note: Date Diagnose d: 09/17/2023 11:07 AM (H93.299 ) Not Available [facility] 4 03:02:23 Otitis externa 4358853 Active 2024 JACK BURNS PA-C [address] [facility],[place] [address], [place], [address] , [facility] - [facility] 5 09:09:19 Problem Notes None recorded. Procedures Surgical History Date Name Laterality Status Provider Name and Address Organization Details Recorded Time 5 Cerumen removal without microscope bilat completed JACK BURNS PA-C [address] [facility] [place],[address], [place], [address], [facility] - [facility] 10/01/2024 09:09:18 4 Cerumen removal without microscope bilat completed JACKGATITO BURNS PA-C [address] [place],[address], [place], [address], [facility] - [facility] 07/23/2024 09:27:30 4 Cerumen removal without microscope bilat completed JACK BURNS PA-C [address] [facility] [place],[address], [address], [facility] - [facility] 06/11/2024 09:23:59 4 Cerumen removal without microscope bilat completed JACKGATITO BURNS PA-C [address] [facility] [place],[address], [place], [address], [facility] - [facility] 04/09/2024 09:13:59 4 Cerumen removal without microscope bilat completed JACKRICHAR JACKSON-C [address] [facility],[address], [address], [facility] - [facility] 01/26/2024 09:50:56 Imaging Results None recorded. Procedure Notes None recorded. Medical Equipment None Reported. Allergies Allergen ID Allergen Name Allergen Category Reaction Reaction Severity Criticality Documentation Date Start Date Code Code System Note Provider Name and Address Organization Details Recorded Time 897976 amoxicill in / clavulana te medicatio n other Not available Not available 12/23/2023 73924 RxNorm React ion: unkno wn, unspe cifie d;; Not Available [facility] 4 01:14:08 492038 ciproflox acin hydrochlo ride medicatio n hives Not available Not available 12/23/2023 80401 RxNorm React ion: skin rashe s, hives ;; Not Available [facility] 4 01:14:08 258563 clarithro mycin medicatio n hives Not available Not available 12/23/2023 68155 RxNorm React ion: skin rashe s, hives ;; Not Available [facility] 4 01:14:09 456431 morphine medicatio n other Not available Not available 12/23/2023 7052 RxNorm React ion: unkno wn, unspe cifie d;; Not Available [facility] 4 01:14:11 093955 Cipro medicatio n Not available Not available Not available 04/09/2024 95132 3 RxNorm Nadia Potvin null, [place] - [facility] 4 09:07:59 181156 Biaxin medicatio n Not available Not available Not available 04/09/202413948 9 RxNorm Nadia Potvin null, [place] - [facility] 4 09:08:10 672877 Augmentin medicatio n Not available Not available Not available 04/09/2024 07197 2 RxNorm Nadia Potvin null, [place] - [facility] 4 09:08:25 489772 acetamino phen / oxycodone medicatio n Not available Not available Not available 04/09/2024 86424 3 RxNorm Nadia Potvin null, [place] - [facility] 4 09:08:34 281432 cefuroxim e Not available Not available Not available Not available 04/09/2024 2194 RxNorm Nadia Potvin null, [place] - [facility] 4 09:08:52 991397 ciproflox acin medicatio n Not available Not available Not available 04/09/2024 2551 RxNorm Nadia Potvin null, [place] - [facility] 4 09:09:04 047011 clotrimaz ole medicatio n Not available Not available Not available 04/09/2024 2623 RxNorm Nadia Potvin null, [place] - [facility] 4 09:09:15 Medications Name Sig Start Date Stop Date Status Note LastModified by Organization Details LastModified Time Lotrisone 1 %-0.05 % topical cream 03/01 completed Medicati on ID: [id number] Pr escribed By Name: DAPHNE Canela nd Name: Lotrison e Send Method: E-Prescr ibed Sub s Allowed: subs [place] Speci al Instruct ion: apply every 12 hours x 14 days. Me dication GenericN miguelangel: Lotrison e Not Available Not Available Not Available clotrimaz ole-betam ethasone 1 %-0.05 % lotion 03/01 completed Medicati on ID: [id number] Re ason: () Brand Name: Usha pacheco [...] Not Available Not Available No t Available triamcino lone acetonide 0.1 % topical cream APPLY TOPICALL Y TWICE A DAY active Not Available Not [...] mg tablet 04/09 completed Medicati on ID: [id number] B rand Name: artis kern Send Method: E-Prescr ibed Sub s Allowed: subs [place] Medic ationGen ericName : simvasta tin Not Available Not Available Not Available clotrimaz ole 1 % topical solution 04/09 completed Medicati on ID: [id number] D uration Value: 21 Prescri bed By Name: DAPHNE So nd Name: clotribrianna white Method: E-Prescr ibed Sub s Allowed: subs [...] mg tablet 03/01 completed Medicati on ID: [id number] D uration Value: 15 Reason: () Brand Name: lorazepa m Send Method: E-Prescr ibed Sub s Allowed: subs [place] al Instruct ion: TK 1 TO 2 [...] mg tablet 07/30 completed Medicati on ID: [id number] D uration Value: 90 Brand Name: proprano lol Send Method: E-Prescr ibed Sub s Allowed: subs [place] sotelo Instruct ion: TAKE 1 TABLET BY MOUTH TWICE A DAY Medi cationGe nericNam e: proprano lol Not Available Not Available Not Available hydroxyzi ne HCl 10 mg tablet TAKE 2 TABLETS ORALLY EVERY 6 TO 8 HOURS NEEDED FOR ITCHING active Not Available Not Available No t Available risperido ne 0.5 mg tablet TAKE 1 TABLET BY MOUTH TWICE A DAY active Not Available Not Available No t Available TobraDex 0.3 %-0.1 % eye drops,ag pension 04/09 completed Medicati on ID: [id number] P rescribe d By Name: DAPHNE So nd Name: TobraDex Send Method: E-Prescr ibed Sub s Allowed: subs [place] sotelo Instruct ion: Instill 3 drops in the affect ear BID for 14 days Med icationG enericNa me: TobraDex Not Available Not Available Not Available Ciprodex 0.3 %-0.1 % ear drops,ag pension 4 drop into left ear 04/09 completed Medicati on ID: [id number] D uration Value: 14 Prescri bed By Name: Felipa Marina, PA-C Bra nd Name: Ciprodex Send Method: E-Prescr ibed [...] Updated DateTime 11/12/2024 160.02 cm 17.4 kg/m2 03289.05 g Lucia Packer [place] - [facility] 11/12/2024 09:00:19 Date Recorded Body height Body mass index (BMI) Body weight Provider Name and Address Organization Details Last Updated DateTime 04/09/2024 160.02 cm 17.4 kg/m2 38957.05 g Nadia Wise [place] - [facility] 04/09/2024 09:07:46 Date Recorded Body height Body mass index (BMI) Body weight Provider Name and Address Organization Details Last Updated DateTime 06/11/2024 160.02 cm 17.4 kg/m2 79328.05 g Lucia Packer [place] - [facility] 06/11/2024 09:14:05 Date Recorded Body height Body mass index (BMI) Body weight Provider Name and Address Organization Details Last Updated DateTime 07/23/2024 160.02 cm 17.4 kg/m2 26774.05 g Fátima Mas [place] - [facility] 07/23/2024 09:13:59 Date Recorded Body height Body mass index (BMI) Body weight Provider Name and Address Organization Details Last Updated DateTime 10/01/2024 160.02 cm 17.4 kg/m2 33894.05 g Cloe Shaw [place] - [facility] 10/01/2024 09:03:04 Social History None recorded. Functional Status None recorded. Mental Status None recorded. Family History Nothing Reported. Medical History No medical history recorded. Past Encounters Encounter ID Performer Location Encounter Start Date Encounter Closed Date Diagnosis/Indication Diagnosis SNOMED-CT Code Diagnosis ICD10 Code Diagnosis Note [id number] JACK BURNS PA-C [facility] [address] [place], [place] [address] 01/26/2024 09:32:37 01/26/2024 09:50:16 Impacted cerumen of bilateral ears 3914207264 463154 H61.23 Pervasive developmental disorder of residual state 2968662294 9105 F84.9 [id number] RICHAR HAM-C [facility] [address] [facility], [place] [address] 04/09/2024 08:55:18 04/09/2024 09:14:39 Impacted cerumen of bilateral ears 7023610794 452674 H61.23 [id number] FRANCIS HAMC [facility] [address] [facility], [place] [address] 06/11/2024 08:54:13 06/11/2024 09:23:17 Impacted cerumen of bilateral ears 5290858525 448055 H61.23 [id number] FRANCIS [facility]C [facility] [address] [facility] [place] [address] 07/23/2024 09:08:55 07/23/2024 09:26:10 Impacted cerumen of bilateral ears 7350487639 454238 H61.23 Pervasive developmental disorder of residual state 6276375181 9105 F84.9 [id number] FRANCIS HAMC [facility] [address] [facility] [place] [address] 10/01/2024 08:54:22 10/01/2024 09:10:22 Impacted cerumen of bilateral ears 5022994933 515676 H61.23 [id number] FRANCIS HAMC [facility] [address] [facility] [place] [address] 11/12/2024 08:57:50 11/12/2024 09:11:16 Otitis externa 4937881 H60.92 Health Concerns Section Related Observation LastModified by Organization Detai ls LastModified Time None Recorded Concern Status LastModified by Organization Details LastModified Time None Recorded Advance Directives Directive None Recorded Payers Insurance Date Sequence Insurance Name Policy Number Policy Pemberton Covered Member ID Pemberton Member ID Guarantor Name 12/29/2024 1 [place] [employer] Sander Shook [id number] Sander Shook Jr 12/28/2024 2 [place] [facility] Sander Shook [id number] Sander Shook Jr Notes Date Note Type [...] noted no otorrhea. MONTSERRAT FARNSWORTH MD [address] [facility],[address], [address], [facility] - [facility] 04/09/2024 12:29:36 06/11/2024 text/html 58-year-old male with pervasive developmental delay presents with father for cerumen removal. Dad reports he has been sticking his fingers in his ears at times recently. There has been no noted otorrhea. GERRY RUSH MD [address] [place] [address],[address], [address], [facility] - [facility] 06/13/2024 07:07:07 07/23/2024 text/html 58-year-old male with pervasive developmental delay presents with father for cerumen removal. There has been no noted otorrhea. Does not seem to be experiencing otalgia. Dad has been instilling wax softening drops for the past several days. GERRY RUSH MD [address] [facility],[address], [address], [facility] - [facility] 07/23/2024 12:49:12 10/01/2024 text/html 59-year-old male with pervasive developmental delay presents with father for cerumen removal. There has been no noted otorrhea. Does not seem to be experiencing otalgia, though he has been scratching the external ears a bit. Dad put in some wax softening drops yesterday. MONTSERRAT FARNSWORTH MD [address] [facility] [address], [place], [address], [facility] - [facility] 10/01/2024 12:36:20 11/12/2024 text/html 59 year old male with persistent pervasive developmental delay presents with father for evaluation of the ears. Has been sticking his fingers in the left ear. Dad saw some blood on his Q-tip, unsure whether he scratched himself or the ear has been bleeding without digital trauma. GERRY RUSH MD [address] [place] [address], [place], [address], [facility] - [facility] 11/13/2024 09:13:46
[2024-12-30 07:54] VITALS: BP 102/62; PULSE 63; O2SAT 96; BMI 16.4
== END 2024-12-30 08:20 | disposition home or self-care (01) ==
LOC: HO.ENCR 07:49
PROVIDERS: PCP Internal Medicine; Visit Provider Internal Medicine Endocrinology, Diabetes & Metabolism
DX: M81.0 Age-related osteoporosis without current pathological fracture (principal)
CPT/HCPCS: 99213

== ENCOUNTER → 2024-12-30 07:48 | Outpatient (BNVA) | payer MEDICARE, MEDICAID, SELFPAY | PROVIDERS: PCP Internal Medicine; Visit Provider Internal Medicine Endocrinology, Diabetes & Metabolism | DX: M81.0 Age-related osteoporosis without current pathological fracture (principal) | CPT/HCPCS: 99212 ==

== ENCOUNTER → 2025-01-31 09:21 | Outpatient (BNVA) | payer MEDICARE, MEDICAID, SELFPAY | PROVIDERS: PCP Internal Medicine; Visit Provider Internal Medicine Endocrinology, Diabetes & Metabolism | DX: Z13.89 Encounter for screening for other disorder (principal) ==

== ENCOUNTER 2025-03-03 13:21 | Outpatient (AMB) | payer MEDICARE, MEDICAID, SELFPAY ==
[2025-03-03 13:26] VITALS: BP 102/62; PULSE 83; O2SAT 91; BMI 16.1
--- NOTE | 2025-03-03 13:26 | A.OFFVIS_ITS ---
Vital Signs 03/03/25 13:26 Height 5 ft 2 in Weight 88 lb 2.958 oz BMI 16.1 BP 102/62 Blood Pressure Location Rt brachial Position Sitting Pulse 83 Pulse Source Pulse Oximeter Pulse Oximetry (%) 91 L Oxygen Delivery Method Room Air Intake Visit Reasons: trent Intake Note: pt is here for follow up and is due for a replacment cpap Allergies clotrimazole Allergy (Intermediate, Verified 03/03/25 13:34) Rash acetaminophen (From ENDOCET) Allergy (Unknown, Verified 03/03/25 13:34) HIVES amoxicillin (From AUGMENTIN) Allergy (Unknown, Verified 03/03/25 13:34) HIVES cefuroxime (CEFUROXIME) Allergy (Unknown, Verified 03/03/25 13:34) HIVES ciprofloxacin (From CIPRO) Allergy (Unknown, Verified 03/03/25 13:34) HIVES, Rash, rash clarithromycin (From BIAXIN) Allergy (Unknown, Verified 03/03/25 13:34) HIVES clavulanic acid (From AUGMENTIN) Allergy (Unknown, Verified 03/03/25 13:34) HIVES morphine (MORPHINE) Allergy (Unknown, Verified 03/03/25 13:34) HIVES, Rash, rash oxycodone (From ENDOCET) Allergy (Unknown, Verified 03/03/25 13:34) HIVES Medication List - Last Reconciled 03/03/25 by Bassem Márquez MD cholecalciferol (vitamin D3) 25 mcg PO DAILY diazepam 4 mg PO ONCE PRN docusate sodium 100 mg PO DAILY PRN epinephrine 0.3 mg (0.3 mL) IM ONCE PRN hydroxyzine HCl 20 mg (2 x 10 mg) PO Q6-8H PRN olopatadine 0.2% (Pataday Once Daily Relief) 1 drp ophthalmic (eye) DAILY pen needle, diabetic (Comfort EZ Pen [place]) As directed once a day propranolol 10 mg PO BID risperidone 0.5 mg PO BID simvastatin 10 mg PO BEDTIME sucralfate 1 g PO BEDTIME teriparatide 20 mcg (0.08 mL) subcut DAILY triamcinolone acetonide 0.1% 1 appl topical BID Do you need a note to return to daycare/school/sports/work: No HPI HPI trent: Details: AMILCAR IS 59 YEARS OLD GENTLEMAN WITH CHRONIC PSYCHOTIC DISORDER, CONGENITAL HARVEY DENTAL MALFORMATION AND OBSTRUCTIVE SLEEP APNEA ALONG WITH MANY OTHER MEDICAL ISSUES. HE COMES HERE AFTER 6 MONTHS FOR FOLLOW-UP. HIS FATHER TAKES GOOD CARE OF HIM, AND STATES THAT AMILCAR USES CPAP EVERY NIGHT 6-7 HOURS PER NIGHT AND SLEEPS WELL. THE CPAP EQUIPMENT IS MORE THAN 5 YEARS OLD AND IS NOT TRANSMITTING THE COMPLIANCE DATA. TODAY AMILCAR COMES AND IS RELATIVELY QUIET AND PLEASANT, IN GOOD MOOD. [facility] Medical History Osteoporosis History of fracture of left hip Mentally challenged Underweight Weight loss, non-intentional TRENT on CPAP Dyslipidemia Dysphagia Mental and behavioral problems with learning Closed subcapital fracture of left femur Anemia Normocytic normochromic anemia Psychotic disorder Gallstones 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 Left inguinal hernia Sensorineural hearing loss Cerebral palsy Vitamin D deficiency Surgical History History of hip surgery History of cataract surgery S/P inguinal herniorrhaphy History of colonoscopy Hx laparoscopic cholecystectomy Family History Father Medical history non-contributory Mother Medical history non-contributory Social History Household Members: Family Housing: House Do you presently have visiting nurse or other home services: No Alcohol intake: never Comment: pt os calmer not moving around a lot Patient Tobacco Use Status: Never used Tobacco e-Cigarette/Vaping Use: Never Used Second Hand Smoke Exposure: No service: No Current occupational status: disabled Cognitive needs: Yes Hearing needs: Yes Vision needs: Yes Review of Systems Const Unobtainable due to mental status and Other (However according to his father who takes care of him, he does not have any) Physical Exam AMILCAR IS IN A BAD MOOD TODAY HE IS VERY AGGRESSIVE AND WOULD NOT LET ME, NEAR HIM. SO I COULD NOT CONDUCT ANY PHYSICAL EXAMINATION. LOOKING AT HIM HE LOOKS JUST SAME USUAL. Const General: combative Orientation/consciousness: patient oriented x3 HEENT Head: Yes normal to inspection General nose exam: No nasal polyps present and No nasal discharge present Face and sinus: Yes sinuses nontender Mouth: oropharynx normal Throat: Yes posterior oropharynx normal Eyes General: appearance normal, both eyes and all related structures Neck Neck: Yes no lymphadenopathy, Yes supple and Yes no JVD Thyroid: Thyroid normal Chest Chest palpation & inspection: normal inspection of the chest, normal palpation of entire chest wall and no tenderness Resp Other: Good breath sounds on both sides and clear to auscultation Cardio Jugular venous distension: JVD Palpation: normal PMI Rate: regular rate Rhythm: regular rhythm Heart sounds: no gallops and no murmurs Peripheral pulses: Peripheral pulses 2+ throughout GI Palpation (GI): Soft to palpation, nontender and no masses Auscultation: normal bowel sounds Back/Spine/Pelvis Thoracic/Lumbar Spine: thoracic and lumbar spine normal to inspection Skin General skin exam: no rashes or lesions noted Neuro General: patient oriented x3 and No gait normal (Abnormal, spastic, he needs 1 persons assistance to walk) Cranial nerves: Yes CN's II-XII intact bilaterally Extrem General: Yes no clubbing, cyanosis or edema Psych Speech and movement: Normal speech and movement present Affect: Hostile affect present (He is somewhat combative today because he had to wait a little longer . ) Results Reviewed Results Reviewed: COMPLIANCE REPORT NOT AVAILABLE BUT ACCORDING TO FATHER HE USES EVERY NIGHT FOR 6-7 HOURS PER NIGHT , AND THERE IS NO SPECIFIC ISSUE EXCEPT THAT THE DEVICE IS MORE THAN 5 YEARS OLD, AND PROMPTING TO BE REPLACED. Assessment & Plan Assessment & Plan (1) Psychotic disorder: Comment: followed by Dr. Suazo AND REMAINS STABLE. AMILCAR HAS FREQUENT VARIATIONS IN HIS MOOD. TODAY HE IS VERY CALM STABLE AND FRIENDLY. Code(s): F29 - Unspecified psychosis not due to a substance or known physiological condition Category: Medical Qualifiers: Psychosis type: unspecified psychosis type Qualified Code(s): F29 - Unspecified psychosis not due to a substance or known physiological condition Plan: CONTINUE UNDER CARE OF MENTAL HEALTH TEAM (2) TRENT on CPAP: Comment: AMILCAR HAS OBSTRUCTIVE SLEEP APNEA SECONDARY TO HIS HARVEY DENTAL MALFORMATION. HE IS DEPENDENT ON CPAP, AND REMAINS VERY COMPLIANT. NOTED ABOVE THE CPAP DEVICE NEEDS TO BE REPLACED WITH A NEW MODEL Code(s): G47.33 - Obstructive sleep apnea (adult) (pediatric); Z99.89 - Dependence on other enabling machines and devices Category: Medical Plan: ORDER FOR NEW CPAP DEVICE IS SENT TO THE DME PROVIDER FATHER WILL COMMUNICATE WITH US IF THERE IS ANY ISSUE IN THE USE OF THE NEW DEVICE. WE WOULD SEE AMILCAR OUT 6 MONTHS UNLESS THERE IS A NEED TO SEE HIM BEFORE . Coding Level of Care Code Est Pt Level 3 (30299) Diagnoses Psychosis, unspecified psychosis type F29 Psychosis type: unspecified psychosis type TRENT on CPAP G47.33; Z99.89
--- OUTSIDE RECORDS SUMMARY | 2025-03-03 13:28 | XMS_ITS | Data Portability ---
Author Organization [place] - [facility], Allergy Address [address] [address] Care Team Providers Care Chemical Mixer Name Role Phone JUAN ELY Primary Care Provider Assessment Encounter Date Assessment Date Assessment LastModified by Organization Details LastModified Time 06/11/2024 06/11/2024 Cerumen successfully removed today bilaterally, [...] lack of improvement. Not available 11/12/2024 09:13:51 12/31/2024 12/31/2024 59-year-old male with developmental delay presents for reevaluation of left-sided otitis externa. He reports otologic symptoms resolved with topical ofloxacin. No hearing concerns today. Cerumen impactions removed from bilateral external auditory canals. TMs are normal to inspection. Recommend follow-up in 2 months for routine cerumen debridement, sooner with concerns. [email or web address] Not available 12/31/2024 16:35:37 Plan of Treatment Reminders Order Date Submit Date Provider Last Modified By Organization Details Last Modified Time Details Appointments Establish ed 15 2024 09:15A M RICHARD OROZCO PA-C Not available Not available Not available Lab None recorded. Referral None recorded. Procedures None recorded. Surgeries None recorded. Imaging None recorded. Medication Orders ofloxacin 0.3 % ear drops 2024 025 [facility] #[id number], [address] [place], [address], 11/12/2024 09:09:56 Patient TargetsNo targets recorded. Patient InstructionsNo instructions recorded. Reason for Referral None Reported. Problems Name Problem SNOMED Code Status Onset Date Resolution Date Notes Provider Name and Address Organization Details Recorded Time Otorrhea 41313459 Active 2013 Otorrhea ; Location : left CMS Risk: low risk CMS Treatmen t: new problem (to examiner ): addition al workup planned Conditio n: unstable Note: Date Diagnose d: 05/23/20 14 12:21 PM (388.60) Not Available [facility] 4 03:02:22 Abnormal granulat ion tissue 66059632 Active 2013 Other abnormal granulat ion tissue; Location : left [facility] Risk: low risk CMS Treatmen t: new problem (to examiner ): addition al workup planned Conditio n: unstable Note: Date Diagnose d: 05/23/20 14 12:21 PM (701.5) Not Available [facility] 4 03:02:23 Chronic infectiv e otitis externa 410165507 Active 2014 Chronic otitis externa; Note: Date Diagnose d: 5 10:23 AM (380.16) Not Available [facility] 4 03:02:21 Impacted cerumen 94685514 Active 2014 Impacted cerumen; CMS Risk: low risk CMS Treatmen t: new problem (to examiner ): no addition al workup planned Impacte d cerumen; Location : right S Risk: low risk CMS Treatmen t: new problem (to examiner ): no addition al workup planned Note: Date Diagnose d: 05/23/20 14 12:22 PM (380.4) Not Available [facility] 4 03:02:21 Impacted cerumen of bilatera l ears 67001448870 43301 Active 2015 Impacted cerumen, bilatera l; Note: Date Diagnose d: 11/17/2015 10:16 AM (H61.23) Impact ed cerumen, bilatera l; Note: Date Diagnose d: 5 10:13 AM (H61.23) [mapped from ICD9 code: 380.4] ; Start Date : 02/21/20 15 Not Available [facility] 4 03:02:20 Bilatera l disorder of Eustachi an tubes 95643663143 64844 Active 2017 Other specifie d disorder s of Eustachi an tube, bilatera l; Note: Date Diagnose d: 8 9:15 AM (H69.83) Not Available [facility] 4 03:02:21 Autism spectrum disorder 83793028 Active 2017 Pervasiv e developm ental disorder , unspecif ied; Note: Date Diagnose d: 07/06/20 18 9:15 AM (F84.9) Not Available [facility] 4 03:02:22 Candidal otitis externa 53762083 Completed 202003/12/2024 Candidal otitis externa; Note: Date Diagnose d: 1 9:22 AM (B37.84) Not Available [facility] 4 03:02:24 Otorrhea of left ear 08760784283 77233 Completed 202003/12/2024 Otorrhea , left ear; Note: Date Diagnose d: 1 9:22 AM (H92.12) Not Available [facility] 4 03:02:21 Impacted cerumen in left ear 92247472690 83163 Active 2020 Impacted cerumen, left ear; Note: Date Diagnose d: 05/25/20 21 11:14 AM (H61.22) Not Available [facility] 4 03:02:24 Impacted cerumen in right ear 08440685430 83968 Active 2021 Impacted cerumen, right ear; Note: Date Diagnose d: 2 9:25 AM (H61.21) Not Available [facility] 4 03:02:24 Infectiv e otitis externa of right ear 32333284581 85453 Active 2023 Other infectiv e otitis externa, right ear; Note: Date Diagnose d: 4 9:18 AM (H60.391 ) Not Available [facility] 4 03:02:23 Otorrhea of right ear 34024627087 62166 Active 2023 Otorrhea , right ear; Note: Date Diagnose d: 4 9:17 AM (H92.11) Otorrh ea, right ear; Note: Date Diagnose d: 05/28/20 9:25 AM (H92.11) ; Start Date : 05/28/20 Not Available [facility] 4 03:02:22 Abnormal auditory percepti on 28893592 Active 2023 Other abnormal auditory percepti ons, unspecif ied ear; Note: Date Diagnose d: 09/17/2023 11:07 AM (H93.299 ) Not Available [facility] 4 03:02:23 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 Procedures Surgical History Date Name Laterality Status Provider Name and Address Organization Details Recorded Time 5 Cerumen removal without microscope bilat completed RICHARD OROZCO PA-C 100 [facility],[place] [address], [address], [place] [facility] 12/31/2024 09:08:48 5 Cerumen removal without microscope bilat completed JACK BURNS PA-C [address],[place] [address] [place] [address], [address], [place] - [facility] 10/01/2024 09:09:18 4 Cerumen removal without microscope bilat completed JACK BURNS PA-C [address] [facility] [place] [address] [place] [address], [address], [place] [facility] 07/23/2024 09:27:30 4 Cerumen removal without microscope bilat completed JACK BURNS PA-C [address] [facility] [place],[address], [address], [place] - [facility] 06/11/2024 09:23:59 4 Cerumen removal without microscope bilat completed JACK BURNS PA-C [address] [facility] [place] [address] [place] [address], [address], [place] [facility] 04/09/2024 09:13:59 4 Cerumen removal without microscope bilat completed [facility] [place],[address], [address], [place] [facility] 01/26/2024 09:50:56 Imaging Results None recorded. Procedure Notes None recorded. Medical Equipment None Reported. Allergies Allergen ID Allergen Name Allergen Category Reaction Reaction Severity Criticality Documentation Date Start Date Code Code System Note Provider Name and Address Organization Details Recorded Time 750869 amoxicill in / clavulana te medicatio n other Not available Not available 12/23/2023 08901 RxNorm React ion: unkno wn, unspe cifie d;; Not Available [facility] 01:14:08 212513 ciproflox acin hydrochlo ride medicatio n hives Not available Not available 12/23/2023 44338 RxNorm React ion: skin rashe s, hives ;; Not Available [facility] 4 01:14:08 028631 clarithro mycin medicatio n hives Not available Not available 12/23/2023 42056 RxNorm React ion: skin rashe s, hives ;; Not Available [facility] 4 01:14:09 556101 morphine medicatio n other Not available Not available 12/23/2023 7052 RxNorm React ion: unkno wn, unspe cifie d;; Not Available [facility] 4 01:14:11 979646 Cipro medicatio n Not available Not available Not available 04/09/2024 67510 3 RxNorm Nadia Potvin null, [place] - [facility] 4 09:07:59 012036 Biaxin medicatio n Not available Not available Not available 04/09/2024 68359 9 RxNorm Nadia Potvin null, [place] - [facility] 4 09:08:10 858008 Augmentin medicatio n Not available Not available Not available 04/09/2024 21680 2 RxNorm Nadia Potvin null, [place] - [facility] 4 09:08:25 551237 acetamino phen / oxycodone medicatio n Not available Not available Not available 04/09/2024 63684 3 RxNorm Nadia Potvin null, [place] - [facility] 4 09:08:34 986071 cefuroxim e Not available Not available Not available Not available 04/09/2024 2194 RxNorm Nadia Potvin null, [place] [facility] 4 09:08:52 851017 ciproflox acin medicatio n Not available Not available Not available 04/09/2024 2551 RxNorm Nadia Potvin null, [place] - [facility] 4 09:09:04 857652 clotrimaz ole medicatio n Not available Not available Not available 04/09/2024 2623 RxNorm Nadia Potvin null, [place] [facility] 09:09:15 Medications Name Sig Start Date Stop Date Status Note LastModified by Organization Details LastModified Time Lotrisone 1 %-0.05 % topical cream 03/01 completed Medicati on ID: [id number] Pr escribed By Name: DAPHNE Canela nd Name: Lotrison e Send Method: E-Prescr ibed Sub s Allowed: subs [place] Speci al Instruct ion: apply every 12 hours x 14 days. Me dication GenericN miguelangel: Lotrison e Not Available Not Available Not Available clotrimaz ole-betam ethasone 1 %-0.05 % lotion 03/01 completed Medicati on ID: [id number] Re ason: () Brand Name: Lotrison e [...] mg tablet 04/09 completed Medicati on ID: [id number] B rand Name: simvasta tin Send Method: E-Prescr ibed Sub s Allowed: subs OK Medic ationGen ericName : simvasta tin Not Available Not Available Not Available clotrimaz ole 1 % topical solution 04/09 completed Medicati on ID: [id number] D uration Value: 21 Prescri bed By Name: DAPHNE So nd Name: carl rush Sen d Method: E-Prescr ibed Sub s Allowed: subs [place] al Instruct ion: 4 drops to affected ear three times a day X 21 days Med icationG enericNa me: clotrima zole Not Available Not Available Not Available docusate sodium 100 mg capsule TAKE 1 CAPSULE BY MOUTH EVERY DAY NEEDED FOR CONSTIPA TION active Not Available Not Available No t Available lorazepam 1 mg tablet 03/01 completed Medicati on ID: [id number] D uration Value: 15 Reason: () Brand [...] mg tablet 07/30 completed Medicati on ID: [id number] D uration Value: 90 Brand Name: proprano [...] drops,ag pension 04/09 completed Medicati on ID: [id number] P rescribe d By Name: DAPHNE So nd Name: TobraDex Send Method: E-Prescr ibed Sub s Allowed: subs [place] Speci al Instruct ion: Instill 3 drops in the affect ear BID for 14 days Med icationG enericNa me: TobraDex Not Available Not Available Not Available Ciprodex 0.3 %-0.1 % ear drops,ag pension 4 drop into left ear 04/09 completed Medicati on ID: [id number] D uration Value: 14 Prescri bed By Name: DAPHNE So nd Name: Ciprodex Send Method: E-Prescr ibed Sub s Allowed: subs OK Speci al Instruct ion: x 14 days Med icationG enericNa me: Ciprodex Not Available Not Available Not Available Clenpiq 10 mg-3.5 gram-12 gram/175 mL oral solution PLEASE SEE ATTACHED FOR DETAILED DIRECTIO NS 12/31 completed Not Available Not Available Not Available Vitals Date Recorded Body height Body mass index (BMI) Body weight Provider Name and Address Organization Details Last Updated DateTime 10/01/2024 160.02 cm 17.4 kg/m2 80615.05 g Cleo Shaw [place] - [facility] 10/01/2024 09:03:04 Date Recorded Body height Body mass index (BMI) Body weight Provider Name and Address Organization Details Last Updated DateTime 11/12/2024 160.02 cm 17.4 kg/m2 17104.05 g Lucia Packer [place] - [facility] 11/12/2024 09:00:19 Date Recorded Body height Provider Name an d Address Organization Details Last Updated DateTime 12/31/2024 160.02 cm STEVE PUCKETT [place] - [facility] 12/31/2024 08:52:34 Date Recorded Body height Body mass index (BMI) Body weight Provider Name and Address Organization Details Last Updated DateTime 06/11/2024 160.02 cm 17.4 kg/m2 91606.05 g Lucia Packer [place] - [facility] 06/11/2024 09:14:05 Date Recorded Body height Body mass index (BMI) Body weight Provider Name and Address Organization Details Last Updated DateTime 07/23/2024 160.02 cm 17.4 kg/m2 60507.05 g Fátima Mas [place] - [facility] 07/23/2024 09:13:59 Social History None recorded. Functional Status None recorded. Mental Status None recorded. Family History Nothing Reported. Medical History No medical history recorded. Past Encounters Encounter ID Performer Location Encounter Start Date Encounter Closed Date Diagnosis/Indication Diagnosis SNOMED-CT Code Diagnosis ICD10 Code Diagnosis Note [id number] [facility] [address] [address] 01/26/2024 09:32:37 01/26/2024 09:50:16 Impacted cerumen of bilateral ears 5211545785 945940 H61.23 Pervasive developmental disorder of residual state 1841043350 9105 F84.9 [id number] JACK BURNS PA-C [facility] [address] [address] 04/09/2024 08:55:18 04/09/2024 09:14:39 Impacted cerumen of bilateral ears 7154462928 611848 H61.23 [id number] [facility] [address] [address] 06/11/2024 08:54:13 06/11/2024 09:23:17 Impacted cerumen of bilateral ears 8994081604 915272 H61.23 [id number] [facility] [address] [address] 07/23/2024 09:08:55 07/23/2024 09:26:10 Impacted cerumen of bilateral ears 3862965252 469647 H61.23 Pervasive developmental disorder of residual state 4252967596 9105 F84.9 [id number] [facility] [address] [address] 10/01/2024 08:54:22 10/01/2024 09:10:22 Impacted cerumen of bilateral ears 5208349837 496217 H61.23 [id number] JACK BURNS PA-C [facility] 100 [facility] [place] [address] 11/12/2024 08:57:50 11/12/2024 09:11:16 Otitis externa 9354448 H60.92 [id number] RICHAR HARRY-C [facility] [address] [place] [address] 12/31/2024 08:51:13 12/31/2024 09:07:39 Pervasive developmental disorder of residual state 1038336322 9105 F84.9 Impacted c erumen of bilateral ears 2538066408 989371 H61.23 Autism spe ctrum disorder 57578705 F84.9 Health Concerns Section Related Observation LastModified by Organization Detai ls LastModified Time None Recorded Concern Status LastModified by Organization Details LastModified Time None Recorded Advance Directives Directive None Recorded Payers Insurance Date Sequence Insurance Name Policy Number Policy Pemberton Covered Member ID Pemberton Member ID Guarantor Name 12/31/2024 1 [place] [employer] Sander Shook [id number] Sander Shook Jr 12/31/2024 2 [place] [facility] Sander Shook [id number] Sander Shook Jr Notes Date Note Type Note Provider Name and Address Organization Details Recorded Time 06/11/2024 text/html 58-year-old male with pervasive developmental delay presents with father for cerumen removal. Dad reports he has been sticking his fingers in his ears at times recently. There has been no noted otorrhea. GERRY RUSH MD [address] [place] [address], [address], [place] - [facility] 06/13/2024 07:07:07 07/23/2024 text/html 58-year-old male with pervasive developmental delay presents with father for cerumen removal. There has been no noted otorrhea. Does not seem to be experiencing otalgia. Dad has been instilling wax softening drops for the past several days. GERRY RUSH MD [address] [place] [address],[address], [address], [facility] - [facility] 07/23/2024 12:49:12 10/01/2024 text/html 59-year-old male with pervasive developmental delay presents with father for cerumen removal. There has been no noted otorrhea. Does not seem to be experiencing otalgia, though he has been scratching the external ears a bit. Dad put in some wax softening drops yesterday. MONTSERRAT FARNSWORTH MD 100 [facility],[address], [address], [facility] - [facility] [place] 10/01/2024 12:36:20 11/12/2024 text/html 59 year old male with persistent pervasive developmental delay presents with father for evaluation of the ears. Has been sticking his fingers in the left ear. Dad saw some blood on his Q-tip, unsure whether he scratched himself or the ear has been bleeding without digital trauma. GERRY RUSH MD 100 [facility],[address], [address], [facility] - [facility] 11/13/2024 09:13:46 12/31/2024 text/html 59-year-old male with developmental delay presents for reevaluation of left-sided otitis externa. He trialed topical ofloxacin for 10 days. Patient denies ear pain, drainage, or new hearing concerns. MONTSERRAT FARNSWORTH MD 100 [facility],[address], [address], [facility] - [facility] 12/31/2024 16:52:11
--- OUTSIDE RECORDS SUMMARY | 2025-03-03 13:29 | XMS_ITS | Patient Health Record ---
Author Organization [facility] Address [address] [place] [address] Care Team Providers Care Electrical And Instrument Technician Name Role Phone Dora COLON, Jeri Primary Care Provider Tigist Lyles Jr, Douglas Unavailable Allergies Allergen (clinical drug ingredient) Drug/Non Drug Allergy documented on EMR Reaction Allergy Type Onset Date Status hydrocortisone Hydrocortisone Unknown Drug Allergy Active ciprofloxacin Cipro Unknown Drug Allergy Act mark amoxicillin / clavulanate Augmentin Unknown Drug Allergy Active Reason For Referral No Information Medications Medication SIG (Take, Route, Frequency, Duration) Notes Start Date End Date Status Colyte w Flavor Packs 240 GM as directed Orally as directed for 1 day(s) 01/25/2015 Active diazePAM 5 MG 1 tablet as needed O rally Twice a day Active RisperDAL 0.5 MG 1 tablet Orally Once a day Active Simvastatin 20 MG 1 tablet in the even ing Orally Once a day Active Immunizations Vaccine Route Administration Date Status Comme nts Flu vaccine no Preserv 3 and > Unknown 08/24/2014 Admin istered Problems Problem Type SNOMED Code ICD Code Onset Dates Problem Status W/U Status Risk Notes Problem [id number] Colon cancer screening (V76.51) Active confirmed Plan Of Treatment Future Test Test Name Order Date COLONOSCOPY 03/01/2015 Insurance Providers Payer Name Payer Address Payer Phone Subscriber Number Group Number Insured Name Patient Relationship to Insured Coverage Start Date Coverage End Date MEDICARE OF [place] [address] [place] [address] [id number] AMILCAR MCCRAY Self - patient is the insured MEDICAID OF [facility] [address] [place] [address] [phone] [id number] AMILCAR MCCRAY Self - patient is the insured Medical (General) History Medical History History ICD Code sleep apnea, uses CPAP elevated cholesterol developmentally delayed unspecified psychiatric disorder Surgical History Surgery Date(Month/Year) eye surgery hernia repair cholecystectomy ear tubes
== END 2025-03-03 13:38 | disposition home or self-care (01) ==
LOC: HO.HPS 13:22
PROVIDERS: PCP Internal Medicine; Visit Provider Internal Medicine
DX: F29 Unspecified psychosis not due to a substance or known physiological condition (principal); G47.33 Obstructive sleep apnea (adult) (pediatric); Z99.89 Dependence on other enabling machines and devices
CPT/HCPCS: 99213

== ENCOUNTER → 2025-03-03 13:21 | Outpatient (BNVA) | payer MEDICARE, MEDICAID, SELFPAY | PROVIDERS: PCP Internal Medicine; Visit Provider Internal Medicine | DX: G47.33 Obstructive sleep apnea (adult) (pediatric) (principal); F29 Unspecified psychosis not due to a substance or known physiological condition; Z99.89 Dependence on other enabling machines and devices | CPT/HCPCS: 99212 ==

== ENCOUNTER 2025-03-11 08:47 | Outpatient (AMB) | payer MEDICARE, MEDICAID, SELFPAY ==
[2025-03-11 08:51] VITALS: BP 105/63; PULSE 57; BMI 15.8
--- NOTE | 2025-03-11 08:51 | A.OFFVIS_ITS ---
Vital Signs 03/11/25 08:51 Height 5 ft 2 in Weight 86 lb 6.739 oz BMI 15.8 BP 105/63 Blood Pressure Location Lt brachial Position Sitting Pulse 57 Intake Visit Reasons: Irritable bowel syndrome Intake Note: Shavonne returns to office in follow up of IBS. CC: Per patient's father Shavonne has been taking 1/2 a tablet of the Sucralfate except when he is constipated. Per his father his BMs still hard but are better. Wafer Substrate Tester Required: No Accompanied by: parents Allergies clotrimazole Allergy (Intermediate, Verified 03/11/25 09:25) Rash acetaminophen (From ENDOCET) Allergy (Unknown, Verified 03/11/25 09:25) HIVES amoxicillin (From AUGMENTIN) Allergy (Unknown, Verified 03/11/25 09:25) HIVES cefuroxime (CEFUROXIME) Allergy (Unknown, Verified 03/11/25 09:25) HIVES ciprofloxacin (From CIPRO) Allergy (Unknown, Verified 03/11/25 09:25) HIVES, Rash, rash clarithromycin (From BIAXIN) Allergy (Unknown, Verified 03/11/25 09:25) HIVES clavulanic acid (From AUGMENTIN) Allergy (Unknown, Verified 03/11/25 09:25) HIVES morphine (MORPHINE) Allergy (Unknown, Verified 03/11/25 09:25) HIVES, Rash, rash oxycodone (From ENDOCET) Allergy (Unknown, Verified 03/11/25 09:25) HIVES HPI HPI Irritable bowel syndrome: Details: Assessment & Plan (1) Post-cholecystectomy syndrome: Code(s): K91.5 - Postcholecystectomy syndrome Category: Medical Plan Shavonne is having severe behavioral/anger issues today and is hitting kicking and spitting. So the interview is slightly difficult however we discern that he was started on higher doses of calcium because of osteoporosis (his mother fell re cently and broke her hip) and this likely is causing constipation. The 1st bowel movement will have to very hard movements followed by some diarrhea. His father has wisely withheld the sucralfate for the diarrheal phase. However I think we need to offset the constipation so he can continues calcium therapy. I have advised that we start with [id number] docusate as they do use bisacodyl on occasion but this may be too strong and induced too much diarrhea for him. At times he has had to use Vaseline and digitally disimpact shavonne. We will call him to make the next available office appointment to evaluate his response and titrate to treatment. Medications: Refilled docusate sodium 100 mg PO DAILY PRN 30 caps 6RF constipation TODAY'S VISIT He is doing well, his father continues to titrate his carafate to his BM's. Mostly he is on 1/2 pill a day, occasionally he will need a full tablet if he has diarrhea. He still will vomit about once a month. This i improved from when we first started. He lost some wt r/t fat restriction r/t his s/p eliane. New Med: forteo for osteoporosis as he would break out in hives from calcium supps. ROV 6 mos. They ask about foods fro wt gain, but he can't tolerate fats and too many sugars would cause diarrhea. Too much breads causes CIC. His father has tried protein drinks, thought this may have caused a rash, may re try. 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 Left inguinal hernia Sensorineural hearing loss Cerebral palsy Vitamin D deficiency Surgical History History of hip surgery History of cataract surgery S/P inguinal herniorrhaphy History of colonoscopy Hx laparoscopic cholecystectomy Family History Father Medical history non-contributory Mother Medical history non-contributory Social History Household Members: Family Housing: House Do you presently have visiting nurse or other home services: No Alcohol intake: never Comment: pt os calmer not moving around a lot Patient Tobacco Use Status: Never used Tobacco e-Cigarette/Vaping Use: Never Used Second Hand Smoke Exposure: No service: No Current occupational status: disabled Cognitive needs: Yes Hearing needs: Yes Vision needs: Yes Review of Systems Const Denies fatigue, Denies fever(s), Denies night sweats, Denies poor appetite and Reports weight loss (Related to fat restriction so as father thinks) Eyes Details: glasses Reports requires corrective lenses ENT Reports Normal hearing present, Denies dental pain, Denies dysphagia, Denies hearing loss, Denies mouth pain, Denies odynophagia, Denies throat swelling, Denies tongue swelling and Reports other (Dentition adequate) Card Reports no additional complaints Resp Reports no additional complaints GI Details: Denies abdominal pain, Denies melena, Denies bloating, Denies hematochezia, Reports constipation, Denies GI cramping, Denies dysphagia, Denies excessive flatus, Denies early satiety, Denies heartburn, Reports diarrhea, Denies nausea, Denies odynophagia, Denies vomiting and Denies hematemesis Skin/Breast Denies pruritus, Denies lesions, Denies rash and Denies jaundice Neuro Reports Normal hearing present and Denies Abnormal speech present Endo Denies fatigue Aller/Immun Denies throat swelling and Denies tongue swelling Physical Exam Vital Signs: Last Vital Signs Pulse 57 03/11/25 08:51 BP 105/63 03/11/25 08:51 BMI result Body Mass Index 15.8 Const General: cooperative, no acute distress, well developed and well groomed Nutritional Appearance: well nourished and underweight Orientation/consciousness: oriented to person, oriented to place and oriented to time Limitations: behavioral limitations, No language barrier and other limitations HEENT Head: Yes normocephalic and Yes atraumatic Eyes General: appearance normal, both eyes and all related structures Pupils: Equal, round and reactive pupils present Neck Neck: Yes normal visual inspection and Yes no lymphadenopathy Thyroid: Thyroid normal Resp Effort & Inspection: normal respiratory effort and able to speak in complete sentences Auscultation: clear to auscultation bilaterally Cardio Rate: regular rate Rhythm: regular rhythm Heart sounds: Normal, physiologic split S2 sound present Peripheral pulses: radial pulses present and posterior tibial pulses present GI Inspection: No distended and No Abdominal panniculus present Palpation (GI): Soft to palpation, nontender, no guarding, not rigid and No hepatosplenomegaly present Percussion: Yes normal to percussion Auscultation: normal bowel sounds Rectal Exam - Male: Yes deferred Skin General skin exam: no rashes or lesions noted, turgor normal, skin not dry, no jaundice, No spider nevi and no striae Rashes: no rashes Nails: normal Neuro General: oriented to person, oriented to place and oriented to time Cranial nerves: Yes Equal, round and reactive pupils present and Yes Normal hearing present Speech: No Abnormal speech present Extrem General: Yes normal to inspection, No clubbing, No cyanosis and No edema Psych Appearance: grossly normal and well kempt Mental Status: other Speech and movement: Mute speech present Affect: normal affect Attitude: cooperative Thought process: not confabulating and Other thought process findings present Thought content: other Insight: Poor insight present (Psych) Judgement: Poor judgement present (Psych) Assessment & Plan Assessment & Plan (1) Post-cholecystectomy syndrome: Code(s): K91.5 - Postcholecystectomy syndrome Category: Medical Plan He is doing well, his father continues to titrate his carafate to his BM's. Mostly he is on 1/2 pill a day, occasionally he will need a full tablet if he has diarrhea. He still will vomit about once a month. This i improved from when we first started. He lost some wt r/t fat restriction r/t his s/p eliaen. New Med: forteo for osteoporosis as he would break out in hives from calcium supps. ROV 6 mos. They ask about foods fro wt gain, but he can't tolerate fats and too many sugars would cause diarrhea. Too much breads causes CIC. His father has tried protein drinks, thought this may have caused a rash, may re try. Coding Level of Care Code Est Pt Level 3 (32824) Diagnoses Post-cholecystectomy syndrome K91.5
--- OUTSIDE RECORDS SUMMARY | 2025-03-11 08:59 | XMS_ITS | Patient Health Record ---
Author Organization [facility] Address [address] [place] [address] Care Team Providers Care Android Ios Developer Name Role Phone Dora COLON, Jeri Primary Care Provider Tigist Lyles Jr, Douglas Unavailable [phone] Allergies Allergen (clinical drug ingredient) Drug/Non Drug [...] Problem Status W/U Status Risk Notes Problem [id number] Colon cancer screening (V76.51) Active confirmed Plan Of Treatment Future Test Test Name Order Date COLONOSCOPY 03/01/2015 Insurance Providers Payer Name Payer Address Payer Phone Subscriber Number Group Number Insured Name Patient Relationship to Insured Coverage Start Date Coverage End Date MEDICARE OF [place] [address] [place] [id number] AMILCAR MCCRAY Self - patient is the insured MEDICAID OF [facility] [address] [place] [address] [phone] [id number] AMILCRA MCCRAY Self - patient is the insured Medical (General) History Medical History History ICD Code sleep apnea, uses CPAP elevated cholesterol developmentally delayed unspecified psychiatric disorder Surgical History Surgery Date(Month/Year) eye surgery hernia repair cholecystectomy ear tubes
== END 2025-03-11 09:40 | disposition home or self-care (01) ==
LOC: HO.HGI 08:48
PROVIDERS: PCP Internal Medicine; Visit Provider Nurse Practitioner
DX: K91.5 Postcholecystectomy syndrome (principal)
CPT/HCPCS: 99213

== ENCOUNTER → 2025-03-11 08:47 | Outpatient (BNVA) | payer MEDICARE, MEDICAID, SELFPAY | PROVIDERS: PCP Internal Medicine; Visit Provider Nurse Practitioner | DX: K91.5 Postcholecystectomy syndrome (principal) | CPT/HCPCS: 99212 ==

== ENCOUNTER 2025-05-05 07:53 | Outpatient (AMB) | payer MEDICARE, MEDICAID, SELFPAY ==
--- OUTSIDE RECORDS SUMMARY | 2025-05-05 07:56 | XMS_ITS | Patient Health Record ---
Author Organization [facility] Address [address] [place] [address] Care Team Providers Care Ingot Header Name Role Phone Dora COLON, Jeri Primary [...] Problem Status W/U Status Risk Notes Problem [id number] Colon cancer screening (V76.51) Active confirmed Plan Of Treatment Future Test Test Name Order Date COLONOSCOPY 03/01/2015 Insurance Providers Payer Name Payer Address Payer Phone Subscriber Number Group Number Insured Name Patient Relationship to Insured Coverage Start Date Coverage End Date MEDICARE OF [place] [address] [place] [id number] [phone] [id number] AMILCAR MCCRAY Self - patient is the insured MEDICAID OF [facility] [address] [place] [address] [id number] AMILCAR MCCRAY Self - patient is the insured Medical (General) History Medical History History ICD Code sleep apnea, uses CPAP elevated cholesterol developmentally delayed unspecified psychiatric disorder Surgical History Surgery Date(Month/Year) eye surgery hernia repair cholecystectomy ear tubes
--- NOTE | 2025-05-05 07:57 | MHC.OFFVIS ---
Vital Signs 05/05/25 07:59 Height 5 ft 1.85 in Weight 90 lb 6.232 oz BMI 16.6 BP 102/64 Blood Pressure Location Rt brachial Position Sitting Pulse 54 Pulse Source Pulse Oximeter Pulse Oximetry (%) 98 Oxygen Delivery Method Room Air Intake Visit Reasons: Osteoporosis Intake Note: Patient present today for Osteoporosis follow up. Father reports he would like to talk about the Teriparatide injection, states when patient was getting calcium via pill form he broke out in a rash and stated since starting the injection patient has been scratching all over his body. Has been using anti-itch lotion and cortisone 10 and did not see that it has helped. Water Quality Analyst Required: No Accompanied by: Father Allergies clotrimazole Allergy (Intermediate, Verified 05/05/25 08:00) Rash acetaminophen (From ENDOCET) Allergy (Unknown, Verified 05/05/25 08:00) HIVES amoxicillin (From AUGMENTIN) Allergy (Unknown, Verified 05/05/25 08:00) HIVES cefuroxime (CEFUROXIME) Allergy (Unknown, Verified 05/05/25 08:00) HIVES ciprofloxacin (From CIPRO) Allergy (Unknown, Verified 05/05/25 08:00) HIVES, Rash, rash clarithromycin (From BIAXIN) Allergy (Unknown, Verified 05/05/25 08:00) HIVES clavulanic acid (From AUGMENTIN) Allergy (Unknown, Verified 05/05/25 08:00) HIVES morphine (MORPHINE) Allergy (Unknown, Verified 05/05/25 08:00) HIVES, Rash, rash oxycodone (From ENDOCET) Allergy (Unknown, Verified 05/05/25 08:00) HIVES Medication List - Last Reconciled 05/05/25 by Simeon Mercado MD cholecalciferol (vitamin D3) 25 mcg PO DAILY diazepam 4 mg PO ONCE PRN docusate sodium 100 mg PO DAILY PRN epinephrine 0.3 mg (0.3 mL) IM ONCE PRN hydroxyzine HCl 20 mg (2 x 10 mg) PO Q6-8H PRN olopatadine 0.2% (Pataday Once Daily Relief) 1 drp ophthalmic (eye) DAILY pen needle, diabetic (Comfort EZ Pen [place]) As directed once a day propranolol 10 mg PO BID risperidone 0.5 mg PO BID simvastatin 10 mg PO BEDTIME sucralfate 1 g PO BEDTIME teriparatide 20 mcg subcut DAILY teriparatide 20 mcg (0.08 mL) subcut DAILY triamcinolone acetonide 0.1% 1 appl topical BID HPI Comments Details: 59 YO male with PMHx CP is seen in consultation at the request of PCP for Osteoporosis.Hx from father , Pt not able to give hx ?First diagnosed Not Received treatment in the past History of pathologic fracture of hip from falling after dancing in half-way in 08/24/2020 or ONJ. Has several servings of dietary calcium per day in the form of cheese, milk . Takes Calcium supplement ? mg daily in divided doses. Takes 1000 IU of Vitamin D daily. Denies ever using PPI, anticoagulant, antiepileptic or glucocorticoid medication. Not Does weight bearing exercise Fracture history: as above Height loss: No Denies history of Kidney stones: Has family history of Osteoporosis in both parents and mother had hip fracture. UTD on dental cleanings and sees dentist every 6 months. No planned upcoming dental work or extractions. DXA dated :TECHNIQUE: Compact Particle Acceleration Dual energy absorptiometry (DEXA) of the lumbar spine, total right hip, and femoral neck was performed. The left hip was not evaluated due to history of prior screw fixation. COMPARISON: There are no prior studies for comparison. FINDINGS:09/17/24 The bone mineral density of the lumbar spine is 0.874 with a T-score of -3.0, and a Z-score of -1.4. The bone mineral density of the right total hip is 0.716 with a T-score of -2.7, and a Z-score of -1.4. The bone mineral density of the right femoral neck is 0.656 with a T-score of -3.2, and a Z-score of -1.4. MM/XR DEXA axial skeleton IMPRESSION: Based on bone mineral density, and according to World Health Organization (WHO) criteria, the diagnosis is consistent with osteoporosis. Labs: Secondary workup negative Currently on Forteo since 12/2024. Tolerating Forteo nicely. No fracture since last visit. Has macular rash on abdomen and arms but this occured before taking Forteo. 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 Left inguinal hernia Sensorineural hearing loss Cerebral palsy Vitamin D deficiency Surgical History History of hip surgery History of cataract surgery S/P inguinal herniorrhaphy History of colonoscopy Hx laparoscopic cholecystectomy Family History Father Medical history non-contributory Mother Medical history non-contributory Social History Household Members: Family Housing: House Do you presently have visiting nurse or other home services: No Alcohol intake: never Comment: pt os calmer not moving around a lot Patient Tobacco Use Status: Never used Tobacco e-Cigarette/Vaping Use: Never Used Second Hand Smoke Exposure: No service: No Current occupational status: disabled Cognitive needs: Yes Hearing needs: Yes Vision needs: Yes Physical Exam Vital Signs: Last Vital Signs Pulse 54 05/05/25 07:59 BP 102/64 05/05/25 07:59 Pulse Ox 98 05/05/25 07:59 Oxygen Delivery Method Room Air 05/05/25 07:59 BMI result Body Mass Index 16.6 Assessment & Plan Assessment & Plan (1) Osteoporosis: Code(s): M81.0 - Age-related osteoporosis without current pathological fracture Category: Medical Plan: This is a 59-year-old white male with a history of cerebral palsy wheelchair-bound with a history of moderate to severe osteoporosis and previous hip fracture. Complete secondary workup was negative. Currently on Forteo since 12/2024 Plan is to continue the Forteo until 12/2026 at which time patient will be transitioned onto a anti resorptive. Told patient to follow up with primary care provider regarding rash I do not think rashes correlating with the use of Forteo. If there is no other reason for rash, patient can hold the Forteo for several days to see if the rash disappears and then reintroduced to see if her rash reappears but I do not think this will be necessary Coding Level of Care Code Est Pt Level 3 (56195) Diagnoses Osteoporosis M81.0
[2025-05-05 07:59] VITALS: BP 102/64; PULSE 54; O2SAT 98; BMI 16.6
== END 2025-05-05 08:26 | disposition home or self-care (01) ==
LOC: HO.ENCR 07:54
PROVIDERS: PCP Internal Medicine; Visit Provider Internal Medicine Endocrinology, Diabetes & Metabolism
DX: M81.0 Age-related osteoporosis without current pathological fracture (principal)
CPT/HCPCS: 99213

== ENCOUNTER → 2025-05-05 07:53 | Outpatient (BNVA) | payer MEDICARE, MEDICAID, SELFPAY | PROVIDERS: PCP Internal Medicine; Visit Provider Internal Medicine Endocrinology, Diabetes & Metabolism | DX: M81.0 Age-related osteoporosis without current pathological fracture (principal); G80.9 Cerebral palsy, unspecified; Z99.3 Dependence on wheelchair | CPT/HCPCS: 99212 ==

== ENCOUNTER 2025-06-07 08:07 | Outpatient (AMB) | payer MEDICARE, MEDICAID, SELFPAY ==
[2025-06-07 08:20] VITALS: BP 110/60; PULSE 67; O2SAT 98; BMI 16.6
--- NOTE | 2025-06-07 08:20 | AM.OFFWIN_ITS ---
Intake Vital Signs 06/07/25 08:20 Height 5 ft 1 in Weight 88 lb BMI 16.6 BP 110/60 Blood Pressure Location Rt brachial Position Sitting Pulse 67 Pulse Source Pulse Oximeter Pulse Oximetry (%) 98 Oxygen Delivery Method Room Air Intake Visit Reasons: ep rash Hives on back and part of the front of his Intake Note: Patient presents with c/o itchy, red rash on his back & abdomen x2 weeks Patient Tobacco Use Status: Never used Tobacco Allergies clotrimazole Allergy (Intermediate, Verified 06/07/25 08:22) Rash acetaminophen (From ENDOCET) Allergy (Unknown, Verified 06/07/25 08:22) HIVES amoxicillin (From AUGMENTIN) Allergy (Unknown, Verified 06/07/25 08:22) HIVES cefuroxime (CEFUROXIME) Allergy (Unknown, Verified 06/07/25 08:22) HIVES ciprofloxacin (From CIPRO) Allergy (Unknown, Verified 06/07/25 08:22) HIVES, Rash, rash clarithromycin (From BIAXIN) Allergy (Unknown, Verified 06/07/25 08:22) HIVES clavulanic acid (From AUGMENTIN) Allergy (Unknown, Verified 06/07/25 08:22) HIVES morphine (MORPHINE) Allergy (Unknown, Verified 06/07/25 08:22) HIVES, Rash, rash oxycodone (From ENDOCET) Allergy (Unknown, Verified 06/07/25 08:22) HIVES Medication List - Last Reconciled 06/07/25 by Ayah Wagoner MD cholecalciferol (vitamin D3) 25 mcg PO DAILY diazepam 4 mg PO ONCE PRN docusate sodium 100 mg PO DAILY PRN epinephrine 0.3 mg (0.3 mL) IM ONCE PRN hydroxyzine HCl 20 mg (2 x 10 mg) PO Q6-8H PRN olopatadine 0.2% (Pataday Once Daily Relief) 1 drp ophthalmic (eye) DAILY pen needle, diabetic (Comfort EZ Pen [place]) As directed once a day propranolol 10 mg PO BID risperidone 0.5 mg PO BID simvastatin 10 mg PO BEDTIME sucralfate 1 g PO BEDTIME teriparatide 20 mcg (0.08 mL) subcut DAILY triamcinolone acetonide 0.1% 1 appl topical BID Do you need a note to return to daycare/school/sports/work: No HPI ep rash Hives on back and part of the front of his HPI Details History of Present Illness The patient is a 59-year-old male presenting with a rash. With a history of mental and psychological challenges currently seeing a psych med prescriber Patient seems to be nonverbal but is able to communicate with his father by making noises Chronic Urticaria: - The patient has a history of a chronic rash for approximately six months, which began as a hive-like eruption. - He was seen for this about two months ago and was treated with a topical gel, which was ineffective, and an oral pill for itching, which was helpful. - The caregiver suspects the rash is an allergic reaction to daily teriparatide injections, which were started about 2.5 months ago. - The rash was minor before the injectio ns but has worsened over the last two days with significant pruritus, leading to scratching and scabs on his back. Osteoporosis: - The patient has a diagnosis of osteopo rosis and was receiving daily teriparatide injections for treatment. - The injections [facility] 2[facility]5 months ago and were stopped by the caregiver one week prior to this visit due to concern for an allergic reaction. Multiple drug allergies: - as listed in chart Medical History: - Osteoporosis - Chronic rash for approximately 6 month s - multiple allergies - psychological and mental challenges Problem List - Chronic urticaria with Rash - Osteoporosis - Multiple drug allergies Plan - Discontinue the teriparatide injection due to suspicion of an allergic reaction. Observe the rash he already have an appointment with the Dermatology follow up with her - Prescribe prednisone 10 mg for 5 days to be taken once daily with breakfast to clear the rash. - Prescribe hydroxyzine 25 mg to be take n every 8 hours as needed for pruritus. 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: Alert awake Skin: Rash present, appears like hives, possibly chronic eczema, very itchy extensively in the back with numerous scratch meléndez and some on lower abdomen [facility] Medical History (Updated 06/07/25 @ 08:51 by Ayah Wagoner MD) Rash Osteoporosis History of fracture of left hip Mentally challenged Underweight Weight loss, non-intentional TRENT on CPAP Dyslipidemia Dysphagia Mental and behavioral problems with learning Closed subcapital fracture of left femur Anemia Normocytic normochromic anemia Psychotic disorder Gallstones 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 Left inguinal hernia Sensorineural hearing loss Cerebral palsy Vitamin D deficiency Surgical History History of hip surgery History of cataract surgery S/P inguinal herniorrhaphy History of colonoscopy Hx laparoscopic cholecystectomy Family History Father Medical history non-contributory Mother Medical history non-contributory Social History Household Members: Family Housing: House Do you presently have visiting nurse or other home services: No Alcohol intake: never Comment: pt os calmer not moving around a lot Patient Tobacco Use Status: Never used Tobacco e-Cigarette/Vaping Use: Never Used Second Hand Smoke Exposure: No service: No Current occupational status: disabled Cognitive needs: Yes Hearing needs: Yes Vision needs: Yes Physical Exam Vital Signs: Last Vital Signs Pulse 67 06/07/25 08:20 BP 110/60 06/07/25 08:20 Pulse Ox 98 06/07/25 08:20 Oxygen Delivery Method Room Air 06/07/25 08:20 BMI result Body Mass Index 16.6 Assessment & Plan Assessment & Plan (1) Chronic pruritic rash in adult: Code(s): L29.8 - Other pruritus (2) Psychotic disorder: Comment: followed by Dr. Suazo AND REMAINS STABLE. AMILCAR HAS FREQUENT VARIATIONS IN HIS MOOD. TODAY HE IS VERY CALM STABLE AND FRIENDLY. Code(s): F29 - Unspecified psychosis not due to a substance or known physiological condition Qualifiers: Psychosis type: unspecified psychosis type Qualified Code(s): F29 - Unspecified psychosis not due to a substance or known physiological condition (3) Osteoporosis: Code(s): M81.0 - Age-related osteoporosis without current pathological fracture Qualifiers: Osteoporosis type: other Presence of current pathological fracture: unspecified Qualified Code(s): M81.8 - Other osteoporosis without current pathological fracture (4) Cerebral palsy: Code(s): G80.9 - Cerebral palsy, unspecified Qualifiers: Cerebral palsy type: unspecified type Qualified Code(s): G80.9 - Cerebral palsy, unspecified Plan Chronic Urticaria: - The patient has a history of a chronic rash for approximately six months, which began as a hive-like eruption. - He was seen for this about two months ago and was treated with a topical gel, which was ineffective, and an oral pill for itching, which was helpful. - The caregiver suspects the rash is an allergic reaction to daily teriparatide injections, which were started about 2.5 months ago. - The rash was minor before the injections but has worsened over the last two days with significant pruritus, leading to scratching and scabs on his back. Osteoporosis: - The patient has a diagnosis of osteoporosis and was receiving daily teriparatide injections for treatment. - The injections were started approximately 2.5 months ago and were stopped by the caregiver one week prior to this visit due to concern for an allergic reaction. Multiple drug allergies: - as listed in chart Medical History: - Osteoporosis - Chronic rash for approximately 6 months - multiple allergies - psychological and mental challenges Problem List - Chronic urticaria with Rash - Osteoporosis - Multiple drug allergies Plan - Discontinue the teriparatide injection due to suspicion of an allergic reaction. Observe the rash he already have an appointment with the Dermatology follow up with her - Prescribe prednisone 10 mg for 5 days to be taken once daily with breakfast to clear the rash. - Prescribe hydroxyzine 25 mg to be taken every 8 hours as needed for pruritus. Follow-up with PCP Medications: New hydroxyzine HCl 25 mg PO TID PRN 90 tabs 0RF itching prednisone 10 mg PO DAILY 5 tabs 0RF 5 days Discontinued hydroxyzine HCl Discontinued Reason: Doctor's Order 20 mg (2 x 10 mg) PO Q6-8H PRN 20 tabs 0RF itching Coding Level of Care Code Est Pt Level 3 (03250) Diagnoses Chronic pruritic rash in adult L29.8 Psychosis, unspecified psychosis type F29 Psychosis type: unspecified psychosis type Other osteoporosis, unspecified pathological fracture presence M81.8 Osteoporosis type: other Presence of current pathological fracture: unspecified Cerebral palsy, unspecified type G80.9 Cerebral palsy type: unspecified type
--- OUTSIDE RECORDS SUMMARY | 2025-06-07 08:24 | XMS_ITS | Patient Health Record ---
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 Name Role Phone Dora COLON, Jeri Primary Care Provider Tigist Lyles Jr, Douglas Kevin Allergies Allergen (clinical drug ingredient) Drug/Non Drug [...] Packs 240 GM as directed Orally as directed; Duration: 1 day(s) 01/25/2015 Active diazePAM 5 MG [...] Problem Status W/U Status Risk Notes Problem Colon cancer screening (743028309) Colon cancer screening (V76.51) Active confirmed Plan Of Treatment Future Test Test Name Order Date COLONOSCOPY 03/01/2015 Next Appt Details Provider Name:Douglas love Jr, 09/07/2025 09:00:00 AM, [address], [address], [place], [address], Insurance Providers Payer Name Payer Address Payer Phone Subscriber Number Group Number Insured Name Patient Relationship to Insured Coverage Start Date Coverage End Date MEDICARE OF [place] [address] [place] [address] [id number] AMILCAR MCCRAY Self - patient is the insured [facility] [address] [place] [phone] [id number] AMILCAR MCCRAY Self - patient is the insured Medical (General) History Medical History History ICD Code sleep apnea, uses CPAP elevated cholesterol developmentally delayed unspecified psychiatric disorder Surgical History Surgery Date(Month/Year) eye surgery hernia repair cholecystectomy ear tubes
== END 2025-06-07 08:44 | disposition home or self-care (01) ==
PROVIDERS: PCP Internal Medicine; Visit Provider Internal Medicine
DX: L29.9 Pruritus, unspecified (principal); F29 Unspecified psychosis not due to a substance or known physiological condition; M81.8 Other osteoporosis without current pathological fracture; G80.9 Cerebral palsy, unspecified

== ENCOUNTER → 2025-06-07 08:07 | Outpatient (BNVA) | payer MEDICARE, MEDICAID, SELFPAY | PROVIDERS: PCP Internal Medicine; Visit Provider Internal Medicine | DX: L29.89 Other pruritus (principal); F29 Unspecified psychosis not due to a substance or known physiological condition; M81.8 Other osteoporosis without current pathological fracture; G80.9 Cerebral palsy, unspecified | CPT/HCPCS: 99212 ==

== ENCOUNTER 2025-06-23 06:03 | Outpatient (REF) | payer MEDICARE, MEDICAID, SELFPAY ==
--- OUTSIDE RECORDS SUMMARY | 2025-06-23 06:05 | XMS_ITS | Patient Health Record ---
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 Name Role Phone Dora COLON, Jeri Primary Care Provider Tigist Lyles Jr, Douglas Kevin [phone] Allergies Allergen (clinical drug ingredient) Drug/Non Drug [...] Status Risk Notes Problem Colon cancer screening (894043804) Colon cancer screening (V76.51) Active confirmed Plan Of Treatment Future Test Test Name Order Date COLONOSCOPY 03/01/2015 Next Appt Details Provider Name:Douglas love Jr, 09/07/2025 09:00:00 AM, [address], [address], [place], [address], Insurance Providers Payer Name Payer Address Payer Phone Subscriber Number Group Number Insured Name Patient Relationship to Insured Coverage Start Date Coverage End Date MEDICARE OF [place] [address] [place] [id number] AMILCAR MCCRAY Self - patient is the insured [facility]ICAID [facility] [address] [place] [phone] [id number] AMILCAR MCCRAY Self - patient is the insured Medical (General) History Medical History History ICD Code sleep apnea, uses CPAP elevated cholesterol developmentally delayed unspecified psychiatric disorder Surgical History Surgery Date(Month/Year) eye surgery hernia repair cholecystectomy ear tubes
--- OUTSIDE RECORDS SUMMARY | 2025-06-23 06:05 | XMS_ITS | Data Portability ---
Author Organization [place] - [facility], Allergy Address [address] [address] Care Team Providers Care Medical Records Custodian Name Role Phone JUAN ELY Primary Care Provider [phone] Assessment Encounter Date Assessment Date Assessment LastModified by Organization Details LastModified Time 10/01/2024 10/01/2024 Cerumen successfully removed bilaterally, which [...] with concerns. [email or web address] Not available 12/31/2024 16:35:37 03/18/2025 03/18/2025 59-year-old male with developmental delay presents for cerumen removal. He reports left ear blockage. Cerumen impactions removed bilaterally, which patient tolerated well. TMs are normal to inspection. Hearing returned to baseline after the procedure. Recommend a few drops of mineral oil as needed to soften future cerumen. Recommend 2-month follow-up for repeat debridement. [email or web address] Not available 03/18/2025 09:28:26 05/25/2025 05/25/2025 59-year-old male with developmental delay presents with guardian for cerumen removal. Cerumen impactions removed bilaterally, which patient tolerated well. TMs are normal to inspection. Hearing returned to baseline after the procedure. Recommend a few drops of mineral oil as needed to soften cerumen. Recommend 2-month follow-up for repeat debridement. [email or web address] Not available 05/25/2025 12:00:53 Plan of Treatment Reminders Order Date Submit Date Provider Last Modified By Organization Details Last Modified Time Details Appointments Establish ed 15 2024 09:00A M RICHARD OROZCO PA-C Not available Not available Not available Lab None recorded. Referral None recorded. Procedures None recorded. Surgeries None recorded. Imaging None recorded. Medication Orders ofloxacin 0.3 % ear drops 2024 025 [facility]/Pharmacy #[id number], [address] [place] [address], [address], 11/12/2024 09:09:56 Patient TargetsNo targets recorded. Patient InstructionsNo instructions recorded. Reason for Referral None Reported. Problems Name Problem SNOMED Code Status Onset Date Resolution Date Notes Provider Name and Address Organization Details Recorded Time Abnormal granulat ion tissue 73196068 Active 2013 Other abnormal granulat ion tissue; Location : left [facility] Risk: low risk CMS Treatmen t: new problem (to examiner ): addition al workup planned Conditio n: unstable Note: Date Diagnose d: 05/23/20 14 12:21 PM (701.5) Not Available [facility] 4 03:02:23 Chronic infectiv e otitis externa 074332111 Active 2014 Chronic otitis externa; Note: Date Diagnose d: 5 10:23 AM (380.16) Not Available [facility] 4 03:02:21 Impacted cerumen of bilatera l ears 21494718722 68539 Active 2015 Impacted cerumen, bilatera l; Note: Date Diagnose d: 11/17/2015 10:16 AM (H61.23) Impact ed cerumen, bilatera l; Note: Date Diagnose d: 5 10:13 AM (H61.23) [mapped from ICD9 code: 380.4] ; Start Date : 02/21/20 RICHARD OROZCO PA-C [address] [place] [address], [place], [address] , [facility] - 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 Other specifie d disorder s of Eustachi an tube, bilatera l; Note: Date Diagnose d: 8 9:15 AM (H69.83) Not Available [facility] 4 03:02:21 Autism spectrum disorder 44946609 Active 2017 Perkyleiv e developm ental disorder , unspecif ied; Note: Date Diagnose d: 07/06/20 18 9:15 AM (F84.9) Not Available [facility] 4 03:02:22 Candidal otitis externa 71633700 Completed 202003/12/2024 Candidal otitis externa; Note: Date Diagnose d: 1 9:22 AM (B37.84) Not Available [facility] 4 03:02:24 Otorrhea of left ear 83094168846 30995 Completed 202003/12/2024 Otorrhea , left ear; Note: Date Diagnose d: 1 9:22 AM (H92.12) Not Available [facility] 4 03:02:21 Impacted cerumen in left ear 31633232801 70272 Active 2020 Impacted cerumen, left ear; Note: Date Diagnose d: 05/25/20 21 11:14 AM (H61.22) Not Available [facility] 4 03:02:24 Impacted cerumen in right ear 70260516977 73716 Active 2021 Impacted cerumen, right ear; Note: Date Diagnose d: 2 9:25 AM (H61.21) Not Available [facility] 4 03:02:24 Infectiv e otitis externa of right ear 14525495173 14018 Active 2023 Other infectiv e otitis externa, right ear; Note: Date Diagnose d: 4 9:18 AM (H60.391 ) Not Available [facility] 4 03:02:23 Otorrhea of right ear 56837601622 99421 Active 2023 Otorrhea , right ear; Note: Date Diagnose d: 4 9:17 AM (H92.11) Otorrh ea, right ear; Note: Date Diagnose d: 05/28/20 9:25 AM (H92.11) ; Start Date : 05/28/20 Not Available [facility] 4 03:02:22 Abnormal auditory percepti on 20926521 Active 2023 Other abnormal auditory percepti ons, unspecif ied ear; Note: Date Diagnose d: 09/17/2023 11:07 AM (H93.299 ) Not Available [facility] 4 03:02:23 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 5 12:01:03 Problem Notes None recorded. Procedures Surgical History Date Name Laterality Status Provider Name and Address Organization Details Recorded Time 5 Cerumen removal without microscope bilat completed RICHARD OROZCO PA-C [address] [place] [address],[address], [address], [place] - [facility] 05/25/2025 11:42:01 5 Cerumen removal without microscope bilat completed RICHARD OROZCO PA-C [address] [place] [address],[address], [address], [place] - [facility] 03/17/2025 09:36:39 5 Cerumen removal without microscope bilat completed RICHARD OROZCO PA-C [address] [place] [address],[address], [address], [place] - [facility] 12/31/2024 09:08:48 5 Cerumen removal without microscope bilat completed Jackkari Garcia [place] - [facility] 10/01/2024 09:09:18 4 Cerumen removal without microscope bilat completed Jack Garcia [place] - [facility] 07/23/2024 09:27:30 4 Cerumen removal without microscope bilat completed Jackkari [place] - [facility] 06/11/2024 09:23:59 4 Cerumen removal without microscope bilat completed Jack Garcia [place] - [facility] 04/09/2024 09:13:59 4 Cerumen removal without microscope bilat completed Jack Garcia [place] - [facility] 01/26/2024 09:50:56 Imaging Results None recorded. Procedure Notes None recorded. Medical Equipment None Reported. Allergies Allergen ID Allergen Name Allergen Category Reaction Reaction Severity Criticality Documentation Date Start Date Code Code System Note Provider Name and Address Organization Details Recorded Time 279118 amoxicill in / clavulana te medicatio n other Not available Not available 12/23/2023 94501 RxNorm React ion: unkno wn, unspe cifie d;; Not Available [facility] 4 01:14:08 714594 ciproflox acin hydrochlo ride medicatio n hives Not available Not available 12/23/2023 73862 RxNorm React ion: skin rashe s, hives ;; Not Available [facility] 4 01:14:08 354885 clarithro mycin medicatio n hives Not available Not available 12/23/2023 80453 RxNorm React ion: skin rashe s, hives ;; Not Available [facility] 4 01:14:09 547569 morphine medicatio n other Not available Not available 12/23/2023 7052 RxNorm React ion: unkno wn, unspe cifie d;; Not Available [facility] 4 01:14:11 708658 Cipro medicatio n Not available Not available Not available 04/09/2024 07235 3 RxNorm Nadia Potvin null, [place] - [facility] 4 09:07:59 949445 Biaxin medicatio n Not available Not available Not available 04/09/2024 12843 9 RxNorm Nadia Potvin null, [place] - [facility] 4 09:08:10 054445 Augmentin medicatio n Not available Not available Not available 04/09/2024 58338 2 RxNorm Nadia [place] null, [place] - [facility] 4 09:08:25 926132 acetamino phen / oxycodone medicatio n Not available Not available Not available 04/09/2024 20167 3 RxNorm Nadia [place]vin null[place] - [facility] 4 09:08:34 322604 cefuroxim e Not available Not available Not available Not available 04/09/2024 2194 RxNorm Nadia [place]vin null[place] [facility] 4 09:08:52 220266 ciproflox acin medicatio n Not available Not available Not available 04/09/2024 2551 RxNorm Nadia [place]vin null[place] [facility] 4 09:09:04 290239 clotrimaz ole medicatio n Not available Not available Not available 04/09/2024 2623 RxNorm Nadia Lisavin null, [place] - [facility] 4 09:09:15 Medications Name Sig Start Date Stop Date Status Note LastModified by Organization Details LastModified Time Lotrisone 1 %-0.05 % topical cream 03/01 completed Medicati on ID: [id number] Pr escribed By Name: DAPHNE Canela nd Name: Lotrison e Send Method: E-Prescr ibed Sub s Allowed: subs OK Speci al Instruct ion: apply every 12 hours x 14 days. Me dication GenericN miguelangel: Lotrison e Not Available Not Available Not Available clotrimaz ole-betam ethasone 1 %-0.05 % lotion 03/01 completed Medicati on ID: [id number] Re ason: () Brand Name: Usha pacheco [...] lone acetonide 0.1 % topical cream APPLY TO AFFECTED AREA TOPICALL Y TWICE A DAY active Not [...] BY MOUTH ONCE A DAY NEEDED. TOTAL DOSE = 12 MG PRIOR TO APPOINTM ENTS NEEDED. active Not Available Not Available No t Available simvastat in 20 mg tablet 04/09 completed Medicati on ID: [id number] B rand Name: simcarol erlin Send Method: E-Prescr ibed Sub s Allowed: subs OK Medic ationGen ericName : simvasta tin Not Available Not Available Not Available clotrimaz ole 1 % topical solution 04/09 completed Medicati on ID: [id number] D uration Value: 21 Prescri bed By Name: DAPHNE So nd Name: clotrima zoltara Sen d Method: E-Prescr ibed Sub s [...] mg tablet 03/01 completed Medicati on ID: [id number] D uration Value: 15 Reason: () Brand Name: lorazepa m Send Method: E-Prescr ibed Sub s Allowed: subs [place] sotelo Instruct ion: TK 1 TO 2 TS [...] mg tablet 07/30 completed Medicati on ID: [id number] D uration Value: 90 Brand Name: proprano [...] drops,ag pension 04/09 completed Medicati on ID: [id number] P rescribe d By Name: DAPHNE So nd Name: TobraDex Send Method: E-Prescr ibed Sub s Allowed: subs [place] sotelo Instruct ion: Instill 3 drops in the affect ear BID for 14 days Med icationG enericNa me: TobraDex Not Available Not Available Not Available Ciprodex 0.3 %-0.1 % ear drops,ag pension 4 drop into left ear 04/09 completed Medicati on ID: [id number] D uration Value: 14 Prescri bed By [...] Updated DateTime 10/01/2024 160.02 cm 17.4 kg/m2 92998.05 g Cleo Shaw [place] - [facility] 10/01/2024 09:03:04 Date Recorded Body height Body mass index (BMI) Body weight Provider Name and Address Organization Details Last Updated DateTime 11/12/2024 160.02 cm 17.4 kg/m2 70201.05 g Lucia Packer [place] - [facility] 11/12/2024 09:00:19 Date Recorded Body height Provider Name an d Address Organization Details Last Updated DateTime 12/31/2024 160.02 cm STEVE PUCKETT [place] - [facility] 12/31/2024 08:52:34 Date Recorded Body height Body mass index (BMI) Body weight Provider Name and Address Organization Details Last Updated DateTime 03/18/2025 160.02 cm 15.4 kg/m2 41918.54 g Elda Stone [place] - [facility] 03/18/2025 09:10:18 Date Recorded Body height Body mass index (BMI) Body weight Provider Name and Address Organization Details Last Updated DateTime 05/25/2025 160.02 cm 15.4 kg/m2 83685.54 g Lucia Packer [place] - [facility] 05/25/2025 10:26:53 Social History None recorded. Functional Status None recorded. Mental Status None recorded. Family History Nothing Reported. Medical History No medical history recorded. Past Encounters Encounter ID Performer Location Encounter Start Date Encounter Closed Date Diagnosis/Indication Diagnosis SNOMED-CT Code Diagnosis ICD10 Code Diagnosis IMO Codes Diagnosis Note [id number] JACK GARCIA PA-C [facility] [address] [address] 01/26/2024 09:32:37 01/26/2024 09:50:16 Impacted cerumen of bilateral ears 3681213428 427161 H61.23 Pervasive developmental disorder of residual state 5383596379 9105 F84.9 [id number] FRANCIS HAMC [facility] [address] [place] [address] 04/09/2024 08:55:18 04/09/2024 09:14:39 Impacted cerumen of bilateral ears 0659930657 270551 H61.23 [id number] JACK GARCIA PA-C [facility] [address] [place] [address] 06/11/2024 08:54:13 06/11/2024 09:23:17 Impacted cerumen of bilateral ears 9600037134 095428 H61.23 [id number] JACK GARCIA PA-C [facility] [address] [place] [address] 07/23/2024 09:08:55 07/23/2024 09:26:10 Impacted cerumen of bilateral ears 6597359507 105993 H61.23 Pervasive developmental disorder of residual state 9551792497 9105 F84.9 [id number] JACK GARCIA PA-C [facility] [address] [place] [address] 10/01/2024 08:54:22 10/01/2024 09:10:22 Impacted cerumen of bilateral ears 9723032969 128698 H61.23 [id number] JACK GARCIA PA-C [facility] [address] [place] [address] 11/12/2024 08:57:50 11/12/2024 09:11:16 Otitis externa 8650948 H60.92 [id number] RICHARD OROZCO PA-C [facility] [address] [place] [address] 12/31/2024 08:51:13 12/31/2024 09:07:39 Pervasive developmental disorder of residual state 7824347525 9105 F84.9 Impacted c erumen of bilateral ears 2114430057 958247 H61.23 Autism spe ctrum disorder 47428821 F84.9 [id number] RICHARD OROZCO PA-C [facility] [address] [address] 03/18/2025 09:04:44 03/18/2025 09:24:58 Impacted cerumen of bilateral ears 9333771166 294632 H61.23 [id number] RICHARD OROZCO PA-C [facility] [address] [address] 05/25/2025 10:06:02 05/25/2025 10:44:35 Impacted cerumen of bilateral ears 4518704178 856073 H61.23 Pervasive developmental disorder of residual state 1085050231 9105 F84.9 Health Concerns Section Related Observation LastModified by Organization Detai ls LastModified Time None Recorded Concern Status LastModified by Organization Details LastModified Time None Recorded Advance Directives Directive None Recorded Payers Insurance Date Sequence Insurance Name Policy Number Policy Pemberton Covered Member ID Pemberton Member ID Guarantor Name 05/22/2025 1 MEDICARE B-PR: [employer] Sander Shook [id number] Sander Shook Jr 05/22/2025 2 MEDICAID-PR[facility] Sander Shook [id number] Sander Shook Jr Notes Date Note Type Note Provider Name and Address Organization Details Recorded Time 10/01/2024 text/html ROS as noted in the [facility] 59-year-old male with pervasive developmental delay presents with father for cerumen removal. There has been no noted otorrhea. Does not seem to be experiencing otalgia, though he has been scratching the external ears a bit. Dad put in some wax softening drops yesterday. MONTSERRAT FARNSWORTH MD [address] [place] [address], [place], [address], [facility] - [facility] 10/01/2024 12:36:20 11/12/2024 text/html ROS as noted in the [facility] 59 year old male with persistent pervasive developmental delay presents with father for evaluation of the ears. Has been sticking his fingers in the left ear. Dad saw some blood on his Q-tip, unsure whether he scratched himself or the ear has been bleeding without digital trauma. GERRY RUSH MD [address] [facility],[address], [address], [facility] - [facility] 11/13/2024 09:13:46 12/31/2024 text/html ROS as noted in the [facility] 59-year-old male with developmental delay presents for reevaluation of left-sided otitis externa. He trialed topical ofloxacin for 10 days. Patient denies ear pain, drainage, or new hearing concerns. MONTSERRAT FARNSWORTH MD [address] [facility],[address], [address], [facility] 12/31/2024 16:52:11 03/18/2025 text/html ROS as noted in the [facility] 59-year-old male with developmental delay presents for cerumen removal. He reports left ear blockage. No new concerns otherwise. MONTSERRAT FARNSWORTH MD [address] [facility],[place] [address], [place], [address], [facility] - [facility] 03/18/2025 16:24:02 05/25/2025 text/html ROS as noted in the [facility] 59-year-old male with developmental delay presents for cerumen removal. No acute concerns today. Johnny Schmidt DO [address] [facility],[address], [address], [facility] 05/25/2025 16:29:28
--- OUTSIDE RECORDS SUMMARY | 2025-06-23 06:05 | XMS_ITS | Continuity of Care Document ---
Author Organization [place] - [facility], [facility] Address [address] [place] [address] Care Team Providers Care Geological Engineer Name Role Phone JUAN ELY Primary Care Provider [phone] Assessment Encounter Date Assessment Date Assessment LastModified by Organization Details LastModified Time 05/25/2025 05/25/2025 59-year-old male with developmental delay [...] Details Recorded Time Abnormal granulat ion tissue 42847665 Active 2013 Other abnormal granulat ion tissue; Location : left CMS Risk: low risk CMS Treatmen t: new problem (to examiner ): addition al workup planned Conditio n: unstable Note: Date Diagnose d: 05/23/20 14 12:21 PM (701.5) Not Available [facility] 4 03:02:23 Chronic infectiv e otitis externa 071322547 Active 2014 Chronic otitis externa; Note: Date Diagnose d: 5 10:23 AM (380.16) Not Available [facility] 4 03:02:21 Impacted cerumen of bilatera l ears 41331517204 61515 Active 2015 Impacted cerumen, bilatera l; Note: Date Diagnose d: 11/17/2015 10:16 AM (H61.23) Impact ed cerumen, bilatera l; Note: Date Diagnose d: 5 10:13 AM (H61.23) [mapped from ICD9 code: 380.4] ; Start Date : 02/21/20 RICHARD OROZCO PA-C [address] [place] [address], [place], [address] , [facility] - [facility] 5 12:00:56 Bilatera l disorder of Eustachi an tubes 03872003346 37740 Active 2017 Other specifie d disorder s of Eustachi an tube, bilatera l; Note: Date Diagnose d: 8 9:15 AM (H69.83) Not Available [facility] 4 03:02:21 Autism spectrum disorder 40154244 Active 2017 Pervasiv e developm ental disorder , unspecif ied; Note: Date Diagnose d: 07/06/20 18 9:15 AM (F84.9) Not Available [facility] 4 03:02:22 Candidal otitis externa 15527885 Completed 202003/12/2024 Candidal otitis externa; Note: Date Diagnose d: 1 9:22 AM (B37.84) Not Available [facility] 4 03:02:24 Otorrhea of left ear 09106496196 46132 Completed 202003/12/2024 Otorrhea , left ear; Note: Date Diagnose d: 1 9:22 AM (H92.12) Not Available [facility] 4 03:02:21 Impacted cerumen in left ear 32002365247 92712 Active 2020 Impacted cerumen, left ear; Note: Date Diagnose d: 05/25/20 11:14 AM (H61.22) Not Available [facility] 4 03:02:24 Impacted cerumen in right ear 38572655401 29328 Active 2021 Impacted cerumen, right ear; Note: Date Diagnose d: 2 9:25 AM (H61.21) Not Available [facility] 4 03:02:24 Infectiv e otitis externa of right ear 83141421378 02281 Active 2023 Other infectiv e otitis externa, right ear; Note: Date Diagnose d: 4 9:18 AM (H60.391 ) Not Available [facility] 4 03:02:23 Otorrhea of right ear 26992204977 08874 Active 2023 Otorrhea , right ear; Note: Date Diagnose d: 4 9:17 AM (H92.11) Otorrh ea, right ear; Note: Date Diagnose d: 05/28/20 19 9:25 AM (H92.11) ; Start Date : 05/28/20 Not Available [facility] 4 03:02:22 Abnormal auditory percepti on 18353726 Active 2023 Other abnormal auditory percepti ons, unspecif ied ear; Note: Date Diagnose d: 09/17/2023 11:07 AM (H93.299 ) Not Available [facility] 4 03:02:23 Pervasiv e developm ental disorder of [facility] 84014893765 105 Active 2023 RICHARD OROZCO PA-C [address] [facility],[place] [address], [place], [address] , [facility] - [facility] 5 12:01:03 Problem Notes None recorded. Procedures Surgical History Date Name Laterality Status Provider Name and Address Organization Details Recorded Time 5 Cerumen removal without microscope bilat completed RICHARD OROZCO PA-C [address] [facility],[place] [address], [place], [address], [place] - [facility] 05/25/2025 11:42:01 5 Cerumen removal without microscope bilat completed RICHARD OROZCO PA-C [address] [facility],[address], [place], [address], [place] - [facility] 03/17/2025 09:36:39 5 Cerumen removal without microscope bilat completed RICHARD OROZCO PA-C [address] [facility] [address], [place], [address], [place] - [facility] 12/31/2024 09:08:48 5 Cerumen removal without microscope bilat completed Jagruti Garcia [place] - [facility] 10/01/2024 09:09:18 4 Cerumen removal without microscope bilat completed Jagruti Garcia [place] - [facility] 07/23/2024 09:27:30 4 Cerumen removal without microscope bilat completed Jagruti Garcia [place] - [facility] 06/11/2024 09:23:59 4 Cerumen removal without microscope bilat completed Jagruti Garcia [place] - [facility] 04/09/2024 09:13:59 4 Cerumen removal without microscope bilat completed Jagruti Garcia [place] - [facility] 01/26/2024 09:50:56 Imaging Results None recorded. Procedure Notes None recorded. Medical Equipment None Reported. Allergies Allergen ID Allergen Name Allergen Category Reaction Reaction Severity Criticality Documentation Date Start Date Code Code System Note Provider Name and Address Organization Details Recorded Time 763484 amoxicill in / clavulana te medicatio n other Not available Not available 12/23/2023 74825 RxNorm React ion: unkno wn, unspe cifie d;; Not Available [facility] 01:14:08 740006 ciproflox acin hydrochlo ride medicatio n hives Not available Not available 12/23/2023 81319 RxNorm React ion: skin rashe s, hives ;; Not Available [facility] 4 01:14:08 928916 clarithro mycin medicatio n hives Not available Not available 12/23/2023 58227 RxNorm React ion: skin rashe s, hives ;; Not Available [facility] 4 01:14:09 256281 morphine medicatio n other Not available Not available 12/23/2023 7052 RxNorm React ion: unkno wn, unspe cifie d;; Not Available [facility] 4 01:14:11 952423 Cipro medicatio n Not available Not available Not available 04/09/2024 33261 3 RxNorm Nadia Potvin null, [place] - [facility] 4 09:07:59 616896 Biaxin medicatio n Not available Not available Not available 04/09/2024 43700 9 RxNorm Nadia Potvin null, [place] - [facility] 4 09:08:10 661026 Augmentin medicatio n Not available Not available Not available 04/09/2024 17719 2 RxNorm Nadia Potvin null, [place] - [facility] 4 09:08:25 226654 acetamino phen / oxycodone medicatio n Not available Not available Not available 04/09/2024 76030 3 RxNorm Nadia Potvin null, [place] - [facility] 4 09:08:34 959382 cefuroxim e Not available Not available Not available Not available 04/09/2024 2194 RxNorm Nadia Potvin null, [place] - [facility] 4 09:08:52 009336 ciproflox acin medicatio n Not available Not available Not available 04/09/2024 2551 RxNorm Nadia Potvin null, [place] - [facility] 4 09:09:04 075492 clotrimaz ole medicatio n Not available Not available Not available 04/09/2024 2623 RxNorm Nadia Potvin null, [place] - [facility] 4 09:09:15 Medications Name Sig Start Date Stop Date Status Note LastModified by Organization Details LastModified Time Lotrisone 1 %-0.05 % topical cream 03/01 completed Medicati on ID: [id number] Pr escribed By Name: DAPHNE Canela nd Name: Lotrison e Send Method: E-Prescr ibed Sub s Allowed: subs OK Speci al Instruct ion: apply every 12 hours x 14 days. Me dication GenericN miguelangel: Lotrison e Not Available Not Available Not Available clotrimaz ole-betam ethasone 1 %-0.05 % lotion 03/01 completed Medicati on ID: [id number] Re ason: () Brand Name: Lotrison e [...] mg tablet 04/09 completed Medicati on ID: [id number] B rand Name: simvasta tin Send Method: E-Prescr ibed Sub s Allowed: subs OK Medic ationGen ericName : simvasta tin Not Available Not Available Not Available clotrimaz ole 1 % topical solution 04/09 completed Medicati on ID: [id number] D uration Value: 21 Prescri bed By Name: DAPHNE So nd Name: carl rush Sen d Method: E-Prescr ibed Sub s Allowed: subs OK Speci al Instruct ion: 4 drops to affected ear three times a day X 21 days Med icationG enericNa me: carl rush Not Available Not Available Not Available docusate sodium 100 mg capsule TAKE 1 CAPSULE BY MOUTH EVERY DAY NEEDED FOR CONSTIPA TION active Not Available Not Available No t Available lorazepam 1 mg tablet 03/01 completed Medicati on ID: [id number] D uration Value: 15 Reason: () Brand [...] mg tablet 07/30 completed Medicati on ID: [id number] D uration Value: 90 Brand Name: proprano [...] drops,ag pension 04/09 completed Medicati on ID: [id number] P rescrixu d By Name: DAPHNE So nd Name: TobraDex Send Method: E-Prescr ibed Sub s Allowed: subs OK Speci al Instruct ion: Instill 3 drops in the affect ear BID for 14 days Med icationG enericNa me: TobraDex Not Available Not Available Not Available Ciprodex 0.3 %-0.1 % ear drops,ag pension 4 drop into left ear 04/09 completed Medicati on ID: [id number] D uration Value: 14 Prescri bed By [...] Updated DateTime 05/25/2025 160.02 cm 15.4 kg/m2 49317.54 g Lucia Packer [place] - [facility] 05/25/2025 10:26:53 Social History None recorded. Functional Status None recorded. Mental Status None recorded. Family History Nothing Reported. Medical History No medical history recorded. Past Encounters Encounter ID Performer Location Encounter Start Date Encounter Closed Date Diagnosis/Indication Diagnosis SNOMED-CT Code Diagnosis ICD10 Code Diagnosis IMO Codes Diagnosis Note [id number] RICHARD OROZCO PA-C [facility] [address] [address] 05/25/2025 10:06:02 05/25/2025 10:44:35 Impacted cerumen of bilateral ears 5247050737 402312 H61.23 Pervasive developmental disorder of residual state 3078554489 9105 F84.9 Health Concerns Section Related Observation LastModified by Organization Detai ls LastModified Time None Recorded Concern Status LastModified by Organization Details LastModified Time None Recorded Payers Encounter Date Sequence Insurance Name Policy Number Policy Pemberton Covered Member ID Pemberton Member ID Guarantor Name 05/25/2025 1 [place] B-[place]: [employer] Sander Shook [id number] Sander Shook Jr 05/25/2025 2 [place] [facility] Sander Shook [id number] Sander Shook Jr Notes Date Note Type Note Provider Name and Address Organization Details Recorded Time 05/25/2025 text/html ROS as noted in the HPI 59-year-old male with developmental delay presents for cerumen removal. No acute concerns today. Johnny Schmidt, [place] [address], [place], [address], [facility] - [facility] 05/25/2025 16:29:28
[2025-06-23 10:31] LABS: MANUAL DIFF FLAG NO
[2025-06-23 11:02] LABS: Hematocrit 38.3 % (42.0-52.0); Hemoglobin 12.7 g/dl (14.0-18.0); Imm Gran Abs Auto 0.04 X10*3/uL (0.00-0.03); Imm Gran Pct Auto 0.5 % (0.0-0.4); Lymphocytes Absolute Auto 3.1 X10*3/uL (1.2-4.9); Mean Corpuscular HGB Conc 33.2 g/dl (31.0-36.0); Mean Corpuscular Hemoglobin 31.9 pg (27.0-33.0); Mean Corpuscular Volume 96.2 fL (80.0-98.0); NRBC Abs Auto 0.000 X10*3/uL (0.0-0.012); NRBC Pct Auto 0.0 /100WBC (0.0-0.2); Platelet Count 215 X10*3/uL (160-400); Red Blood Count 3.98 X10*6/uL (4.60-5.80); White Blood Count 8.5 X10*3/uL (4.8-10.8)
[2025-06-23 12:11] LABS: Alanine Aminotransferase 17 U/L (0-40); Anion Gap 14 (12-20); Aspartate Amino Transferase 31 U/L (5-37); Blood Urea Nitrogen 18 mg/dL (9-16); Calcium 9.1 mg/dL (8.4-10.2); Carbon Dioxide 24 mmol/L (22-29); Chloride 107 mmol/L (96-108); Cholesterol 176 mg/dL (<200); Estimated Glomerular Filt Rate > 60; HDL Cholesterol 59 mg/dL (>40); Iron 107 mcg/dL (45-160); Percent Iron Saturation 45 % (15-50); Potassium 5.2 mmol/L (3.3-5.1); Sodium 140 mmol/L (135-145); Total Iron Binding Capacity 238 mcg/dL (228-428); Triglycerides 75 mg/dL (<150); Unsaturated Iron Binding 131 ug/dL
== END 2025-06-23 06:04 | disposition home or self-care (01) ==
LOC: HO.HMGCLDS 06:03
PROVIDERS: PCP Internal Medicine; Visit Provider Internal Medicine
DX: M81.8 Other osteoporosis without current pathological fracture (principal); R73.01 Impaired fasting glucose; E78.5 Hyperlipidemia, unspecified; D64.9 Anemia, unspecified
CPT/HCPCS: 36415; 80048; 80061; 82306; 83036; 83540; 84450; 84460; 85025

== ENCOUNTER 2025-06-27 11:21 | Outpatient (AMB) | payer MEDICARE, MEDICAID, SELFPAY ==
--- NOTE | 2025-06-27 11:56 | A.OFFPC_ITS ---
Vital Signs 06/27/25 11:57 Height 5 ft 1 in Weight 90 lb 6 oz BMI 17.1 BP 110/70 Blood Pressure Location Rt brachial Position Sitting Respiration 15 Pulse 52 Pulse Source Pulse Oximeter Temp 97.7 F Temp Source Oral Pulse Oximetry (%) 94 Oxygen Delivery Method Room Air Intake Visit Reasons: AnnualPE Intake Note: Pt is here today for his PE Allergies clotrimazole Allergy (Intermediate, Verified 06/27/25 12:05) Rash acetaminophen (From ENDOCET) Allergy (Unknown, Verified 06/27/25 12:05) HIVES amoxicillin (From AUGMENTIN) Allergy (Unknown, Verified 06/27/25 12:05) HIVES cefuroxime (CEFUROXIME) Allergy (Unknown, Verified 06/27/25 12:05) HIVES ciprofloxacin (From CIPRO) Allergy (Unknown, Verified 06/27/25 12:05) HIVES, Rash, rash clarithromycin (From BIAXIN) Allergy (Unknown, Verified 06/27/25 12:05) HIVES clavulanic acid (From AUGMENTIN) Allergy (Unknown, Verified 06/27/25 12:05) HIVES morphine (MORPHINE) Allergy (Unknown, Verified 06/27/25 12:05) HIVES, Rash, rash oxycodone (From ENDOCET) Allergy (Unknown, Verified 06/27/25 12:05) HIVES Tobacco use date assessed: 06/27/25 Dental Screening Dental Screen Date: 06/27/25 Did you have a dental visit in the last 12 months?: Yes Did you have a dental problem in the last 6 months where you did not have access to dental care?: No Was dental information given to patient?: Patient has dentist [facility] Medical History Rash Osteoporosis History of fracture of left hip Mentally challenged Underweight Weight loss, non-intentional TRENT on CPAP Dyslipidemia Dysphagia Mental and behavioral problems with learning Closed subcapital fracture of left femur Anemia Normocytic normochromic anemia Psychotic disorder Gallstones 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 Left inguinal hernia Sensorineural hearing loss Cerebral palsy Vitamin D deficiency Surgical History History of hip surgery History of cataract surgery S/P inguinal herniorrhaphy History of colonoscopy Hx laparoscopic cholecystectomy Family History Father Medical history non-contributory Mother Medical history non-contributory Social History Household Members: Family Housing: House Do you presently have visiting nurse or other home services: No Alcohol intake: never Comment: pt os calmer not moving around a lot Patient Tobacco Use Status: Never used Tobacco e-Cigarette/Vaping Use: Never Used Second Hand Smoke Exposure: No service: No Current occupational status: disabled Cognitive needs: Yes Hearing needs: Yes Vision needs: Yes Questionnaire Thrive Questionnaire Date Thrive assessed: 06/24/24 I am a: Patient What is your living situation today?: I have a steady place to live Within the past 12 months, did the food you bought not last and you didn't have the money to get more?: I choose not to answer this question Within the past 12 months, did you worry whether your food would run out before you got money to buy more?: I choose not to answer this question Do you have trouble paying for medicines?: No Do you have trouble getting transportation to medical appointments?: I choose not to answer this question Do you have trouble paying your heating and electricity bill?: I choose not to answer this question Do you have trouble taking care of your child, family member or friend?: I choose not to answer this question Do you have trouble with day-to-day activities such as bathing, preparing meals, shopping, managing finances, etc.?: I choose not to answer this question Are you currently unemployed and looking for a job?: I choose not to answer this question Are you interested in more education?: I choose not to answer this question Please select the resources that you would like help with: None Currently or been in a relationship where the following occur: I choose not to answer THRIVE Score: 0 Physical exam (Primary Care) BMI result Body Mass Index 17.1 Tobacco/Smoking Status: Tobacco use Status Tobacco use date assessed 12/01/23 06/27/25 11:57 Patient Tobacco Use Status Never used Tobacco 06/27/25 11:57 e-Cigarette/Vaping Use Never Used 06/27/25 11:57 Thrive Assessment: Date of Thrive Assessment Date Thrive assessed 06/24/24 06/27/25 11:57 Currently or been in a relationship where the following occur: I choose not to answer Office Procedures Flu Questionnaire Does the patient have a severe egg allergy?: No Does the patient have severe life threatening allergies?: No Does the patient have a fever or illness today?: No Has the patient ever had Guillain-Mesopotamia Syndrome?: No Has the patient ever had any past reaction to a flu shot?: No Immunizations Fluarix [id number] (PF) 45 mcg (15 mcg x 3)/0.5 mL IM syringe Performing Provider: Jeri John MD Performing Location: [facility] Administered by: Alondra Chandler CMA on 06/27/25 12:13 Dose Route Admin Location Dispensed Lot Number Expiration Date [facility] Senior Stereo Compiler Team Lead 0.5 mL IM Right Deltoid 0.5 mL [id number] 02/07/26 [id number] Vital Ju[employer] Newsletter VIS Given Date VIS Provided VIS Publication Date 06/27/25 Single Vaccine 24 Eligibility Eligibility Date Funding Source Not [facility] Eligible 06/27/25 Private Results Reviewed Results Reviewed: Name: Sander Shook Jr Age/Sex: 59/M : 1965 Unit#: [id number] Attend Dr: Jeri John MD Re06/23/25 Status: DEP REF Location: [facility] Disch: SPEC : [id number] NAYA: 06/23/25 STATUS: COMP REQ : [id number] RECD: 06/23/25-[address]: Jeri John MD COMP: 06/23/25 ENTERED: 06/23/[address] [facility] [address]: ORDERED: CBC Auto Diff Test Result Flag Reference WBC 8.5 4.8-10.8 X10*3/uL RBC 3.98 L 4.60-5.80 X10*6/uL HGB 12.7 L 14.0-18.0 g/dl HCT 38.3 L 42.0-52.0 % MCV 96.2 80.0-98.0 fL MCH 31.9 27.0-33.0 pg MCHC 33.2 31.0-36.0 g/dl RDW 13.1 11.0-16.0 % PLT 215 160-400 X10*3/uL MPV 10.9 9.4-12.4 fL Neut Pct Auto 51.4 45-73 % ImGran Pct Auto 0.5 H 0.0-0.4 % Lymp Pct Auto 36.2 20-40 % [place] Pct Auto 6.7 2-11 % Eos Pct Auto 4.6 H 0-4 % Baso Pct Auto 0.6 0-2 % NRBC Pct Auto 0.0 0.0-0.2 /100WBC ANC Neut Abs # 4.4 2.0-8.3 x10*3/uL ImGran Abs Auto 0.04 H 0.00-0.03 X10*3/uL Lymph Abs Auto 3.1 1.2-4.9 X10*3/uL [place] Abs Auto 0.6 0.1-1.2 X10*3/uL Eos Abs Auto 0.4 0.0-0.4 X10*3/uL Baso Abs Auto 0.1 0.0-0.2 X10*3/uL NRBC Abs Auto 0.000 0.0-0.012 X10*3/uL Name: Sander Shook Jr Age/Sex: 59/M : 1965 Unit#: [id number] Attend Dr: Jeri John MD Re06/23/25 Status: DEP REF Location: [facility] Disch: SPEC : [id number] NAYA: 06/23/25 STATUS: COMP REQ : [id number] RECD: 06/23/[address]: Jeri John MD COMP: 06/23/25 ENTERED: 06/23/[address]: ORDERED: Met Prof Fast, IRON PROF, AST, ALT, Lipid Panel, Vitamin D 25-OH Test Result Flag Reference Sodium 140 135-145 mmol/L Potassium 5.2 H 3.3-5.1 mmol/L Slight Hemolysis.Interpret result with caution. CL 107 96-108 mmol/L CO2 24 22-29 mmol/L Gap 14 12-20 BUN 18 H 9-16 mg/dL Creat 0.71 0.5-1.4 mg/dL eGFR > 60 Chronic Kidney Disease: Estimated GFR < 60 mL/min/1.73m2 Severe Kidney Disease: Estimated GFR < 15 mL/min/1.73m2 FBS 115 H 60-99 mg/dL A fasting glucose from 100-125 mg/dl is considered impaired (pre-diabetes). CA 9.1 8.4-10.2 mg/dL Iron 107 45-160 mcg/dL Slight Hemolysis.Interpret result with caution. TIBC 238 228-428 mcg/dL Saturation 45 15-50 % UIBC 131 ug/dL AST (GOT) 31 5-37 U/L Slight Hemolysis.Interpret result with caution. ALT (GPT) 17 0-40 U/L Triglyceride 75 <150 mg/dL Desirable Triglyceride: less than 150 mg/dL Borderline High Triglyceride 150-199 mg/dL High Triglyceride: 200-499 mg/dL Very High Triglyceride: greater than or equal to 5OO mg/dL Cholesterol 176 <200 mg/dL Desirable Cholesterol: less than 200 mg/dL Borderline High Cholesterol: 200-239 mg/dL High Cholesterol: greater than 239 mg/dL LDL Calculated 102 H <100 mg/dL Desirable LDL: less than 100 mg/dL Near Optimal/Above Optimal LDL: 110-129 mg/dL Borderline High LDL: 130-159 mg/dL High LDL: 160-189 mg/dL Very High LDL: greater than or equal to 190 mg/dL HDL 59 >40 mg/dL Desirable HDL: greater than 40 mg/dL Note: This HDL assay may give artificially low results in patients with liver disease. Vitamin D 25-OH 61.1 >30 ng/mL Health Based Reference Values* < 20 ng/mL Deficient 20-30 ng/mL Insufficient > 30 ng/mL Sufficient Laboratory Tests 06/23/25 06:20 Estimat Average Glucose 111 Hemoglobin A1c % 5.5 Coding Diagnoses Normocytic normochromic anemia D64.9 Dyslipidemia E78.5 Elevated fasting glucose R73.01 Other osteoporosis, unspecified pathological fracture presence M81.8 Osteoporosis type: other Presence of current pathological fracture: unspecified Assessment & Plan Assessment & Plan (1) Normocytic normochromic anemia: Code(s): D64.9 - Anemia, unspecified Category: Medical (2) Dyslipidemia: Code(s): E78.5 - Hyperlipidemia, unspecified Category: Medical (3) Elevated fasting glucose: Code(s): R73.01 - Impaired fasting glucose Category: Medical (4) Osteoporosis: Code(s): M81.0 - Age-related osteoporosis without current pathological fracture Category: Medical Qualifiers: Osteoporosis type: other Presence of current pathological fracture: unspecified Qualified Code(s): M81.8 - Other osteoporosis without current pathological fracture Orders: Orders Influenza [id number] Immunization Today Z23 - Encounter for immunization Complete Blood Count Auto Diff 10/09/25 D64.9 - Anemia, unspecified, E78.5 - Hyperlipidemia, unspecified, M81.8 - Other osteoporosis without current pathological fracture, R73.01 - Impaired fasting glucose IRON PROFILE 10/09/25 D64.9 - Anemia, unspecified, E78.5 - Hyperlipidemia, unspecified, M81.8 - Other osteoporosis without current pathological fracture, R73.01 - Impaired fasting glucose TSH reflex Free T4 10/09/25 D64.9 - Anemia, unspecified, E78.5 - Hyperlipidemia, unspecified, M81.8 - Other osteoporosis without current pathological fracture, R73.01 - Impaired fasting glucose Vitamin D 25-OH Total 10/09/25 D64.9 - Anemia, unspecified, E78.5 - Hyperlipidemia, unspecified, M81.8 - Other osteoporosis without current pathological fracture, R73.01 - Impaired fasting glucose Lipid Panel 10/09/25 D64.9 - Anemia, unspecified, E78.5 - Hyperlipidemia, unspecified, M81.8 - Other osteoporosis without current pathological fracture, R73.01 - Impaired fasting glucose Aspartate Amino Transferase 10/09/25 D64.9 - Anemia, unspecified, E78.5 - Hyperlipidemia, unspecified, M81.8 - Other osteoporosis without current pathological fracture, R73.01 - Impaired fasting glucose Alanine Aminotransferase 10/09/25 D64.9 - Anemia, unspecified, E78.5 - Hyperlipidemia, unspecified, M81.8 - Other osteoporosis without current pathological fracture, R73.01 - Impaired fasting glucose
[2025-06-27 11:57] VITALS: BP 110/70; PULSE 52; RESP 15; TEMP 36.5; O2SAT 94; BMI 17.1
--- OUTSIDE RECORDS SUMMARY | 2025-06-27 23:34 | XMS_ITS | Continuity of Care Document ---
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 Name Role Phone JUAN ELY Primary Care [...] Details Recorded Time Abnormal granulat ion tissue 66348536 Active 2013 Other abnormal granulat ion tissue; Location : left CMS Risk: low risk CMS Treatmen t: new problem (to examiner ): addition al workup planned Conditio n: unstable Note: Date Diagnose d: 05/23/20 14 12:21 PM (701.5) Not Available [facility] 4 03:02:23 Chronic infectiv e otitis externa 736301311 Active 2014 Chronic otitis externa; Note: Date Diagnose d: 5 10:23 AM (380.16) Not Available [facility] 4 03:02:21 Impacted cerumen of bilatera l ears 91078531487 88743 Active 2015 Impacted cerumen, bilatera l; Note: Date Diagnose d: 11/17/2015 10:16 AM (H61.23) Impact ed cerumen, bilatera l; Note: Date Diagnose d: 5 10:13 AM (H61.23) [mapped from ICD9 code: 380.4] ; Start Date : 02/21/20 RICHARD OROZCO PA-C [address] [place] [address], [place], [address] , [facility] - [facility] 5 12:00:56 Bilatera l disorder of Eustachi an tubes 95018076009 60640 Active 2017 Other specifie d disorder s of Eustachi an tube, bilatera l; Note: Date Diagnose d: 8 9:15 AM (H69.83) Not Available [facility] 4 03:02:21 Autism spectrum disorder 57609157 Active 2017 Pervasiv e developm ental disorder , unspecif ied; Note: Date Diagnose d: 07/06/20 18 9:15 AM (F84.9) Not Available [facility] 4 03:02:22 Candidal otitis externa 34882246 Completed 202003/12/2024 Candidal otitis externa; Note: Date Diagnose d: 1 9:22 AM (B37.84) Not Available [facility] 4 03:02:24 Otorrhea of left ear 92085072734 26373 Completed 202003/12/2024 Otorrhea , left ear; Note: Date Diagnose d: 1 9:22 AM (H92.12) Not Available [facility] 4 03:02:21 Impacted cerumen in left ear 56905121781 25299 Active 2020 Impacted cerumen, left ear; Note: Date Diagnose d: 05/25/20 11:14 AM (H61.22) Not Available [facility] 4 03:02:24 Impacted cerumen in right ear 61155606926 36758 Active 2021 Impacted cerumen, right ear; Note: Date Diagnose d: 2 9:25 AM (H61.21) Not Available [facility] 4 03:02:24 Infectiv e otitis externa of right ear 31644575405 63703 Active 2023 Other infectiv e otitis externa, right ear; Note: Date Diagnose d: 4 9:18 AM (H60.391 ) Not Available [facility] 4 03:02:23 Otorrhea of right ear 51579205838 37620 Active 2023 Otorrhea , right ear; Note: Date Diagnose d: 4 9:17 AM (H92.11) Otorrh ea, right ear; Note: Date Diagnose d: 05/28/20 19 9:25 AM (H92.11) ; Start Date : 05/28/20 Not Available [facility] 4 03:02:22 Abnormal auditory percepti on 57906446 Active 2023 Other abnormal auditory percepti ons, unspecif ied ear; Note: Date Diagnose d: 09/17/2023 11:07 AM (H93.299 ) Not Available [facility] 4 03:02:23 Pervasiv e developm ental disorder of [facility] state 47724193378 105 Active 2023 RICHARD OROZCO PA-C [address] [facility],[place] [address], [place], [address] , [facility] - [facility] 5 12:01:03 Problem Notes None recorded. Procedures Surgical History Date Name Laterality Status Provider Name and Address Organization Details Recorded Time 5 Cerumen removal without microscope bilat completed RICHARD OROZCO PA-C [address] [facility],[place] [address], [place], [address], [place] - [facility] 05/25/2025 11:42:01 5 Cerumen removal without microscope bilat completed RICHARD OROZCO PA-C [address] [facility],[address], [place], [address], [place] - [facility] 03/17/2025 09:36:39 5 Cerumen removal without microscope bilat completed RICHARD OROZCO PA-C [address] [facility] [address], [place], [address], [place] - [facility] 12/31/2024 09:08:48 5 Cerumen removal without microscope bilat completed Jagruti Garcia [place] - [facility] 10/01/2024 09:09:18 4 Cerumen removal without microscope bilat completed Jagruti Garcia [place] - [facility] 07/23/2024 09:27:30 4 Cerumen removal without microscope bilat completed Jagruti Garcia [place] - [facility] 06/11/2024 09:23:59 4 Cerumen removal without microscope bilat completed Jagruti Garcia [place] - [facility] 04/09/2024 09:13:59 4 Cerumen removal without microscope bilat completed Jagruti Garcia [place] - [facility] 01/26/2024 09:50:56 Imaging Results None recorded. Procedure Notes None recorded. Medical Equipment None Reported. Allergies Allergen ID Allergen Name Allergen Category Reaction Reaction Severity Criticality Documentation Date Start Date Code Code System Note Provider Name and Address Organization Details Recorded Time 639038 amoxicill in / clavulana te medicatio n other Not available Not available 12/23/2023 79417 RxNorm React ion: unkno wn, unspe cifie d;; Not Available [facility] 01:14:08 349106 ciproflox acin hydrochlo ride medicatio n hives Not available Not available 12/23/2023 27325 RxNorm React ion: skin rashe s, hives ;; Not Available [facility] 4 01:14:08 823334 clarithro mycin medicatio n hives Not available Not available 12/23/2023 64849 RxNorm React ion: skin rashe s, hives ;; Not Available [facility] 4 01:14:09 790796 morphine medicatio n other Not available Not available 12/23/2023 7052 RxNorm React ion: unkno wn, unspe cifie d;; Not Available [facility] 4 01:14:11 507553 Cipro medicatio n Not available Not available Not available 04/09/2024 90568 3 RxNorm Nadia Potvin null, [place] - [facility] 4 09:07:59 950976 Biaxin medicatio n Not available Not available Not available 04/09/2024 19174 9 RxNorm Nadia Potvin null, [place] - [facility] 4 09:08:10 252967 Augmentin medicatio n Not available Not available Not available 04/09/2024 75205 2 RxNorm Nadia Potvin null, [place] - [facility] 4 09:08:25 112432 acetamino phen / oxycodone medicatio n Not available Not available Not available 04/09/2024 00937 3 RxNorm Nadia Potvin null, [place] - [facility] 4 09:08:34 698593 cefuroxim e Not available Not available Not available Not available 04/09/2024 2194 RxNorm Nadia Potvin null, [place] - [facility] 4 09:08:52 928541 ciproflox acin medicatio n Not available Not available Not available 04/09/2024 2551 RxNorm Nadia Potvin null, [place] - [facility] 4 09:09:04 762827 clotrimaz ole medicatio n Not available Not available Not available 04/09/2024 2623 RxNorm Nadia Potvin null, [place] - [facility] 4 09:09:15 Medications Name Sig Start Date Stop Date Status Note LastModified by Organization Details LastModified Time Lotrisone 1 %-0.05 % topical cream 03/01 completed Medicati on ID: [id number] Pr escribed By Name: DAPHNE Canela nd Name: Lotrison e Send Method: E-Prescr ibed Sub s Allowed: subs OK Speci al Instruct ion: apply every 12 hours x 14 days. Me dication GenericN miguelangel: Lotrison e Not Available Not Available Not Available clotrimaz ole-betam ethasone 1 %-0.05 % lotion 03/01 completed Medicati on ID: [id number] Re ason: () Brand Name: Lotrison e [...] mg tablet 04/09 completed Medicati on ID: [id number] B rand Name: simvasta tin Send Method: E-Prescr ibed Sub s Allowed: subs OK Medic ationGen ericName : simvasta tin Not Available Not Available Not Available clotrimaz ole 1 % topical solution 04/09 completed Medicati on ID: [id number] D uration Value: 21 Prescri bed By [...] mg tablet 03/01 completed Medicati on ID: [id number] D uration Value: 15 Reason: () Brand [...] mg tablet 07/30 completed Medicati on ID: [id number] D uration Value: 90 Brand Name: proprano [...] drops,ag pension 04/09 completed Medicati on ID: [id number] P rescrixu d By Name: DAPHNE So nd Name: TobraDex Send Method: E-Prescr ibed Sub s Allowed: subs OK Speci al Instruct ion: Instill 3 drops in the affect ear BID for 14 days Med icationG enericNa me: TobraDex Not Available Not Available Not Available Ciprodex 0.3 %-0.1 % ear drops,ag pension 4 drop into left ear 04/09 completed Medicati on ID: [id number] D uration Value: 14 Prescri bed By [...] Updated DateTime 05/25/2025 160.02 cm 15.4 kg/m2 91598.54 g Lucia Packer [place] - [facility] 05/25/2025 10:26:53 Social History None recorded. Functional Status None recorded. Mental Status None recorded. Family History Nothing Reported. Medical History No medical history recorded. Past Encounters Encounter ID Performer Location Encounter Start Date Encounter Closed Date Diagnosis/Indication Diagnosis SNOMED-CT Code Diagnosis ICD10 Code Diagnosis IMO Codes Diagnosis Note [id number] RICHARD OROZCO PA-C [facility] [address] [address] 05/25/2025 10:06:02 05/25/2025 10:44:35 Impacted cerumen of bilateral ears 0550916044 849705 H61.23 Pervasive developmental disorder of residual state 9074458214 9105 F84.9 Health Concerns Section Related Observation LastModified by Organization Detai ls LastModified Time None Recorded Concern Status LastModified by Organization Details LastModified Time None Recorded Payers Encounter Date Sequence Insurance Name Policy Number Policy Pemberton Covered Member ID Pemberton Member ID Guarantor Name 05/25/2025 1 [place] [employer] Sander Shook [id number] Sander Shook Jr 05/25/2025 2 [place] [facility] Sander Shook [id number] Sander Shook Jr Notes Date Note Type Note Provider Name and Address Organization Details Recorded Time 05/25/2025 text/html ROS as noted in the HPI 59-year-old male with developmental delay presents for cerumen removal. No acute concerns today. Johnny Schmidt, [place] [address], [place], [address], [facility] - [facility] 05/25/2025 16:29:28
--- OUTSIDE RECORDS SUMMARY | 2025-06-27 23:34 | XMS_ITS | Data Portability ---
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 Patient InstructionsNo instructions recorded. Reason for Referral None Reported. Problems Name Problem SNOMED Code Status Onset Date Resolution Date Notes Provider Name and Address Organization Details Recorded Time Abnormal granulat ion tissue 92574441 Active 2013 Other abnormal granulat ion tissue; Location : left [facility] Risk: low risk CMS Treatmen t: new problem (to examiner ): addition al workup planned Conditio n: unstable Note: Date Diagnose d: 05/23/20 14 12:21 PM (701.5) Not Available [facility] 4 03:02:23 Chronic infectiv e otitis externa 827750516 Active 2014 Chronic otitis externa; Note: Date Diagnose d: 5 10:23 AM (380.16) Not Available [facility] 4 03:02:21 Impacted cerumen of bilatera l ears 76284250053 46642 Active 2015 Impacted cerumen, bilatera l; Note: Date Diagnose d: 11/17/2015 10:16 AM (H61.23) Impact ed cerumen, bilatera l; Note: Date Diagnose d: 5 10:13 AM (H61.23) [mapped from ICD9 code: 380.4] ; Start Date : 02/21/20 RICHARD OROZCO PA-C [address] [place] [address], [place], [address] , [facility] - [facility] 5 12:00:56 Bilatera l disorder of Eustachi an tubes 67619895742 36060 Active 2017 Other specifie d disorder s of Eustachi an tube, bilatera l; Note: Date Diagnose d: 8 9:15 AM (H69.83) Not Available [facility] 4 03:02:21 Autism spectrum disorder 12226786 Active 2017 Perkyleiv e developm ental disorder , unspecif ied; Note: Date Diagnose d: 07/06/20 18 9:15 AM (F84.9) Not Available [facility] 4 03:02:22 Candidal otitis externa 39982758 Completed 202003/12/2024 Candidal otitis externa; Note: Date Diagnose d: 1 9:22 AM (B37.84) Not Available [facility] 4 03:02:24 Otorrhea of left ear 37497967468 01806 Completed 202003/12/2024 Otorrhea , left ear; Note: Date Diagnose d: 1 9:22 AM (H92.12) Not Available [facility] 4 03:02:21 Impacted cerumen in left ear 22914676652 79223 Active 2020 Impacted cerumen, left ear; Note: Date Diagnose d: 05/25/20 21 11:14 AM (H61.22) Not Available [facility] 4 03:02:24 Impacted cerumen in right ear 42535316019 78862 Active 2021 Impacted cerumen, right ear; Note: Date Diagnose d: 2 9:25 AM (H61.21) Not Available [facility] 4 03:02:24 Infectiv e otitis externa of right ear 08385720217 96094 Active 2023 Other infectiv e otitis externa, right ear; Note: Date Diagnose d: 4 9:18 AM (H60.391 ) Not Available [facility] 4 03:02:23 Otorrhea of right ear 35669673619 30539 Active 2023 Otorrhea , right ear; Note: Date Diagnose d: 4 9:17 AM (H92.11) Otorrh ea, right ear; Note: Date Diagnose d: 05/28/20 9:25 AM (H92.11) ; Start Date : 05/28/20 Not Available [facility] 4 03:02:22 Abnormal auditory percepti on 90042936 Active 2023 Other abnormal auditory percepti ons, unspecif ied ear; Note: Date Diagnose d: 09/17/2023 11:07 AM (H93.299 ) Not Available [facility] 4 03:02:23 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 92887234673 105 Active 2023 RICHARD OROZCO PA-C [address] [place] [address], [address] , [place] - [facility] 5 12:01:03 Problem Notes None recorded. Procedures Surgical History Date Name Laterality Status Provider Name and Address Organization Details Recorded Time 5 Cerumen removal without microscope bilat completed RICHARD OROZCO PA-C [address] [place] [address],[address], [address], [place] - [facility] 05/25/2025 11:42:01 5 Cerumen removal without microscope bilat completed RICHARD OROZCO PA-C [address] [place] [address],[address], [address], [place] - [facility] 03/17/2025 09:36:39 5 Cerumen removal without microscope bilat completed RICHARD OROZCO PA-C [address] [place] [address],[address], [address], [place] - [facility] 12/31/2024 09:08:48 5 Cerumen removal without microscope bilat completed Jackkari Garcia [place] - [facility] 10/01/2024 09:09:18 4 Cerumen removal without microscope bilat completed Jack Garcia [place] - [facility] 07/23/2024 09:27:30 4 Cerumen removal without microscope bilat completed Jackkari Garcia [place] - [facility] 06/11/2024 09:23:59 4 Cerumen removal without microscope bilat completed Jack Garcia [place] - [facility] 04/09/2024 09:13:59 4 Cerumen removal without microscope bilat completed Jack Garcia [place] - [facility] 01/26/2024 09:50:56 Imaging Results None recorded. Procedure Notes None recorded. Medical Equipment None Reported. Allergies Allergen ID Allergen Name Allergen Category Reaction Reaction Severity Criticality Documentation Date Start Date Code Code System Note Provider Name and Address Organization Details Recorded Time 044419 amoxicill in / clavulana te medicatio n other Not available Not available 12/23/2023 50068 RxNorm React ion: unkno wn, unspe cifie d;; Not Available [facility] 4 01:14:08 883883 ciproflox acin hydrochlo ride medicatio n hives Not available Not available 12/23/2023 02352 RxNorm React ion: skin rashe s, hives ;; Not Available [facility] 4 01:14:08 857415 clarithro mycin medicatio n hives Not available Not available 12/23/2023 33837 RxNorm React ion: skin rashe s, hives ;; Not Available [facility] 4 01:14:09 541613 morphine medicatio n other Not available Not available 12/23/2023 7052 RxNorm React ion: unkno wn, unspe cifie d;; Not Available [facility] 4 01:14:11 539229 Cipro medicatio n Not available Not available Not available 04/09/2024 16619 3 RxNorm Andia Potvin null, [place] - [facility] 4 09:07:59 761791 Biaxin medicatio n Not available Not available Not available 04/09/2024 27348 9 RxNorm Nadia Potvin null, [place] - [facility] 4 09:08:10 170628 Augmentin medicatio n Not available Not available Not available 04/09/2024 91606 2 RxNorm Nadia Potvin null, [place] - [facility] 4 09:08:25 172740 acetamino phen / oxycodone medicatio n Not available Not available Not available 04/09/2024 58116 3 RxNorm Nadia Potvin null, [place] - [facility] 4 09:08:34 294779 cefuroxim e Not available Not available Not available Not available 04/09/2024 2194 RxNorm Nadia Potvin null, [place] - [facility] 4 09:08:52 049716 ciproflox acin medicatio n Not available Not available Not available 04/09/2024 2551 RxNorm Nadia Potvin null, [place] - [facility] 4 09:09:04 051178 clotrimaz ole medicatio n Not available Not available Not available 04/09/2024 2623 RxNorm Nadia Lisavin null, [place] - [facility] 4 09:09:15 Medications Name Sig Start Date Stop Date Status Note LastModified by Organization Details LastModified Time Lotrisone 1 %-0.05 % topical cream 03/01 completed Medicati on ID: [id number] Pr escribed By Name: DAPHNE Canela nd Name: Lotrison e Send Method: E-Prescr ibed Sub s Allowed: subs [place] Speci al Instruct ion: apply every 12 hours x 14 days. Me dication GenericN miguelangel: Lotrison e Not Available Not Available Not Available clotrimaz ole-betam ethasone 1 %-0.05 % lotion 03/01 completed Medicati on ID: [id number] Re ason: () Brand Name: Usha pacheco [...] mg tablet 04/09 completed Medicati on ID: [id number] B rand Name: simcarol erlin Send Method: E-Prescr ibed Sub s Allowed: subs OK Medic ationGen ericName : simvasta tin Not Available Not Available Not Available clotrimaz ole 1 % topical solution 04/09 completed Medicati on ID: [id number] D uration Value: 21 Prescri bed By [...] mg tablet 03/01 completed Medicati on ID: [id number] D uration Value: 15 Reason: () Brand [...] mg tablet 07/30 completed Medicati on ID: [id number] D uration Value: 90 Brand Name: proprano [...] drops,ag pension 04/09 completed Medicati on ID: [id number] P rescribe d By Name: DAPHNE So nd Name: TobraDex Send Method: E-Prescr ibed Sub s Allowed: subs [place] sotelo Instruct ion: Instill 3 drops in the affect ear BID for 14 days Med icationG enericNa me: TobraDex Not Available Not Available Not Available Ciprodex 0.3 %-0.1 % ear drops,ag pension 4 drop into left ear 04/09 completed Medicati on ID: [id number] D uration Value: 14 Prescri bed By [...] Updated DateTime 10/01/2024 160.02 cm 17.4 kg/m2 37429.05 g Cleo Shaw [place] - [facility] 10/01/2024 09:03:04 Date Recorded Body height Body mass index (BMI) Body weight Provider Name and Address Organization Details Last Updated DateTime 11/12/2024 160.02 cm 17.4 kg/m2 20884.05 g Lucia Packer [place] - [facility] 11/12/2024 09:00:19 Date Recorded Body height Provider Name an d Address Organization Details Last Updated DateTime 12/31/2024 160.02 cm STEVE PUCKETT [place] - [facility] 12/31/2024 08:52:34 Date Recorded Body height Body mass index (BMI) Body weight Provider Name and Address Organization Details Last Updated DateTime 03/18/2025 160.02 cm 15.4 kg/m2 62419.54 g Elda Stone [place] - [facility] 03/18/2025 09:10:18 Date Recorded Body height Body mass index (BMI) Body weight Provider Name and Address Organization Details Last Updated DateTime 05/25/2025 160.02 cm 15.4 kg/m2 14321.54 g Lucia Packer [place] - [facility] 05/25/2025 10:26:53 Social History None recorded. Functional Status None recorded. Mental Status None recorded. Family History Nothing Reported. Medical History No medical history recorded. Past Encounters Encounter ID Performer Location Encounter Start Date Encounter Closed Date Diagnosis/Indication Diagnosis SNOMED-CT Code Diagnosis ICD10 Code Diagnosis IMO Codes Diagnosis Note [id number] JACK GARCIA PA-C [facility] [address] [address] 01/26/2024 09:32:37 01/26/2024 09:50:16 Impacted cerumen of bilateral ears [id number] 199650 H61.23 Pervasive developmental disorder of residual state 0183820658 9105 F84.9 [id number] FRANCIS HAMC [facility] [address] [place] [address] 04/09/2024 08:55:18 04/09/2024 09:14:39 Impacted cerumen of bilateral ears 3274070917 898754 H61.23 [id number] JACK GARCIA PA-C [facility] [address] [place] [address] 06/11/2024 08:54:13 06/11/2024 09:23:17 Impacted cerumen of bilateral ears 5484650731 920255 H61.23 [id number] JACK GARCIA PA-C [facility] [address] [place] [address] 07/23/2024 09:08:55 07/23/2024 09:26:10 Impacted cerumen of bilateral ears 6635263729 409076 H61.23 Pervasive developmental disorder of residual state 4481632776 9105 F84.9 [id number] JACK GARCIA PA-C [facility] [address] [place] [address] 10/01/2024 08:54:22 10/01/2024 09:10:22 Impacted cerumen of bilateral ears 1546652125 777089 H61.23 [id number] JACK GARCIA PA-C [facility] [address] [place] [address] 11/12/2024 08:57:50 11/12/2024 09:11:16 Otitis externa 7048238 H60.92 [id number] RICHARD OROZCO PA-C [facility] [address] [place] [address] 12/31/2024 08:51:13 12/31/2024 09:07:39 Pervasive developmental disorder of residual state 9400880176 9105 F84.9 Impacted c erumen of bilateral ears 9480370067 705351 H61.23 Autism spe ctrum disorder 05714108 F84.9 [id number] RICHARD OROZCO PA-C [facility] [address] [address] 03/18/2025 09:04:44 03/18/2025 09:24:58 Impacted cerumen of bilateral ears 1481886397 312541 H61.23 [id number] RICHARD OROZCO PA-C [facility] [address] [address] 05/25/2025 10:06:02 05/25/2025 10:44:35 Impacted cerumen of bilateral ears 6245249873 525674 H61.23 Pervasive developmental disorder of residual state 0100633130 9105 F84.9 Health Concerns Section Related Observation LastModified by Organization Detai ls LastModified Time None Recorded Concern Status LastModified by Organization Details LastModified Time None Recorded Advance Directives Directive None Recorded Payers Insurance Date Sequence Insurance Name Policy Number Policy Pemberton Covered Member ID Pemberton Member ID Guarantor Name 05/22/2025 1 [place]: [employer] Sander Shook [id number] Sander Shook Jr 05/22/2025 2 [place] [facility] Sander Shook [id number] Sander Shook Jr Notes Date Note Type Note Provider Name and Address Organization Details Recorded Time 10/01/2024 text/html ROS as noted in the [facility] 59-year-old male with pervasive developmental delay presents with father for cerumen removal. There has been no noted otorrhea. Does not seem to be experiencing otalgia, though he has been scratching the external ears a bit. Dad put in some wax softening drops yesterday. MONTSERRAT FARNSWORTH MD [address] [place] [address], [place], [address], [facility] - [facility] 10/01/2024 12:36:20 11/12/2024 text/html ROS as noted in the [facility] 59 year old male with persistent pervasive developmental delay presents with father for evaluation of the ears. Has been sticking his fingers in the left ear. Dad saw some blood on his Q-tip, unsure whether he scratched himself or the ear has been bleeding without digital trauma. GERRY RUSH MD [address] [facility],[address], [address], [facility] - [facility] 11/13/2024 09:13:46 12/31/2024 text/html ROS as noted in the [facility] 59-year-old male with developmental delay presents for reevaluation of left-sided otitis externa. He trialed topical ofloxacin for 10 days. Patient denies ear pain, drainage, or new hearing concerns. MONTSERRAT FARNSWORTH MD [address] [facility],[address], [address], [facility] 12/31/2024 16:52:11 03/18/2025 text/html ROS as noted in the [facility] 59-year-old male with developmental delay presents for cerumen removal. He reports left ear blockage. No new concerns otherwise. MONTSERRAT FARNSWORTH MD [address] [facility],[place] [address], [place], [address], [facility] - [facility] 03/18/2025 16:24:02 05/25/2025 text/html ROS as noted in the [facility] 59-year-old male with developmental delay presents for cerumen removal. No acute concerns today. Johnny Schmidt DO [address] [facility],[address], [address], [facility] 05/25/2025 16:29:28
== END 2025-06-27 12:31 | disposition home or self-care (01) ==
LOC: HO.HMCC 11:22
PROVIDERS: PCP Internal Medicine; Visit Provider Internal Medicine
DX: Z23 Encounter for immunization (principal)

== ENCOUNTER → 2025-06-27 11:21 | Outpatient (BNVA) | payer MEDICARE, MEDICAID, SELFPAY | PROVIDERS: PCP Internal Medicine; Visit Provider Internal Medicine | DX: Z00.01 Encounter for general adult medical examination with abnormal findings (principal); M85.88 Other specified disorders of bone density and structure, other site; D64.9 Anemia, unspecified; E78.5 Hyperlipidemia, unspecified; R73.01 Impaired fasting glucose; M81.8 Other osteoporosis without current pathological fracture; F29 Unspecified psychosis not due to a substance or known physiological condition; G80.9 Cerebral palsy, unspecified; G47.33 Obstructive sleep apnea (adult) (pediatric); Z23 Encounter for immunization; Z87.81 Personal history of (healed) traumatic fracture; Z99.89 Dependence on other enabling machines and devices | CPT/HCPCS: 90471; 90656; 99396 ==